=== PATIENT | female | born 1930 | race African-American/Black ===

== ENCOUNTER 2016-12-12 17:40 | Inpatient (IN) ==
--- NOTE | 2016-12-12 18:00 | EKG Report ---
Stationary ECG Study [facility] ER Test Date: 12/12/2016 5:47:37 PM Pat Name: ISABEL MALCOLM Department: Room: Gender: F Supervisor Reclamation: CANDICE : 1930 Requested by: Can Ramos Order Number: [id number] Reading MD: JESUS LITTLE Intervals [place] Rate: 60 P: 999 AL: 0 QRS: -74 QRSD: 185 T: 104 QT: 515 QTc: 516 Interpretive Statements ATRIAL FIBRILLAITON ELECTRONIC VENTRICULAR PACEMAKER ABNORMAL RHYTHM ECG Electronically Signed On 12-16-16 12:01:20 CDT by JESUS LITTLE [email or web address]
[2016-12-12] MEDS ORDERED: ASPIRIN 325 MG TABLET PO STA (18:14)
[2016-12-12 18:25] LABS: Basophils # 0.1 10*3/uL (0.0-0.2); Basophils % 0.9 % (0.0-0.8); Eosinophils # 0.1 10*3/uL (0.0-0.87); Eosinophils % 1.2 % (0.00-10.9); Hematocrit 28.7 VOL% (35.7-47.0); Hemoglobin 9.1 GM/DL (12.0-16.0); Immature Granulocytes % 0.4 %; Immature Granulocytes Absolute 0.03 #; Lymphocytes # 0.7 10*3/uL (1.4-4.0); Lymphocytes % 9.2 % (21.3-54.2); Mean Corpuscular HGB Conc 31.7 GM/DL (32-36); Mean Corpuscular Hemoglobin 27 PG (27-34); Mean Corpuscular Volume 85.4 FL (87-102); Mean Platelet Volume 10.2 FL (9.6-12.0); Monocytes # 0.5 10*3/uL (0.11-0.8); Neutrophils % 81.3 % (38.7-73.9); Platelet Count 1063 T/CUMM (130-400); Red Blood Count 3.36 MC/CUMM (3.8-5.5); Red Cell Distribution Width 18.7 % (9.3-17.3); White Blood Count 7.4 T/CUMM (4-12)
[2016-12-12 18:31] LABS: INR 1.1; PT Patient Result 11.7 SECS
[2016-12-12] MEDS ORDERED: ASPIRIN 325 MG TABLET ONE (18:34)
[2016-12-12 18:35] LABS: Albumin 3.8 G/DL (3.4-5.0); Bilirubin,Total 0.5 MG/DL (0.2-1.0); Calcium 8.9 MG/DL (8.5-10.1); Magnesium 2.2 MG/DL (1.8-2.4); Osmolality,Calculated 291.7 MOS/KG (273-304); Potassium 3.7 MMOL/L (3.5-5.1); Total Protein 7.2 G/DL (6.4-8.3)
--- NOTE | 2016-12-12 18:47 | Emergency Department Note ---
Shakira Rodriguez Mantricia, am scribing for, and in the presence of, Can Salvador MD 18:16. Modesto Rodriguez Charles R, MD, personally performed the services described in this documentation, ascribed by Corrine Rosenberg in my presence, and it is both accurate and complete 846 . Arrival - Arrival Chief Complaint: Non-Specific ED Nursing Triage Note: Brought in by EMS transfer from [place] ER for further evaluation of elevated troponin. Denies CP or SOB. C/o left arm pain since yesterday. Also reports upper abd pain that started 2 months ago. Mode of Arrival: Stretcher Limitations: No Limitations Source: Family Time Seen by Provider: 12/12/16 17:48 - History of Present Illness HPI Narrative: Pt is an 86 y/o black female arriving to ED by EMS with c/o chest pain that onset today. Pt was transferred from [place] ED for further evaluation of elevated troponin levels. Pt initially went to [place] ED with c/o LUE pain. Once at [place] ED her elevated troponin levels were noticed and she was then transferred here. Immediately leaving [place] ED, pt noted right chest pain. Pt's PCP is Dr. Ayala. Dr. Ayala also put in pt's pacemaker. Pt denies SOB, but notes a PMHx of kidney problems. Pt will also be going to [facility] to further evaluate her cysts. She currently is taking aspirin and heparin every Friday, Friday, and Friday. Onset (ago): hour(s) Consistency: constant Severity: mild Severity scale (1-10): 4 Date of Last Menstrual Period: menopause Allergies/Adverse Reactions: Allergies Allergy/AdvReac Type Severity Reaction Status Date / Time Penicillins Allergy Unknown/Unable Verified 12/12/16 17:51 to obtain Review of System - Review of System 12 point system: reviewed and no additional remarkable complaints except as stated - Review of System Constitutional: Absent: chills, diaphoresis, fever Eyes: Absent: discharge, pain Head/Ears/Nose/Throat: Absent: earache, epistaxis Respiratory: Absent: cough, respiratory distress, wheezing Cardiovascular: Present: chest pain (currently relieved). Absent: palpitations , dyspnea on exertion Gastrointestinal: Absent: abdominal pain, nausea, vomiting, diarrhea Genitourinary female: Absent: abnormal menses, dysuria, discharge Musculoskeletal: Present: arm pain. Absent: back pain, lower back pain, leg pain Skin: Absent: rash, lesions Neurological: Absent: headache, numbness Psychiatric: Absent: anxiety, depression Medical,Surgical,& Family Hx - Medical History Cardio: History of: Hypertension, Pacemaker Endocrine: History of: Dyslipidemia, Thyroid Disorder Rheumatology: History of;: Gout - Social History Smoking Status: Never smoker Frequency of Alcohol Use: None Type of Drug Use: None Exam Vital Signs: Vital Signs Temperature 98.0 F 12/12/16 17:45 Pulse Rate 64 12/12/16 17:45 Respiratory Rate 18 12/12/16 17:45 Blood Pressure 162/71 12/12/16 17:45 O2 Sat by Pulse Oximetry 100 12/12/16 17:45 - General General appearance: alert, in no apparent distress - Head Head exam: Present: atraumatic, normocephalic, normal inspection - Eye Eye exam: Present: normal appearance, PERRL, EOMI - ENT ENT exam: Present: normal exam, normal oropharynx, mucous membranes moist, TM's normal bilaterally, normal external ear exam - Neck Neck exam: Present: normal inspection, full ROM, trachea midline. Absent: tenderness - Chest Chest inspection: Present: normal inspection, symmetric chest wall rise. Absent : tenderness - Respiratory Respiratory exam: Present: normal lung sounds bilaterally. Absent: respiratory distress - Cardiovascular Cardiovascular exam: Present: regular rate, normal rhythm, bradycardia, murmur ( 3/6). Absent: rubs, gallop - Abdominal Exam Abdominal exam: Present: soft, distention, normal bowel sounds. Absent: tenderness, guarding, rebound - Extremities Exam Extremities exam: Present: normal inspection, full ROM, normal capillary refill , pedal edema (+1 edema). Absent: tenderness - Back Exam Back exam: Present: normal inspection, full ROM. Absent: tenderness, muscle spasm - Neurological Exam Neurological exam: Present: alert, oriented X3, CN II-XII intact, reflexes normal. Absent: motor sensory deficit - Psychiatric Psychiatric exam: Present: normal affect, normal mood. Absent: depressed - Skin Skin exam: Present: warm, dry, intact, normal color Course - Consultations Consultation #1: Dr. Bedoya will admit for Dr. Ayala Time: 18:44 Results - Labs CBC & BMP: 12/12/16 17:49 12/12/16 17:49 Lab Results: I have reviewed the patients labs Disposition Clinical Impression: Chest pain, Anemia, chronic disease, Renal insufficiency, Abdominal pain distention, Thrombocytosis, Elevated troponin Case discussed with: patient, patient's family Disposition: Still a Patient Condition: Stable Time of Disposition: 18:46
--- NOTE | 2016-12-12 18:50 | XRay Report ---
Exam: XR chest 1V Date: 12/12/2016 6:14 PM Comparison: 12/12/2016 Indication: Chest pain Technique:[Single view chest Findings: The heart is minimally enlarged with left subclavian ventricular permanent pacemaker. Chronic scarring in the lungs with minimal accentuation of the perihilar markings extending to the lung bases. Minimal atelectasis. Stable mediastinum with degenerative changes.] Impression: Cardiomegaly with left subclavian ventricular permanent pacemaker. Chronic scarring in the lungs with mild CHF and minimal atelectasis. Osteopenia. PROCEDURE INTERPRETED AT [facility] DEPARTMENT OF RADIOLOGY Final Report Signed by: Dr. Janett Stone
--- NOTE | 2016-12-12 18:52 | XRay Report ---
Exam: XR abdomen 2V Date: 12/12/2016 6:12 PM Comparison: None Indication: Generalized abdominal pain Technique:[Supine and erect abdomen] Findings: Mild gaseous distention of the bowel with no free air. Left subclavian ventricular pacemaker with metallic stents in the left femoral location. Arterial calcifications are noted with degenerative changes and osteopenia. Impression: Mild gaseous distention of the bowel which could be related to ileus, enteritis, etc. No free air. Permanent pacemaker with left femoral metallic stents. PROCEDURE INTERPRETED AT [facility] DEPARTMENT OF RADIOLOGY Final Report Signed by: Dr. Janett Stone
[2016-12-12] MEDS ORDERED: POTASSIUM CHLORIDE 20 MEQ TABLET PO PRN (21:21)
[2016-12-12] MEDS ORDERED: MAGNESIUM SULF RIDER 2 GM in PREMIX 1 EACH IV PRN (21:21)
[2016-12-12] MEDS ORDERED: MORPHINE 2 MG/1 ML SYRINGE IV PRN (21:21)
[2016-12-12] MEDS ORDERED: ONDANSETRON 4 MG/2 ML VIAL IV PRN (21:21)
[2016-12-12] MEDS ORDERED: SODIUM CHLORIDE 0.9% 1,000 ML IV SCH (21:21)
[2016-12-12] MEDS ORDERED: MAGNESIUM SULF RIDER 4 GM in PREMIX 1 EACH IV PRN (21:21)
[2016-12-12] MEDS ORDERED: ENOXAPARIN 60 MG/0.6 ML SYRINGE SUBCUT SCH (21:21)
--- NOTE | 2016-12-13 00:40 | EKG Report ---
Stationary ECG Study [facility] Test Date: 12/13/2016 12:36:25 AM Pat Name: ISABEL MALCOLM Department: Room: 285 Gender: F Show Host: : 1930 Requested by: Can Ramos Order Number: [id number] Reading MD: JESUS LITTLE Intervals [place] Rate: 62 P: 999 [place]: 0 QRS: -75 QRSD: 188 T: 104 QT: 519 QTc: 524 Interpretive Statements ATRIAL FIBRILLATION WITH ELECTRONIC VENTRICULAR PACEMAKER Electronically Signed On 12-16-16 12:05:29 CDT by JESUS LITTLE [email or web address]
[2016-12-13 02:25] LABS: Basophils # 0.1 10*3/uL (0.0-0.2); Basophils % 1.1 % (0.0-0.8); Eosinophils # 0.1 10*3/uL (0.0-0.87); Eosinophils % 1.4 % (0.00-10.9); Hematocrit 27.6 VOL% (35.7-47.0); Hemoglobin 8.6 GM/DL (12.0-16.0); Immature Granulocytes % 0.5 %; Immature Granulocytes Absolute 0.03 #; Lymphocytes # 0.6 10*3/uL (1.4-4.0); Lymphocytes % 9.3 % (21.3-54.2); Mean Corpuscular HGB Conc 31.2 GM/DL (32-36); Mean Corpuscular Hemoglobin 27 PG (27-34); Mean Corpuscular Volume 87.1 FL (87-102); Mean Platelet Volume 9.9 FL (9.6-12.0); Monocytes # 0.4 10*3/uL (0.11-0.8); Monocytes % 6.9 % (1.7-12.7); Neutrophils % 80.8 % (38.7-73.9); Platelet Count 970 T/CUMM (130-400); Red Blood Count 3.17 MC/CUMM (3.8-5.5); Red Cell Distribution Width 18.6 % (9.3-17.3); White Blood Count 6.2 T/CUMM (4-12)
[2016-12-13 03:06] LABS: Albumin 3.4 G/DL (3.4-5.0); Bilirubin,Total 0.7 MG/DL (0.2-1.0); Calcium 8.4 MG/DL (8.5-10.1); Magnesium 2.1 MG/DL (1.8-2.4); Osmolality,Calculated 293.6 MOS/KG (273-304); Potassium 3.8 MMOL/L (3.5-5.1); Total Protein 5.8 G/DL (6.4-8.3)
--- NOTE | 2016-12-13 06:16 | EKG Report ---
Stationary ECG Study [facility] Test Date: 12/12/2016 9:29:11 PM Pat Name: ISABEL MALCOLM Department: Room: 285 Gender: F Adhesive Sprayer: : 1930 Requested by: Can Ramos Order Number: [id number] Reading MD: JESUS LITTLE Intervals [place] Rate: 64 P: 999 [place]: 0 QRS: -80 QRSD: 166 T: 97 QT: 490 QTc: 499 Interpretive Statements ATRIAL FIBRILLATION WITH ELECTRONIC VENTRICULAR PACEMAKER NO FURTHER INTERPRETATION POSSIBLE ATYPICAL ECG Electronically Signed On 12-16-16 12:03:47 CDT by JESUS LITTLE [email or web address]
--- NOTE | 2016-12-13 08:11 | XRay Report ---
Exam: XR chest 1V Date: 12/13/2016 8:00 AM Comparison: 12/12/2016 Indication: Shortness of breath Technique:[PA chest] Findings: Stable cardiomegaly and left subclavian ventricular permanent pacemaker. Chronic scarring with persistent accentuation of the perihilar markings. Minimal atelectasis. Stable mediastinum with degenerative changes. Impression: Stable cardiomegaly and left subclavian ventricular permanent pacemaker. Chronic scarring with persistent mild CHF and minimal atelectasis. PROCEDURE INTERPRETED AT [facility] DEPARTMENT OF RADIOLOGY Final Report Signed by: Dr. Janett Stone
--- NOTE | 2016-12-13 08:13 | XRay Report ---
Exam: XR abdomen 1V Date: 12/13/2016 8:00 AM Comparison: 12/12/2016 Indication: Generalized abdominal pain Technique:[Supine abdomen] Findings: Decreased gaseous distention of the bowel. Increased fecal material in the colon. Vascular calcifications with partially calcified uterine leiomyoma. Stable osseous structures with permanent pacemaker. Impression: Reduced gaseous distention of bowel resection with improved ileus, enteritis, etc. Increased fecal material in the colon. Vascular calcifications with partially calcified uterine leiomyomata. PROCEDURE INTERPRETED AT [facility] DEPARTMENT OF RADIOLOGY Final Report Signed by: Dr. Janett Stone
--- NOTE | 2016-12-13 09:13 | Cardiology History & Physical ---
<Emperatriz Bobby E - Last Filed: 12/13/16 09:10> Assessment and Plan - Time spent with patient Time spent with patient: Greater than 30 minutes (due to assessment, plan, and documentation) (1) Elevated troponin Status: Acute Assessment and plan: Troponins are flat and are elevated in the setting of renal insufficiency with creatinine 1.4. EKG shows no acute changes. Patient is tender to palpation of left chest wall. Patient's pain is thought to be non-cardiac. She does have a systolic murmur present that the family was unaware of. We will obtain an echocardiogram for further evaluation of any valvular abnormalities. Current Visit: Yes (2) Chest pain Status: Acute Assessment and plan: Patient's pain is non-cardiac in nature. She has tenderness to palpation of left chest wall surrounding pacemaker site which has been present for several months. She is also tender at the site of a left midsternal/left breast keloid. Troponins are flat. EKG shows no acute ischemic changes. Current Visit: Yes (3) Anemia Status: Acute Assessment and plan: Limited access to prior records, but lab work from 2010 shows normal H&H. Will check Hemoccult stools. GI has been consulted. Current Visit: Yes (4) History of cardiac pacemaker Status: Chronic Assessment and plan: History of dual chamber pacemaker placement, appears to be functioning appropriately. Current Visit: Yes (5) HTN (hypertension) Status: Chronic Assessment and plan: Currently suboptimally controlled. Will continue home medications and monitor and adjust as needed. Current Visit: Yes (6) GERD (gastroesophageal reflux disease) Status: Chronic Assessment and plan: Continue Protonix. Current Visit: Yes (7) Abdominal distension Status: Acute Assessment and plan: Ongoing for the past 2 months accompanied by occasional hematochezia and melena. Has also lost approximately 40 pounds in the last 15 months without trying. Has seen Dr. Alejandro, GI at [facility], but now wishes to follow with one of our Gastroenterologists. GI has been consulted. Current Visit: Yes (8) Renal insufficiency Status: Acute Assessment and plan: This appears to be chronic. We have limited records, so it is difficult to determine her baseline, but she has also had elevated creatinine at 2.2 in April 2015. Creatinine was 1.2 in 2010. Current Visit: Yes History of Present Illness Chief complaint: elevated troponin, left arm pain History of present illness: RN CARDIOVASCULAR: DR. AYALA PCP: DR. COURTNEY BEAR Ms. Landeros is a 86 year old female who is routinely followed by Dr. Ayala. Her primary care provider is Dr. Thuy Bear. She has a history of bradycardia status post dual-chamber pacemaker placement, peripheral vascular disease, gastroesophageal reflux disease, arthritis, hypertension. Risk factors significant for: Hypertension, sedentary lifestyle, former smoker, age. To the patient's knowledge, she has never undergone stress testing or cardiac catheterization. Her granddaughter is at the bedside and aids in providing some of the history. Ms. Landeros was transferred to our facility from [facility] last night for further evaluation of her elevated troponin. She presented to [facility] yesterday with complaints of left arm pain. She tells me that she has had left hand and arm pain that goes up her arm almost to her shoulder. This is also accompanied by left chest wall pain. She describes this as feeling as if something "hits her" and then goes away. She reports it is intermittent and only last a couple seconds. She tells me this is been going on off and on for the last month. It is also sometimes accompanied by mild shortness of breath and diaphoresis. She denies nausea or vomiting. She reports over the past several weeks, she has noticed an increase in dyspnea on exertion that she previously did not have. She also notes occasional palpitations and bilateral lower extremity swelling. She has been seen by Dr. Ayala in the clinic in August of this year and was having some left-sided chest wall pain around her pacemaker site and in her rib area at that time. Her pacemaker was checked and was found to be functioning appropriately. She continues to have some tenderness in this area. She is also noted to have a large keloid on her left breast that has been tender for quite some time. According to her granddaughter, the patient has some ongoing GI complaints for which she has been undergoing evaluation. She has abdominal distention that has been present for approximately 2 months. She was hospitalized at [facility] in October and saw Dr. Alejandro who performed an EGD which according to the family was negative. She reportedly had an ileus and has had some occasional melena and hematochezia but reports she is passing gas and is having regular bowel movements. Her granddaughter tells me she has a history of having a mass on her kidneys for which she was being referred to a physician in [place], [place] for further treatment. She has also undergone uterine ablation. Her troponins are flat, creatinine is elevated at 1.4. She is currently pain free and her pain is thought to be non-cardiac in nature given her tenderness surrounding her pacemaker. We will obtain an echocardiogram to evaluate for further valvular abnormalities. EKG shows ventricular pacing, no acute ischemic changes. Dr. Mcgraw to follow with further plan and addendum. Home Medications Medication Instructions Recorded Confirmed Type Alendronate [Fosamax] 70 mg PO MO 12/12/16 12/12/16 History Allopurinol [Allopurinol] 300 mg PO QAM 12/12/16 12/12/16 History Aspirin EC Tab 81 mg PO QAM 12/12/16 12/12/16 History Atorvastatin [Lipitor] 5 mg PO QAM 12/12/16 12/12/16 History Docusate Sodium 100 mg PO QAM 12/12/16 12/12/16 History Furosemide [Furosemide] 40 mg PO QAM 12/12/16 12/12/16 History Levothyroxine Sodium 50 mcg PO QAM 12/12/16 12/12/16 History Pantoprazole Sodium 40 mg PO QAM 12/12/16 12/12/16 History Polyethylene Glycol Powder 1 each PO QAM 12/12/16 12/12/16 History [Miralax] amLODIPine [Norvasc] 10 mg PO QAM 12/12/16 12/12/16 History traZODone [Desyrel] 25 - 50 mg PO BEDTIME 12/12/16 12/12/16 History Allergies Allergy/AdvReac Type Severity Reaction Status Date / Time Penicillins Allergy Unknown/Unable Verified 12/12/16 17:51 to obtain Review of systems: - Constitutional: Present: weight loss (per Dr. Ayala's clinic note from August 2016, the patient had lost from 170# to 132# over the past year), As per HPI. Absent: anorexia, chills, daytime sleepiness, excessive sweating, fever(s), frequent falls, headache(s), increased appetite, lethargy, malaise, night sweats, stops breathing during sleep, weakness, weight gain, fatigue. - EENT Eyes: Present: As per HPI. Absent: blurry vision, diplopia, loss of vision Ears: Present: As per HPI. Absent: decreased hearing, ear discharge, ear pain Nose, mouth and throat: Present: As per HPI. Absent: dysphagia, epistaxis, headache(s), hoarseness, lip swelling, nasal congestion, neck mass, neck pain, sinus pressure, sore throat, throat swelling, tongue swelling, vertigo - Cardiovascular: Present: chest pain at rest, dyspnea, dyspnea on exertion, edema, palpitations, as per HPI. Absent: chest pain with activity, claudication , diaphoresis, radiating jaw, neck or arm pain, lightheadedness, orthopnea, PND - Respiratory: Present: dyspnea, dyspnea on exertion, as per HPI. Absent: cough , hemoptysis, wheezing, snoring, pain on inspiration - Gastrointestinal: Present: hematochezia, melena, abdominal pain, bloating, As per HPI. Absent: change in bowel habits, constipation, diarrhea, heartburn, hematemesis, loose stools, nausea, vomiting - Genitourinary: Present: As per HPI. Absent: difficulty urinating, dysuria, flank pain, hematuria, nocturia, urinary frequency, urinary incontinence - Musculoskeletal: Present: joint stiffness As per HPI. Absent: arthralgias, back pain, joint swelling, limited range of motion, muscle cramps, muscle weakness, myalgias - Neurological: Present: As per HPI. Absent: abnormal gait, abnormal speech, behavioral changes, confusion, convulsions, disequilibrium, dizziness, focal weakness, frequent falls, headache(s), memory loss, numbness, paresthesias, radicular pain, syncope, tremor(s) - Psychiatric: Present: As per HPI. Absent: anxiety, confusion, depression, panic attacks - Endocrine: Present: As per HPI. Absent: cold intolerance, fatigue, heat intolerance, polydipsia, polyphagia - Hematologic/Lymphatic: Present: As per HPI. Absent: easy bleeding, easy bruising, lymphadenopathy Medical,Surgical,& Family Hx - Medical History Cardio: History of: Hypertension, Pacemaker, PVD Endocrine: History of: Thyroid Disorder No history of: Diabetes Mellitus (IDDM), Diabetes Mellitus (NIDDM) Rheumatology: History of;: Gout Gastrointestinal: History of: GERD, Hematochezia - Surgical History Additional Surgical History: Dual chamber pacemaker, surgery by Dr. Russell Viveros to [facility] for PVD - Family History Family History: noncontributory - Social History Smoking Status: Former smoker (smoked from [id number]) Have you smoked in the last 12 months: No Frequency of Alcohol Use: None Type of Drug Use: None Marital Status: Lives With:: Children Functional capacity: uses cane/walker Cardiology Physical Exam - Constitutional Vitals: Vital Signs Temp Pulse Resp BP Pulse Ox 97.6 F 60 20 172/73 96 12/13/16 07:51 12/13/16 07:51 12/13/16 07:51 12/13/16 07:51 12/12/16 20:00 Intake and Output 12/12/16 12/13/16 12/13/16 22:59 06:59 14:59 Intake Total 240 / 240 Output Total 200 / 200 Balance 40 / 40 Intake: Oral 240 / 240 Output: Urine 200 / 200 Other: Voiding Method Toilet # Voids 2 # Bowel Movements 1 Weight 132 lb 130 lb Exam: General appearance: Pleasant and cooperative. Normal weight, no acute distress. - Head Head exam: Present: normal inspection, normocephalic, atraumatic. Absent: hematoma, laceration - Eye Eye exam: Present: EOMI. Absent: conjunctival injection, nystagmus, periorbital swelling, scleral icterus, laceration to eyelids Pupils: Present: PERRL. Absent: constricted, dilated, fixed, irregular, unequal - ENT ENT exam: Present: normal exam, normal external ear exam - Neck Neck exam: Present: normal inspection. Absent: lymphadenopathy, meningismus, tenderness, thyromegaly - Respiratory Respiratory exam: Present: clear to auscultation bilaterally. Absent: accessory muscle use, chest wall tenderness - Cardiovascular Cardiovascular exam: Present: regular rate and rhythm, systolic murmur, best appreciated at apex with radiation to axilla. Absent: gallop, JVD, rubs - GI/Abdominal GI/Abdominal exam: Present: normal bowel sounds, soft, distended, tender to palpation. Absent: firm, guarding, hernia, rebound. - Extremities Exam Extremities exam: Present: normal inspection, normal capillary refill. Upper extremity pulses 2+. Lower extremity pulses diminished. Trace pitting edema to BLE. Absent: calf tenderness - Back Exam Back exam: Present: normal inspection. Absent: muscle spasm, vertebral tenderness, multiple keloids noted to left side of back - Neurological Exam Neurological exam: Present: alert, oriented X3, grossly intact without resting or essential tremor - Psychiatric Psychiatric exam: Present: normal affect, normal mood - Skin Skin exam: Present: normal color, warm, dry, intact, keloid noted to left breast (tender to palpation). Absent: cyanosis, diaphoretic, rash, urticaria Result/EKG - Labs CBC & BMP: 12/13/16 02:03 12/13/16 02:03 Lab Results: I have reviewed the past 24 hour labs Labs: Laboratory Results - last 24 hr 12/12/16 12/13/16 12/13/16 22:13 02:03 02:03 WBC 6.2 RBC 3.17 L Hgb 8.6 L Hct 27.6 L MCV 87.1 MCH 27 MCHC 31.2 L RDW 18.6 H Plt Count 970 H MPV 9.9 Neut % (Auto) 80.8 H Lymph % (Auto) 9.3 L [place] % (Auto) 6.9 Eos % (Auto) 1.4 Baso % (Auto) 1.1 H Neut # (Auto) 5.0 Lymph # (Auto) 0.6 L [place] # (Auto) 0.4 Eos # (Auto) 0.1 Baso # (Auto) 0.1 Immature Gran % 0.5 Nucleated RBC % 0.0 Immature Gran # 0.03 Nucleated RBCs # 0.00 Sodium Potassium Chloride Carbon Dioxide Anion Gap BUN Creatinine GFR Calculation BUN/Creatinine Ratio Glucose Calculated Osmolality Calcium Magnesium Total Bilirubin AST ALT Alkaline Phosphatase Troponin I 0.059 H 0.070 H B-Natriuretic Peptide Total Protein Albumin Globulin Albumin/Globulin Ratio 12/13/16 12/13/16 02:03 02:03 WBC RBC Hgb Hct MCV MCH MCHC RDW Plt Count MPV Neut % (Auto) Lymph % (Auto) Spalding % (Auto) Eos % (Auto) Baso % (Auto) Neut # (Auto) Lymph # (Auto) [place]ding # (Auto) Eos # (Auto) Baso # (Auto) Immature Gran % Nucleated RBC % Immature Gran # Nucleated RBCs # Sodium 146 H Potassium 3.8 Chloride 113 H Carbon Dioxide 23 Anion Gap 13.8 BUN 23 H Creatinine 1.40 H GFR Calculation 36 BUN/Creatinine Ratio 16.00 Glucose 103 Calculated Osmolality 293.6 Calcium 8.4 L Magnesium 2.1 Total Bilirubin 0.70 AST 14 ALT 15 Alkaline Phosphatase 111 Troponin I B-Natriuretic Peptide 365 H Total Protein 5.8 L Albumin 3.4 Globulin 2.4 Albumin/Globulin Ratio 1.4 - EKG EKG results: interpreted by me (V-paced) <Karthikeyan Mcgraw - Last Filed: 12/13/16 18:18> History of Present Illness History of present illness: I have personally interviewed and examined the patient and reviewed the chart. I have discussed the case with Emperatriz Bobby [employer]. I agree with assessment and plan. Ms. Landeros is a 86 year old female who has had prior follow-up evaluation with Dr. Ayala having pacemaker placed. Her biggest complaints is left arm and chest pain that is constant and persistent and worsening motion and palpation. She also has a lot of GI complaints that has been evaluated by Dr. Alejandro at [facility] last month. Those records are trying to be obtained. She's had peripheral vascular disease but no coronary artery disease. Her general health is been fair. I agree with the exam and I do wish to note that she is tender with palpation around the left chest and left arm that reproduces her pain. Her left hand is sensitive to her. Certainly this may be a radiculopathy. Her GI complaints with is slightly distended abdomen is direct tenderness to palpation and distention. GI medicine is going to evaluate this. We do await again the records from [facility]. I do not think aggressive cardiac evaluation is indicated at this time. Cardiology Physical Exam - Constitutional Vitals: Vital Signs Temp Pulse Resp BP Pulse Ox 98.8 F 60 16 172/75 97 12/13/16 16:00 12/13/16 16:00 12/13/16 16:00 12/13/16 16:00 12/13/16 16:00 Intake and Output 12/13/16 12/13/16 12/13/16 07:59 15:59 23:59 Intake Total 1480 / 1480 Output Total Balance 1479 / 1479 Intake: IV 1000 / 1000 Ns 1,000 ml @ 75 mls/hr 1000 / 1000 IV .[id number] ARAMIS Rx#: [id number] Oral 480 / 480 Output: Urine Other: Voiding Method Toilet # Voids 2 # Bowel Movements 1 Weight 58.967 kg Patient Weight 12/13/16 23:59 Weight 58.967 kg Result/EKG - Labs CBC & BMP: 12/13/16 02:03 12/13/16 02:03 Labs: Laboratory Results - last 24 hr 12/12/16 12/13/16 12/13/16 22:13 02:03 02:03 WBC 6.2 RBC 3.17 L Hgb 8.6 L Hct 27.6 L MCV 87.1 MCH 27 MCHC 31.2 L RDW 18.6 H Plt Count 970 H MPV 9.9 Neut % (Auto) 80.8 H Lymph % (Auto) 9.3 L Spalding % (Auto) 6.9 Eos % (Auto) 1.4 Baso % (Auto) 1.1 H Neut # (Auto) 5.0 Lymph # (Auto) 0.6 L [place] # (Auto) 0.4 Eos # (Auto) 0.1 Baso # (Auto) 0.1 Immature Gran % 0.5 Nucleated RBC % 0.0 Immature Gran # 0.03 Nucleated RBCs # 0.00 Sodium Potassium Chloride Carbon Dioxide Anion Gap BUN Creatinine GFR Calculation BUN/Creatinine Ratio Glucose Calculated Osmolality Calcium Magnesium Total Bilirubin AST ALT Alkaline Phosphatase Troponin I 0.059 H 0.070 H B-Natriuretic Peptide Total Protein Albumin Globulin Albumin/Globulin Ratio 12/13/16 12/13/16 02:03 02:03 WBC RBC Hgb Hct MCV MCH MCHC RDW Plt Count MPV Neut % (Auto) Lymph % (Auto) Spalding % (Auto) Eos % (Auto) Baso % (Auto) Neut # (Auto) Lymph # (Auto) Sp[place]ding # (Auto) Eos # (Auto) Baso # (Auto) Immature Gran % Nucleated RBC % Immature Gran # Nucleated RBCs # Sodium 146 H Potassium 3.8 Chloride 113 H Carbon Dioxide 23 Anion Gap 13.8 BUN 23 H Creatinine 1.40 H GFR Calculation 36 BUN/Creatinine Ratio 16.00 Glucose 103 Calculated Osmolality 293.6 Calcium 8.4 L Magnesium 2.1 Total Bilirubin 0.70 AST 14 ALT 15 Alkaline Phosphatase 111 Troponin I B-Natriuretic Peptide 365 H Total Protein 5.8 L Albumin 3.4 Globulin 2.4 Albumin/Globulin Ratio 1.4
--- NOTE | 2016-12-13 10:17 | Gastrointestinal Consult Note ---
<Tori Bonilla - Last Filed: 12/13/16 10:17> Assessment and Plan (1) Abdominal distension Status: Acute Assessment and plan: 12/13-2 month history of abdominal distention with discomfort with no changes in normal bowel patterns. Recent workup ongoing at [place] with Dr. Alejandro with recent EGD with negative findings. Obtain records from [facility]. Obtain stool for occult blood due to history of anemia plan an addendum to follow by Dr. Fleming. Current Visit: Yes History of Present Illness Chief complaint: Abdominal distention History of present illness: Ms. Landeros is a 86 year old female was admitted to the hospital with onset of chest pain. Patient is a poor historian. Daughter is at bedside and contributes minimally during visit due to being on the cell phone. Information is obtained from chart review. Patient is reported to have had an onset of chest pain radiating down her arm on yesterday. She presented to the emergency room at [facility] and was told that her troponins were elevated and then was transferred to our facility for further workup. Patient states that the pain began suddenly with severe in nature and was associated with shortness of breath and diaphoresis at that time. She denied any nausea or vomiting. She is currently being worked up by cardiology at this time however initial workup is felt at this time to be of noncardiac nature. She states the pain was not associated with any precipitating factors. Denies a history of pain like this in the past. She has a cardiac history with hypertension and pacemaker implant. Patient brought forth on admission that she has had abdominal distention for the past 2 months and has not workup ongoing at [facility] with Dr. Montes. She is reported to have had an 40 pound weight loss in the last year and a half due to decreased appetite. Denies any melena or hematochezia. Denies any fever, chills, or night sweats. She has had a recent EGD, per daughter, with no acute findings. She is also had a colonoscopy in the recent past but cannot recall the date or the findings of this at that time. Denies family history of colon cancer. Patient states that she does not have abdominal pain except for when her abdomen becomes distended. That she just reports more soreness with this. States she has been having regular bowel movements with no change in her bowel pattern. She is passing gas freely. She states the distention comes and goes but she cannot associate this with any known factor. Denies any reflux, dysphagia, odynophagia. Denies NSAID use. She takes Protonix daily. Her history also includes renal insufficiency and anemia of chronic disease. Hemoglobin 8.6 today. Also noted to have thrombocytosis with platelet count at 970 at present. Home Medications Medication Instructions Recorded Confirmed Type Alendronate [Fosamax] 70 mg PO MO 12/12/16 12/12/16 History Allopurinol [Allopurinol] 300 mg PO QAM 12/12/16 12/12/16 History Aspirin EC Tab 81 mg PO QAM 12/12/16 12/12/16 History Atorvastatin [Lipitor] 5 mg PO QAM 12/12/16 12/12/16 History Docusate Sodium 100 mg PO QAM 12/12/16 12/12/16 History Furosemide [Furosemide] 40 mg PO QAM 12/12/16 12/12/16 History Levothyroxine Sodium 50 mcg PO QAM 12/12/16 12/12/16 History Pantoprazole Sodium 40 mg PO QAM 12/12/16 12/12/16 History Polyethylene Glycol Powder 1 each PO QAM 12/12/16 12/12/16 History [Miralax] amLODIPine [Norvasc] 10 mg PO QAM 12/12/16 12/12/16 History traZODone [Desyrel] 25 - 50 mg PO BEDTIME 12/12/16 12/12/16 History Allergies Allergy/AdvReac Type Severity Reaction Status Date / Time Penicillins Allergy Unknown/Unable Verified 12/12/16 17:51 to obtain Medical,Surgical,& Family Hx - Medical History Cardio: History of: Hypertension, Pacemaker, PVD Endocrine: History of: Dyslipidemia, Thyroid Disorder No history of: Diabetes Mellitus (IDDM), Diabetes Mellitus (NIDDM) Rheumatology: History of;: Gout Gastrointestinal: History of: GERD, Hematochezia - Social History Smoking Status: Former smoker (smoked from [id number]) Frequency of Alcohol Use: None Type of Drug Use: None 12 point system: reviewed and no additional remarkable complaints except as stated - Constitutional Constitutional: Present: as per HPI - EENT Eyes: Present: as per HPI Ears: Present: as per HPI Nose, mouth and throat: Present: as per HPI - Cardiovascular Cardiovascular: Present: as per HPI, chest pain at rest - Respiratory Respiratory: Present: as per HPI - Gastrointestinal Gastrointestinal: Present: as per HPI, abdominal pain, bloating - Genitourinary Genitourinary: Present: as per HPI - Musculoskeletal Musculoskeletal: Present: as per HPI - Neurological Neurological: Present: as per HPI - Psychiatric Psychiatric: Present: as per HPI - Endocrine Endocrine: Present: as per HPI - Hematologic/Lymphatic Hematologic/Lymphatic: Present: as per HPI Exam - Constitutional Vitals: Period Temp Pulse Resp BP Sys/Hall Pulse Ox Last 24 Hr 97.0 F-98.3 F 60-97 16-20 143-172/62-74 96-99 General appearance: normal weight, no acute distress - Head Head exam: Present: normal inspection, normocephalic - Eye Eye exam: Present: other (Lids and conjunctive are unremarkable). Absent: scleral icterus - ENT ENT exam: Present: normal exam, normal oropharynx - Neck Neck exam: Present: normal inspection - Respiratory Respiratory exam: Present: clear to auscultation bilaterally. Absent: rales, rhonchi, wheezes - Cardiovascular Cardiovascular exam: Present: regular rate and rhythm. Absent: diastolic murmur , JVD, systolic murmur - GI/Abdominal GI/Abdominal exam: Present: normal bowel sounds, soft. Absent: ascites, distended, mass, organomegaly, tenderness - Extremities Exam Extremities exam: Present: normal inspection, full ROM - Back Exam Back exam: Present: normal inspection - Neurological Exam Neurological exam: Present: alert, oriented X3 - Psychiatric Psychiatric exam: Present: normal affect, normal mood - Skin Skin exam: Present: normal color, warm, dry Results - Labs CBC & BMP: 12/13/16 02:03 12/13/16 02:03 Lab Results: I have reviewed the past 24 hour labs <Dillon Fleming - Last Filed: 12/13/16 13:38> History of Present Illness History of present illness: Ms. Landeros is a 86 year old female Exam - Constitutional Vitals: Period Temp Pulse Resp BP Sys/Hall Pulse Ox Last 24 Hr 97.0 F-98.3 F 60-97 16-20 143-172/62-74 96-99 Results - Labs CBC & BMP: 12/13/16 02:03 12/13/16 02:03
[2016-12-13] MEDS: amLODIPine 10 MG TABLET PO SCH (10:20)
[2016-12-13] MEDS: DOCUSATE SODIUM 100 MG CAPSULE PO SCH (10:20)
[2016-12-13] MEDS: ALLOPURINOL 300 MG TABLET PO SCH (10:20)
[2016-12-13] MEDS: FUROSEMIDE 40 MG TABLET PO SCH (10:20)
[2016-12-13] MEDS: POLYETHYLENE GLYCOL POWDER 17 GM PACK PO SCH (10:20)
[2016-12-13] MEDS: LEVOTHYROXINE 50 MCG TABLET PO SCH (10:20)
[2016-12-13] MEDS: PANTOPRAZOLE 40 MG TABLET PO SCH (10:21)
[2016-12-13] MEDS: ASPIRIN EC 325 MG TABLET PO SCH (10:21)
[2016-12-13] MEDS: ATORVASTATIN 10 MG TABLET PO SCH (10:21)
[2016-12-13] MEDS: ENOXAPARIN 30 MG/0.3 ML SYRINGE SUBCUT SCH (11:20)
[2016-12-13] MEDS: NITROGLYCERIN 2% OINT 1 INCH/GM PACK TOP SCH ×4 (11:22→18:55)
--- NOTE | 2016-12-13 19:36 | ECHO Report ---
Rosemary Landeros Exam Date: 12/13/2016 11:09 Referring Physician: Technologist: Jahaira Hyatt RDCS Age: 86 Ht (in): 63 Wt (lb): 130 Gender: F Exam Location: [facility] Echo Indications: Chest pain, unspecified, Elevated troponin, Anemia, Presence of cardiac pacemaker, Essential (primary) hypertension, GERD, Cardiac murmur, unspecified, Dyspnea, unspecified, Renal insufficiency BP: 160 / 70 HR: 67 Rhythm: Pacemaker Technical Quality: IMPRESSIONS 1. Left ventricle is normal size with mild global hypokinesis with an ejection fraction 45-50%. There is mild concentric left ventricular hypertrophy. 2. Left atrium is severely dilated. 3. Right atrium is moderately dilated with pacemaker lead noted. 4. Right ventricle is normal size and systolic function with pacemaker lead noted. 5. Mild possibly moderate mitral regurgitation. Mitral valve slightly thickened. 6. Aortic valve is unremarkable other some sclerosis but normal Doppler. 7. Severe tricuspid regurgitation. 8. Severely elevated right-sided pressures. MEASUREMENTS (Male / Female) Normal Values 2D ECHO LV Diastolic Diameter PLAX 4.1 cm 4.2 - 5.9 / 3.9 - 5.3 cm LV Systolic Diameter PLAX 2.9 cm LV Fractional Shortening PLAX 29.7 % IVS Diastolic Thickness 1.2 cm 0.6 - 1.0 / 0.6 - 0.9 cm LVPW Diastolic Thickness 1.2 cm 0.6 - 1.0 / 0.6 - 0.9 cm RV Internal Dim ED PLAX 2.9 cm Aortic Root Diameter 3.0 cm LA Systolic Diameter LX 4.2 cm 3.0 - 4.0 / 2.7 - 3.8 cm DOPPLER TR Peak Velocity 454.0 cm/s TR Peak Gradient 82.4 mmHg FINDINGS Left Ventricle Normal left ventricular cavity size. Mild left ventricular hypertrophy. Left ventricular ejection fraction is estimated at 45-50 %. Right Ventricle The right ventricle is normal in size and function. Pacemaker lead noted. Right Atrium Moderately increased right atrial size. Pacemaker lead noted. Left Atrium Severely increased left atrial size. Mitral Valve Thickened mitral valve. Mild-moderate mitral valve regurgitation. Aortic Valve Aortic valve is a tricuspid structure with sclerosis and without stenosis or regurgitation. Tricuspid Valve Morphologically normal tricuspid valve. Severe tricuspid valve regurgitation. Tricuspid regurgitation velocities suggest a PAP of 92 mmHg. Pulmonic Valve Morphologically normal pulmonic valve. Trace pulmonary valve regurgitation. Pericardium Normal pericardium without effusion. Aorta Normal ascending aorta dimension. Karthikeyan Mcgraw MD (Electronically Signed) Final Date: 13 December 2016 19:36
[2016-12-13] MEDS: traZODone 50 MG TABLET PO SCH (21:07)
[2016-12-14] MEDS: NITROGLYCERIN 2% OINT 1 INCH/GM PACK TOP SCH ×4 (01:35→17:16)
[2016-12-14 04:28] LABS: Basophils # 0.1 10*3/uL (0.0-0.2); Basophils % 1.1 % (0.0-0.8); Eosinophils # 0.1 10*3/uL (0.0-0.87); Eosinophils % 1.6 % (0.00-10.9); Hematocrit 26.8 VOL% (35.7-47.0); Hemoglobin 8.6 GM/DL (12.0-16.0); Immature Granulocytes % 0.5 %; Immature Granulocytes Absolute 0.03 #; Lymphocytes # 0.6 10*3/uL (1.4-4.0); Lymphocytes % 9.2 % (21.3-54.2); Mean Corpuscular HGB Conc 32.1 GM/DL (32-36); Mean Corpuscular Hemoglobin 27 PG (27-34); Mean Corpuscular Volume 85.1 FL (87-102); Mean Platelet Volume 10.2 FL (9.6-12.0); Monocytes # 0.4 10*3/uL (0.11-0.8); Monocytes % 5.7 % (1.7-12.7); Neutrophils # 5.2 10*3/uL (1.4-7.4); Neutrophils % 81.9 % (38.7-73.9); Red Blood Count 3.15 MC/CUMM (3.8-5.5); Red Cell Distribution Width 18.6 % (9.3-17.3); White Blood Count 6.3 T/CUMM (4-12)
[2016-12-14 04:49] LABS: Calcium 8.6 MG/DL (8.5-10.1); Magnesium 1.9 MG/DL (1.8-2.4); Osmolality,Calculated 292.7 MOS/KG (273-304); Potassium 4.6 MMOL/L (3.5-5.1)
[2016-12-14 05:25] LABS: Risk Ratio 2.13
[2016-12-14 05:27] LABS: Platelet Count 1007 T/CUMM (130-400)
[2016-12-14] MEDS: POLYETHYLENE GLYCOL POWDER 17 GM PACK PO SCH (08:43)
[2016-12-14] MEDS: LEVOTHYROXINE 50 MCG TABLET PO SCH (08:44)
[2016-12-14] MEDS: PANTOPRAZOLE 40 MG TABLET PO SCH (08:44)
[2016-12-14] MEDS: ATORVASTATIN 10 MG TABLET PO SCH (08:44)
[2016-12-14] MEDS: DOCUSATE SODIUM 100 MG CAPSULE PO SCH (08:44)
[2016-12-14] MEDS: ENOXAPARIN 30 MG/0.3 ML SYRINGE SUBCUT SCH ×2 (08:44→11:11)
[2016-12-14] MEDS: amLODIPine 10 MG TABLET PO SCH (08:44)
[2016-12-14] MEDS: ASPIRIN EC 325 MG TABLET PO SCH (08:45)
[2016-12-14] MEDS: ALLOPURINOL 300 MG TABLET PO SCH (08:45)
[2016-12-14] MEDS: FUROSEMIDE 40 MG TABLET PO SCH (08:45)
--- NOTE | 2016-12-14 13:37 | Cardiology Progress Note ---
Assessment and Plan (1) Atrial fibrillation Status: Chronic Assessment and plan: This is probably chronic. She is not a good candidate for anticoagulants for stroke prevention. Current Visit: Yes (2) Chest pain Status: Acute Assessment and plan: Summary this is somewhat chronic and is certainly atypical for cardiac. Troponins is certainly not diagnostic for Current Visit: Yes (3) Renal insufficiency Status: Acute Assessment and plan: Has a chronic element of this. Current Visit: Yes (4) Thrombocytosis Status: Acute Assessment and plan: Duration is unknown and we will ask hematology to evaluate this as well as for anemia. Current Visit: Yes (5) Anemia Status: Chronic Assessment and plan: Probably anemia of chronic disease. We will ask though because her thrombocytosis for hematology to evaluate. Current Visit: Yes (6) HTN (hypertension) Status: Chronic Current Visit: Yes Cardiology - PN: Subj Interval history: The patient continued has some chest and arm and hand pains are noncardiac and constant. Troponins unremarkable. Telemetry continued to reveal electron ventricular pacing. GI medicine has seen the patient await records from [facility] from recent examination and evaluation. Family states that the patient is better the patient feels better. Echocardiogram reveals an ejection fraction of 45-50% with mild global hypokinesis. Left atrium is severely dilated with right atrium moderately dilated. There is probably it worst moderate mitral regurgitation. There is severe tricuspid regurgitation with severe elevated right-sided pressures. Exam (Progress Note) - Constitutional Vitals: Period Temp Pulse Resp BP Sys/Hall Pulse Ox Last 24 Hr 97.2 F-99.0 F 59-61 12-20 139-195/65-79 92-99 Exam: General appearance: normal weight, no acute distress, she does. Some of her frail elderly female. HEENT exam: normal inspection, atraumatic Neck exam: normal inspection no JVD. No carotid bruit. Trachea is in midline Respiratory/lungs exam: clear to auscultation bilaterally good air movement. Cardiovascular exam: regular rate and rhythm, no murmur or gallop or rub. No precordial lift. Chest wall exam: Still some diffuse tenderness but this is improved. GI/Abdominal exam: Slightly protuberant but has moderate diffuse direct tenderness. Bowel sounds are present. Extremeties/musculoskeletal: normal inspection without edema or cyanosis. Neurological exam: alert, oriented X3, no focal deficits Psychiatric exam: normal affect, normal mood. Cognitive function is grossly normal. Skin exam: normal color, warm Result/EKG - Labs CBC & BMP: 12/14/16 03:38 12/14/16 03:38 Lab Results: I have reviewed the past 24 hour labs Labs: Laboratory Results - last 24 hr 12/14/16 12/14/16 12/14/16 03:38 03:38 03:38 WBC 6.3 RBC 3.15 L Hgb 8.6 L Hct 26.8 L MCV 85.1 L MCH 27 MCHC 32.1 RDW 18.6 H Plt Count 1007 H* MPV 10.2 Neut % (Auto) 81.9 H Lymph % (Auto) 9.2 L Wal[place] % (Auto) 5.7 Eos % (Auto) 1.6 Baso % (Auto) 1.1 H Neut # (Auto) 5.2 Lymph # (Auto) 0.6 L [place] # (Auto) 0.4 Eos # (Auto) 0.1 Baso # (Auto) 0.1 Immature Gran % 0.5 Nucleated RBC % 0.0 Immature Gran # 0.03 Nucleated RBCs # 0.00 Sodium 145 Potassium 4.6 Chloride 111 H Carbon Dioxide 24 Anion Gap 14.6 BUN 27 H Creatinine 1.30 H GFR Calculation 39 BUN/Creatinine Ratio 20.00 Glucose 92 Calculated Osmolality 292.7 Calcium 8.6 Magnesium 1.9 Triglycerides 65 Cholesterol 117 LDL Cholesterol 59.0 VLDL Cholesterol 13.0 HDL Cholesterol 55 Heart Disease Risk Ratio 2.13 - Impressions Impressions: Telemetry with atrial fibrillation and electronic ventricular pacing.
[2016-12-14] MEDS: traZODone 50 MG TABLET PO SCH (22:16)
[2016-12-15] MEDS: NITROGLYCERIN 2% OINT 1 INCH/GM PACK TOP SCH ×4 (00:17→18:03)
[2016-12-15 05:59] LABS: Basophils # 0.1 10*3/uL (0.0-0.2); Basophils % 0.8 % (0.0-0.8); Eosinophils # 0.1 10*3/uL (0.0-0.87); Eosinophils % 1.6 % (0.00-10.9); Hematocrit 26.1 VOL% (35.7-47.0); Hemoglobin 8.4 GM/DL (12.0-16.0); Immature Granulocytes % 0.6 %; Immature Granulocytes Absolute 0.04 #; Lymphocytes # 0.6 10*3/uL (1.4-4.0); Lymphocytes % 7.8 % (21.3-54.2); Mean Corpuscular HGB Conc 32.2 GM/DL (32-36); Mean Corpuscular Hemoglobin 27 PG (27-34); Mean Corpuscular Volume 82.6 FL (87-102); Mean Platelet Volume 10.3 FL (9.6-12.0); Monocytes # 0.4 10*3/uL (0.11-0.8); Monocytes % 6.2 % (1.7-12.7); Neutrophils # 5.9 10*3/uL (1.4-7.4); Red Blood Count 3.16 MC/CUMM (3.8-5.5); Red Cell Distribution Width 19.2 % (9.3-17.3); White Blood Count 7.1 T/CUMM (4-12)
[2016-12-15 06:04] LABS: Platelet Count 1019 T/CUMM (130-400)
[2016-12-15 06:39] LABS: Calcium 8.6 MG/DL (8.5-10.1); Magnesium 1.9 MG/DL (1.8-2.4); Osmolality,Calculated 292.7 MOS/KG (273-304); Potassium 4.9 MMOL/L (3.5-5.1)
[2016-12-15] MEDS: POLYETHYLENE GLYCOL POWDER 17 GM PACK PO SCH (08:46)
[2016-12-15] MEDS: PANTOPRAZOLE 40 MG TABLET PO SCH (08:47)
[2016-12-15] MEDS: amLODIPine 10 MG TABLET PO SCH (08:47)
[2016-12-15] MEDS: ATORVASTATIN 10 MG TABLET PO SCH (08:47)
[2016-12-15] MEDS: FUROSEMIDE 40 MG TABLET PO SCH (08:47)
[2016-12-15] MEDS: ALLOPURINOL 300 MG TABLET PO SCH (08:47)
[2016-12-15] MEDS: ENOXAPARIN 30 MG/0.3 ML SYRINGE SUBCUT SCH ×2 (08:48→10:53)
[2016-12-15] MEDS: ASPIRIN EC 325 MG TABLET PO SCH (08:48)
[2016-12-15] MEDS: LEVOTHYROXINE 50 MCG TABLET PO SCH (08:48)
[2016-12-15] MEDS: DOCUSATE SODIUM 100 MG CAPSULE PO SCH (08:48)
--- NOTE | 2016-12-15 10:03 | Oncology Consult Note ---
History of Present Illness Chief complaint: Thrombocytosis and anemia History of present illness: Ms. Landeros is a 86 year old female who has been found to be anemic. She has also been found to have a platelet count of greater than 1 million. She gives no history of either one in the past. She has microcytic anemia. Blood work today includes white cell count of 7100 with a hemoglobin of 8.4. Her MCV is low as 82.6 and her RDW is 19.2. Her platelet count is 1,190,000. Her comprehensive metabolic profile demonstrates consistent mild elevation of her serum creatinine which is 1.4 today. Albumin and globulin are normal. She has been evaluated at [facility] by Dr. Alejandro. I questioned her concerning GI blood loss she gives no history of any type of blood loss, GI or otherwise. She takes enteric-coated aspirin 81 mg daily but she is on no other anticoagulants. Her admission set of problems includes: 1) Elevated troponin Status: Acute Assessment and plan: Troponins are flat and are elevated in the setting of renal insufficiency with creatinine 1.4. EKG shows no acute changes. Patient is tender to palpation of left chest wall. Patient's pain is thought to be non-cardiac. She does have a systolic murmur present that the family was unaware of. We will obtain an echocardiogram for further evaluation of any valvular abnormalities. Current Visit: Yes (2) Chest pain Status: Acute Assessment and plan: Patient's pain is non-cardiac in nature. She has tenderness to palpation of left chest wall surrounding pacemaker site which has been present for several months. She is also tender at the site of a left midsternal/left breast keloid. Troponins are flat. EKG shows no acute ischemic changes. Current Visit: Yes (3) Anemia Status: Acute Assessment and plan: Limited access to prior records, but lab work from 2010 shows normal H&H. Will check Hemoccult stools. GI has been consulted. Current Visit: Yes (4) History of cardiac pacemaker Status: Chronic Assessment and plan: History of dual chamber pacemaker placement, appears to be functioning appropriately. Current Visit: Yes (5) HTN (hypertension) Status: Chronic Assessment and plan: Currently suboptimally controlled. Will continue home medications and monitor and adjust as needed. Current Visit: Yes (6) GERD (gastroesophageal reflux disease) Status: Chronic Assessment and plan: Continue Protonix. Current Visit: Yes (7) Abdominal distension Status: Acute Assessment and plan: Ongoing for the past 2 months accompanied by occasional hematochezia and melena. Has also lost approximately 40 pounds in the last 15 months without trying. Has seen Dr. Alejandro GI at [place], but now wishes to follow with one of our Gastroenterologists. GI has been consulted. Current Visit: Yes (8) Renal insufficiency Status: Acute Assessment and plan: This appears to be chronic. We have limited records, so it is difficult to determine her baseline, but she has also had elevated creatinine at 2.2 in April 2015. Creatinine was 1.2 in 2010. Current Visit: Yes Home Medications Medication Instructions Recorded Confirmed Type Alendronate [Fosamax] 70 mg PO MO 12/12/16 12/12/16 History Allopurinol [Allopurinol] 300 mg PO QAM 12/12/16 12/12/16 History Aspirin EC Tab 81 mg PO QAM 12/12/16 12/12/16 History Atorvastatin [Lipitor] 5 mg PO QAM 12/12/16 12/12/16 History Docusate Sodium 100 mg PO QAM 12/12/16 12/12/16 History Furosemide [Furosemide] 40 mg PO QAM 12/12/16 12/12/16 History Levothyroxine Sodium 50 mcg PO QAM 12/12/16 12/12/16 History Pantoprazole Sodium 40 mg PO QAM 12/12/16 12/12/16 History Polyethylene Glycol Powder 1 each PO QAM 12/12/16 12/12/16 History [Miralax] amLODIPine [Norvasc] 10 mg PO QAM 12/12/16 12/12/16 History traZODone [Desyrel] 25 - 50 mg PO BEDTIME 12/12/16 12/12/16 History Cardio: History of: Hypertension, Pacemaker, PVD Endocrine: History of: Dyslipidemia, Thyroid Disorder No history of: Diabetes Mellitus (IDDM), Diabetes Mellitus (NIDDM) Rheumatology: History of;: Gout Gastrointestinal: History of: GERD, Hematochezia - Social History Smoking Status: Former smoker (smoked from [id number]) Frequency of Alcohol Use: None Type of Drug Use: None 12 point system: reviewed and no additional remarkable complaints except as stated - Constitutional Constitutional: Present: as per HPI - EENT Eyes: Present: as per HPI Ears: Present: as per HPI Nose, mouth and throat: Present: as per HPI - Cardiovascular Cardiovascular: Present: as per HPI, chest pain at rest and artificial cardiac pacemaker. I find no mention of the heart murmur that I discovered. - Respiratory Respiratory: Present: as per HPI - Gastrointestinal Gastrointestinal: Present: as per HPI, abdominal pain, bloating. She has been undergoing GI evaluation at [place]. - Genitourinary Genitourinary: Present: as per HPI. No history of bleeding. - Musculoskeletal Musculoskeletal: Present: as per HPI gouty arthritis. - Neurological Neurological: Present: as per HPI - Psychiatric Psychiatric: Present: as per HPI - Endocrine Endocrine: Present: as per HPI - Hematologic/Lymphatic Hematologic/Lymphatic: Present: as per HPI Physical examination: General: The patient appears her stated age and does not appear particularly chronically ill. Eyes: She has bilateral arcus senilis with normal lids and conjunctivae. ENT: Her teeth are in fair to poor repair. Her mouth and pharynx are normal. Her hearing is normal. Neck: Her trachea is midline. Her thyroid appears normal. I palpate no neck masses. Pulmonary: Her breath sounds are slightly coarse without rubs, rales or rhonchi. Her chest moves symmetrically with respiration. Cardiovascular: Her heart rhythm is regular with a grade 3/6 systolic ejection murmur heard best in the second intercostal space adjacent to the sternum on the left. She also has very short diastolic decrescendo murmur is grade 2/6. There is no clubbing or cyanosis. Abdomen: There is no tenderness. There is no ascites. I cannot palpate hepatomegaly, splenomegaly or any other masses or organomegaly. Musculoskeletal: She has mild degenerative arthritic changes of the hands. There is no obvious focal muscle atrophy or bone or joint deformity. Neurologic: Cranial nerves II through XII are intact. No focal neurologic deficits. Nodes: There is no cervical, supraclavicular, submental or axillary adenopathy. Skin: Cursory examination did not reveal any significant abnormalities. Impression: I feel certain the patient has iron deficiency anemia. Her red cell indices suggest this. I am going to check a folic acid and B12 level while we are checking a serum iron and total iron binding capacity. I am not certain about her thrombocythemia. Platelet count could be elevated because of inflammation from arthritis or other entities and iron deficiency anemia is often accompanied by thrombocythemia but not usually to this degree. At her age, GI blood loss would be the most likely thing to cause this anemia. I am ordering an ultrasound of her liver and spleen. This is always a difficult and frustrating thing to try to order because this electronic medical record system that does not have the place where you can order ultrasounds of the abdomen easily, which is disruptive of evaluation and patient care. I am going to order a haptoglobin level too in view of her heart murmur, but I expect it to be either normal or elevated. Home Medications Medication Instructions Recorded Confirmed Type Alendronate [Fosamax] 70 mg PO MO 12/12/16 12/12/16 History Allopurinol [Allopurinol] 300 mg PO QAM 12/12/16 12/12/16 History Aspirin EC Tab 81 mg PO QAM 12/12/16 12/12/16 History Atorvastatin [Lipitor] 5 mg PO QAM 12/12/16 12/12/16 History Docusate Sodium 100 mg PO QAM 12/12/16 12/12/16 History Furosemide [Furosemide] 40 mg PO QAM 12/12/16 12/12/16 History Levothyroxine Sodium 50 mcg PO QAM 12/12/16 12/12/16 History Pantoprazole Sodium 40 mg PO QAM 12/12/16 12/12/16 History Polyethylene Glycol Powder 1 each PO QAM 12/12/16 12/12/16 History [Miralax] amLODIPine [Norvasc] 10 mg PO QAM 12/12/16 12/12/16 History traZODone [Desyrel] 25 - 50 mg PO BEDTIME 12/12/16 12/12/16 History Allergies Allergy/AdvReac Type Severity Reaction Status Date / Time Penicillins Allergy Unknown/Unable Verified 12/12/16 17:51 to obtain Medical,Surgical,& Family Hx - Medical History Cardio: History of: Hypertension, Pacemaker, PVD Endocrine: History of: Dyslipidemia, Thyroid Disorder No history of: Diabetes Mellitus (IDDM), Diabetes Mellitus (NIDDM) Rheumatology: History of;: Gout Gastrointestinal: History of: GERD, Hematochezia - Social History Smoking Status: Former smoker Frequency of Alcohol Use: None Type of Drug Use: None Exam - Constitutional Vitals: Period Temp Pulse Resp BP Sys/Hall Pulse Ox Last 24 Hr 98.9 F-99.7 F 59-65 12-20 147-195/69-79 96-100 Results - Labs CBC & BMP: 12/15/16 04:53 12/15/16 04:53
[2016-12-15 10:16] LABS: % Iron Saturation 23.9 % (18-50)
[2016-12-15 11:15] LABS: Folate 10.7 NG/ML (5.4-24.0)
--- NOTE | 2016-12-15 14:42 | Cardiology Progress Note ---
Assessment and Plan (1) Atrial fibrillation Status: Chronic Assessment and plan: This is chronic with electronic ventricular pacing. Current Visit: Yes (2) Chest pain Status: Acute Assessment and plan: This is noncardiac pain. Certainly the troponins are nondiagnostic for ischemic cardiac event. Current Visit: Yes (3) Renal insufficiency Status: Acute Assessment and plan: Has a chronic element of this. Current Visit: Yes (4) Thrombocytosis Status: Acute Assessment and plan: Appreciate Dr. Martinez date atrial fibrillation the patient. Current Visit: Yes (5) Anemia Status: Chronic Assessment and plan: Probably anemia of chronic disease. Appreciate Dr. Martinez evaluation of this. Current Visit: Yes (6) HTN (hypertension) Status: Chronic Assessment and plan: Blood pressure is elevated. We will need to adjust her medications some. We can try losartan and watch her creatinine. Current Visit: Yes Cardiology - PN: Subj Interval history: Generally from cardiac standpoint the patient is doing fairly well. No chest pain overall is better. Again this is not appear to be cardiac. Appreciate Dr. Wilson and Dr. Fleming evaluations. Evaluation is ongoing for both these. We still await records from [facility]. Lower today continues to reveal her anemia and elevated platelet count. Chemistries stable. Continues with her chronic atrial fibrillation R ventricular pacing. Exam (Progress Note) - Constitutional Vitals: Period Temp Pulse Resp BP Sys/Hall Pulse Ox Last 24 Hr 99.0 F-99.8 F 60-65 12-20 147-182/69-76 96-100 Exam: General appearance: normal weight, no acute distress, she does. Some of her frail elderly female. HEENT exam: normal inspection, atraumatic Neck exam: normal inspection no JVD. No carotid bruit. Trachea is in midline Respiratory/lungs exam: clear to auscultation bilaterally good air movement. Cardiovascular exam: regular rate and rhythm, no murmur or gallop or rub. No precordial lift. Chest wall exam: Still some diffuse tenderness but this is improved. GI/Abdominal exam: Slightly protuberant but has moderate diffuse direct tenderness. Bowel sounds are present. Extremeties/musculoskeletal: normal inspection without edema or cyanosis. Neurological exam: alert, oriented X3, no focal deficits Psychiatric exam: normal affect, normal mood. Cognitive function is grossly normal. Skin exam: normal color, warm Result/EKG - Labs CBC & BMP: 12/15/16 04:53 12/15/16 04:53 Lab Results: I have reviewed the past 24 hour labs Labs: Laboratory Results - last 24 hr 12/15/16 12/15/16 12/15/16 04:51 04:53 04:53 WBC 7.1 RBC 3.16 L Hgb 8.4 L Hct 26.1 L MCV 82.6 L MCH 27 MCHC 32.2 RDW 19.2 H Plt Count 1019 H* MPV 10.3 Neut % (Auto) 83.0 H Lymph % (Auto) 7.8 L [place] % (Auto) 6.2 Eos % (Auto) 1.6 Baso % (Auto) 0.8 Neut # (Auto) 5.9 Lymph # (Auto) 0.6 L [place] # (Auto) 0.4 Eos # (Auto) 0.1 Baso # (Auto) 0.1 Immature Gran % 0.6 Nucleated RBC % 0.0 Immature Gran # 0.04 Nucleated RBCs # 0.00 Absolute Retic 0.1 Percent Retic 1.8 H Retic Hgb Equivalent 29.6 Haptoglobin Sodium 145 Potassium 4.9 Chloride 112 H Carbon Dioxide 24 Anion Gap 13.9 BUN 26 H Creatinine 1.40 H GFR Calculation 36 BUN/Creatinine Ratio 18.00 Glucose 93 Calculated Osmolality 292.7 Calcium 8.6 Magnesium 1.9 Iron TIBC % Saturation Vitamin B12 Folate 12/15/16 12/15/16 12/15/16 04:56 04:56 Unknown WBC RBC Hgb Hct MCV MCH MCHC RDW Plt Count MPV Neut % (Auto) Lymph % (Auto) [place] % (Auto) Eos % (Auto) Baso % (Auto) Neut # (Auto) Lymph # (Auto) [place] # (Auto) Eos # (Auto) Baso # (Auto) Immature Gran % Nucleated RBC % Immature Gran # Nucleated RBCs # Absolute Retic Percent Retic Retic Hgb Equivalent Haptoglobin 157.0 Sodium Potassium Chloride Carbon Dioxide Anion Gap BUN Creatinine GFR Calculation BUN/Creatinine Ratio Glucose Calculated Osmolality Calcium Magnesium Iron 52 TIBC 218 L % Saturation 23.9 Vitamin B12 391 Folate 10.7 - Impressions Impressions: Telemetry atrial fibrillation with electronic ventricular pacing.
--- NOTE | 2016-12-15 16:32 | Ultrasound Report ---
History: Anemia. Abdominal distention. History of melena Date: 12/15/2016 Study: Abdominal ultrasound Comparison exam: No previous Real-time ultrasound images were captured and archived. The liver is normal in size at 16.8 cm length. There is no focal hepatic mass. There is no abnormal biliary dilatation. Common bile duct measures 4.1 mm diameter. There is hepatopedal flow in the portal vein. The gallbladder is slightly contracted. There is no evidence of cholelithiasis. The patient reportedly was not npo. The pancreas is normal. There is moderate atherosclerotic irregularity of the abdominal aorta without aneurysm. IVC is patent where seen. The spleen measures 8.6 x 6.6 x 5.9 cm, normal in size, and is without abnormal mass lesion. The left kidney measures 11.1 cm length. There is a solid heterogeneous mass compatible with renal cell carcinoma measuring 45 x 30 x 31 mm at the upper pole of the left kidney. There is a 27 mm simple cyst in the mid to upper left kidney as well. There is a complex cystic mass in the mid right kidney which has an 18 mm area of mural nodularity with internal color Doppler flow, suspicious for neoplasm. There is a Bosniak class II F cyst of a septated nature at the upper pole of the right kidney, measuring 5.8 cm diameter. There is no hydronephrosis. Impression: 4.5 cm solid mass upper pole left kidney, highly suspicious for renal cell carcinoma Mixed cystic and solid mass mid right kidney, measuring at least 18 mm, suspicious for neoplasm as well No evidence of hepatosplenomegaly. No ascites PROCEDURE INTERPRETED AT [facility] DEPARTMENT OF RADIOLOGY Final Report Signed by: Dr. Rosanna Greer
[2016-12-15] MEDS: LOSARTAN 25 MG TABLET PO SCH (21:35)
[2016-12-15] MEDS: traZODone 50 MG TABLET PO SCH (21:35)
[2016-12-16] MEDS: NITROGLYCERIN 2% OINT 1 INCH/GM PACK TOP SCH ×5 (00:04→23:50)
[2016-12-16 05:11] LABS: Basophils # 0.1 10*3/uL (0.0-0.2); Eosinophils # 0.1 10*3/uL (0.0-0.87); Eosinophils % 2.3 % (0.00-10.9); Hematocrit 27.3 VOL% (35.7-47.0); Hemoglobin 8.5 GM/DL (12.0-16.0); Immature Granulocytes % 0.5 %; Immature Granulocytes Absolute 0.03 #; Lymphocytes # 0.5 10*3/uL (1.4-4.0); Lymphocytes % 7.8 % (21.3-54.2); Mean Corpuscular HGB Conc 31.1 GM/DL (32-36); Mean Corpuscular Hemoglobin 27 PG (27-34); Mean Corpuscular Volume 85.8 FL (87-102); Mean Platelet Volume 10.1 FL (9.6-12.0); Monocytes # 0.4 10*3/uL (0.11-0.8); Monocytes % 7.1 % (1.7-12.7); Neutrophils # 4.9 10*3/uL (1.4-7.4); Neutrophils % 81.3 % (38.7-73.9); Platelet Count 936 T/CUMM (130-400); Red Blood Count 3.18 MC/CUMM (3.8-5.5); Red Cell Distribution Width 18.8 % (9.3-17.3); White Blood Count 6.1 T/CUMM (4-12)
[2016-12-16 05:51] LABS: Calcium 9.2 MG/DL (8.5-10.1); Magnesium 2.1 MG/DL (1.8-2.4); Osmolality,Calculated 293.7 MOS/KG (273-304); Potassium 4.7 MMOL/L (3.5-5.1)
--- NOTE | 2016-12-16 07:11 | Oncology Progress Note ---
Oncology Subjective PN Interval history: I was consulted on this patient because of thrombocythemia and anemia. Lab work that has returned includes a CBC today that reveals that the patient's platelet count is down to 936,000. Her white cell count is normal at 6100 with a relatively normal white cell differential with the exception of the fact that her absolute lymphocyte count is 500. Her hemoglobin is 8.5 with a low mean corpuscular volume of 85.8 and a high RDW of 18.8 which suggest iron deficiency. Haptoglobin level is 157 which is normal. Her B12 level was 391 with a folic acid level of 10.7, both of which are normal. Her serum iron is 52 with a total iron-binding capacity that is low at 218 and iron saturation is normal at 23.9. I remain of the opinion that she has iron deficiency. I expect that her platelet count will fall with treatment with oral iron and if any inflammatory processes that exist are treated as well. I have ordered the Donny 2 gene mutation testing to be done today. Whether this will ever actually show up on the patient's lab tests is a mystery. Unless she is having embolic events, my recommendation would be to treat other disease processes and not implement any treatment to lower platelet count other than aspirin. Exam - Constitutional Vitals: Period Temp Pulse Resp BP Sys/Hall Pulse Ox Last 24 Hr 98.0 F-99.8 F 60-64 12-20 157-189/72-87 96-100 Results - Labs CBC & BMP: 12/16/16 04:55 12/16/16 04:55
[2016-12-16] MEDS: amLODIPine 10 MG TABLET PO SCH (08:34)
[2016-12-16] MEDS: FUROSEMIDE 40 MG TABLET PO SCH (08:34)
[2016-12-16] MEDS: DOCUSATE SODIUM 100 MG CAPSULE PO SCH (08:34)
[2016-12-16] MEDS: LEVOTHYROXINE 50 MCG TABLET PO SCH (08:34)
[2016-12-16] MEDS: ASPIRIN EC 325 MG TABLET PO SCH (08:34)
[2016-12-16] MEDS: PANTOPRAZOLE 40 MG TABLET PO SCH (08:34)
[2016-12-16] MEDS: LOSARTAN 25 MG TABLET PO SCH ×2 (08:34→20:40)
[2016-12-16] MEDS: ALLOPURINOL 300 MG TABLET PO SCH (08:34)
[2016-12-16] MEDS: ATORVASTATIN 10 MG TABLET PO SCH (08:35)
[2016-12-16] MEDS: POLYETHYLENE GLYCOL POWDER 17 GM PACK PO SCH (08:36)
[2016-12-16] MEDS ORDERED: NON-FORMULARY MEDICATION (Alendronate [Fosamax] 70 MG) PO SCH (09:59)
[2016-12-16] MEDS: ENOXAPARIN 30 MG/0.3 ML SYRINGE SUBCUT SCH (10:52)
--- NOTE | 2016-12-16 11:57 | Gastrointestinal Progress Note ---
<Tori Bonilla Angel Luis - Last Filed: 12/16/16 11:55> Assessment and Plan (1) Abdominal distension Status: Acute Assessment and plan: 12/16-abdominal pain and discomfort improved. Having good bowel movements. Rest records reviewed. Stool negative for occult blood. Hemoglobin 8.5. Continue to monitor at present time. Plan an addendum to follow by Dr. Fleming. 12/13-2 month history of abdominal distention with discomfort with no changes in normal bowel patterns. Recent workup ongoing at [place] with Dr. Alejandro with recent EGD with negative findings. Obtain records from [facility]. Obtain stool for occult blood due to history of anemia plan an addendum to follow by Dr. Fleming. Current Visit: Yes Gastroenterology - PN: Subj Interval history: CC: Abdominal distention/discomfort Patient is seen awake and alert resting comfortably in bed. Family at bedside. Patient states her abdominal distention and discomfort has improved over the weekend. She is noted to have had an ultrasound with questionable findings of renal cell carcinoma. Records from [facility] are noted with only endoscopy of an EGD in May with findings of gastritis. No colonoscopy has been done to the family members knowledge and none noted in the records. She had a CT of the abdomen done in October with no acute findings noted at that time. Patient is tolerating her diet at present time and is having good bowel movements. No reports of bleeding. Patient's family would like to discuss possible colonoscopy when timing is appropriate. Abdomen is soft, nontender. Stools are noted to be negative for occult blood ROS: Denies shortness of breath or chest pain Exam (Progress Note) - Constitutional Vitals: Period Temp Pulse Resp BP Sys/Hall Pulse Ox Last 24 Hr 97.6 F-99.8 F 60-64 12-20 138-189/72-87 96-100 General appearance: normal weight, no acute distress - Head Head exam: Present: normal inspection, normocephalic - Eye Eye exam: Present: other (Lids and conjunctive are unremarkable). Absent: scleral icterus - ENT ENT exam: Present: normal exam, normal oropharynx - Neck Neck exam: Present: normal inspection - Respiratory Respiratory exam: Present: clear to auscultation bilaterally. Absent: rales, rhonchi, wheezes - Cardiovascular Cardiovascular exam: Present: regular rate and rhythm. Absent: diastolic murmur , JVD, systolic murmur - GI/Abdominal GI/Abdominal exam: Present: normal bowel sounds, soft. Absent: ascites, distended, mass, organomegaly, tenderness - Extremities Exam Extremities exam: Present: normal inspection, full ROM - Back Exam Back exam: Present: normal inspection - Neurological Exam Neurological exam: Present: alert, oriented X3 - Psychiatric Psychiatric exam: Present: normal affect, normal mood - Skin Skin exam: Present: normal color, warm, dry Results - Labs CBC & BMP: 12/16/16 04:55 12/16/16 04:55 Lab Results: I have reviewed the past 24 hour labs <Dillon Fleming - Last Filed: 12/16/16 20:30> Exam (Progress Note) - Constitutional Vitals: Period Temp Pulse Resp BP Sys/Hall Pulse Ox Last 24 Hr 97.6 F-98.8 F 60-64 12-20 138-173/68-79 95-100 Results - Labs CBC & BMP: 12/16/16 04:55 12/16/16 04:55
--- NOTE | 2016-12-16 15:05 | Cardiology Progress Note ---
<Emperatriz Bobby E - Last Filed: 12/16/16 15:02> Assessment and Plan - Time spent with patient Time spent with patient: Less than 30 minutes (1) Atrial fibrillation Status: Chronic Assessment and plan: This is chronic with electronic ventricular pacing. Anticoagulation other than Aspirin is not recommended at this time. Current Visit: Yes (2) Chest pain Status: Acute Assessment and plan: This is noncardiac pain. She has tenderness to palpation of left chest wall surrounding pacemaker site which has been present for several months. She is also tender at the site of a left midsternal/left breast keloid. Troponins are nondiagnostic for ischemic cardiac event. EKG shows no acute ischemic changes. Current Visit: Yes (3) Anemia Status: Chronic Assessment and plan: Hematology has seen in consult. We appreciate their input. This is felt to be iron deficiency anemia. Is recommended that we limit treatment with antiplatelet medications to aspirin only and avoid other medications that may lower her platelet count. Current Visit: Yes (4) History of cardiac pacemaker Status: Chronic Assessment and plan: History of dual chamber pacemaker placement. Current Visit: Yes (5) HTN (hypertension) Status: Chronic Assessment and plan: Remains suboptimally controlled. She was started on losartan 25 mg p.o. twice daily yesterday. Creatinine remains mildly elevated at 1.4. Will add Hydralazine 25mg PO TID and see how she tolerates. Current Visit: Yes (6) GERD (gastroesophageal reflux disease) Status: Chronic Assessment and plan: Continue Protonix. Current Visit: Yes (7) Abdominal distension Status: Acute Assessment and plan: Ongoing for the past 2 months accompanied by occasional hematochezia and melena. Has also lost approximately 40 pounds in the last 15 months without trying. Has seen Dr. Alejandro, GI at [place] [place], but now wishes to follow with one of our Gastroenterologists. GI is following. Initial stool for occult blood is negative. Current Visit: Yes (8) Renal insufficiency Status: Acute Assessment and plan: This appears to be chronic. We have limited records, so it is difficult to determine her baseline, but she has also had elevated creatinine at 2.2 in April 2015. Creatinine was 1.2 in 2010. Creatinine has remained stable at 1.3-1.5. Current Visit: Yes Cardiology - PN: Subj Interval history: STATE ARCHIVIST: DR. MARQUEZ PCP: DR. COURTNEY PAIZ Ms. Landeros was transferred to our facility on 12/12/16 for further evaluation of elevated troponin and left chest wall and arm pain. She has had flat troponins in the setting of renal insufficiency and non-cardiac chest pain which has been improving. During admission, she was found to be anemic and has had a 2 month history of abdominal distention. She has been seen by Dr. Wilson and is suspected to have iron deficiency anemia. If she is given oral iron, it is suspected that her platelet count would fall. It is recommended that her other disease processes be treated and we avoid implementing any treatment that might lower the platelet count other than aspirin. She has also been seen in consultation by GI and they have been awaiting her records to make further recommendations. There is no family present currently but Ms. Landeros tells me the pain around her pacemaker site is improving. She does still have some tenderness around the left breast keloid. Exam (Progress Note) - Constitutional Vitals: Period Temp Pulse Resp BP Sys/Hall Pulse Ox Last 24 Hr 97.6 F-98.8 F 60-64 12-20 138-189/68-87 95-100 Exam: General: Present: Appears Well, No Apparent Distress. Pleasant and cooperative. Appears comfortable. Appears frail. HEENT: Present: PERRL, Normocephaly, atraumatic. Mucus Membranes Moist. No jaundice noted. Conjunctiva moist and clear, sclerae anicteric Neck: Present: Supple Neck, Midline Trachea, No Masses, No Bruit, No tenderness Cardiac: Present: Regular Rate and Rhythm, No Murmur Chest wall exam: Improved pain surrounding pacemaker site. Continues to have mild tenderness to palpation of left breast keloid. Lungs: Present: Clear to auscultation bilaterally, no wheeze, rhonchi, rales. Neuro: Present: Awake, alert, and oriented x3. Moves all extremities well without hemiparesis or paralysis. Grossly Intact. Absent: Resting Tremor, Essential Tremor Abdomen: Present: Soft, Active Bowel Sounds, mild distention. No abdominal bruit or thrill noted. Skin: Present: Clear. Absent: Rash, No skin breakdown. Back: Normal inspection, no vertebral tenderness. Musculoskeletal: Present: No Fluid Collection, No Pain, Normal Range of Motion Extremities: Present: Normal Gait, No Clubbing, No Cyanosis, Upper Extr. Pulses 2+, Lower Extr. Pulses 2+, No edema. Capillary refill less than 3 seconds. Result/EKG - Labs CBC & BMP: 12/16/16 04:55 12/16/16 04:55 Lab Results: I have reviewed the past 24 hour labs Labs: Laboratory Results - last 24 hr 12/16/16 12/16/16 04:55 04:55 WBC 6.1 RBC 3.18 L Hgb 8.5 L Hct 27.3 L MCV 85.8 L MCH 27 MCHC 31.1 L RDW 18.8 H Plt Count 936 H MPV 10.1 Neut % (Auto) 81.3 H Lymph % (Auto) 7.8 L Haskell % (Auto) 7.1 Eos % (Auto) 2.3 Baso % (Auto) 1.0 H Neut # (Auto) 4.9 Lymph # (Auto) 0.5 L Haskell # (Auto) 0.4 Eos # (Auto) 0.1 Baso # (Auto) 0.1 Immature Gran % 0.5 Nucleated RBC % 0.0 Immature Gran # 0.03 Nucleated RBCs # 0.00 Sodium 145 Potassium 4.7 Chloride 112 H Carbon Dioxide 25 Anion Gap 12.7 BUN 29 H Creatinine 1.40 H GFR Calculation 36 BUN/Creatinine Ratio 20.00 Glucose 91 Calculated Osmolality 293.7 Calcium 9.2 Magnesium 2.1 - EKG EKG results: interpreted by me, sinus rhythm <Martha Greene - Last Filed: 12/16/16 19:49> Cardiology - PN: Subj Interval history: I have personally interviewed and evaluated the patient, reviewed the chart and discussed medical decision-making with practitioner Kanu. I have read this note and agree with her documentation here in with the following clarification: Anticoagulation is being withheld during the patient's anemia workup. This is the reason we are limiting her anticoagulation. We're not necessary concerned about lowering her platelet count. Dr. Wilson recommendations or not to initiate further therapy with the intention of lowering her platelet count, but we are certainly not attenuating our treatment for fear of lowering her platelet count. She is currently chest pain-free and hemodynamicly stable. Exam (Progress Note) - Constitutional Vitals: Period Temp Pulse Resp BP Sys/Hall Pulse Ox Last 24 Hr 97.6 F-98.8 F 60-64 12-20 138-173/68-79 95-100 Result/EKG - Labs CBC & BMP: 12/16/16 04:55 12/16/16 04:55 Labs: Laboratory Results - last 24 hr 12/16/16 12/16/16 04:55 04:55 WBC 6.1 RBC 3.18 L Hgb 8.5 L Hct 27.3 L MCV 85.8 L MCH 27 MCHC 31.1 L RDW 18.8 H Plt Count 936 H MPV 10.1 Neut % (Auto) 81.3 H Lymph % (Auto) 7.8 L Haskell % (Auto) 7.1 Eos % (Auto) 2.3 Baso % (Auto) 1.0 H Neut # (Auto) 4.9 Lymph # (Auto) 0.5 L Haskell # (Auto) 0.4 Eos # (Auto) 0.1 Baso # (Auto) 0.1 Immature Gran % 0.5 Nucleated RBC % 0.0 Immature Gran # 0.03 Nucleated RBCs # 0.00 Sodium 145 Potassium 4.7 Chloride 112 H Carbon Dioxide 25 Anion Gap 12.7 BUN 29 H Creatinine 1.40 H GFR Calculation 36 BUN/Creatinine Ratio 20.00 Glucose 91 Calculated Osmolality 293.7 Calcium 9.2 Magnesium 2.1
[2016-12-16] MEDS: traZODone 50 MG TABLET PO SCH (20:40)
[2016-12-16] MEDS: hydrALAZINE 25 MG TABLET PO SCH (20:40)
[2016-12-17] MEDS: NITROGLYCERIN 2% OINT 1 INCH/GM PACK TOP SCH ×3 (06:17→17:14)
--- NOTE | 2016-12-17 07:24 | Oncology Progress Note ---
Oncology Subjective PN Interval history: The ultrasound of the patient's kidneys demonstrates a renal mass, in the upper pole of the left kidney, as a new finding. This could be contributing to the patient's anemia. Further evaluation of this may or may not be indicated. I will defer to cardiology on what is appropriate at this point. This is an elderly lady with a lot of disease processes who is, in my opinion, not a surgical candidate. It may simply be prudent to transfuse this patient as needed and to follow changes in the renal mass. There are treatments available for renal cell carcinoma but we would need a tissue diagnosis. Exam - Constitutional Vitals: Period Temp Pulse Resp BP Sys/Hall Pulse Ox Last 24 Hr 96.8 F-98.8 F 60-78 18-20 138-173/67-76 95-98 Results - Labs CBC & BMP: 12/16/16 04:55 12/16/16 04:55
[2016-12-17] MEDS: POLYETHYLENE GLYCOL POWDER 17 GM PACK PO SCH (08:28)
[2016-12-17] MEDS: ALLOPURINOL 300 MG TABLET PO SCH (08:29)
[2016-12-17] MEDS: FUROSEMIDE 40 MG TABLET PO SCH (08:30)
[2016-12-17] MEDS: ASPIRIN EC 325 MG TABLET PO SCH (08:30)
[2016-12-17] MEDS: LOSARTAN 25 MG TABLET PO SCH ×2 (08:31→21:17)
[2016-12-17] MEDS: amLODIPine 10 MG TABLET PO SCH (08:32)
[2016-12-17] MEDS: DOCUSATE SODIUM 100 MG CAPSULE PO SCH (08:32)
[2016-12-17] MEDS: ATORVASTATIN 10 MG TABLET PO SCH (08:33)
[2016-12-17] MEDS: PANTOPRAZOLE 40 MG TABLET PO SCH (08:34)
[2016-12-17] MEDS: hydrALAZINE 25 MG TABLET PO SCH ×3 (08:34→21:18)
[2016-12-17] MEDS: LEVOTHYROXINE 50 MCG TABLET PO SCH (08:34)
[2016-12-17 08:41] LABS: Basophils # 0.1 10*3/uL (0.0-0.2); Eosinophils # 0.2 10*3/uL (0.0-0.87); Eosinophils % 2.2 % (0.00-10.9); Hematocrit 28.5 VOL% (35.7-47.0); Immature Granulocytes % 0.4 %; Immature Granulocytes Absolute 0.03 #; Lymphocytes # 0.6 10*3/uL (1.4-4.0); Lymphocytes % 9.2 % (21.3-54.2); Mean Corpuscular HGB Conc 31.6 GM/DL (32-36); Mean Corpuscular Hemoglobin 28 PG (27-34); Mean Corpuscular Volume 87.7 FL (87-102); Monocytes # 0.4 10*3/uL (0.11-0.8); Monocytes % 6.1 % (1.7-12.7); Neutrophils # 5.4 10*3/uL (1.4-7.4); Neutrophils % 81.1 % (38.7-73.9); Red Blood Count 3.25 MC/CUMM (3.8-5.5); Red Cell Distribution Width 18.9 % (9.3-17.3); White Blood Count 6.7 T/CUMM (4-12)
[2016-12-17 08:46] LABS: Platelet Count 1029 T/CUMM (130-400)
--- NOTE | 2016-12-17 10:34 | Gastrointestinal Progress Note ---
<Tori Bonilla - Last Filed: 12/17/16 10:31> Assessment and Plan (1) Abdominal distension Status: Acute Assessment and plan: 12/17-No reports of abd pain today. Tolerating diet. Pt and family agree to proceed with colonoscopy. Plan and addendum to follow by Dr Fleming. 12/16-abdominal pain and discomfort improved. Having good bowel movements. [facility] records reviewed. Stool negative for occult blood. Hemoglobin 8.5. Continue to monitor at present time. Plan an addendum to follow by Dr. Fleming. 12/13-2 month history of abdominal distention with discomfort with no changes in normal bowel patterns. Recent workup ongoing at [place] with Dr. Alejandro with recent EGD with negative findings. Obtain records from [facility]. Obtain stool for occult blood due to history of anemia plan an addendum to follow by Dr. Fleming. Current Visit: Yes Gastroenterology - PN: Subj Interval history: CC: Abdominal distention Patient is seen awake and alert with family at side. Patient states she rested well overnight. Denies any abdominal pain, nausea or vomiting. She is tolerating her diet well at present time. Patient's daughter is at bedside and discussed proceeding with colonoscopy during this admission. Patient and family both agree they would like to pursue this due to this was not done at [facility] during her last workup. Abdomen is soft, nontender. Oncology is following at this time due to findings of renal mass. ROS: Denies shortness of breath or chest pain Exam (Progress Note) - Constitutional Vitals: Period Temp Pulse Resp BP Sys/Hall Pulse Ox Last 24 Hr 96.8 F-98.8 F 60-78 18-20 140-173/67-76 95-98 General appearance: normal weight, no acute distress - Head Head exam: Present: normal inspection, normocephalic - Eye Eye exam: Present: other (Lids and conjunctive are unremarkable). Absent: scleral icterus - ENT ENT exam: Present: normal exam, normal oropharynx - Neck Neck exam: Present: normal inspection - Respiratory Respiratory exam: Present: clear to auscultation bilaterally. Absent: rales, rhonchi, wheezes - Cardiovascular Cardiovascular exam: Present: regular rate and rhythm. Absent: diastolic murmur , JVD, systolic murmur - GI/Abdominal GI/Abdominal exam: Present: normal bowel sounds. Absent: ascites, distended, mass, organomegaly - Extremities Exam Extremities exam: Present: normal inspection, full ROM - Back Exam Back exam: Present: normal inspection - Neurological Exam Neurological exam: Present: alert, oriented X3 - Psychiatric Psychiatric exam: Present: normal affect, normal mood - Skin Skin exam: Present: normal color, warm, dry Results - Labs CBC & BMP: 12/17/16 08:16 12/16/16 04:55 Lab Results: I have reviewed the past 24 hour labs <Dillon Fleming - Last Filed: 12/17/16 11:01> Exam (Progress Note) - Constitutional Vitals: Period Temp Pulse Resp BP Sys/Hall Pulse Ox Last 24 Hr 96.8 F-98.8 F 60-78 18-20 140-173/67-76 95-98 Results - Labs CBC & BMP: 12/17/16 08:16 12/16/16 04:55
[2016-12-17] MEDS: ENOXAPARIN 30 MG/0.3 ML SYRINGE SUBCUT SCH (11:00)
[2016-12-17] MEDS ORDERED: BISACODYL 5 MG TABLET PO ONE (12:00)
--- NOTE | 2016-12-17 14:59 | Cardiology Progress Note ---
<Emperatriz Bobby E - Last Filed: 12/17/16 14:43> Assessment and Plan - Time spent with patient Time spent with patient: Less than 30 minutes (1) Atrial fibrillation Status: Chronic Assessment and plan: This is chronic with electronic ventricular pacing. Anticoagulation other than Aspirin is not recommended at this time. Current Visit: Yes (2) Chest pain Status: Acute Assessment and plan: This is noncardiac pain. She has tenderness to palpation of left chest wall surrounding pacemaker site which has been present for several months. She is also tender at the site of a left midsternal/left breast keloid. Troponins are nondiagnostic for ischemic cardiac event. EKG shows no acute ischemic changes. Current Visit: Yes (3) Anemia Status: Chronic Assessment and plan: Hematology has seen in consult. We appreciate their input. This is felt to be iron deficiency anemia. We will hold anticoagulation during her anemia workup. Current Visit: Yes (4) History of cardiac pacemaker Status: Chronic Assessment and plan: History of dual chamber pacemaker placement. Current Visit: Yes (5) HTN (hypertension) Status: Chronic Assessment and plan: Remains suboptimally controlled. She is on losartan 25mg po BID, norvasc 10mg po daily. Yesterday, she was started on hydralazine 25mg po TID. Her blood pressures have remained elevated, so we have increased this to 50mg po TID. We will see how she tolerates and make further adjustments as needed. Current Visit: Yes (6) GERD (gastroesophageal reflux disease) Status: Chronic Assessment and plan: Continue Protonix. Current Visit: Yes (7) Abdominal distension Status: Acute Assessment and plan: Ongoing for the past 2 months accompanied by occasional hematochezia and melena. Has also lost approximately 40 pounds in the last 15 months without trying. Initial stool for occult blood is negative. GI plans for colonoscopy after she undergoes colon prep. Current Visit: Yes (8) Renal insufficiency Status: Acute Assessment and plan: This appears to be chronic. We have limited records, so it is difficult to determine her baseline, but she has also had elevated creatinine at 2.2 in April 2015. Creatinine was 1.2 in 2010. Creatinine has remained stable at 1.3-1.5. Current Visit: Yes Cardiology - PN: Subj Interval history: AUTOMOBILE SALESMAN: DR. MARQUEZ PCP: DR. COURTNEY PAIZ Ms. Landeros was transferred to our facility on 12/12/16 for further evaluation of elevated troponin and left chest wall and arm pain. She has had flat troponins in the setting of renal insufficiency and non-cardiac chest pain which has been improving. During admission, she was found to be anemic and has had a 2 month history of abdominal distention. She has been seen by Dr. Wilson and is suspected to have iron deficiency anemia. If she is given oral iron, it is suspected that her platelet count would fall. It is recommended that her other disease processes be treated and we avoid implementing any treatment that might lower the platelet count other than aspirin. Dr. Wilson notes the patient's kidney ultrasound demonstrates a renal mass in the upper pole of the left kidney which could be contributing to Ms. Landeros's anemia. Further workup would indicate obtaining a tissue biopsy and the patient would be a poor surgical candidate. Upon exam today, Ms. Landeros's family member called her granddaughter, Oksana, who is a nurse. Upon speaking with her granddaughter, I was able to determine that her renal mass has been present for approximately 1 year and has previously been followed by Dr. Solo with nephrology. According to the granddaughter, this mass has been monitored without plans for further intervention or evaluation unless it began causing the patient any issues. They were supposed to be referred to [facility] for further evaluation after being discharged from [facility] recently but an appointment was never made. She has also been seen in consultation by GI and the family wishes to proceed with a colonoscopy for further evaluation of her abdominal distention since this has not been done recently. At this point, the family would like to further evaluate her GI issues with colonoscopy since this has been her primary complaint before pursuing evaluation of her renal mass. Exam (Progress Note) - Constitutional Vitals: Period Temp Pulse Resp BP Sys/Hall Pulse Ox Last 24 Hr 96.8 F-98.8 F 59-78 18-20 140-173/67-76 96-98 Exam: General: Present: Appears Well, No Apparent Distress. Pleasant and cooperative. Appears comfortable. Appears frail. HEENT: Present: PERRL, Normocephaly, atraumatic. Mucus Membranes Moist. No jaundice noted. Conjunctiva moist and clear, sclerae anicteric Neck: Present: Supple Neck, Midline Trachea, No Masses, No Bruit, No tenderness Cardiac: Present: Regular Rate and Rhythm, No Murmur Chest wall exam: Improved pain surrounding pacemaker site. Continues to have mild tenderness to palpation of left breast keloid. Lungs: Present: Clear to auscultation bilaterally, no wheeze, rhonchi, rales. Neuro: Present: Awake, alert, and oriented x3. Moves all extremities well without hemiparesis or paralysis. Grossly Intact. Absent: Resting Tremor, Essential Tremor Abdomen: Present: Soft, Active Bowel Sounds, mild distention. No abdominal bruit or thrill noted. Skin: Present: Clear. Absent: Rash, No skin breakdown. Back: Normal inspection, no vertebral tenderness. Musculoskeletal: Present: No Fluid Collection, No Pain, Normal Range of Motion Extremities: Present: Normal Gait, No Clubbing, No Cyanosis, Upper Extr. Pulses 2+, Lower Extr. Pulses 2+, No edema. Capillary refill less than 3 seconds. Result/EKG - Labs CBC & BMP: 12/17/16 08:16 12/16/16 04:55 Lab Results: I have reviewed the past 24 hour labs Labs: Laboratory Results - last 24 hr 12/17/16 08:16 WBC 6.7 RBC 3.25 L Hgb 9.0 L Hct 28.5 L MCV 87.7 MCH 28 MCHC 31.6 L RDW 18.9 H Plt Count 1029 H* MPV 10.0 Neut % (Auto) 81.1 H Lymph % (Auto) 9.2 L [place]ane % (Auto) 6.1 Eos % (Auto) 2.2 Baso % (Auto) 1.0 H Neut # (Auto) 5.4 Lymph # (Auto) 0.6 L [place] # (Auto) 0.4 Eos # (Auto) 0.2 Baso # (Auto) 0.1 Immature Gran % 0.4 Nucleated RBC % 0.0 Immature Gran # 0.03 Nucleated RBCs # 0.00 - EKG EKG results: interpreted by me, sinus rhythm <Martha Greene - Last Filed: 12/17/16 17:07> Cardiology - PN: Subj Interval history: I have personally interviewed and evaluated the patient, reviewed the chart and discussed medical decision-making with practitioner Kanu. I have read this note and agree with her documentation here in. Exam (Progress Note) - Constitutional Vitals: Period Temp Pulse Resp BP Sys/Hall Pulse Ox Last 24 Hr 96.8 F-98.8 F 59-78 18-20 140-166/65-71 95-98 Result/EKG - Labs CBC & BMP: 12/17/16 08:16 12/16/16 04:55 Labs: Laboratory Results - last 24 hr 12/17/16 08:16 WBC 6.7 RBC 3.25 L Hgb 9.0 L Hct 28.5 L MCV 87.7 MCH 28 MCHC 31.6 L RDW 18.9 H Plt Count 1029 H* MPV 10.0 Neut % (Auto) 81.1 H Lymph % (Auto) 9.2 L Cr[place] % (Auto) 6.1 Eos % (Auto) 2.2 Baso % (Auto) 1.0 H Neut # (Auto) 5.4 Lymph # (Auto) 0.6 L [place] # (Auto) 0.4 Eos # (Auto) 0.2 Baso # (Auto) 0.1 Immature Gran % 0.4 Nucleated RBC % 0.0 Immature Gran # 0.03 Nucleated RBCs # 0.00
[2016-12-17] MEDS ORDERED: POLYETHYLENE GLYCOL POWDER 255 GM BOTTLE PO ONE (18:00)
[2016-12-17] MEDS: traZODone 50 MG TABLET PO SCH (21:17)
[2016-12-18] MEDS: NITROGLYCERIN 2% OINT 1 INCH/GM PACK TOP SCH ×4 (03:27→17:39)
[2016-12-18] MEDS: POLYETHYLENE GLYCOL POWDER 17 GM PACK PO SCH (08:55)
[2016-12-18] MEDS: FUROSEMIDE 40 MG TABLET PO SCH (08:56)
[2016-12-18] MEDS: ATORVASTATIN 10 MG TABLET PO SCH (08:56)
[2016-12-18] MEDS: ALLOPURINOL 300 MG TABLET PO SCH (08:56)
[2016-12-18] MEDS: DOCUSATE SODIUM 100 MG CAPSULE PO SCH (08:56)
[2016-12-18] MEDS: amLODIPine 10 MG TABLET PO SCH (08:56)
[2016-12-18] MEDS: LOSARTAN 25 MG TABLET PO SCH ×2 (08:57→22:41)
[2016-12-18] MEDS: hydrALAZINE 25 MG TABLET PO SCH ×2 (08:57→22:40)
[2016-12-18] MEDS: ASPIRIN EC 325 MG TABLET PO SCH (08:57)
[2016-12-18] MEDS: LEVOTHYROXINE 50 MCG TABLET PO SCH (08:57)
[2016-12-18] MEDS: PANTOPRAZOLE 40 MG TABLET PO SCH (08:57)
--- NOTE | 2016-12-18 09:05 | Oncology Progress Note ---
Oncology Subjective PN Interval history: This lady is about to undergo colonoscopy. I think it remains possible that she has iron deficiency anemia and the cause would most likely be GI blood loss. I also think her platelet count is elevated as result of an inflammatory process or possibly a primary marrow disorder. I have ordered testing for Donny 2 mutation. I see that the laboratory acknowledges the receipt of the order but I do not see any evidence that it has been run. The patient is still running a platelet count of around 1 million. Unless she is actually having platelet emboli, I would simply treated with aspirin unless we find that she is Donny 2 mutation positive. If she is negative for this mutation we could consider hydroxyurea as an additional treatment but I am not enthusiastic about placing an 86-year-old patient on this medication without evidence of platelet emboli. It is also possible that if her anemia resolves that her platelet count will fall to a lower level. Exam - Constitutional Vitals: Period Temp Pulse Resp BP Sys/Hall Pulse Ox Last 24 Hr 97.9 F-98.9 F 59-63 16-20 142-188/65-79 95-100 Results - Labs CBC & BMP: 12/17/16 08:16 12/16/16 04:55
--- NOTE | 2016-12-18 09:47 | Gastrointestinal Progress Note ---
<ChadTori Angel Luis - Last Filed: 12/18/16 09:45> Assessment and Plan (1) Abdominal distension Status: Acute Assessment and plan: 12/18-Continue prep today. Plan for colonoscopy tomorrow. Plan and addendum to follow by Dr Fleming. 12/17-No reports of abd pain today. Tolerating diet. Pt and family agree to proceed with colonoscopy. Plan and addendum to follow by Dr Fleming. 12/16-abdominal pain and discomfort improved. Having good bowel movements. Rest records reviewed. Stool negative for occult blood. Hemoglobin 8.5. Continue to monitor at present time. Plan an addendum to follow by Dr. Fleming. 12/13-2 month history of abdominal distention with discomfort with no changes in normal bowel patterns. Recent workup ongoing at [place] with Dr. Alejandro with recent EGD with negative findings. Obtain records from [facility]. Obtain stool for occult blood due to history of anemia plan an addendum to follow by Dr. Fleming. Current Visit: Yes Gastroenterology - PN: Subj Interval history: CC: Abdominal distention Patient is seen awake and alert with daughter at bedside. Patient is tolerating prep at present time. We will continue her prep and clear liquids today and plan to proceed with colonoscopy on tomorrow. Abdomen is soft, nontender. Hemoglobin 9.0 ROS: Denies SOB or chest pain Exam (Progress Note) - Constitutional Vitals: Period Temp Pulse Resp BP Sys/Hall Pulse Ox Last 24 Hr 97.9 F-98.9 F 59-63 16-20 142-188/65-79 95-100 General appearance: normal weight, no acute distress - Head Head exam: Present: normal inspection, normocephalic - Eye Eye exam: Present: other (lids and conjunctiva unremarkable). Absent: scleral icterus - ENT ENT exam: Present: normal exam, normal oropharynx - Neck Neck exam: Present: normal inspection - Respiratory Respiratory exam: Present: clear to auscultation bilaterally. Absent: rales, rhonchi, wheezes - Cardiovascular Cardiovascular exam: Present: regular rate and rhythm. Absent: diastolic murmur , JVD, systolic murmur - GI/Abdominal GI/Abdominal exam: Present: normal bowel sounds, soft. Absent: ascites, distended, mass, organomegaly, tenderness - Extremities Exam Extremities exam: Present: normal inspection, full ROM - Back Exam Back exam: Present: normal inspection - Neurological Exam Neurological exam: Present: alert, oriented X3 - Psychiatric Psychiatric exam: Present: normal affect, normal mood - Skin Skin exam: Present: normal color, warm, dry Results - Labs CBC & BMP: 12/17/16 08:16 12/16/16 04:55 Lab Results: I have reviewed the past 24 hour labs <Dillon Fleming - Last Filed: 12/18/16 22:26> Exam (Progress Note) - Constitutional Vitals: Period Temp Pulse Resp BP Sys/Hall Pulse Ox Last 24 Hr 97.0 F-99.2 F 60-63 16-20 129-188/53-79 96-100 Results - Labs CBC & BMP: 12/17/16 08:16 12/16/16 04:55
[2016-12-18] MEDS ORDERED: POLYETHYLENE GLYCOL POWDER 255 GM BOTTLE PO ONE (09:48)
--- NOTE | 2016-12-18 15:24 | Cardiology Progress Note ---
<Emperatriz Bobby E - Last Filed: 12/18/16 15:21> Assessment and Plan - Time spent with patient Time spent with patient: Less than 30 minutes (1) Atrial fibrillation Status: Chronic Assessment and plan: This is chronic with electronic ventricular pacing. Anticoagulation other than Aspirin is not recommended at this time. Current Visit: Yes (2) Chest pain Status: Acute Assessment and plan: This is noncardiac pain. She has tenderness to palpation of left chest wall surrounding pacemaker site which has been present for several months. She is also tender at the site of a left midsternal/left breast keloid. Troponins are nondiagnostic for ischemic cardiac event. EKG shows no acute ischemic changes. Current Visit: Yes (3) Anemia Status: Chronic Assessment and plan: Hematology has seen in consult. We appreciate their input. This is felt to be iron deficiency anemia. We will hold anticoagulation during her anemia workup. Current Visit: Yes (4) History of cardiac pacemaker Status: Chronic Assessment and plan: History of dual chamber pacemaker placement. Current Visit: Yes (5) HTN (hypertension) Status: Chronic Assessment and plan: Remains suboptimally controlled. She is on losartan 25mg po BID, norvasc 10mg po daily. She has been started on hydralazine and yesterday her dose was increased to 50 mg 3 times daily. We will further increase to 75 mg 3 times daily. We will see how she tolerates and make further adjustments as needed. Current Visit: Yes (6) GERD (gastroesophageal reflux disease) Status: Chronic Assessment and plan: Continue Protonix. Current Visit: Yes (7) Abdominal distension Status: Acute Assessment and plan: Ongoing for the past 2 months accompanied by occasional hematochezia and melena. Has also lost approximately 40 pounds in the last 15 months without trying. Initial stool for occult blood is negative. She is undergoing colon prep for colonoscopy in the morning. Current Visit: Yes (8) Renal insufficiency Status: Acute Assessment and plan: This appears to be chronic. We have limited records, so it is difficult to determine her baseline, but she has also had elevated creatinine at 2.2 in April 2015. Creatinine was 1.2 in 2010. Creatinine has remained stable at 1.3-1.5. Current Visit: Yes Cardiology - PN: Subj Interval history: GREASE MONKEY: DR. MARQUEZ PCP: DR. COURTNEY PAIZ Ms. Landeros was transferred to our facility on 12/12/16 for further evaluation of elevated troponin and left chest wall and arm pain. She has had flat troponins in the setting of renal insufficiency and non-cardiac chest pain which has been improving. During admission, she was found to be anemic and has had a 2 month history of abdominal distention. She has been seen by Dr. Wilson and is suspected to have iron deficiency anemia. Dr. Wilson notes the patient's kidney ultrasound demonstrates a renal mass in the upper pole of the left kidney which could be contributing to Ms. Landeros's anemia. Further workup would indicate obtaining a tissue biopsy and the patient would be a poor surgical candidate. Upon exam today, Ms. Landeros's family member called her granddaughter, Oksana, who is a nurse. Upon speaking with her granddaughter, I was able to determine that her renal mass has been present for approximately 1 year and has previously been followed by Dr. Solo with nephrology. According to the granddaughter, this mass has been monitored without plans for further intervention or evaluation unless it began causing the patient any issues. They were supposed to be referred to [facility] for further evaluation after being discharged from [facility] recently but an appointment was never made. She has also been seen in consultation by GI and the family wishes to proceed with a colonoscopy for further evaluation of her abdominal distention since this has not been done recently. At this point, the family would like to further evaluate her GI issues with colonoscopy since this has been her primary complaint before pursuing evaluation of her renal mass. She has been undergoing colon prep today for colonoscopy in the morning. She continues to have chest wall tenderness over the area of her left breast keloid. She has no other complaints today. Exam (Progress Note) - Constitutional Vitals: Period Temp Pulse Resp BP Sys/Hall Pulse Ox Last 24 Hr 97.9 F-98.9 F 62-63 16-20 141-188/65-79 98-100 Exam: General: Present: Appears Well, No Apparent Distress. Pleasant and cooperative. Appears comfortable. Appears frail. HEENT: Present: PERRL, Normocephaly, atraumatic. Mucus Membranes Moist. No jaundice noted. Conjunctiva moist and clear, sclerae anicteric Neck: Present: Supple Neck, Midline Trachea, No Masses, No Bruit, No tenderness Cardiac: Present: Regular Rate and Rhythm, No Murmur Chest wall exam: Improved pain surrounding pacemaker site. Continues to have mild tenderness to palpation of left breast keloid. Lungs: Present: Clear to auscultation bilaterally, no wheeze, rhonchi, rales. Neuro: Present: Awake, alert, and oriented x3. Moves all extremities well without hemiparesis or paralysis. Grossly Intact. Absent: Resting Tremor, Essential Tremor Abdomen: Present: Soft, Active Bowel Sounds, mild distention. No abdominal bruit or thrill noted. Skin: Present: Clear. Absent: Rash, No skin breakdown. Back: Normal inspection, no vertebral tenderness. Musculoskeletal: Present: No Fluid Collection, No Pain, Normal Range of Motion Extremities: Present: Normal Gait, No Clubbing, No Cyanosis, Upper Extr. Pulses 2+, Lower Extr. Pulses 2+, No edema. Capillary refill less than 3 seconds. Result/EKG - Labs CBC & BMP: 12/17/16 08:16 12/16/16 04:55 Lab Results: I have reviewed the past 24 hour labs - EKG EKG results: interpreted by me, sinus rhythm <Martha Greene - Last Filed: 12/18/16 21:28> Cardiology - PN: Subj Interval history: I have personally interviewed and evaluated the patient, reviewed the chart and discussed medical decision-making with practitioner Kanu. I have read this note and agree with her documentation here in. Exam (Progress Note) - Constitutional Vitals: Period Temp Pulse Resp BP Sys/Hall Pulse Ox Last 24 Hr 97.0 F-99.2 F 60-63 16-20 129-188/53-79 96-100 Result/EKG - Labs CBC & BMP: 12/17/16 08:16 12/16/16 04:55
[2016-12-18] MEDS: traZODone 50 MG TABLET PO SCH (22:41)
[2016-12-19] MEDS: NITROGLYCERIN 2% OINT 1 INCH/GM PACK TOP SCH ×5 (02:43→23:54)
[2016-12-19] MEDS: hydrALAZINE 25 MG TABLET PO SCH ×4 (02:44→21:04)
[2016-12-19 05:25] LABS: Basophils # 0.1 10*3/uL (0.0-0.2); Basophils % 0.8 % (0.0-0.8); Eosinophils # 0.1 10*3/uL (0.0-0.87); Eosinophils % 1.4 % (0.00-10.9); Hematocrit 25.1 VOL% (35.7-47.0); Hemoglobin 8.1 GM/DL (12.0-16.0); Immature Granulocytes % 0.6 %; Immature Granulocytes Absolute 0.04 #; Lymphocytes # 0.6 10*3/uL (1.4-4.0); Lymphocytes % 9.1 % (21.3-54.2); Mean Corpuscular HGB Conc 32.3 GM/DL (32-36); Mean Corpuscular Hemoglobin 27 PG (27-34); Mean Corpuscular Volume 83.4 FL (87-102); Mean Platelet Volume 10.3 FL (9.6-12.0); Monocytes # 0.4 10*3/uL (0.11-0.8); Monocytes % 6.5 % (1.7-12.7); Neutrophils # 5.4 10*3/uL (1.4-7.4); Neutrophils % 81.6 % (38.7-73.9); Red Blood Count 3.01 MC/CUMM (3.8-5.5); Red Cell Distribution Width 19.2 % (9.3-17.3); White Blood Count 6.6 T/CUMM (4-12)
[2016-12-19 05:28] LABS: Platelet Count 1010 T/CUMM (130-400)
[2016-12-19 05:55] LABS: Calcium 8.4 MG/DL (8.5-10.1); Magnesium 1.9 MG/DL (1.8-2.4); Osmolality,Calculated 286.1 MOS/KG (273-304); Potassium 4.3 MMOL/L (3.5-5.1)
[2016-12-19] MEDS ORDERED: PROPOFOL 200 MG/20 ML VIAL IV ONE (11:10)
[2016-12-19] MEDS ORDERED: LIDOCAINE 2% 5 ML VIAL ONE (11:10)
--- NOTE | 2016-12-19 11:38 | History and Physical Update ---
History and Physical Update - Physical Exam Mental Status: alert and oriented Heart: regular rate and rhythm Lung: clear to auscultation Abdomen: within normal limits Vitals: within normal limits
--- NOTE | 2016-12-19 11:41 | Operative Note ---
Date of procedure: 12/19/16 Pre-op diagnosis: Recurrent abdominal pain Procedure: Colonoscopy with hot biopsy polypectomy 4 86-year-old female with protracted complaints of abdominal pain and distention now for colonoscopy to further evaluate. Please see consult for further details. Informed consent was obtained for the patient's and her family. She was sedated with MAC anesthesia per anesthesia protocol. The patient was placed in left lateral decubitus position digital exam was normal the Olympus flexible video colonoscope Serling canal advanced under direct vision level cecum to 5 years ago valve appendiceal orifice. Prep was fair. Withdrawal time 10 minutes Findings: Cecum-normal identified the ileocecal valve and appendiceal orifice. Terminal ileum-normal Ascending colon diverticulosis is present for polyps are seen each measuring 5- 6 mm and each hot biopsy fulgurated. Transverse colon-diverticulosis Descending colon-diverticulosis Sigmoid colon-diverticulosis Rectum-normal to direct retroflexed views. The procedure terminated placed our procedure well she is discharged recovery in good condition. Postop diagnosis: 1. Pancolonic diverticulosis-maintain adequate fiber and fluid intake #2 colon [id number]-[id number] path Anesthesia: MAC Surgeon / Physician: Dillon Fleming Estimated blood loss: none Specimens: none sent Condition: stable Disposition: post procedure unit Results - Labs CBC & BMP: 12/19/16 04:35 12/19/16 04:35 Discharge Plan - Discharge Medications No Action Atorvastatin [Lipitor] 5 mg PO QAM Alendronate [Fosamax] 70 mg PO MO Pantoprazole Sodium 40 mg PO QAM Docusate Sodium 100 mg PO QAM traZODone [Desyrel] 25 - 50 mg PO BEDTIME Polyethylene Glycol Powder [Miralax] 1 each PO QAM Levothyroxine Sodium 50 mcg PO QAM Furosemide [Furosemide] 40 mg PO QAM Aspirin EC Tab 81 mg PO QAM amLODIPine [Norvasc] 10 mg PO QAM Allopurinol [Allopurinol] 300 mg PO QAM - Follow Up or Referral - Forms/Instructions
--- NOTE | 2016-12-19 11:46 | Anesthesia Post-Op ---
Anesthesia Post OP - Post Ansesthetic Evaluation Patient seen in post op: Yes Resp: within normal limits CV: within normal limits Mental: within normal limits Temp: within normal limits Eluj-Ba-Azxzemaxn: within normal limits Nausea and Vomiting: within normal limits Pain: within normal limits
[2016-12-19] MEDS: POLYETHYLENE GLYCOL POWDER 17 GM PACK PO SCH (13:07)
[2016-12-19] MEDS: DOCUSATE SODIUM 100 MG CAPSULE PO SCH (13:07)
[2016-12-19] MEDS: ASPIRIN EC 325 MG TABLET PO SCH (13:07)
[2016-12-19] MEDS: LOSARTAN 25 MG TABLET PO SCH ×2 (13:07→21:04)
[2016-12-19] MEDS: PANTOPRAZOLE 40 MG TABLET PO SCH (13:16)
[2016-12-19] MEDS: ATORVASTATIN 10 MG TABLET PO SCH (13:16)
[2016-12-19] MEDS: amLODIPine 10 MG TABLET PO SCH (13:16)
[2016-12-19] MEDS: ALLOPURINOL 300 MG TABLET PO SCH (13:16)
[2016-12-19] MEDS: LEVOTHYROXINE 50 MCG TABLET PO SCH (13:16)
[2016-12-19] MEDS: FUROSEMIDE 40 MG TABLET PO SCH (13:16)
--- NOTE | 2016-12-19 17:27 | Cardiology Progress Note ---
<Emperatriz Bobby E - Last Filed: 12/19/16 17:21> Assessment and Plan - Time spent with patient Time spent with patient: Less than 30 minutes (1) Atrial fibrillation Status: Chronic Assessment and plan: This is chronic with electronic ventricular pacing. Anticoagulation other than Aspirin is not recommended at this time. Current Visit: Yes (2) Chest pain Status: Acute Assessment and plan: This is noncardiac pain. She has tenderness to palpation of left chest wall surrounding pacemaker site which has been present for several months. She is also tender at the site of a left midsternal/left breast keloid. Troponins are nondiagnostic for ischemic cardiac event. EKG shows no acute ischemic changes. Current Visit: Yes (3) Anemia Status: Chronic Assessment and plan: Hematology has seen in consult. We appreciate their input. This is felt to be iron deficiency anemia. We will hold anticoagulation during her anemia workup. Current Visit: Yes (4) History of cardiac pacemaker Status: Chronic Assessment and plan: History of dual chamber pacemaker placement. Current Visit: Yes (5) HTN (hypertension) Status: Chronic Assessment and plan: Remains suboptimally controlled. She is on losartan 25mg po BID, norvasc 10mg po daily. We have increased her hydralazine to 75mg PO TID. Blood pressures have been elevated but she was NPO for C-scope this morning. We will see how she tolerates and make further adjustments as needed. Current Visit: Yes (6) GERD (gastroesophageal reflux disease) Status: Chronic Assessment and plan: Continue Protonix. Current Visit: Yes (7) Abdominal distension Status: Acute Assessment and plan: Ongoing for the past 2 months accompanied by occasional hematochezia and melena. Has also lost approximately 40 pounds in the last 15 months without trying. Initial stool for occult blood is negative. Colonoscopy today revealed pancolonic diverticulosis and colon polyps. GI recommended maintaining adequate fiber and fluid intake. Current Visit: Yes (8) Renal insufficiency Status: Acute Assessment and plan: This appears to be chronic. We have limited records, so it is difficult to determine her baseline, but she has also had elevated creatinine at 2.2 in April 2015. Creatinine was 1.2 in 2010. Creatinine has remained stable at 1.3-1.5. Current Visit: Yes Cardiology - PN: Subj Interval history: BLEACH CHLORINATOR: DR. MARQUEZ PCP: DR. COURTNEY Landeros was transferred to our facility on 12/12/16 for further evaluation of elevated troponin and left chest wall and arm pain. She has had flat troponins in the setting of renal insufficiency and non-cardiac chest pain which has been improving. During admission, she was found to be anemic and has had a 2 month history of abdominal distention. She has been seen by Dr. Wilson and is suspected to have iron deficiency anemia. Dr. Wilson notes the patient's kidney ultrasound demonstrates a renal mass in the upper pole of the left kidney which could be contributing to Ms. Landeros's anemia. Further workup would indicate obtaining a tissue biopsy and the patient would be a poor surgical candidate. Upon speaking with the patient's granddaughter, I was able to determine that her renal mass has been present for approximately 1 year and has previously been followed by Dr. Solo with nephrology. According to the granddaughter, this mass has been monitored without plans for further intervention or evaluation unless it began causing the patient any issues. They were supposed to be referred to [facility] for further evaluation after being discharged from [facility] recently but an appointment was never made. Ms. Landeros underwent colonoscopy with Dr. Fleming today which revealed pancolonic diverticulosis and colon polyps which were biopsied. It is recommended she maintain adequate fiber and fluid intake. The family wished to further evaluate her GI issues with colonoscopy since this has been her primary complaint before pursuing evaluation of her renal mass. We will continue to monitor and hopefully plan for discharge soon. Exam (Progress Note) - Constitutional Vitals: Period Temp Pulse Resp BP Sys/Hall Pulse Ox Last 24 Hr 97.2 F-99.2 F 60-66 16-25 128-171/42-70 92-100 Exam: General: Present: Appears Well, No Apparent Distress. Pleasant and cooperative. Appears comfortable. Appears frail. HEENT: Present: PERRL, Normocephaly, atraumatic. Mucus Membranes Moist. No jaundice noted. Conjunctiva moist and clear, sclerae anicteric Neck: Present: Supple Neck, Midline Trachea, No Masses, No Bruit, No tenderness Cardiac: Present: Regular Rate and Rhythm, No Murmur Chest wall exam: Improved pain surrounding pacemaker site. Continues to have mild tenderness to palpation of left breast keloid. Lungs: Present: Clear to auscultation bilaterally, no wheeze, rhonchi, rales. Neuro: Present: Awake, alert, and oriented x3. Moves all extremities well without hemiparesis or paralysis. Grossly Intact. Absent: Resting Tremor, Essential Tremor Abdomen: Present: Soft, Active Bowel Sounds, mild distention. No abdominal bruit or thrill noted. Skin: Present: Clear. Absent: Rash, No skin breakdown. Back: Normal inspection, no vertebral tenderness. Musculoskeletal: Present: No Fluid Collection, No Pain, Normal Range of Motion Extremities: Present: Normal Gait, No Clubbing, No Cyanosis, Upper Extr. Pulses 2+, Lower Extr. Pulses 2+, No edema. Capillary refill less than 3 seconds. Result/EKG - Labs CBC & BMP: 12/19/16 04:35 12/19/16 04:35 Lab Results: I have reviewed the past 24 hour labs Labs: Laboratory Results - last 24 hr 12/19/16 12/19/16 04:35 04:35 WBC 6.6 RBC 3.01 L Hgb 8.1 L Hct 25.1 L MCV 83.4 L MCH 27 MCHC 32.3 RDW 19.2 H Plt Count 1010 H* MPV 10.3 Neut % (Auto) 81.6 H Lymph % (Auto) 9.1 L [place] % (Auto) 6.5 Eos % (Auto) 1.4 Baso % (Auto) 0.8 Neut # (Auto) 5.4 Lymph # (Auto) 0.6 L [place] # (Auto) 0.4 Eos # (Auto) 0.1 Baso # (Auto) 0.1 Immature Gran % 0.6 Nucleated RBC % 0.0 Immature Gran # 0.04 Nucleated RBCs # 0.00 Sodium 142 Potassium 4.3 Chloride 111 H Carbon Dioxide 22 Anion Gap 13.3 BUN 26 H Creatinine 1.60 H GFR Calculation 31 BUN/Creatinine Ratio 16.00 Glucose 82 Calculated Osmolality 286.1 Calcium 8.4 L Magnesium 1.9 - EKG EKG results: interpreted by me EKG shows: atrial fibrillation <Martha Greene - Last Filed: 12/19/16 18:07> Cardiology - PN: Subj Interval history: I have personally interviewed and evaluated the patient, reviewed the chart and discussed medical decision-making with practitioner Kanu. I have read this note and agree with her documentation here in. Exam (Progress Note) - Constitutional Vitals: Period Temp Pulse Resp BP Sys/Hall Pulse Ox Last 24 Hr 97.2 F-99.2 F 60-66 16-25 128-171/42-70 92-100 Result/EKG - Labs CBC & BMP: 12/19/16 04:35 12/19/16 04:35 Labs: Laboratory Results - last 24 hr 12/19/16 12/19/16 04:35 04:35 WBC 6.6 RBC 3.01 L Hgb 8.1 L Hct 25.1 L MCV 83.4 L MCH 27 MCHC 32.3 RDW 19.2 H Plt Count 1010 H* MPV 10.3 Neut % (Auto) 81.6 H Lymph % (Auto) 9.1 L [place] % (Auto) 6.5 Eos % (Auto) 1.4 Baso % (Auto) 0.8 Neut # (Auto) 5.4 Lymph # (Auto) 0.6 L [place] # (Auto) 0.4 Eos # (Auto) 0.1 Baso # (Auto) 0.1 Immature Gran % 0.6 Nucleated RBC % 0.0 Immature Gran # 0.04 Nucleated RBCs # 0.00 Sodium 142 Potassium 4.3 Chloride 111 H Carbon Dioxide 22 Anion Gap 13.3 BUN 26 H Creatinine 1.60 H GFR Calculation 31 BUN/Creatinine Ratio 16.00 Glucose 82 Calculated Osmolality 286.1 Calcium 8.4 L Magnesium 1.9
[2016-12-19] MEDS: traZODone 50 MG TABLET PO SCH (21:04)
[2016-12-20] MEDS: NITROGLYCERIN 2% OINT 1 INCH/GM PACK TOP SCH ×2 (06:07→13:00)
[2016-12-20 06:40] LABS: Basophils % 0.5 % (0.0-0.8); Eosinophils # 0.1 10*3/uL (0.0-0.87); Eosinophils % 1.4 % (0.00-10.9); Hematocrit 27.1 VOL% (35.7-47.0); Hemoglobin 8.4 GM/DL (12.0-16.0); Immature Granulocytes % 0.6 %; Immature Granulocytes Absolute 0.04 #; Lymphocytes # 0.6 10*3/uL (1.4-4.0); Lymphocytes % 9.1 % (21.3-54.2); Mean Corpuscular Hemoglobin 27 PG (27-34); Mean Corpuscular Volume 86.6 FL (87-102); Mean Platelet Volume 10.2 FL (9.6-12.0); Monocytes # 0.5 10*3/uL (0.11-0.8); Monocytes % 8.2 % (1.7-12.7); Neutrophils # 5.1 10*3/uL (1.4-7.4); Neutrophils % 80.2 % (38.7-73.9); Platelet Count 948 T/CUMM (130-400); Red Blood Count 3.13 MC/CUMM (3.8-5.5); Red Cell Distribution Width 19.4 % (9.3-17.3); White Blood Count 6.4 T/CUMM (4-12)
[2016-12-20 06:58] LABS: Calcium 8.3 MG/DL (8.5-10.1); Magnesium 2.1 MG/DL (1.8-2.4); Potassium 4.9 MMOL/L (3.5-5.1)
[2016-12-20] MEDS: ALLOPURINOL 300 MG TABLET PO SCH (09:11)
[2016-12-20] MEDS: amLODIPine 10 MG TABLET PO SCH (09:11)
[2016-12-20] MEDS: POLYETHYLENE GLYCOL POWDER 17 GM PACK PO SCH (09:11)
[2016-12-20] MEDS: ATORVASTATIN 10 MG TABLET PO SCH (09:12)
[2016-12-20] MEDS: LOSARTAN 25 MG TABLET PO SCH (09:12)
[2016-12-20] MEDS: LEVOTHYROXINE 50 MCG TABLET PO SCH (09:13)
[2016-12-20] MEDS: FUROSEMIDE 40 MG TABLET PO SCH (09:13)
[2016-12-20] MEDS: hydrALAZINE 25 MG TABLET PO SCH (09:15)
[2016-12-20] MEDS: DOCUSATE SODIUM 100 MG CAPSULE PO SCH (09:15)
[2016-12-20] MEDS: PANTOPRAZOLE 40 MG TABLET PO SCH (09:15)
[2016-12-20] MEDS: ASPIRIN EC 325 MG TABLET PO SCH (09:15)
--- NOTE | 2016-12-20 10:05 | Gastrointestinal Progress Note ---
<Rogelio Bonillaher Angel Luis - Last Filed: 12/20/16 10:03> Assessment and Plan (1) Abdominal distension Status: Acute Assessment and plan: 12/20-Post C-scope with path pending on polyp biopsy. No c/o pain/distention. Plan and addendum to follow by Dr Fleming. 12/18-Continue prep today. Plan for colonoscopy tomorrow. Plan and addendum to follow by Dr Fleming. 12/17-No reports of abd pain today. Tolerating diet. Pt and family agree to proceed with colonoscopy. Plan and addendum to follow by Dr Fleming. 12/16-abdominal pain and discomfort improved. Having good bowel movements. [facility] records reviewed. Stool negative for occult blood. Hemoglobin 8.5. Continue to monitor at present time. Plan an addendum to follow by Dr. Fleming. 12/13-2 month history of abdominal distention with discomfort with no changes in normal bowel patterns. Recent workup ongoing at [place] with Dr. Alejandro with recent EGD with negative findings. Obtain records from [facility]. Obtain stool for occult blood due to history of anemia plan an addendum to follow by Dr. Fleming. Current Visit: Yes Gastroenterology - PN: Subj Interval history: CC: Abd pain/distention Pt is awake and alert sitting up in bed with family at bedside. Pt states that she rested well overnight and is tolerating a regular diet at this time. She states her distention and pain is much improved as well. Abdomen is soft, nontender. C-scope findings are noted. ROS: Denies SOB or chest pain Exam (Progress Note) - Constitutional Vitals: Period Temp Pulse Resp BP Sys/Hall Pulse Ox Last 24 Hr 97.2 F-99.4 F 60-67 16-25 134-171/42-70 92-100 General appearance: normal weight, no acute distress - Head Head exam: Present: normal inspection, normocephalic - Eye Eye exam: Present: other (lids and conjunctiva unremarkable). Absent: scleral icterus - ENT ENT exam: Present: normal exam, normal oropharynx - Neck Neck exam: Present: normal inspection - Respiratory Respiratory exam: Present: clear to auscultation bilaterally. Absent: rales, rhonchi, wheezes - Cardiovascular Cardiovascular exam: Present: regular rate and rhythm. Absent: diastolic murmur , JVD, systolic murmur - GI/Abdominal GI/Abdominal exam: Present: normal bowel sounds, soft. Absent: ascites, distended, mass, organomegaly, tenderness - Extremities Exam Extremities exam: Present: normal inspection, full ROM - Back Exam Back exam: Present: normal inspection - Neurological Exam Neurological exam: Present: alert, oriented X3 - Psychiatric Psychiatric exam: Present: normal affect, normal mood - Skin Skin exam: Present: normal color, warm, dry Results - Labs CBC & BMP: 12/20/16 05:42 12/20/16 05:42 Lab Results: I have reviewed the past 24 hour labs Specialty Discharge - Follow Up or Referrals Follow up with: Jigar Jain MD [Physician] - Jadiel Solo Jr., MD [Physician] - Som Ayala MD [Physician] - 1 Month (Follow up with Dr. Ayala within 1 month. Keep appointment on 12/27/16 at 0930 AM to have pacemaker checked. ) <Dillon Fleming - Last Filed: 12/20/16 11:00> Exam (Progress Note) - Constitutional Vitals: Period Temp Pulse Resp BP Sys/Hall Pulse Ox Last 24 Hr 97.2 F-99.4 F 60-67 16-25 134-167/42-70 92-100 Results - Labs CBC & BMP: 12/20/16 05:42 12/20/16 05:42
--- NOTE | 2016-12-20 10:54 | Pathology Report from [facility] ---
ACCESSION # : [id number] PATIENT NAME : Isabel Malcolm ORDERING DR : CHRIS BLOOM MD CLINICAL HX: Anemia POST-OP DX: Same SPECIMEN INFO: RT colon/cecal colon polyp GROSS DESCRIPTION: The specimen is received in formalin labeled with the patient 's name and consists of a 0.8 x 0.3 cm aggregate of singh tissue. Submitted in one cassette. DIAGNOSIS FOR ISABEL MALCOLM: RIGHT COLON/CECAL COLON POLYP: Tubular adenoma. SERVICE DATE: 12/19/2016 REPORT DATE: 12/20/2016 PATHOLOGIST: Bora Taylor
--- NOTE | 2016-12-20 10:57 | Discharge Summary ---
<Emperatriz Bobby E - Last Filed: 12/20/16 10:55> Hospital Course - Hospital Course Hospital Course: FIGURE REFINISHER AND REPAIRER: DR. AYALA PCP: would like to establish care with Dr. Jain Ms. Landeros was transferred to our facility on 12/12/16 for further evaluation of elevated troponin and left chest wall and arm pain. She has had flat troponins in the setting of renal insufficiency and non-cardiac chest pain related to her pacemaker site and a left breast keloid which has been improving. During admission, she was found to be anemic and has had a 2 month history of abdominal distention for which she has undergone a GI workup. She has abdominal distention that has been present for approximately 2 months. She was hospitalized at [facility] in October and saw Dr. Alejandro who performed an EGD which according to the family was negative. During this hospitalization, she underwent colonoscopy with Dr. Fleming and was found to have pancolonic diverticulosis and colon polyps which were biopsied. It was recommended she maintain adequate fluid and fiber intake. Dr. Fleming's office will contact Ms. Landeros if she has any abnormal results that need follow up. Her abdominal pain and distention is much improved after her colon cleanse and colonoscopy. She has been seen by Dr. Patricio and is suspected to have iron deficiency anemia. After discussion with her granddaughter, Nusrat, who is a nurse, she has previously been on iron supplements but this caused her to have severe constipation. Her H&H is currently stable. Her stools were negative for occult blood and she has had no signs of overt bleeding and has not required blood transfusion during hospitalization. During hospitalization, the patient's kidney ultrasound demonstrates a renal mass in the upper pole of the left kidney which could be contributing to Ms. Landeros's anemia. Upon speaking with the patient's granddaughter, I was able to determine that her renal mass has been present for approximately 1 year and has previously been followed by Dr. Solo with nephrology. According to the granddaughter, this mass has been monitored without plans for further intervention or evaluation unless it began causing the patient any issues. They were supposed to be referred to [facility] for further evaluation after being discharged from [facility] recently but an appointment was never made. We will schedule her a follow up with Dr. Solo within 1-2 weeks for further evaluation. She has also had some mild renal insufficiency and will need a BMP at her follow up appointment. Ms. Landeros's blood pressures have been suboptimally controlled throughout her hospital stay. We have adjusted her medication regimen and her blood pressure is now well controlled with SBP readings in the 130's. She will need strict adherance to her new medication regimen with monitoring of her blood pressure. We will consult social media executive to set up home health for her to help with this. She has an appointment for a pacemaker check on 12/27/16 at 0930 that she needs to keep and will need to follow up with Dr. Ayala in 1 month. I spoke at length with Ms. Landeros's granddaughter Nusrat via phone and the patient and her family present in the room regarding her discharge plan including medications, test results, and follow up appointments. All are in agreement with the plan and now wish to establish care with a new primary care provider. Dr. Jain has been recommended to them by several individuals and they would like to be referred to him. We will make sure Ms. Landeros has a follow up appointment with Dr. Jain within 1-2 weeks to help in managing her multiple medical issues. At this time, Ms. Landeros is stable and ready for discharge. We will let her go home today to follow up with her physicians as directed. - Time spent with patient Time with patient DS: Greater than 30 minutes (due to discussion of plan and follow up, assessment, and documentation) Diagnosis - Discharge Diagnosis (1) Atrial fibrillation Status: Chronic (2) Chest pain Status: Resolved (3) Anemia Status: Chronic (4) History of cardiac pacemaker Status: Chronic (5) HTN (hypertension) Status: Chronic (6) GERD (gastroesophageal reflux disease) Status: Chronic (7) Abdominal distension Status: Resolved (8) Renal insufficiency Status: Chronic Specialty Discharge - Follow Up or Referrals Follow up with: Jigar Jain MD [Physician] - 2 Weeks (Patient would like to establish care with new PCP. Please schedule her for the first available appointment within 1- 2 weeks. Thank you!) Jadiel Solo Jr., MD [Physician] - 01/01/17 8:20 am (Follow up with Dr. Solo within 1-2 weeks regarding known renal mass, elevated creatinine. Recommend patient have BMP at follow up visit. ) Som Ayala MD [Physician] - 1 Month (Follow up with Dr. Ayala within 1 month. Keep appointment on 12/27/16 at 0930 AM to have pacemaker checked. ) Discharge Plan - Discharge Data Disposition: Disch To Home/Self Care Condition at Discharge: Stable Discharge Diet: heart healthy Activity: resume usual activities as tolerated Hygiene: no restrictions Weight Bearing at Discharge: full weight bearing Contact your physician if you experience:: fever over 101, Difficulty voiding, Redness or swelling, Nausea/Vomiting, Shortness of breath, Bleeding, pain uncontrolled by pain medications - Discharge Medications New Aspirin EC Tab 325 mg PO DAILY #30 tablet Losartan [Cozaar] 25 mg PO BID #60 tablet hydrALAZINE TAB [Apresoline Tab] 75 mg PO TID #90 tablet Continue Atorvastatin [Lipitor] 5 mg PO QAM Alendronate [Fosamax] 70 mg PO MO Pantoprazole Sodium 40 mg PO QAM Docusate Sodium 100 mg PO QAM traZODone [Desyrel] 25 - 50 mg PO BEDTIME Polyethylene Glycol Powder [Miralax] 1 each PO QAM Levothyroxine Sodium 50 mcg PO QAM Furosemide 40 mg PO QAM amLODIPine [Norvasc] 10 mg PO QAM Allopurinol 300 mg PO QAM Discontinued Aspirin EC Tab 81 mg PO QAM - Follow Up or Referral Follow Up: Jigar Jain MD [Physician] - 2 Weeks (Patient would like to establish care with new PCP. Please schedule her for the first available appointment within 1- 2 weeks. Thank you!) Jadiel Solo Jr., MD [Physician] - 01/01/17 8:20 am (Follow up with Dr. Solo within 1-2 weeks regarding known renal mass, elevated creatinine. Recommend patient have BMP at follow up visit. ) Som Ayala MD [Physician] - 1 Month (Follow up with Dr. Ayala within 1 month. Keep appointment on 12/27/16 at 0930 AM to have pacemaker checked. ) - Forms/Instructions Additional Discharge Instructions: Dr. Fleming's office will call for any abnormal test results that necessitate follow-up. Exam - Constitutional Vitals: Period Temp Pulse Resp BP Sys/Hall Pulse Ox Last 24 Hr 98.1 F-99.4 F 60-67 18-20 134-152/55-65 93-100 Exam: General: Present: Appears Well, No Apparent Distress. Pleasant and cooperative. Appears comfortable. Appears frail. HEENT: Present: PERRL, Normocephaly, atraumatic. Mucus Membranes Moist. No jaundice noted. Conjunctiva moist and clear, sclerae anicteric Neck: Present: Supple Neck, Midline Trachea, No Masses, No Bruit, No tenderness Cardiac: Present: Regular Rate and Rhythm, No Murmur Chest wall exam: Improved pain surrounding pacemaker site. Continues to have mild tenderness to palpation of left breast keloid which is chronic. Lungs: Present: Clear to auscultation bilaterally, no wheeze, rhonchi, rales. Neuro: Present: Awake, alert, and oriented x3. Moves all extremities well without hemiparesis or paralysis. Grossly Intact. Absent: Resting Tremor, Essential Tremor Abdomen: Present: Soft, Active Bowel Sounds, mild distention, overall much improved. No abdominal bruit or thrill noted. Skin: Present: Clear. Absent: Rash, No skin breakdown. Back: Normal inspection, no vertebral tenderness. Musculoskeletal: Present: No Fluid Collection, No Pain, Normal Range of Motion Extremities: Present: Normal Gait, No Clubbing, No Cyanosis, Upper Extr. Pulses 2+, Lower Extr. Pulses 2+, No edema. Capillary refill less than 3 seconds. Discharge Results Procedures and tests throughout hospitalization: Pending Orders 12/16/16 07:23 JAK2 Mutation Analysis Routine Echocardiogram done 12/13/2016 revealed mild global hypokinesis with EF 45-50%, mild concentric left ventricular hypertrophy, mild possibly moderate mitral regurgitation, severe tricuspid regurgitation, severely elevated right-sided pressures. Colonoscopy with hot biopsy polypectomy 4 on 12/19/2016: Findings: Cecum-normal identified the ileocecal valve and appendiceal orifice. Terminal ileum-normal Ascending colon diverticulosis is present for polyps are seen each measuring 5- 6 mm and each hot biopsy fulgurated. Transverse colon-diverticulosis Descending colon-diverticulosis Sigmoid colon-diverticulosis Rectum-normal to direct retroflexed views. The procedure terminated placed our procedure well she is discharged recovery in good condition. Postop diagnosis: 1. Pancolonic diverticulosis-maintain adequate fiber and fluid intake #2 colon [id number] path Labs on day of discharge: Labs from last 24 hours 12/20/16 12/20/16 05:42 05:42 WBC 6.4 RBC 3.13 L Hgb 8.4 L Hct 27.1 L MCV 86.6 L MCH 27 MCHC 31.0 L RDW 19.4 H Plt Count 948 H MPV 10.2 Neut % (Auto) 80.2 H Lymph % (Auto) 9.1 L Casey % (Auto) 8.2 Eos % (Auto) 1.4 Baso % (Auto) 0.5 Neut # (Auto) 5.1 Lymph # (Auto) 0.6 L [place] # (Auto) 0.5 Eos # (Auto) 0.1 Baso # (Auto) 0.0 Immature Gran % 0.6 Nucleated RBC % 0.0 Immature Gran # 0.04 Nucleated RBCs # 0.00 Sodium 143 Potassium 4.9 Chloride 115 H Carbon Dioxide 21 Anion Gap 11.9 BUN 28 H Creatinine 1.70 H GFR Calculation 29 BUN/Creatinine Ratio 16.00 Glucose 97 Calculated Osmolality 290.0 Calcium 8.3 L Magnesium 2.1 DS: Provider Date of admission: 12/12/16 18:48 Primary care physician: . No PCP Attending physician on admission: Som Ayala MD Consults: 12/13/16 09:30 Consult to Physician [CONS] Routine Comment: melena, hematochezia, abdominal distention Consulting Provider: Dillon Fleming Consult to Specialist Group: Gastroenterology Person Notified: JOSÉ MIGUEL Date Notified: 12/13/16 Time Notified: 09:55 Consult Notification Comment: Pt previously seen at [facility], negative E-scope per pt report. abd distention x2 months. Reports occ. melena & hematochezia. Passing stool and gas. 12/14/16 13:47 Consult to Physician [CONS] Routine Comment: thrombocytosis and anemia Consulting Provider: [facility] Consulting Provider Notified: No When should Consulting Provider be notified: Now Person Notified: DR PATRICIO Date Notified: 12/14/16 Time Notified: 14:00 12/19/16 21:51 Consult to Dietitian [CONS] Routine Reason for Dietitian: Diet Instruction Consult Comment: new diagnosis of diverticulosis; family requests diet education 12/20/16 10:53 Consult to Case Mgmt/Social Srvs [CONS] Routine Reason for Case Mgmt/Social Srvs: Discharge Planning Home Health Consult Comment: need BP monitoring and home assistance, granddaugther's # [phone] Discharging clinician: DAVID Austin Expected date of discharge: 12/20/16 <Martha Greene - Last Filed: 12/20/16 17:41> Hospital Course - Hospital Course Hospital Course: I have personally interviewed and evaluated the patient, reviewed the chart and discussed medical decision-making with practitioner Kanu. I have read this note and agree with her documentation here in.
[2016-12-20 13:08] VITALS: BP 152/65
--- NOTE | 2016-12-26 06:32 | Oncology Progress Note ---
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 The patient does not have a Donny 2 mutation. 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 If she has significant change in her blood counts, I may need to see her again. However, my recommendation for the time being remains to watch her blood counts and treat her with aspirin. Results - Labs CBC & BMP: 12/20/16 05:42 12/20/16 05:42 Specialty Discharge - Follow Up or Referrals Follow up with: Jigar Jain MD [Physician] - 2 Weeks (Patient would like to establish care with new PCP. Please schedule her for the first available appointment within 1-2 weeks. Thank you! OFFICE SAID THEY WOULD CALL PATIENT AT HOME WITH APPT.) Jadiel Solo Jr., MD [Physician] - 01/01/17 8:20 am (Follow up with Dr. Solo within 1-2 weeks regarding known renal mass, elevated creatinine. Recommend patient have BMP at follow up visit. ) Som Ayala MD [Physician] - 01/21/17 8:30 am (Follow up with Dr. Ayala within 1 month. Keep appointment on 12/27/16 at 0930 AM to have pacemaker checked. )
== END 2016-12-20 13:53 | disposition home or self-care (01) | DRG 313 ==
LOC: EDUNIT# → N.ED 17:40 → N.EDINP 18:48 → N.TELEN 19:37
PROVIDERS: ADMIT Internal Medicine Interventional Cardiology; ATTEND Internal Medicine Interventional Cardiology

== ENCOUNTER 2017-02-25 18:33 | Inpatient (IN) ==
[2017-02-25] MEDS ORDERED: PANTOPRAZOLE 40 MG VIAL IV STA (19:00)
[2017-02-25] MEDS ORDERED: SODIUM CHLORIDE 0.9% 500 ML IV STA ×2 (19:00→20:32)
[2017-02-25] MEDS ORDERED: HYDROmorphone 2 MG/1 ML VIAL IV STA (19:00)
[2017-02-25] MEDS ORDERED: ONDANSETRON 4 MG/2 ML VIAL IV STA (19:00)
[2017-02-25] MEDS ORDERED: ALUM/MAG/SIMETH/LIDO VISC 1:1 30 ML BOTTLE PO STA (19:00)
[2017-02-25] MEDS ORDERED: PANTOPRAZOLE 40 MG VIAL IV ONE (19:12)
[2017-02-25] MEDS ORDERED: ONDANSETRON 4 MG/2 ML VIAL ONE (19:13)
[2017-02-25] MEDS ORDERED: ALUM/MAG/SIMETH/LIDO VISC 1:1 30 ML BOTTLE PO ONE (19:13)
[2017-02-25] MEDS ORDERED: HYDROmorphone 2 MG/1 ML VIAL ONE (19:13)
--- NOTE | 2017-02-25 19:20 | Emergency Department Note ---
Marah Rodriguez Rolonda, am scribing for, and in the presence of, Can Salvador MD 19:09. Modesto Rodriguez Charles R, MD, personally performed the services described in this documentation, ascribed by Kwadwo Crystal in my presence, and it is both accurate and complete 920 . Arrival - Arrival Chief Complaint: Abdominal / Flank Pain Stated Complaint: left side swelling and sleepy ED Nursing Triage Note: c/o lt lower flank pain onset few days ago. denies n/v/ and uti s/s. last bm was this am and normal Mode of Arrival: Wheelchair Limitations: No Limitations Source: Family (granddaughter), Old Records Reviewed, RN Notes Reviewed Time Seen by Provider: 02/25/17 18:55 - History of Present Illness HPI Narrative: Pt is an 86 y/o ill appearing female who presents to the ED for further evaluation of abdominal pain with an onset of days. Pt has a PMHx of HTN, Diverticulitis, Abdominal distension, and Renal Mass. Granddaughter states that the pain began days ago but worsened today which prompted pt's visit to the ED. Granddaughter confirms that pt has had a recent BM but denies N/V/D, and fever. At time of triage pt's temperature was 101.6. No other complaint/pain in ED. Onset (ago): day(s) Consistency: constant Severity: moderate Severity scale (1-10): 4 Date of Last Menstrual Period: menoapuse Allergies/Adverse Reactions: Allergies Allergy/AdvReac Type Severity Reaction Status Date / Time Penicillins Allergy Unknown/Unable Verified 12/12/16 17:51 to obtain Home Medications: Home Medications Medication Instructions Recorded Confirmed Type Alendronate [Fosamax] 70 mg PO MO 12/12/16 02/25/17 History Allopurinol 300 mg PO QAM 12/12/16 02/25/17 History Atorvastatin [Lipitor] 5 mg PO QAM 12/12/16 02/25/17 History Docusate Sodium 100 mg PO QAM 12/12/16 02/25/17 History Furosemide 40 mg PO QAM 12/12/16 02/25/17 History Levothyroxine Sodium 50 mcg PO QAM 12/12/16 02/25/17 History Pantoprazole Sodium 40 mg PO QAM 12/12/16 02/25/17 History Polyethylene Glycol Powder 1 each PO QAM 12/12/16 02/25/17 History [Miralax] amLODIPine [Norvasc] 10 mg PO QAM 12/12/16 02/25/17 History Aspirin EC Tab 325 mg PO DAILY #30 tablet 12/20/16 02/25/17 Rx hydrALAZINE TAB [Apresoline Tab] 75 mg PO TID #90 tablet 12/20/16 02/25/17 Rx Review of System - Review of System 12 point system: reviewed and no additional remarkable complaints except as stated - Review of System Constitutional: Absent: chills, fever Cardiovascular: Absent: chest pain Gastrointestinal: Present: abdominal pain. Absent: nausea, vomiting, diarrhea Genitourinary female: Absent: dysuria Musculoskeletal: Absent: arm pain, back pain, leg pain, neck pain Skin: Absent: rash Neurological: Absent: headache, numbness Endocrine: Absent: cold intolerance, fatigue Medical,Surgical,& Family Hx - Medical History Cardio: History of: PVD Neurology: History of: Seizures Endocrine: No history of: Diabetes Mellitus (IDDM), Diabetes Mellitus (NIDDM) Gastrointestinal: History of: GERD, Hematochezia - Social History Smoking Status: Smoker, status unknown Frequency of Alcohol Use: None Type of Drug Use: None Exam Vital Signs: Vital Signs Temperature 101.6 F H 02/25/17 18:37 Pulse Rate 80 02/25/17 19:20 Respiratory Rate 20 02/25/17 19:20 Blood Pressure 164/82 02/25/17 19:20 O2 Sat by Pulse Oximetry 97 02/25/17 19:20 - General General appearance: alert, in no apparent distress - Head Head exam: Present: atraumatic, normocephalic - Eye Eye exam: Present: PERRL, EOMI - ENT ENT exam: Present: mucous membranes moist. Absent: mucous membranes dry - Neck Neck exam: Present: full ROM. Absent: tenderness - Chest Chest inspection: Present: symmetric chest wall rise. Absent: tenderness - Respiratory Respiratory exam: Present: normal lung sounds bilaterally. Absent: rales - Cardiovascular Cardiovascular exam: Present: regular rate, normal rhythm, normal heart sounds. Absent: bradycardia - Abdominal Exam Abdominal exam: Present: distention, tenderness (LLQ, LUQ), hyperactive bowel sounds, other (protuberant) Course - Consultations Consultation #1: Dr Johnston will admit patient for Dr. Jain Time: 21:34 Results - Labs CBC & BMP: 02/25/17 19:25 02/25/17 19:25 Lab Results: I have reviewed the patients labs Labs: Laboratory Tests 02/25/17 19:25 WBC 12.9 H RBC 3.02 L Hgb 8.5 L Hct 25.4 L MCV 84.1 L RDW 18.5 H Plt Count 1041 H* Neut % (Auto) 87.3 H Lymph % (Auto) 3.2 L Neut # (Auto) 11.2 H Lymph # (Auto) 0.4 L [place] # (Auto) 1.0 H Laboratory Tests 02/25/17 19:25 Urine pH 5.0 Ur Specific [place] 1.006 Urine Protein 30 Urine Glucose (UA) Negative Urine Ketones Negative Urine Blood Negative Urine Nitrate Negative Urine Bilirubin Negative Urine Urobilinogen < 2.0 H Urine Leukocytes Large H Urine RBC 3 Urine WBC 110 Urine WBC Clumps Few Ur Squamous Epith Cells Occasional Urine Bacteria Occasional Urine Mucus Occasional Ur Culture Indicated? Results to follow Laboratory Tests 02/25/17 19:25 Sodium 140 Potassium 5.2 H Chloride 110 H Carbon Dioxide 19 L Anion Gap 16.2 H BUN 73 H Creatinine 5.20 H GFR Calculation 8 Glucose 143 H AST 236 H Troponin I 0.179 H - Diagnostic Findings Procedure: Abdominal x-ray: report reviewed by me (Gaseous distension of bowel.) , Chest x-ray: report reviewed by me (Cardiomegaly and venous congestion.), CT Abdomen and Pelvis: report reviewed by me (1. Cardiac enlargement. Atelectasis and scarring in the lung bases. 2. Diffuse subcutaneous edema. 3. Abnormal appearence of both kidneys, with multiple cystic areas suggested on the right, and a large solid mass suggested on the left. There is fluid which may be related to hemorrhage or infection, involving the left pararenal space and along the paracolic gutter.) Critical Care Time Critical Care Time: Yes Total Critical Care Time: 60 Disposition Clinical Impression: Renal insufficiency, Thrombocytosis, Anemia, Elevated troponin, Anemia, chronic disease, Ileus, unspecified, UTI (urinary tract infection), Fever Case discussed with: patient, patient's family Disposition: Still a Patient Condition: Guarded Time of Disposition: 21:33
[2017-02-25 19:53] LABS: Basophils # 0.1 10*3/uL (0.0-0.2); Basophils % 0.7 % (0.0-0.8); Eosinophils # 0.1 10*3/uL (0.0-0.87); Eosinophils % 0.8 % (0.00-10.9); Hematocrit 25.4 VOL% (35.7-47.0); Hemoglobin 8.5 GM/DL (12.0-16.0); Immature Granulocytes % 0.5 %; Immature Granulocytes Absolute 0.07 #; Lymphocytes # 0.4 10*3/uL (1.4-4.0); Lymphocytes % 3.2 % (21.3-54.2); Mean Corpuscular HGB Conc 33.5 GM/DL (32-36); Mean Corpuscular Hemoglobin 28 PG (27-34); Mean Corpuscular Volume 84.1 FL (87-102); Mean Platelet Volume 10.1 FL (9.6-12.0); Monocytes % 7.5 % (1.7-12.7); Neutrophils # 11.2 10*3/uL (1.4-7.4); Neutrophils % 87.3 % (38.7-73.9); Red Blood Count 3.02 MC/CUMM (3.8-5.5); Red Cell Distribution Width 18.5 % (9.3-17.3); White Blood Count 12.9 T/CUMM (4-12)
[2017-02-25 20:00] LABS: Platelet Count 1041 T/CUMM (130-400)
[2017-02-25 20:02] LABS: Apearance,Urine Slightly Hazy (Clear); Bacteria,Urine Occasional /HPF (Few); Bilirubin,Urine Negative (Negative); Blood, Urine Negative (Negative); Glucose,Urine (UA) Negative (Negative); Ketones,Urine Negative (Negative); Mucus,Urine Occasional /LPF (Occasional); Nitrite,Urine Negative (Negative); Protein,Urine 30 MG/DL; RBC,Urine 3 /HPF (0-4); Squamous Epithelial Cell,Urine Occasional /HPF (0-10); Urine Color Yellow (Yellow); Urine Specific Gravity 1.006 (1.001-1.035); Urine Urobilinogen < 2.0 EU/DL (0.2-1.0); WBC,Urine 110 /HPF (0-6)
[2017-02-25 20:08] LABS: Lactic Acid 0.7 MMOL/L (0.4-2.0)
[2017-02-25 20:10] LABS: Albumin 4.1 G/DL (3.4-5.0); Bilirubin,Total 0.4 MG/DL (0.2-1.0); Calcium 9.4 MG/DL (8.5-10.1); Osmolality,Calculated 302.4 MOS/KG (273-304); Potassium 5.2 MMOL/L (3.5-5.1); Total Protein 7.1 G/DL (6.4-8.3)
[2017-02-25 20:12] LABS: Troponin I Only 0.179 NG/ML (0.00-0.045)
[2017-02-25] MEDS ORDERED: cefTRIAXone 1,000 MG in SODIUM CHLORIDE 0.9% 100 ML IV STA (20:31)
--- NOTE | 2017-02-25 20:34 | XRay Report ---
Portable chest. Indication: Generalized abdominal pain. Comparison: December 13, 2016. The cardiac silhouette is enlarged. Cardiac hardware is in satisfactory position. The pulmonary vasculature is mildly prominent. No consolidation, pneumothorax, or pleural effusion. Degenerative changes of the spinal column and shoulders. Impression: Cardiomegaly and venous congestion. PROCEDURE INTERPRETED AT [facility] DEPARTMENT OF RADIOLOGY Final Report Signed by: Dr. Yu Sanchez
--- NOTE | 2017-02-25 20:35 | XRay Report ---
Abdomen flat and decubitus. Indication: Generalized abdominal pain. Comparison: December 13, 2016. The heart is enlarged. There is heavy calcific plaque present within the abdominal aorta. No intra-abdominal organomegaly is seen. Vascular calcifications are seen within the pelvis. Suspected uterine fibroid. There is gaseous distention of small and large intestine. No free air. Gas to the level of the rectum without evidence of obstruction. Degenerative changes of the spinal column and hips. Impression: Gaseous distention of bowel. PROCEDURE INTERPRETED AT [facility] DEPARTMENT OF RADIOLOGY Final Report Signed by: Dr. Yu Sanchez
--- NOTE | 2017-02-25 20:49 | CT Report ---
CT of the abdomen and pelvis without intravenous or oral contrast. Indication: Generalized abdominal and pelvic pain. Axial images were obtained with sagittal and coronal reconstructions. Comparison: April 15, 2016. There is generalized subcutaneous edema. The heart is enlarged. There are moderate areas of atelectasis present within each lung base. There is a Bochdalek hernia on the right, containing only fat. The IVC is dilated. The liver is normal in size and density. The spleen is upper limits of normal in size. Low-density areas are noted at the superior pole of the right kidney, which have increased in size since the previous CT, and appeared cystic on a previous ultrasound from 2017. The left kidney contains a large solid mass, which is somewhat hyperdense, suspicious for renal cell carcinoma. It measures in excess of 7 cm. There is stranding and fluid in the pararenal fat on the left. No hydronephrosis. There is calcific plaque present within a normal caliber abdominal aorta. A Pedraza catheter is in place within a collapsed bladder. The uterus contains multiple fibroids. There does appear to be air present within the endometrial cavity. The loops of small intestine are mildly distended with air. There are numerous diverticuli throughout the length of the colon. There is air and fecal material within the colon to the level of the rectum. No evidence of significant obstruction. No direct findings to suggest appendicitis. There is some fluid along the left paracolic gutter. Prominent degenerative changes are noted within the spinal column. Impression: 1. Cardiac enlargement. Atelectasis and scarring in the lung bases. 2. Diffuse subcutaneous edema. 3. Abnormal appearance of both kidneys, with multiple cystic areas suggested on the right, and a large solid mass suggested on the left. There is fluid which may be related to hemorrhage or infection, involving the left pararenal space and along the left paracolic gutter. 4. Gaseous distention of primarily small intestine. No definite level of obstruction. 5. Extensive diverticulosis. 6. Prominent uterus containing uterine fibroids and suspected air in the endometrial cavity. Air in the endometrial cavity can be due to instrumentation, infection, or fistula formation. The CT exam was performed using one or more of the following dose reduction techniques: Automated exposure control, adjustment of the mA and/or kV according to patient size, or use of iterative reconstruction technique. PROCEDURE INTERPRETED AT [facility] DEPARTMENT OF RADIOLOGY Final Report Signed by: Dr. Yu Sanchez
[2017-02-25] MEDS ORDERED: cefTRIAXone 1,000 MG VIAL ONE (21:09)
[2017-02-25] MEDS ORDERED: ONDANSETRON 4 MG/2 ML VIAL IV PRN (22:49)
[2017-02-25] MEDS ORDERED: MORPHINE 2 MG/1 ML SYRINGE IV PRN (22:49)
[2017-02-25] MEDS ORDERED: SODIUM CHLORIDE 0.9% 1,000 ML IV SCH (22:49)
--- NOTE | 2017-02-26 02:59 | EKG Report ---
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
[2017-02-26 05:08] LABS: Apearance,Urine CLOUDY (Clear); Bilirubin,Urine Negative (Negative); Blood, Urine Small mg/dL (Negative); Glucose,Urine (UA) Negative (Negative); Ketones,Urine Negative (Negative); Mucus,Urine Occasional /LPF (Occasional); Nitrite,Urine Negative (Negative); Protein,Urine 100 MG/DL; RBC,Urine 28 /HPF (0-4); Squamous Epithelial Cell,Urine Occasional /HPF (0-10); Urine Color Yellow (Yellow); Urine Specific Gravity 1.009 (1.001-1.035); Urine Urobilinogen < 2.0 EU/DL (0.2-1.0); WBC,Urine 250 /HPF (0-6)
[2017-02-26 05:59] LABS: Basophils # 0.1 10*3/uL (0.0-0.2); Basophils % 0.5 % (0.0-0.8); Eosinophils # 0.1 10*3/uL (0.0-0.87); Eosinophils % 0.7 % (0.00-10.9); Hematocrit 25.6 VOL% (35.7-47.0); Hemoglobin 8.2 GM/DL (12.0-16.0); Immature Granulocytes % 0.8 %; Immature Granulocytes Absolute 0.11 #; Lymphocytes # 0.4 10*3/uL (1.4-4.0); Lymphocytes % 3.3 % (21.3-54.2); Mean Corpuscular Hemoglobin 28 PG (27-34); Mean Corpuscular Volume 85.9 FL (87-102); Mean Platelet Volume 10.3 FL (9.6-12.0); Monocytes # 1.2 10*3/uL (0.11-0.8); Monocytes % 8.9 % (1.7-12.7); Neutrophils # 11.3 10*3/uL (1.4-7.4); Neutrophils % 85.8 % (38.7-73.9); Platelet Count 985 T/CUMM (130-400); Red Blood Count 2.98 MC/CUMM (3.8-5.5); Red Cell Distribution Width 18.8 % (9.3-17.3); White Blood Count 13.2 T/CUMM (4-12)
--- NOTE | 2017-02-26 06:10 | EKG Report ---
Stationary ECG Study [facility] Test Date: 02/26/2017 6:10:33 AM Pat Name: ISABEL MALCOLM Department: Room: 342 Gender: F Production Manager: MANUEL : 1930 Requested by: Can Ramos Order Number: [id number] Reading MD: JASMYNE SMITH Intervals [place] Rate: 78 P: 85 FL: 271 QRS: -17 QRSD: 99 T: 269 QT: 399 QTc: 432 Interpretive Statements SINUS RHYTHM WITH PROLONGED [place] INTERVAL ST DEVIATION AND MODERATE T-WAVE ABNORMALITY, CONSIDER LATERAL ISCHEMIA ST DEVIATION AND MODERATE T-WAVE ABNORMALITY, CONSIDER INFERIOR ISCHEMIA Electronically Signed On 02-26-17 06:50:27 CDT by JASMYNE SMITH [email or web address]
[2017-02-26 06:23] LABS: Burr Cells Slight; Elliptocytes 1+; Hypochromasia Slight; Lymphocytes 1 % (20-55); Platelet Estimate Increased; Segmented Neutrophils 95 % (50-85); Total Cells Counted 100
[2017-02-26 06:31] LABS: Albumin 3.8 G/DL (3.4-5.0); Bilirubin,Total 0.9 MG/DL (0.2-1.0); Calcium 8.6 MG/DL (8.5-10.1); Magnesium 2.4 MG/DL (1.8-2.4); Osmolality,Calculated 300.3 MOS/KG (273-304); Potassium 5.7 MMOL/L (3.5-5.1); Risk Ratio 1.85; Total Protein 6.7 G/DL (6.4-8.3); VLDL CHOLESTEROL 15.2 MG/DL
[2017-02-26] MEDS: LEVOTHYROXINE 75 MCG TABLET PO SCH (06:40)
[2017-02-26] MEDS ORDERED: LEVOTHYROXINE 50 MCG TABLET PO SCH (07:00)
--- NOTE | 2017-02-26 08:11 | XRay Report ---
XR abdomen 2V Indication: Abdominal pain. Comparison: CT of the abdomen and pelvis 02/25/2017. Technique: Flat and erect images of the abdomen were performed. Findings: Lung bases are clear. No organomegaly suggested. The bowel gas pattern demonstrates no significant abnormality. Bony structures as well as soft tissues demonstrate no evidence of significant pathology. Renal contours are not well visualized. Suggested intrapelvic calcification on the left could reflect adnexal calcification. Additionally, partially calcified uterine fibroid is present. Diffusely distributed intimal calcification of the aorta and iliac vessels is present. Impression: 1. No active process is suggested within the abdomen or pelvis. 02/26/2017 8:06 AM PROCEDURE INTERPRETED AT [facility] DEPARTMENT OF RADIOLOGY Final Report Signed by: Dr. Channing Parks
--- NOTE | 2017-02-26 08:14 | XRay Report ---
XR chest 1V portable Indication: SOB Comparison: Chest x-ray dated February 25, 2017 Technique: Single frontal view of the chest. Findings: Continued cardiomegaly. Pacemaker apparatus again demonstrated. Patchy atelectasis/consolidation within the left lower lung. Visualized osseous and surrounding soft tissue structures appear grossly unchanged. IMPRESSION: As above. PROCEDURE INTERPRETED AT [facility] DEPARTMENT OF RADIOLOGY Final Report Signed by: Dr Vicente Batista
[2017-02-26] MEDS ORDERED: amLODIPine 10 MG TABLET PO SCH (09:00)
[2017-02-26] MEDS ORDERED: DOCUSATE SODIUM 100 MG CAPSULE PO SCH (09:00)
[2017-02-26] MEDS ORDERED: PANTOPRAZOLE 40 MG VIAL IV SCH (09:00)
[2017-02-26] MEDS ORDERED: FUROSEMIDE 40 MG TABLET PO SCH (09:00)
--- NOTE | 2017-02-26 09:02 | Internal Med History&Physical ---
Assessment and Plan (1) Abdominal pain Status: Acute Assessment and plan: Ileus, diverticulitis history will do a GI consult ,n.p.o. for now Thrombocytosis, will do oncology consult, Hypertension, continue antihypertensives Renal insufficiency, will do nephrology consult UTI, continue rocephin Current Visit: Yes (2) Acute renal failure Status: Acute Current Visit: Yes (3) Ileus, unspecified Status: Acute Current Visit: Yes (4) UTI (urinary tract infection) Status: Acute Current Visit: Yes (5) Thrombocytosis Status: Chronic Current Visit: Yes (6) GERD (gastroesophageal reflux disease) Status: Chronic Current Visit: Yes (7) HTN (hypertension) Status: Chronic Current Visit: Yes History of Present Illness Chief complaint: Abdominal pain History of present illness: Ms. Landeros is a 86 year old female Patient was brought in by the family for abdominal pain since 1 week. Patient admitted for renal insufficiency, thrombocytosis, ileus. Also found to have UTI. Patient has history of Diverticulitis, Abdominal distension, and Renal Mass. No complaints given by family of no nausea, vomiting ,no diarrhea. Found to have 101.6 temperature in the triage. Last hospital stay in November 2016 at [place]. Abdominal x-ray in the ER, shows gaseous distention of bowel, CT abdomen and pelvis,Abnormal appearence of both kidneys, with multiple cystic areas suggested on the right, and a large solid mass suggested on the left. There is fluid which may be related to hemorrhage or infection, involving the left pararenal space and along the paracolic gutter.) Home Medications Medication Instructions Recorded Confirmed Type Alendronate [Fosamax] 70 mg PO MO 12/12/16 02/25/17 History Allopurinol 300 mg PO QAM 12/12/16 02/25/17 History Atorvastatin [Lipitor] 5 mg PO QAM 12/12/16 02/25/17 History Docusate Sodium 100 mg PO BID 12/12/16 02/25/17 History Furosemide 40 mg PO QAM 12/12/16 02/25/17 History Pantoprazole Sodium 40 mg PO QAM 12/12/16 02/25/17 History Polyethylene Glycol Powder 1 each PO QAM 12/12/16 02/25/17 History [Miralax] Aspirin EC Tab 325 mg PO DAILY #30 tablet 12/20/16 02/25/17 Rx Levothyroxine Sodium 75 mcg PO QAM 02/25/17 02/25/17 History Melatonin 10 mg PO BEDTIME 02/25/17 02/25/17 History amLODIPine [Norvasc] 5 mg PO DAILY 02/25/17 02/25/17 History hydrALAZINE TAB [Apresoline Tab] 25 mg PO TID 02/25/17 02/25/17 History Allergies Allergy/AdvReac Type Severity Reaction Status Date / Time Penicillins Allergy Unknown/Unable Verified 12/12/16 17:51 to obtain Medical,Surgical,& Family Hx - Medical History Cardio: History of: Hypertension, Pacemaker, PVD Neurology: History of: Seizures, TIA HEENT: History of: Eye Problem (cataracts) Endocrine: History of: Thyroid Disorder No history of: Diabetes Mellitus (IDDM), Diabetes Mellitus (NIDDM) Renal: History of: Renal Problems (renal mass bilaterally) Gastrointestinal: History of: GERD, Hematochezia, GI Problems (ileus) Hematology: History of: Anemia - Surgical History Cardiac Surgeries: Sugical HX of: Cardiac Surgery (stents placed bilateral lower extremities) HEENT Surgeries: Surgical HX of: Thyroid Surgery (radioactive iodine therapy) - Family History Family History: Reports;: Family Cancer, Family Hypertension, Additional Family History (alzheimers) - Social History Smoking Status: Smoker, status unknown Frequency of Alcohol Use: None Type of Drug Use: None Exam - Constitutional Vitals: Period Temp Pulse Resp BP Sys/Hall Pulse Ox Last 24 Hr 99.2 F-101.6 F 65-86 18-20 150-175/61-84 92-100 Exam: GENERAL APPEARANCE: alert and oriented, pleasant, in no acute distress, HEENT: normal. EYES: extraocular movement intact (EOMI), conjunctiva clear, normal. NECK/THYROID: neck supple, full range of motion, no cervical lymphadenopathy, no thyromegaly. HEART: regular rate and rhythm, no murmurs, rubs, gallops. LUNGS: clear to auscultation bilaterally, no wheezes, rales, rhonchi. ABDOMEN:distended firm abdomen, generalized tenderness, hyperactive bowel sounds. EXTREMITIES: no edema. NEUROLOGIC: alert and oriented, cranial nerves 2-12 grossly intact, gait normal, normal strength, tone and reflexes, no tremor. Results - Labs CBC & BMP: 02/26/17 03:35 07/05/17 03:36 Lab Results: I have reviewed the past 24 hour labs - Impressions Reviewed chest x-ray, abdominal x-ray, CT abdomen and pelvis reports
[2017-02-26] MEDS: ASPIRIN EC 325 MG TABLET PO SCH (09:28)
[2017-02-26] MEDS: hydrALAZINE 25 MG TABLET PO SCH ×3 (09:28→20:19)
[2017-02-26] MEDS: POLYETHYLENE GLYCOL POWDER 17 GM PACK PO SCH (09:29)
[2017-02-26] MEDS: DOCUSATE SODIUM 100 MG CAPSULE PO SCH ×2 (09:29→20:19)
[2017-02-26] MEDS: ATORVASTATIN 10 MG TABLET PO SCH (09:29)
[2017-02-26] MEDS: PANTOPRAZOLE 40 MG TABLET PO SCH (09:30)
[2017-02-26] MEDS: amLODIPine 5 MG TABLET PO SCH (09:30)
[2017-02-26] MEDS: ALLOPURINOL 300 MG TABLET PO SCH (09:30)
--- NOTE | 2017-02-26 14:02 | Gastrointestinal Consult Note ---
<Tori Bonilla - Last Filed: 02/26/17 13:59> Assessment and Plan (1) Abdominal pain Status: Acute Assessment and plan: 02/26-One week history of abdominal pain w/o other associated symptoms. Recent colonoscopy with only findings of polyp (tubular adenoma) in November 2016. Last EGD 2016 at [place] with findings of gastritis (negative H. pylori, focal intestinal metaplasia). NO recent weight loss. Findings of UTI on admission. CT of abdomen w/o contrast with no findings of obstruction, gaseous distention of small intestine. Plan and addendum to follow by Dr Fleming. Current Visit: Yes History of Present Illness Chief complaint: Abd pain History of present illness: Ms. Landeros is a 86 year old female who was admitted to the hospital with onset of abdominal pain x 1 week. Pt is a poor historian however granddaugther is at bedside and provides information. Information also obtained from chart review. Patient has a prior history of hypertension, PVD, osteoporosis, and renal mass to the left kidney. She also has a prior history of frequent UTIs with pyelonephritis. She was also seen by Dr. Wilson on her last hospitalization for thrombocytosis and anemia with workup done at that time. Patient has a history of abdominal pain over the last year with prior workup done at [facility]. She was last seen in our facility in November for similar complaints and at that time underwent a colonoscopy with only findings of polyps (tubular adenoma). Since discharge patient was doing better per patient's grand daughter until the last week when she began complaining of some generalized abdominal pain and bloating. She states the pain did not seem to be precipitated by any known factors and would occur randomly. The pain was not associated with any other factors including nausea, vomiting or diarrhea. Patient has had no known weight loss associated with this. Denies any fever or chills. Denies any melena or hematochezia. States the pain did not seem to be alleviated by any known factors as well. Patient is reportedly having normal bowel movements daily. She has some mild tenderness to palpation to her abdomen. Her last EGD was noted to be done at [place] in May of last year with findings of gastritis with biopsies negative for H pylori and shows intestinal metaplasia. CT of abdomen without any contrast on admission shows gaseous distention of primarily the small intestines with no definite level obstruction and extensive diverticulosis. She was found on admission to have UTI with C&S currently pending with gram-negative rods in the preliminary report. She is noted to have leukocytosis on admission with WBCs at 13,000 today. Hemoglobin at 8.2 however noted this to be close to her baseline. Potassium is elevated at 5.7, creatinine is 5.1 (noted to be 1.7 in November upon discharge). She is noted to be up approximately 13 pounds since discharge in November. Home Medications Medication Instructions Recorded Confirmed Type Alendronate [Fosamax] 70 mg PO MO 12/12/16 02/25/17 History Allopurinol 300 mg PO QAM 12/12/16 02/25/17 History Atorvastatin [Lipitor] 5 mg PO QAM 12/12/16 02/25/17 History Docusate Sodium 100 mg PO BID 12/12/16 02/25/17 History Furosemide 40 mg PO QAM 12/12/16 02/25/17 History Pantoprazole Sodium 40 mg PO QAM 12/12/16 02/25/17 History Polyethylene Glycol Powder 1 each PO QAM 12/12/16 02/25/17 History [Miralax] Aspirin EC Tab 325 mg PO DAILY #30 tablet 12/20/16 02/25/17 Rx Levothyroxine Sodium 75 mcg PO QAM 02/25/17 02/25/17 History Melatonin 10 mg PO BEDTIME 02/25/17 02/25/17 History amLODIPine [Norvasc] 5 mg PO DAILY 02/25/17 02/25/17 History hydrALAZINE TAB [Apresoline Tab] 25 mg PO TID 02/25/17 02/25/17 History Allergies Allergy/AdvReac Type Severity Reaction Status Date / Time Penicillins Allergy Unknown/Unable Verified 12/12/16 17:51 to obtain Medical,Surgical,& Family Hx - Medical History Cardio: History of: Hypertension, Pacemaker, PVD Neurology: History of: Seizures, TIA HEENT: History of: Eye Problem (cataracts) Endocrine: History of: Thyroid Disorder No history of: Diabetes Mellitus (IDDM), Diabetes Mellitus (NIDDM) Renal: History of: Renal Problems (renal mass bilaterally) Gastrointestinal: History of: GERD, Hematochezia, GI Problems (ileus) Hematology: History of: Anemia - Surgical History Cardiac Surgeries: Sugical HX of: Cardiac Surgery (stents placed bilateral lower extremities) HEENT Surgeries: Surgical HX of: Thyroid Surgery (radioactive iodine therapy) - Family History Family History: Reports;: Family Cancer, Family Hypertension, Additional Family History (alzheimers) - Social History Smoking Status: Smoker, status unknown Frequency of Alcohol Use: None Type of Drug Use: None ROS unobtainable: due to mental status Exam - Constitutional Vitals: Period Temp Pulse Resp BP Sys/Hall Pulse Ox Last 24 Hr 99.2 F-101.6 F 65-86 16-20 127-175/61-89 92-100 General appearance: normal weight, no acute distress - Head Head exam: Present: normal inspection, normocephalic - Eye Eye exam: Present: other (lids and conjunctiva unremarkable). Absent: scleral icterus - ENT ENT exam: Present: normal exam, normal oropharynx - Neck Neck exam: Present: normal inspection - Respiratory Respiratory exam: Present: clear to auscultation bilaterally. Absent: rales, rhonchi, wheezes - Cardiovascular Cardiovascular exam: Present: regular rate and rhythm. Absent: diastolic murmur , JVD, systolic murmur - GI/Abdominal GI/Abdominal exam: Present: normal bowel sounds, soft. Absent: ascites, distended, mass, organomegaly, tenderness - Extremities Exam Extremities exam: Present: normal inspection, full ROM - Back Exam Back exam: Present: normal inspection - Neurological Exam Neurological exam: Present: alert, altered - Psychiatric Psychiatric exam: Present: normal affect, normal mood - Skin Skin exam: Present: normal color, warm, dry Results - Labs CBC & BMP: 02/26/17 03:35 02/26/17 03:36 Lab Results: I have reviewed the past 24 hour labs - Diagnostic Findings Procedure: Chest x-ray: report reviewed by me, CT Abdomen and Pelvis: report reviewed by me <Dillon Fleming - Last Filed: 02/26/17 17:33> History of Present Illness History of present illness: Ms. Landeros is a 86 year old female Exam - Constitutional Vitals: Period Temp Pulse Resp BP Sys/Hall Pulse Ox Last 24 Hr 99.2 F-101.9 F 65-86 16-20 127-175/61-89 92-100 Results - Labs CBC & BMP: 02/26/17 03:35 02/26/17 03:36
--- NOTE | 2017-02-26 14:42 | EKG Report ---
Stationary ECG Study [facility] Test Date: 02/26/2017 2:42:35 PM Pat Name: ISABEL MALCOLM Department: Room: 342 Gender: F Manager Dialysis: SABA : 1930 Requested by: Can Ramos Order Number: [id number] Reading MD: JASMYNE SMITH Intervals [place] Rate: 76 P: 83 SC: 248 QRS: -7 QRSD: 94 T: 266 QT: 432 QTc: 463 Interpretive Statements SINUS RHYTHM WITH PROLONGED SC INTERVAL SEPTAL MYOCARDIAL INFARCTION, PROBABLY OLD MODERATE T-WAVE ABNORMALITY, CONSIDER LATERAL ISCHEMIA MODERATE T-WAVE ABNORMALITY, CONSIDER INFERIOR ISCHEMIA Electronically Signed On 02-26-17 17:59:10 CDT by JASMYNE SMITH [email or web address]
--- NOTE | 2017-02-26 15:13 | Nephrology Consult Note ---
History of Present Illness Chief complaint: Increased BUN and creatinine History of present illness: Ms. Landeros is a 86 year old female who was admitted on 02/25/2015 for abdominal pain. The patient had been complaining of abdominal pain for a few days. The patient had a decreased intake during this time. Patient also had a very strong foul-smelling urine per the family. The history is taken from the patient's daughter and granddaughter and from the medical record as the patient is unable to contribute meaningfully to the history due to her medical condition. The patient has a history of chronic kidney disease and has been seen by Dr. Solo in the past. About 3 months ago the patient had a creatinine of around 1.7 mg/dL. The patient's creatinine on this admission was around 5.3 mg/dL. The patient is also been seen by Dr. Chaudhary recently for a renal mass on the right side. CT scan done yesterday this mass is about 7 cm and thought to be a renal cell carcinoma. Per the family the patient is not a candidate for any kind of intervention for this. The patient since admission has been getting normal saline at 75 cc an hour, she is also getting Lasix 40 mg p.o. daily. The patient had a urinalysis that showed a large amount of leukocytes and is growing E. coli by culture. The patient has received antibiotics in the form of Rocephin IV. Review of systems unable be obtained due to patient's medical condition PE: General: Chronically ill-appearing Eyes: Pupils are round and reactive, conjunctivae are clear ENT: Nose is clear, O/P is benign Neck: Supple, no thyromegaly Lymphatics: No cervical, supraclavicular or axillary adenopathy Heart: Regular rate and rhythm, trace to 1+ pretibial edema Lungs: Clear to auscultation anteriorly, chest expansion symmetric Abdomen: Soft, normoactive bowel sounds, no hepatomegaly, mild tenderness to deep palpation Musculoskeletal: No joint erythema or effusions or joint asymmetry Skin: Normal turgor, normal hydration, no rash Neuro/Psych: Patient follows some commands, she kept her eyes closed throughout most of the exam and was poorly cooperative with questions, she has minimal insight into her health state Home Medications Medication Instructions Recorded Confirmed Type Alendronate [Fosamax] 70 mg PO MO 12/12/16 02/25/17 History Allopurinol 300 mg PO QAM 12/12/16 02/25/17 History Atorvastatin [Lipitor] 5 mg PO QAM 12/12/16 02/25/17 History Docusate Sodium 100 mg PO BID 12/12/16 02/25/17 History Furosemide 40 mg PO QAM 12/12/16 02/25/17 History Pantoprazole Sodium 40 mg PO QAM 12/12/16 02/25/17 History Polyethylene Glycol Powder 1 each PO QAM 12/12/16 02/25/17 History [Miralax] Aspirin EC Tab 325 mg PO DAILY #30 tablet 12/20/16 02/25/17 Rx Levothyroxine Sodium 75 mcg PO QAM 02/25/17 02/25/17 History Melatonin 10 mg PO BEDTIME 02/25/17 02/25/17 History amLODIPine [Norvasc] 5 mg PO DAILY 02/25/17 02/25/17 History hydrALAZINE TAB [Apresoline Tab] 25 mg PO TID 02/25/17 02/25/17 History Allergies Allergy/AdvReac Type Severity Reaction Status Date / Time Penicillins Allergy Unknown/Unable Verified 12/12/16 17:51 to obtain Medical,Surgical,& Family Hx - Medical History Cardio: History of: Hypertension, Pacemaker, PVD Neurology: History of: Seizures, TIA HEENT: History of: Eye Problem (cataracts) Endocrine: History of: Thyroid Disorder No history of: Diabetes Mellitus (IDDM), Diabetes Mellitus (NIDDM) Renal: History of: Renal Problems (renal mass bilaterally) Gastrointestinal: History of: GERD, Hematochezia, GI Problems (ileus) Hematology: History of: Anemia - Surgical History Cardiac Surgeries: Sugical HX of: Cardiac Surgery (stents placed bilateral lower extremities) HEENT Surgeries: Surgical HX of: Thyroid Surgery (radioactive iodine therapy) - Family History Family History: Reports;: Family Cancer, Family Hypertension, Additional Family History (alzheimers) - Social History Smoking Status: Smoker, status unknown Frequency of Alcohol Use: None Type of Drug Use: None Exam - Vital Signs Vital signs: Period Temp Pulse Resp BP Sys/Hall Pulse Ox Last 24 Hr 99.2 F-101.6 F 65-86 16-20 127-175/61-89 92-100 Results - Labs CBC & BMP: 02/26/17 03:35 02/26/17 03:36 Assessment and Plan (1) Acute renal failure Status: Acute Assessment and plan: This patient's creatinine is 5.3 mg/dL today this is up from 1.7 mg/dL about 3 months ago. I suspect this patient has an acute renal injury related to infection and volume depletion and hypoperfusion related to her decreased p.o. intake and anemia with a hematocrit of 25%. Also contributing to her progressive renal failure may be the renal mass enlarging on her right kidney. I agree with IV fluids, I am going to hold her p.o. Lasix for now. Current Visit: Yes (2) Chronic kidney disease Status: Acute Current Visit: Yes (3) HTN (hypertension) Status: Chronic Current Visit: No (4) Ileus, unspecified Status: Acute Current Visit: Yes (5) UTI (urinary tract infection) Status: Acute Assessment and plan: I agree with the IV antibiotics Current Visit: Yes (6) Fever Status: Acute Current Visit: Yes (7) Hyperkalemia Status: Acute Assessment and plan: I will add some sodium bicarbonate to her IV fluids this may help she has some of her potassium intracellularly, I would hold off on any Kayexalate until her potassium gets to 6 or 6.5 Current Visit: Yes (8) Abdominal pain Status: Acute Current Visit: Yes (9) Metabolic acidosis Status: Acute Current Visit: Yes (10) Renal mass Status: Acute Assessment and plan: I will request the patient's note from Dr. Chaudhary office Current Visit: Yes
[2017-02-26] MEDS: ACETAMINOPHEN 325 MG TABLET PO PRN (15:37)
[2017-02-26] MEDS: SODIUM ACETATE 100 MEQ in DEXTROSE 5% 1,000 ML IV SCH (16:30)
[2017-02-26] MEDS: cefTRIAXone 1,000 MG in SODIUM CHLORIDE 0.9% 100 ML IV SCH (20:19)
--- NOTE | 2017-02-26 20:40 | Cardiology Consult Note ---
Michael, Ekaterina Natarajan RN, am scribing for, and in the presence of, Lauri Eden MD 20:38. Assessment and Plan - Time spent with patient Time spent with patient: Greater than 30 minutes (Date of assessment, planning, documentation, and medication review) (1) Abnormal EKG Status: Acute Assessment and plan: 02/26/17: ASSESSMENT/PLAN: 1. ABNORMAL EKG - no acute ST segment elevation. She is not having any anginal complaint. T-wave inversion could be contributed to acute renal failure or ventricular pacing 2. ABNORMAL TROPONIN -trivial elevation of troponins, and this appears to be chronic. She is not having any anginal complaint. 3. HYPERTENSION -suboptimally controlled 4. ABDOMINAL DISTENTION AND PAIN -abdominal x-ray without acute process. 5. RENAL FAILURE -significant elevation of creatinine this admission, 5.1. 6. HYPERKALEMIA -K+ 5.7 today. 7. RENAL MASS -this is chronic. 8. PRESENCE OF PACEMAKER -device appears to be functioning appropriately. 9. UTI -preliminary urine culture with gram-negative rods. Agree with IV antibiotics. 10. ATRIAL FIBRILLATION -well-controlled ventricular response. Anticoagulated only with aspirin due to previous significant anemia. 11. DYSLIPIDEMIA -FLP this morning unremarkable. Continue statin. 12. GERD -PPI continued 13. THYROID DISORDER -levothyroxine continued #########The troponin rises rolon zone. It may be exacerbated by her acute renal failure I am not convinced she has ACS. Abnormal EKG may appear to be ischemic when you see them in series you see no changes, suggesting this may be a chronic finding Agree with having on aspirin Agree with having on atorvastatin We might consider adding a low-dose of carvedilol Agree with working up the mass--may be cancer. She does have some chest wall pain but she says it is not the same as her pain that she had all day. It sounds noncardiac. Thank you for allowing me to participate in this patient's care I will follow along with you Current Visit: Yes (2) Troponin I above reference range Status: Chronic Assessment and plan: SEE PLAN OF CARE LISTED ABOVE. Current Visit: Yes (3) Abdominal distension Status: Resolved Assessment and plan: SEE PLAN OF CARE LISTED ABOVE. Current Visit: No (4) Anemia, chronic disease Status: Chronic Assessment and plan: SEE PLAN OF CARE LISTED ABOVE. Current Visit: Yes (5) Thrombocytosis Status: Chronic Assessment and plan: SEE PLAN OF CARE LISTED ABOVE. Current Visit: Yes (6) UTI (urinary tract infection) Status: Acute Assessment and plan: SEE PLAN OF CARE LISTED ABOVE. Current Visit: Yes (7) Atrial fibrillation Status: Chronic Assessment and plan: SEE PLAN OF CARE LISTED ABOVE. Current Visit: No (8) GERD (gastroesophageal reflux disease) Status: Chronic Assessment and plan: SEE PLAN OF CARE LISTED ABOVE. Current Visit: Yes (9) HTN (hypertension) Status: Chronic Assessment and plan: SEE PLAN OF CARE LISTED ABOVE. Current Visit: Yes (10) History of cardiac pacemaker Status: Chronic Assessment and plan: SEE PLAN OF CARE LISTED ABOVE. Current Visit: No (11) Hyperkalemia Status: Acute Assessment and plan: SEE PLAN OF CARE LISTED ABOVE. Current Visit: Yes History of Present Illness - Data of Consult Patient: known to practice within the last 3 years Consult date: 02/26/17 Requesting Physician: Monica Johnston Primary care physician: Jigar Jain - Consult Narrative Reason for consult: abnormal troponin and abnormal EKG History of present illness: PRIMARY SOCK IRONER: DR. AYALA Ms. Landeros is a 86 year old black female with risk factor significant for: hypertension, dyslipidemia, age, sedentary lifestyle, former tobacco abuse. 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 Of note, patient also has a history of atypical chest pain of left chest and left arm, specifically at pacemaker site. She was previously admitted [facility] in November 2016 for left chest and arm pain. Troponins were trivial and flat in the setting of renal insufficiency, and EKG was without acute ischemic finding. Patient was ruled out for acute coronary syndrome. And she was ruled out for acute coronary syndrome. During admission, patient also had abdominal distention and pain, and she had thrombocytosis with anemia also. She underwent evaluation by Dr. Fleming and Dr. Wilson, and abdominal pain and distention was contributed to pancolonic diverticulosis, iron deficiency anemia and thrombocytosis managed medically. Low-dose aspirin continued. Patient was given an appointment to follow-up with Dr. Solo 1-2 weeks after discharge for renal mass and renal insufficiency. She has been unable to keep her appointment with Dr. Ayala for follow-up due to transportation difficulty. Patient is now admitted to [facility] floor after presenting to the ER yesterday evening with complaints of abdominal pain and left lower flank discomfort with onset 2-3 days prior to presentation. Denies nausea or vomiting. No hematochezia or melena. X-ray of abdomen negative for acute process. Urinalysis revealed large leukocytosis and preliminary culture with gram-negative rods. Hyperkalemic on presentation with K+ 5.2, and significant elevation of creatinine to 5.2 with GFR 8 (creatinine 1.7 with GFR 29 at time of discharge in November). Temperature 101.6F. Chest x-ray with some venous congestion and left lower lobe atelectasis. Cardiology is now asked to see for abnormal troponin and EKG. Trivial troponin level 2 0.179 and 0.300. Twelve-lead EKG this morning with T- wave inversion inferolaterally. Other EKGs and appellate court clerk strips reveal ventricular pacing with some underlying atrial fibrillation. K+ is also trending up to 5.7 this morning, and creatinine 5.1 with BUN 70. Anemia noted. PLTs 985,000. Patient seen and examined. She is sleeping, and she appears comfortable in no acute distress. Patient's granddaughter is present at bedside with her. Patient will rouse up, but she is slightly groggy. Granddaughter reports patient received some Dilaudid while she was in the ER, and she has been relatively drowsy since that time. Patient does deny recent or current chest pain or tightness, shortness of breath, anginal complaint. Admits to some left chest wall and left shoulder tenderness, and this is reproducible during physical exam. Positive for abdominal distention and significant tenderness left lower and upper quadrant of abdominal area. Denies constipation, diarrhea. Denies melena or bright red bleeding. No orthopnea, PND, palpitation. Systolic BP 150-170 mmHg. Current temp 100.4F. CC: Jigar Jain MD - Home Medications and Allergies Home Medications: Home Medications Medication Instructions Recorded Confirmed Type Alendronate [Fosamax] 70 mg PO MO 12/12/16 02/25/17 History Allopurinol 300 mg PO QAM 12/12/16 02/25/17 History Atorvastatin [Lipitor] 5 mg PO QAM 12/12/16 02/25/17 History Docusate Sodium 100 mg PO BID 12/12/16 02/25/17 History Furosemide 40 mg PO QAM 12/12/16 02/25/17 History Pantoprazole Sodium 40 mg PO QAM 12/12/16 02/25/17 History Polyethylene Glycol Powder 1 each PO QAM 12/12/16 02/25/17 History [Miralax] Aspirin EC Tab 325 mg PO DAILY #30 tablet 12/20/16 02/25/17 Rx Levothyroxine Sodium 75 mcg PO QAM 02/25/17 02/25/17 History Melatonin 10 mg PO BEDTIME 02/25/17 02/25/17 History amLODIPine [Norvasc] 5 mg PO DAILY 02/25/17 02/25/17 History hydrALAZINE TAB [Apresoline Tab] 25 mg PO TID 02/25/17 02/25/17 History Allergies/Adverse Reactions: Allergies Allergy/AdvReac Type Severity Reaction Status Date / Time Penicillins Allergy Unknown/Unable Verified 12/12/16 17:51 to obtain - Constitutional Constitutional: Present: fatigue, fever(s), weakness. Absent: anorexia, chills , frequent falls, weight gain, weight loss - EENT Eyes: Absent: blurry vision, loss of vision Ears: Present: decreased hearing. Absent: ear pain Nose, mouth and throat: Absent: dysphagia, epistaxis, nasal congestion, neck pain, throat swelling, tongue swelling, vertigo - Cardiovascular Cardiovascular: Absent: chest pain at rest, chest pain with activity, diaphoresis, dyspnea, dyspnea on exertion, edema, radiating jaw, neck or arm pain, lightheadedness, orthopnea, palpitations, PND - Respiratory Respiratory: Absent: cough, hemoptysis, dyspnea on exertion, wheezing, change in phlegm color - Gastrointestinal Gastrointestinal: Present: abdominal pain, early satiety. Absent: change in bowel habits, constipation, diarrhea, dysphagia, hematemesis, hematochezia, melena, nausea, vomiting, jaundice - Genitourinary Genitourinary: Present: flank pain. Absent: difficulty urinating, dysuria, hematuria - Musculoskeletal Musculoskeletal: Absent: arthralgias - Neurological Neurological: Absent: abnormal gait, abnormal speech, confusion, dizziness, syncope - Psychiatric Psychiatric: Absent: anxiety, confusion, depression - Endocrine Endocrine: Absent: cold intolerance, heat intolerance - Hematologic/Lymphatic Hematologic/Lymphatic: Absent: easy bleeding, easy bruising Medical,Surgical,& Family Hx - Medical History Cardio: History of: Cardiac Dysrhythmia, Hypertension, Pacemaker, PVD No history of: Cerebrovascular Disease, CAD Psychological: No history of: Anxiety Disorders, Depression Neurology: History of: Seizures, TIA No history of: Dementia HEENT: History of: Eye Problem (cataracts) Endocrine: History of: Thyroid Disorder No history of: Diabetes Mellitus (IDDM), Diabetes Mellitus (NIDDM) Respiratory: No history of: COPD, Obstructive Sleep Apnea Renal: History of: Renal Problems (renal mass bilaterally) Genitourinary: History of: Bladder Problem, Recurring Urinary Tract Infections Gastrointestinal: History of: Diverticulitis/ Diverticulosis, GERD, Hematochezia , GI Problems (ileus) Hematology: History of: Anemia Other: No history of: Cancer - Surgical History Cardiac Surgeries: Sugical HX of: Cardiac Surgery (stents placed bilateral lower extremities) HEENT Surgeries: Surgical HX of: Thyroid Surgery (radioactive iodine therapy) Abdominal Surgeries: Surgical HX of: Colonoscopy, EGD - Family History Family History: Reports;: Family Cancer, Family Hypertension, Additional Family History (alzheimers) - Social History Smoking Status: Former smoker Frequency of Alcohol Use: None Type of Drug Use: None Physical Examination Vital Signs Temp Pulse Resp BP Pulse Ox 101.6 F H 86 18 175/61 98 02/25/17 18:37 02/25/17 18:37 02/25/17 18:37 02/25/17 18:37 02/25/17 18:37 General: Present: No Apparent Distress, Other (frail) HEENT: Present: PERRL, Normocephaly, Mucus Membranes Moist. Absent: Jaundice, Pallor Neck: Present: Supple Neck, Midline Trachea Cardiac: Present: Reg Rate and Rhythm, Systolic Murmur. Absent: Tachycardia, Bradycardia Lungs: Present: No Wheezes, Other (Coarse breath sounds scattered throughout) Neuro: Present: Grossly Intact. Absent: Numbness, Resting Tremor, Essential Tremor Abdomen: Present: Tender, Distended, Other (protuberant, bowel sounds hyperactive) Skin: Present: Clear. Absent: Rash, Suspicious Lesions, Bruising Musculoskeletal: Present: Decreased Range of Motion, No Fluid Collection Extremities: Present: No Clubbing, No Cyanosis, No Edema, Normal Upper Extr. Pulses (3+ bilaterally), Normal Lower Extr. Pulses (2+ bilaterally), Capillary Refill (Normal) Result/EKG - Labs CBC & BMP: 02/26/17 03:35 02/26/17 03:36 Lab Results: I have reviewed the past 24 hour labs Labs: Laboratory Results - last 24 hr 02/25/17 02/25/17 02/25/17 19:25 19:25 19:25 WBC 12.9 H RBC 3.02 L Hgb 8.5 L Hct 25.4 L MCV 84.1 L MCH 28 MCHC 33.5 RDW 18.5 H Plt Count 1041 H* MPV 10.1 Neut % (Auto) 87.3 H Lymph % (Auto) 3.2 L Benson % (Auto) 7.5 Eos % (Auto) 0.8 Baso % (Auto) 0.7 Neut # (Auto) 11.2 H Lymph # (Auto) 0.4 L Benson # (Auto) 1.0 H Eos # (Auto) 0.1 Baso # (Auto) 0.1 Total Counted Immature Gran % 0.5 Nucleated RBC % 0.0 Immature Gran # 0.07 Segmented Neutrophils Lymphocytes Monocytes Nucleated RBCs # 0.00 Platelet Estimate Hypochromasia Hugo Cells Elliptocytes Morphology Comment Sodium 140 Potassium 5.2 H Chloride 110 H Carbon Dioxide 19 L Anion Gap 16.2 H BUN 73 H Creatinine 5.20 H GFR Calculation 8 BUN/Creatinine Ratio 14.00 Glucose 143 H Calculated Osmolality 302.4 Lactic Acid 0.7 Calcium 9.4 Magnesium Total Bilirubin 0.40 AST 236 H ALT 25 Alkaline Phosphatase 103 Total Creatine Kinase CK-MB (CK-2) Troponin I 0.179 H Total Protein 7.1 Albumin 4.1 Globulin 3.0 Albumin/Globulin Ratio 1.3 Triglycerides Cholesterol LDL Cholesterol VLDL Cholesterol HDL Cholesterol Heart Disease Risk Ratio Amylase 51 Lipase 209.0 Urine Color Yellow Urine Appearance Slightly hazy Urine pH 5.0 Ur Specific Hinckley 1.006 Urine Protein 30 Urine Glucose (UA) Negative Urine Ketones Negative Urine Blood Negative Urine Nitrate Negative Urine Bilirubin Negative Urine Urobilinogen < 2.0 H Urine Leukocytes Large H Urine RBC 3 Urine WBC 110 Urine WBC Clumps Few Ur Squamous Epith Cells Occasional Urine Bacteria Occasional Urine Mucus Occasional Ur Yeast w Hyphae Urine Yeast (Budding) Ur Culture Indicated? Results to follow 02/26/17 02/26/17 02/26/17 03:35 03:35 03:36 WBC 13.2 H RBC 2.98 L Hgb 8.2 L Hct 25.6 L MCV 85.9 L MCH 28 MCHC 32.0 RDW 18.8 H Plt Count 985 H MPV 10.3 Neut % (Auto) 85.8 H Lymph % (Auto) 3.3 L Benson % (Auto) 8.9 Eos % (Auto) 0.7 Baso % (Auto) 0.5 Neut # (Auto) 11.3 H Lymph # (Auto) 0.4 L Benson # (Auto) 1.2 H Eos # (Auto) 0.1 Baso # (Auto) 0.1 Total Counted 100 Immature Gran % 0.8 Nucleated RBC % 0.0 Immature Gran # 0.11 Segmented Neutrophils 95 H Lymphocytes 1 L Monocytes 4 Nucleated RBCs # 0.00 Platelet Estimate Increased Hypochromasia Slight Hugo Cells Slight Elliptocytes 1+ Morphology Comment Sodium 141 Potassium 5.7 H Chloride 112 H Carbon Dioxide 18 L Anion Gap 16.7 H BUN 70 H Creatinine 5.10 H GFR Calculation 8 BUN/Creatinine Ratio 13.00 Glucose 81 Calculated Osmolality 300.3 Lactic Acid Calcium 8.6 Magnesium 2.4 Total Bilirubin 0.90 AST 182 H ALT 23 Alkaline Phosphatase 100 Total Creatine Kinase 104 CK-MB (CK-2) 1.9 Troponin I 0.300 H D Total Protein 6.7 Albumin 3.8 Globulin 2.9 Albumin/Globulin Ratio 1.3 Triglycerides 76 Cholesterol 113 LDL Cholesterol 46.0 VLDL Cholesterol 15.2 HDL Cholesterol 61 H Heart Disease Risk Ratio 1.85 Amylase Lipase Urine Color Urine Appearance Urine pH Ur Specific Hinckley Urine Protein Urine Glucose (UA) Urine Ketones Urine Blood Urine Nitrate Urine Bilirubin Urine Urobilinogen Urine Leukocytes Urine RBC Urine WBC Urine WBC Clumps Ur Squamous Epith Cells Urine Bacteria Urine Mucus Ur Yeast w Hyphae Urine Yeast (Budding) Ur Culture Indicated? 02/26/17 03:40 WBC RBC Hgb Hct MCV MCH MCHC RDW Plt Count MPV Neut % (Auto) Lymph % (Auto) Benson % (Auto) Eos % (Auto) Baso % (Auto) Neut # (Auto) Lymph # (Auto) Benson # (Auto) Eos # (Auto) Baso # (Auto) Total Counted Immature Gran % Nucleated RBC % Immature Gran # Segmented Neutrophils Lymphocytes Monocytes Nucleated RBCs # Platelet Estimate Hypochromasia Hugo Cells Elliptocytes Morphology Comment Sodium Potassium Chloride Carbon Dioxide Anion Gap BUN Creatinine GFR Calculation BUN/Creatinine Ratio Glucose Calculated Osmolality Lactic Acid Calcium Magnesium Total Bilirubin AST ALT Alkaline Phosphatase Total Creatine Kinase CK-MB (CK-2) Troponin I Total Protein Albumin Globulin Albumin/Globulin Ratio Triglycerides Cholesterol LDL Cholesterol VLDL Cholesterol HDL Cholesterol Heart Disease Risk Ratio Amylase Lipase Urine Color Yellow Urine Appearance Cloudy Urine pH 5.0 Ur Specific Hinckley 1.009 Urine Protein 100 Urine Glucose (UA) Negative Urine Ketones Negative Urine Blood Small Urine Nitrate Negative Urine Bilirubin Negative Urine Urobilinogen < 2.0 H Urine Leukocytes Large H Urine RBC 28 Urine WBC 250 Urine WBC Clumps Many Ur Squamous Epith Cells Occasional Urine Bacteria Urine Mucus Occasional Ur Yeast w Hyphae Occasional Urine Yeast (Budding) Moderate Ur Culture Indicated? Results to follow - Diagnostic Findings Procedure: Abdominal x-ray: image reviewed by me, report reviewed by me, Chest x -ray: image reviewed by me, report reviewed by me - EKG EKG results: interpreted by me, no acute changes IKarey Dale, MD, personally performed the services described in this documentation, ascribed by Ekaterina Natarajan RN in my presence, and it is both accurate and complete .
[2017-02-27] MEDS: LEVOTHYROXINE 75 MCG TABLET PO SCH (06:22)
[2017-02-27] MEDS: SODIUM ACETATE 100 MEQ in DEXTROSE 5% 1,000 ML IV SCH ×2 (06:27→21:13)
--- NOTE | 2017-02-27 07:39 | Nephrology Progress Note ---
Nephrology - PN: Subj Interval history: Patient is much improved today. She is fixing and following and interacting verbally today. Patient denies shortness of breath. Review of systems GI she states her abdominal pain is better and she thinks she might try and eat something today Physical exam general the patient's chronically ill-appearing but in no acute distress, she has no pitting edema Assessment/plan 1. Acute renal failure-we will recheck a BMP in the morning 2. Metabolic acidosis-we will continue bicarbonate her IV fluids 3. Hypertension this is controlled 4. UTI-patient seems to be responding to the antibiotics. Exam (PN)-Nephrology - Vital Signs Vital signs: Period Temp Pulse Resp BP Sys/Hall Pulse Ox Last 24 Hr 98.8 F-101.9 F 62-78 16-20 127-146/52-89 98-100 - Lab 02/26/17 03:35 02/26/17 03:36 Most recent lab results Calcium 8.6 MG/DL (8.5-10.1) 02/26/17 03:36 Magnesium 2.4 MG/DL (1.8-2.4) 02/26/17 03:36 Assessment and Plan (1) Acute renal failure Status: Acute Assessment and plan: This patient's creatinine is 5.3 mg/dL today this is up from 1.7 mg/dL about 3 months ago. I suspect this patient has an acute renal injury related to infection and volume depletion and hypoperfusion related to her decreased p.o. intake and anemia with a hematocrit of 25%. Also contributing to her progressive renal failure may be the renal mass enlarging on her right kidney. I agree with IV fluids, I am going to hold her p.o. Lasix for now. Current Visit: Yes (2) Chronic kidney disease Status: Acute Current Visit: Yes (3) HTN (hypertension) Status: Chronic Current Visit: Yes (4) Ileus, unspecified Status: Acute Current Visit: Yes (5) UTI (urinary tract infection) Status: Acute Assessment and plan: I agree with the IV antibiotics Current Visit: Yes (6) Fever Status: Acute Current Visit: Yes (7) Hyperkalemia Status: Acute Assessment and plan: I will add some sodium bicarbonate to her IV fluids this may help she has some of her potassium intracellularly, I would hold off on any Kayexalate until her potassium gets to 6 or 6.5 Current Visit: Yes (8) Abdominal pain Status: Acute Current Visit: Yes (9) Metabolic acidosis Status: Acute Current Visit: Yes (10) Renal mass Status: Acute Assessment and plan: I will request the patient's note from Dr. Chaudhary office Current Visit: Yes
--- NOTE | 2017-02-27 08:47 | Oncology Progress Note ---
Oncology Subjective PN Interval history: Consult for patient with renal mass left sided in excess of 7 cm. Surprisingly there appears to be little hematuria. The patient was seen in my office in February 2015. Her creatinine was 2.0 at that time and had been normal in 2012. Pertinent labs today include thrombocytosis and microcytic anemia. White blood count shows mild elevation. Patient does have some abdominal tenderness and distention on examination. Multiple diverticuli were seen. Her other comorbidities include cardiac dysrhythmias and hypertension. I spoke with her daughter on the phone today. The patient has seen Dr. Houston Chaudhary with some consideration given to an ablative procedure. Given her age , comorbidities and the size of the tumor even this approach may not be feasible. The patient at this time does not voice a strong opinion regarding treatment versus supportive care. She is obviously not a nephrectomy candidate. I am checking a ferritin and will replace iron if indicated. Her anemia is more likely related to decreased glomerular filtration rate. The most likely cause of the thrombocytosis at present is malignancy with iron deficiency as a possible second cause Exam - Constitutional Vitals: Period Temp Pulse Resp BP Sys/Hall Pulse Ox Last 24 Hr 98.8 F-101.9 F 62-78 16-20 127-146/52-89 98-100 Results - Labs CBC & BMP: 02/26/17 03:35 02/26/17 03:36
--- NOTE | 2017-02-27 09:32 | Internal Med Progress Note ---
Assessment and Plan (1) Abdominal pain Status: Acute Assessment and plan: Ileus, improving, start clears today. If tolerates will do clear liquid diet diverticulitis history , GI consult , Thrombocytosis improving, oncology consult, Hypertension, continue antihypertensives Renal insufficiency, will do nephrology consult UTI, continue rocephin Current Visit: Yes (2) Acute renal failure Status: Acute Current Visit: Yes (3) Ileus, unspecified Status: Acute Current Visit: Yes (4) UTI (urinary tract infection) Status: Acute Current Visit: Yes (5) Thrombocytosis Status: Chronic Current Visit: Yes (6) GERD (gastroesophageal reflux disease) Status: Chronic Current Visit: Yes (7) HTN (hypertension) Status: Chronic Current Visit: Yes Internal Medicine - PN: Subj Interval history: PCP: Dr. tracy Patient is seen and examined on the floor , patient is a poor historian Accompanied by granddaughter at the bedside. No overnight events given by the nurse, patient caregiver. Exam (Progress Note) - Constitutional Vitals: Period Temp Pulse Resp BP Sys/Hall Pulse Ox Last 24 Hr 98.8 F-101.9 F 62-78 16-20 127-146/52-89 98-100 Exam: GENERAL APPEARANCE: alert and oriented, pleasant, in no acute distress, lying in the bed HEENT: normal. EYES: extraocular movement intact (EOMI), conjunctiva clear, normal. NECK/THYROID: neck supple, full range of motion, no cervical lymphadenopathy, no thyromegaly. HEART: regular rate and rhythm, no murmurs, rubs, gallops. LUNGS: clear to auscultation bilaterally, no wheezes, rales, rhonchi. ABDOMEN:distended firm abdomen, generalized tenderness, hyperactive bowel sounds. EXTREMITIES: no edema. NEUROLOGIC: alert and oriented, cranial nerves 2-12 grossly intact, Results - Labs CBC & BMP: 02/27/17 09:27 02/27/17 09:28 Lab Results: I have reviewed the past 24 hour labs
[2017-02-27 09:37] LABS: Basophils % 0.2 % (0.0-0.8); Hematocrit 23.5 VOL% (35.7-47.0); Hemoglobin 7.9 GM/DL (12.0-16.0); Immature Granulocytes % 1.2 %; Immature Granulocytes Absolute 0.29 #; Lymphocytes # 0.3 10*3/uL (1.4-4.0); Lymphocytes % 1.4 % (21.3-54.2); Mean Corpuscular HGB Conc 33.6 GM/DL (32-36); Mean Corpuscular Hemoglobin 28 PG (27-34); Mean Corpuscular Volume 83.9 FL (87-102); Mean Platelet Volume 10.1 FL (9.6-12.0); Monocytes # 1.1 10*3/uL (0.11-0.8); Monocytes % 4.6 % (1.7-12.7); Neutrophils # 21.6 10*3/uL (1.4-7.4); Neutrophils % 92.6 % (38.7-73.9); Platelet Count 797 T/CUMM (130-400); Red Cell Distribution Width 18.1 % (9.3-17.3); White Blood Count 23.3 T/CUMM (4-12)
--- NOTE | 2017-02-27 09:39 | Gastrointestinal Progress Note ---
<Tori Bonilla - Last Filed: 02/27/17 09:35> Assessment and Plan (1) Abdominal pain Status: Acute Assessment and plan: 02/27-No c/o of abd pain. Tolerating diet at present. No N/V. Plan and addendum to follow by Dr Fleming. 02/26-One week history of abdominal pain w/o other associated symptoms. Recent colonoscopy with only findings of polyp (tubular adenoma) in November 2016. Last EGD 2015 at [place] with findings of gastritis (negative H. pylori, focal intestinal metaplasia). NO recent weight loss. Findings of UTI on admission. CT of abdomen w/o contrast with no findings of obstruction, gaseous distention of small intestine. Plan and addendum to follow by Dr Fleming. Current Visit: Yes Gastroenterology - PN: Subj Interval history: CC: Abd pain Pt is seen awake and more alert today, family at bedside. She had some reported increase in confusion overnight however this has resolved today. She is no longer complaining of abdominal pain and is tolerating diet at this time. Abdomen is soft, no tenderness noted on exam today. Noted to run low grade fever overnight. She is being treated for her UTI at this time. ROS: No acute distress noted Exam (Progress Note) - Constitutional Vitals: Period Temp Pulse Resp BP Sys/Hall Pulse Ox Last 24 Hr 98.8 F-101.9 F 62-78 16-20 127-146/52-89 98-100 General appearance: normal weight, no acute distress - Head Head exam: Present: normal inspection, normocephalic - Eye Eye exam: Present: other (lids and conjunctiva unremarakble). Absent: scleral icterus - ENT ENT exam: Present: normal exam, normal oropharynx - Neck Neck exam: Present: normal inspection - Respiratory Respiratory exam: Present: clear to auscultation bilaterally. Absent: rales, rhonchi, wheezes - Cardiovascular Cardiovascular exam: Present: regular rate and rhythm. Absent: diastolic murmur , JVD, systolic murmur - GI/Abdominal GI/Abdominal exam: Present: normal bowel sounds, soft. Absent: ascites, distended, mass, tenderness - Extremities Exam Extremities exam: Present: normal inspection, full ROM - Back Exam Back exam: Present: normal inspection - Neurological Exam Neurological exam: Present: alert, altered - Psychiatric Psychiatric exam: Present: normal affect, normal mood - Skin Skin exam: Present: normal color, warm, dry Results - Labs CBC & BMP: 02/26/17 03:35 02/26/17 03:36 Lab Results: I have reviewed the past 24 hour labs <Dillon Fleming - Last Filed: 02/27/17 18:07> Exam (Progress Note) - Constitutional Vitals: Period Temp Pulse Resp BP Sys/Hall Pulse Ox Last 24 Hr 98.8 F-100.9 F 59-85 16-18 132-158/52-72 99-100 Results - Labs CBC & BMP: 02/27/17 09:27 02/27/17 09:28
[2017-02-27] MEDS: hydrALAZINE 25 MG TABLET PO SCH ×3 (09:53→21:10)
[2017-02-27] MEDS: ASPIRIN EC 325 MG TABLET PO SCH (09:53)
[2017-02-27] MEDS: PANTOPRAZOLE 40 MG TABLET PO SCH (09:54)
[2017-02-27] MEDS: DOCUSATE SODIUM 100 MG CAPSULE PO SCH ×2 (09:54→20:28)
[2017-02-27] MEDS: amLODIPine 5 MG TABLET PO SCH (09:54)
[2017-02-27] MEDS: POLYETHYLENE GLYCOL POWDER 17 GM PACK PO SCH (09:54)
[2017-02-27] MEDS: ATORVASTATIN 10 MG TABLET PO SCH (09:54)
[2017-02-27] MEDS: ALLOPURINOL 300 MG TABLET PO SCH (09:55)
[2017-02-27 09:59] LABS: Band Neutrophils 1 % (0-10); Elliptocytes Few; Hypochromasia 1+; Platelet Estimate Increased; Segmented Neutrophils 94 % (50-85); Total Cells Counted 100
[2017-02-27 10:39] LABS: Calcium 8.2 MG/DL (8.5-10.1); Free T4 (Free Thyroxine) 1.39 NG/DL (0.76-1.46); Osmolality,Calculated 306.3 MOS/KG (273-304); Potassium 4.8 MMOL/L (3.5-5.1); Thyroid Stimulating Hormone 1.12 uIU/ml (0.358-3.74)
--- NOTE | 2017-02-27 20:15 | Cardiology Progress Note ---
I, Ekaterina Natarajan RN, am scribing for, and in the presence of, Lauri Eden MD 20:14. Assessment and Plan - Time spent with patient Time spent with patient: Greater than 30 minutes (1) Abnormal EKG Status: Acute Assessment and plan: 02/26/17: ASSESSMENT/PLAN: 1. ABNORMAL EKG - no acute ST segment elevation. She is not having any anginal complaint. T-wave inversion could be contributed to acute renal failure or ventricular pacing 2. ABNORMAL TROPONIN -trivial elevation of troponins, and this appears to be chronic. She is not having any anginal complaint. 3. HYPERTENSION -suboptimally controlled 4. ABDOMINAL DISTENTION AND PAIN -abdominal x-ray without acute process. 5. RENAL FAILURE -significant elevation of creatinine this admission, 5.1. 6. HYPERKALEMIA -K+ 5.7 today. 7. RENAL MASS -this is chronic. 8. PRESENCE OF PACEMAKER -device appears to be functioning appropriately. 9. UTI -preliminary urine culture with gram-negative rods. Agree with IV antibiotics. 10. ATRIAL FIBRILLATION -well-controlled ventricular response. Anticoagulated only with aspirin due to previous significant anemia. 11. DYSLIPIDEMIA -FLP this morning unremarkable. Continue statin. 12. GERD -PPI continued 13. THYROID DISORDER -levothyroxine continued #########The troponin rises rolon zone. It may be exacerbated by her acute renal failure I am not convinced she has ACS. Abnormal EKG may appear to be ischemic when you see them in series you see no changes, suggesting this may be a chronic finding Agree with having on aspirin Agree with having on atorvastatin We might consider adding a low-dose of carvedilol Agree with working up the mass--may be cancer. She does have some chest wall pain but she says it is not the same as her pain that she had all day. It sounds noncardiac. Thank you for allowing me to participate in this patient's care I will follow along with you 02/27/17: ASSESSMENT/PLAN: 1. ABNORMAL EKG -no acute ischemic finding. 2. ABNORMAL TROPONIN -trivial, flat troponin. This is most likely related to acute renal failure. Continue to monitor. 3. HYPERTENSION - improved today. 4. ABDOMINAL PAIN - somewhat improved today. Some lower abdominal and bilateral flank tenderness with palpation. 5. CHRONIC KIDNEY DISEASE WITH ARF - creatinine significantly increased at 5.1. Nephrology following also. Avoiding nephrotoxic agents at this time. Monitor BMP. 6. HYPERKALEMIA - K+ 5.7. Patient is being hydrated with normal saline and will have sodium bicarb added. Monitor BMP. 7. RENAL MASS -this is chronic. [place] to be related to renal cell carcinoma. Patient is not a candidate for intervention. May also be a contributing factor to worsened renal function. 8. PRESENCE OF PACEMAKER -device functioning appropriately. EKG and cardiac monitoring is stable. 9. UTI -gram-negative rods per urine culture. Final result pending. On appropriate antibiotics at this time. 10. ATRIAL FIBRILLATION -persistent. Well-controlled ventricular response at this time. Anticoagulated with ASA. She has a history of anemia and thrombocytosis, and it is recommended that we limit antiplatelet medications to aspirin and avoid lowering platelet count. 11. DYSLIPIDEMIA -continue current statin. 12. GERD -continue PPI. 13. THYROID DISORDER -continue levothyroxine. 14. ANEMIA - chronic. stable at this time. May be aggravated currently due to acute renal failure. Oncology is also evaluating. Patient is asymptomatic at this time. Thrombocytosis raise question of malignancy Her pacemaker is working well. Blood pressures under better control Less abdominal pain Rising creatinine continues Atrial fibrillation is controlled Continue current therapy Prognosis remains guarded with that large of a mass and her other comorbidities. Current Visit: Yes (2) Troponin I above reference range Status: Chronic Assessment and plan: SEE PLAN OF CARE LISTED ABOVE. Current Visit: Yes (3) Abdominal distension Status: Resolved Assessment and plan: SEE PLAN OF CARE LISTED ABOVE. Current Visit: No (4) Anemia, chronic disease Status: Chronic Assessment and plan: SEE PLAN OF CARE LISTED ABOVE. Current Visit: Yes (5) Thrombocytosis Status: Chronic Assessment and plan: SEE PLAN OF CARE LISTED ABOVE. Current Visit: Yes (6) UTI (urinary tract infection) Status: Acute Assessment and plan: SEE PLAN OF CARE LISTED ABOVE. Current Visit: Yes (7) Atrial fibrillation Status: Chronic Assessment and plan: SEE PLAN OF CARE LISTED ABOVE. Current Visit: No (8) GERD (gastroesophageal reflux disease) Status: Chronic Assessment and plan: SEE PLAN OF CARE LISTED ABOVE. Current Visit: Yes (9) HTN (hypertension) Status: Chronic Assessment and plan: SEE PLAN OF CARE LISTED ABOVE. Current Visit: Yes (10) History of cardiac pacemaker Status: Chronic Assessment and plan: SEE PLAN OF CARE LISTED ABOVE. Current Visit: No (11) Hyperkalemia Status: Acute Assessment and plan: SEE PLAN OF CARE LISTED ABOVE. Current Visit: Yes Cardiology - PN: Subj Interval history: PRIMARY COMMUNITY RELATIONS REPRESENTATIVE: DR. MARQUEZ SUMMARY: Ms. Landeros is an 86-year-old black female with risk factor significant for: hypertension, dyslipidemia, age, sedentary lifestyle, former tobacco abuse. Past medical history includes persistent atrial fibrillation, chronic kidney disease, GERD, renal mass, diverticulosis. She also has a history of bradycardia and AV block and has a dual-chamber pacemaker implanted. History of atypical chest pain of the left chest and left arm specifically at pacemaker site. Previous hospitalization in November 2016 when the symptoms were ruled out for cardiac etiology. Patient also underwent GI and oncology evaluation for abdominal pain and distention, iron deficiency anemia, and thrombocytosis. 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 Patient was admitted to [facility] on the evening of February 25 complaining of abdominal pain, left lower flank discomfort for 3 days. She also had a poor appetite, but no nausea or vomiting. Diagnostic imaging with no acute abdominal process. CT scan did show 7 cm renal mass. This is felt to be renal cell carcinoma, but due to age and medical comorbidities, patient is not a candidate for intervention. Patient also has large UTI. Antibiotics have been started, urine culture shows gram-negative rods with final result pending. Acute renal failure noted on admission with creatinine 5.2 versus 1.7 in November 2016. Hyperkalemic with K+ up to 5.7. Cardiology was asked to see for abnormal troponin of 0.300 and to evaluate EKG. February: Ms. Landeros is much more alert today. She makes eye contact, smiles, and is appropriate. Denies chest pain or discomfort, shortness of breath. She denies any abdominal pain at this time, but she does have some tenderness lower abdomen and flank areas with palpation. Patient's granddaughter present at bedside, and she reports patient ate clear liquids this morning with fair appetite, much better than in recent. Temp 99.1F this morning. Systolic BP ranging 130-145 mmHg. No labs available this morning for review. Exam (Progress Note) - Constitutional Vitals: Period Temp Pulse Resp BP Sys/Hall Pulse Ox Last 24 Hr 98.8 F-101.9 F 62-78 16-20 127-146/52-89 98-100 Exam: General: Present: No Apparent Distress, Other (frail, chronically ill.) Much more alert today and pleasant. HEENT: Present: PERRL, Normocephaly, Mucus Membranes Moist. Absent: Jaundice, Pallor Neck: Present: Supple Neck, Midline Trachea Cardiac: Present: Reg Rate and Rhythm, Systolic Murmur. Absent: Tachycardia, Bradycardia Lungs: Present: No Wheezes, Other (Coarse breath sounds scattered throughout) Neuro: Present: Grossly Intact. Absent: Numbness, Resting Tremor, Essential Tremor Abdomen: Present: Tender, Distended, Other (hyperactive bowel sounds) Skin: Present: Clear, warm, dry, intact. Absent: Rash, Suspicious Lesions, Bruising Musculoskeletal: Present: Decreased Range of Motion, No Fluid Collection Extremities: Present: No Clubbing, No Cyanosis, trace pretibial, Normal Upper Extr. Pulses (3+ bilaterally), Normal Lower Extr. Pulses (2+ bilaterally), Capillary Refill (Normal) Result/EKG - Labs CBC & BMP: 02/27/17 09:27 02/27/17 09:28 Lab Results: I have reviewed the past 24 hour labs Labs: Laboratory Results - last 24 hr 02/27/17 02/27/17 02/27/17 09:27 09:27 09:28 WBC 23.3 H D RBC 2.80 L Hgb 7.9 L Hct 23.5 L MCV 83.9 L MCH 28 MCHC 33.6 RDW 18.1 H Plt Count 797 H MPV 10.1 Neut % (Auto) 92.6 H Lymph % (Auto) 1.4 L [place] % (Auto) 4.6 Eos % (Auto) 0.0 Baso % (Auto) 0.2 Neut # (Auto) 21.6 H Lymph # (Auto) 0.3 L [place] # (Auto) 1.1 H Eos # (Auto) 0.0 Baso # (Auto) 0.0 Total Counted 100 Immature Gran % 1.2 Nucleated RBC % 0.0 Immature Gran # 0.29 Segmented Neutrophils 94 H Band Neutrophils 1 Monocytes 5 Nucleated RBCs # 0.00 Platelet Estimate Increased Hypochromasia 1+ Elliptocytes Few Morphology Comment Sodium 141 Potassium 4.8 Chloride 109 H Carbon Dioxide 19 L Anion Gap 17.8 H BUN 78 H Creatinine 5.30 H GFR Calculation 8 BUN/Creatinine Ratio 14.00 Glucose 149 H Calculated Osmolality 306.3 H Calcium 8.2 L Ferritin 663.2 H Free T4 1.39 TSH 3rd Generation 1.120 - EKG EKG results: interpreted by me, no acute changes EKG shows: atrial fibrillation (Ventricular pacing) IKarey Dale, MD, personally performed the services described in this documentation, ascribed by Ekaterina Natarajan RN in my presence, and it is both accurate and complete .
[2017-02-27] MEDS: ACETAMINOPHEN 325 MG TABLET PO PRN (21:09)
[2017-02-27] MEDS: cefTRIAXone 1,000 MG in SODIUM CHLORIDE 0.9% 100 ML IV SCH (21:12)
[2017-02-28] MEDS: SODIUM ACETATE 100 MEQ in DEXTROSE 5% 1,000 ML IV SCH (00:16)
[2017-02-28] MEDS: LEVOTHYROXINE 75 MCG TABLET PO SCH (06:25)
[2017-02-28 06:50] LABS: Basophils % 0.2 % (0.0-0.8); Eosinophils % 0.2 % (0.00-10.9); Hematocrit 23.3 VOL% (35.7-47.0); Hemoglobin 7.8 GM/DL (12.0-16.0); Immature Granulocytes % 1.1 %; Immature Granulocytes Absolute 0.22 #; Lymphocytes # 0.4 10*3/uL (1.4-4.0); Mean Corpuscular HGB Conc 33.5 GM/DL (32-36); Mean Corpuscular Hemoglobin 28 PG (27-34); Mean Corpuscular Volume 82.3 FL (87-102); Mean Platelet Volume 9.9 FL (9.6-12.0); Monocytes # 1.1 10*3/uL (0.11-0.8); Monocytes % 5.3 % (1.7-12.7); Neutrophils # 18.1 10*3/uL (1.4-7.4); Neutrophils % 91.2 % (38.7-73.9); Platelet Count 782 T/CUMM (130-400); Red Blood Count 2.83 MC/CUMM (3.8-5.5); Red Cell Distribution Width 18.6 % (9.3-17.3); White Blood Count 19.8 T/CUMM (4-12)
[2017-02-28 07:17] LABS: Calcium 8.4 MG/DL (8.5-10.1); Osmolality,Calculated 295.7 MOS/KG (273-304); Potassium 4.8 MMOL/L (3.5-5.1)
[2017-02-28 07:20] LABS: Anisocytosis 1+; Band Neutrophils 1 % (0-10); Eosinophils 1 % (0-10); Segmented Neutrophils 97 % (50-85); Total Cells Counted 100
[2017-02-28 07:21] LABS: Hypochromasia 1+; Schistocytes 1+
[2017-02-28 07:22] LABS: Acanthocytes Few; Platelet Estimate Increased
[2017-02-28] MEDS: POLYETHYLENE GLYCOL POWDER 17 GM PACK PO SCH (09:00)
[2017-02-28] MEDS: DOCUSATE SODIUM 100 MG CAPSULE PO SCH ×2 (09:01→20:31)
[2017-02-28] MEDS: ALLOPURINOL 300 MG TABLET PO SCH (09:01)
[2017-02-28] MEDS: hydrALAZINE 25 MG TABLET PO SCH ×3 (09:01→20:31)
[2017-02-28] MEDS: ASPIRIN EC 325 MG TABLET PO SCH (09:01)
[2017-02-28] MEDS: amLODIPine 5 MG TABLET PO SCH (09:02)
[2017-02-28] MEDS: PANTOPRAZOLE 40 MG TABLET PO SCH (09:02)
[2017-02-28] MEDS: ATORVASTATIN 10 MG TABLET PO SCH (09:02)
--- NOTE | 2017-02-28 09:27 | Internal Med Progress Note ---
Assessment and Plan (1) Abdominal pain Status: Acute Assessment and plan: Ileus, improving, on clear liquid diet , will advance diet if tolerates diverticulitis history , stable, GI consult , Thrombocytosis improving, conservative management presently, oncology consult, Hypertension, continue antihypertensives Renal insufficiency, continue IVF 1/2NS, 50cc/hr, dced lasix. renal mass, possible renal cell carcinoma, supportive treatment only, UTI, continue rocephin Current Visit: Yes (2) Acute renal failure Status: Acute Current Visit: Yes (3) Ileus, unspecified Status: Acute Current Visit: Yes (4) UTI (urinary tract infection) Status: Acute Current Visit: Yes (5) Thrombocytosis Status: Chronic Current Visit: Yes (6) GERD (gastroesophageal reflux disease) Status: Chronic Current Visit: Yes (7) HTN (hypertension) Status: Chronic Current Visit: Yes Internal Medicine - PN: Subj Interval history: PCP: Dr. tracy Patient is seen and examined on the floor , patient is a poor historian Accompanied by daughter at the bedside. No overnight events given by the nurse , patient caregiver. pt tolerated liquid diet well, had 2BM yesterday, no blood. Exam (Progress Note) - Constitutional Vitals: Period Temp Pulse Resp BP Sys/Hall Pulse Ox Last 24 Hr 97.8 F-101.7 F 59-92 16-20 123-158/58-69 96-100 Exam: GENERAL APPEARANCE: alert and oriented, pleasant, in no acute distress, lying in the bed HEENT: normal. EYES: extraocular movement intact (EOMI), conjunctiva clear, normal. NECK/THYROID: neck supple, full range of motion, no cervical lymphadenopathy, no thyromegaly. HEART: regular rate and rhythm, no murmurs, rubs, gallops. LUNGS: clear to auscultation bilaterally, no wheezes, rales, rhonchi. ABDOMEN:distended firm abdomen, generalized tenderness less compared to yesterday, hyperactive bowel sounds. EXTREMITIES: no edema. NEUROLOGIC: alert and oriented, cranial nerves 2-12 grossly intact, Results - Labs CBC & BMP: 02/28/17 06:38 02/28/17 06:38 Lab Results: I have reviewed the past 24 hour labs
--- NOTE | 2017-02-28 09:32 | Discharge Summary ---
Diagnosis - Discharge Diagnosis (1) Abdominal pain Status: Acute (2) Acute renal failure Status: Acute (3) Ileus, unspecified Status: Acute (4) UTI (urinary tract infection) Status: Acute (5) Thrombocytosis Status: Chronic (6) GERD (gastroesophageal reflux disease) Status: Chronic (7) HTN (hypertension) Status: Chronic Discharge Plan - Discharge Medications No Action Atorvastatin [Lipitor] 5 mg PO QAM Alendronate [Fosamax] 70 mg PO MO Pantoprazole Sodium 40 mg PO QAM Docusate Sodium 100 mg PO BID Polyethylene Glycol Powder [Miralax] 1 each PO QAM Furosemide 40 mg PO QAM Aspirin EC Tab 325 mg PO DAILY #30 tablet hydrALAZINE TAB [Apresoline Tab] 25 mg PO TID amLODIPine [Norvasc] 5 mg PO DAILY Levothyroxine Sodium 75 mcg PO QAM Allopurinol 300 mg PO QAM Melatonin 10 mg PO BEDTIME - Follow Up or Referral - Forms/Instructions Exam - Constitutional Vitals: Period Temp Pulse Resp BP Sys/Hall Pulse Ox Last 24 Hr 97.8 F-101.7 F 59-92 16-20 123-158/58-69 96-100 Discharge Results Procedures and tests throughout hospitalization: Pending Orders 02/25/17 Urine Culture Routine 02/25/17 19:25 Blood Culture Stat 02/26/17 Urine Culture Routine Labs on day of discharge: Labs from last 24 hours 02/28/17 02/28/17 02/27/17 06:38 06:38 09:28 WBC 19.8 H RBC 2.83 L Hgb 7.8 L Hct 23.3 L MCV 82.3 L MCH 28 MCHC 33.5 RDW 18.6 H Plt Count 782 H MPV 9.9 Neut % (Auto) 91.2 H Lymph % (Auto) 2.0 L [place] % (Auto) 5.3 Eos % (Auto) 0.2 Baso % (Auto) 0.2 Neut # (Auto) 18.1 H Lymph # (Auto) 0.4 L [place] # (Auto) 1.1 H Eos # (Auto) 0.0 Baso # (Auto) 0.0 Total Counted 100 Immature Gran % 1.1 Nucleated RBC % 0.0 Immature Gran # 0.22 Segmented Neutrophils 97 H Band Neutrophils 1 Monocytes 1 L Eosinophils 1 Nucleated RBCs # 0.00 Platelet Estimate Increased Hypochromasia 1+ Anisocytosis 1+ Elliptocytes Acanthocytes (Spur) Few Schistocytes 1+ Morphology Comment Sodium 138 141 Potassium 4.8 4.8 Chloride 104 109 H Carbon Dioxide 21 19 L Anion Gap 17.8 H 17.8 H BUN 71 H 78 H Creatinine 5.10 H 5.30 H GFR Calculation 8 8 BUN/Creatinine Ratio 13.00 14.00 Glucose 107 H 149 H Calculated Osmolality 295.7 306.3 H Calcium 8.4 L 8.2 L Ferritin Free T4 1.39 TSH 3rd Generation 1.120 02/27/17 02/27/17 09:27 09:27 WBC 23.3 H D RBC 2.80 L Hgb 7.9 L Hct 23.5 L MCV 83.9 L MCH 28 MCHC 33.6 RDW 18.1 H Plt Count 797 H MPV 10.1 Neut % (Auto) 92.6 H Lymph % (Auto) 1.4 L [place] % (Auto) 4.6 Eos % (Auto) 0.0 Baso % (Auto) 0.2 Neut # (Auto) 21.6 H Lymph # (Auto) 0.3 L [place] # (Auto) 1.1 H Eos # (Auto) 0.0 Baso # (Auto) 0.0 Total Counted 100 Immature Gran % 1.2 Nucleated RBC % 0.0 Immature Gran # 0.29 Segmented Neutrophils 94 H Band Neutrophils 1 Monocytes 5 Eosinophils Nucleated RBCs # 0.00 Platelet Estimate Increased Hypochromasia 1+ Anisocytosis Elliptocytes Few Acanthocytes (Spur) Schistocytes Morphology Comment Sodium Potassium Chloride Carbon Dioxide Anion Gap BUN Creatinine GFR Calculation BUN/Creatinine Ratio Glucose Calculated Osmolality Calcium Ferritin 663.2 H Free T4 TSH 3rd Generation Preliminary micro results at discharge 02/25/17 Unknown Urine Culture - Preliminary Urine,Voided Gram Negative Rods Gram Negative Rods#2 Gram Negative Rods#3 02/26/17 Unknown Urine Culture - Preliminary Urine,Catheterized Gram Negative Rods 02/25/17 19:25 Blood Culture - Preliminary Blood No growth at 1 day 02/25/17 19:25 Blood Culture - Preliminary Blood No growth at 1 day DS: Provider Date of admission: 02/25/17 21:40 Primary care physician: . No PCP Attending physician on admission: Jigar Jain MD Consults: 02/25/17 22:49 Consult to Case Mgmt/Social Srvs [CONS] Routine Reason for Case Mgmt/Social Srvs: Discharge Planning Consult to Physician [CONS] Routine Comment: Renal failure Consulting Provider: Karthikeyan Marti Consulting Provider Notified: Yes When should Consulting Provider be notified: In am Person Notified: sree called Date Notified: 02/26/17 Time Notified: 07:43 02/26/17 06:50 Consult to Physician [CONS] Routine Comment: Consulting Provider: Karthikeyan Haro Consulting Provider Notified: Yes When should Consulting Provider be notified: Now Consult to Specialist Group: Oncology Person Notified: colby called Date Notified: 02/26/17 Time Notified: 08:35 02/26/17 06:52 Consult to Physician [CONS] Routine Comment: Consulting Provider: Cardiology - [facility] Consulting Provider Notified: Yes When should Consulting Provider be notified: Now Consult to Specialist Group: Cardiology Person Notified: nimisha called Date Notified: 02/26/17 Time Notified: 08:08 02/26/17 13:14 Consult to Physician [CONS] Routine Comment: abd pain, seen last by you Consulting Provider: Dillon Fleming Consulting Provider Notified: Yes When should Consulting Provider be notified: Now Consult to Specialist Group: Gastroenterology When should Consulting Provider be notified: Now Person Notified: eusebia called Date Notified: 02/26/17 Time Notified: 14:00 Discharging clinician: Monica Johnston MD
--- NOTE | 2017-02-28 10:37 | Oncology Progress Note ---
Oncology Subjective PN Interval history: 86-year-old with massive renal tumor with cardiac dysfunction, debility and stage V chronic renal failure. I have discussed the case again today with the patient, her daughter and her granddaughter by phone. My recommendations are for best supportive care. Outpatient follow-up would be available should they desire further oncology consultation. Exam - Constitutional Vitals: Period Temp Pulse Resp BP Sys/Hall Pulse Ox Last 24 Hr 97.8 F-101.7 F 59-92 16-20 123-158/58-69 96-100 Results - Labs CBC & BMP: 02/28/17 06:38 02/28/17 06:38
--- NOTE | 2017-02-28 12:40 | Nephrology Progress Note ---
Nephrology - PN: Subj Interval history: Patient denies shortness of breath. Review of systems GI she denies nausea vomiting, she denies abdominal pain Physical exam general the patient's chronically ill-appearing but in no acute distress Assessment/plan 1. Acute renal failure-patient's creatinine 5.1 mg/dL this is stable from her admission but up from her previous baseline of around 1.7 mg/dL a few months ago. This may be her new baseline. I spoke to the family about possibly requiring dialysis in the next few months if her kidneys continue to worsen. Right now their main objective is to get her out of pain and keep her comfortable. 2. Metabolic acidosis-this is improved patient's bicarb is 20 3. Hypertension this is controlled 4. Renal mass-she was seen by oncology it is felt this is probably a renal cell carcinoma, and they did not recommend aggressive therapy at this time instead they suggested supportive care would be the way to go. If this is the case I do not feel that dialysis would be of any major benefit to this patient and I conveyed this to the patient's daughter and granddaughter. Exam (PN)-Nephrology - Vital Signs Vital signs: Period Temp Pulse Resp BP Sys/Hall Pulse Ox Last 24 Hr 97.8 F-101.7 F 61-92 16-20 123-158/62-69 96-100 - Lab 02/28/17 06:38 02/28/17 06:38 Most recent lab results Calcium 8.4 MG/DL (8.5-10.1) L 02/28/17 06:38 Magnesium 2.4 MG/DL (1.8-2.4) 02/26/17 03:36 Assessment and Plan (1) Acute renal failure Status: Acute Assessment and plan: This patient's creatinine is 5.3 mg/dL today this is up from 1.7 mg/dL about 3 months ago. I suspect this patient has an acute renal injury related to infection and volume depletion and hypoperfusion related to her decreased p.o. intake and anemia with a hematocrit of 25%. Also contributing to her progressive renal failure may be the renal mass enlarging on her right kidney. I agree with IV fluids, I am going to hold her p.o. Lasix for now. Current Visit: Yes (2) Chronic kidney disease Status: Acute Current Visit: Yes (3) HTN (hypertension) Status: Chronic Current Visit: Yes (4) Ileus, unspecified Status: Acute Current Visit: Yes (5) UTI (urinary tract infection) Status: Acute Assessment and plan: I agree with the IV antibiotics Current Visit: Yes (6) Fever Status: Acute Current Visit: Yes (7) Hyperkalemia Status: Acute Assessment and plan: I will add some sodium bicarbonate to her IV fluids this may help she has some of her potassium intracellularly, I would hold off on any Kayexalate until her potassium gets to 6 or 6.5 Current Visit: Yes (8) Abdominal pain Status: Acute Current Visit: Yes (9) Metabolic acidosis Status: Acute Current Visit: Yes (10) Renal mass Status: Acute Assessment and plan: I will request the patient's note from Dr. Chaudhary office Current Visit: Yes
[2017-02-28] MEDS: SODIUM CHLORIDE 0.45% 1,000 ML IV SCH (14:20)
--- NOTE | 2017-02-28 19:54 | Cardiology Progress Note ---
I, Ekaterina Natarajan RN, am scribing for, and in the presence of, Lauri Eden MD 19:54. Assessment and Plan - Time spent with patient Time spent with patient: Greater than 30 minutes (1) Abnormal EKG Status: Acute Assessment and plan: 02/26/17: ASSESSMENT/PLAN: 1. ABNORMAL EKG - no acute ST segment elevation. She is not having any anginal complaint. T-wave inversion could be contributed to acute renal failure or ventricular pacing 2. ABNORMAL TROPONIN -trivial elevation of troponins, and this appears to be chronic. She is not having any anginal complaint. 3. HYPERTENSION -suboptimally controlled 4. ABDOMINAL DISTENTION AND PAIN -abdominal x-ray without acute process. 5. RENAL FAILURE -significant elevation of creatinine this admission, 5.1. 6. HYPERKALEMIA -K+ 5.7 today. 7. RENAL MASS -this is chronic. 8. PRESENCE OF PACEMAKER -device appears to be functioning appropriately. 9. UTI -preliminary urine culture with gram-negative rods. Agree with IV antibiotics. 10. ATRIAL FIBRILLATION -well-controlled ventricular response. Anticoagulated only with aspirin due to previous significant anemia. 11. DYSLIPIDEMIA -FLP this morning unremarkable. Continue statin. 12. GERD -PPI continued 13. THYROID DISORDER -levothyroxine continued #########The troponin rises rolon zone. It may be exacerbated by her acute renal failure I am not convinced she has ACS. Abnormal EKG may appear to be ischemic when you see them in series you see no changes, suggesting this may be a chronic finding Agree with having on aspirin Agree with having on atorvastatin We might consider adding a low-dose of carvedilol Agree with working up the mass--may be cancer. She does have some chest wall pain but she says it is not the same as her pain that she had all day. It sounds noncardiac. Thank you for allowing me to participate in this patient's care I will follow along with you 02/27/17: ASSESSMENT/PLAN: 1. ABNORMAL EKG -no acute ischemic finding. 2. ABNORMAL TROPONIN -trivial, flat troponin. This is most likely related to acute renal failure. Continue to monitor. 3. HYPERTENSION - improved today. 4. ABDOMINAL PAIN - somewhat improved today. Some lower abdominal and bilateral flank tenderness with palpation. 5. CHRONIC KIDNEY DISEASE WITH ARF - creatinine significantly increased at 5.1. Nephrology following also. Avoiding nephrotoxic agents at this time. Monitor BMP. 6. HYPERKALEMIA - K+ 5.7. Patient is being hydrated with normal saline and will have sodium bicarb added. Monitor BMP. 7. RENAL MASS -this is chronic. [place] to be related to renal cell carcinoma. Patient is not a candidate for intervention. May also be a contributing factor to worsened renal function. 8. PRESENCE OF PACEMAKER -device functioning appropriately. EKG and cardiac monitoring is stable. 9. UTI -gram-negative rods per urine culture. Final result pending. On appropriate antibiotics at this time. 10. ATRIAL FIBRILLATION -persistent. Well-controlled ventricular response at this time. Anticoagulated with ASA. She has a history of anemia and thrombocytosis, and it is recommended that we limit antiplatelet medications to aspirin and avoid lowering platelet count. 11. DYSLIPIDEMIA -continue current statin. 12. GERD -continue PPI. 13. THYROID DISORDER -continue levothyroxine. 14. ANEMIA - chronic. stable at this time. May be aggravated currently due to acute renal failure. Oncology is also evaluating. Patient is asymptomatic at this time. Thrombocytosis raise question of malignancy Her pacemaker is working well. Blood pressures under better control Less abdominal pain Rising creatinine continues Atrial fibrillation is controlled Continue current therapy Prognosis remains guarded with that large of a mass and her other comorbidities. 02/28/17: ASSESSMENT/PLAN: 1. ABNORMAL EKG -chronically abnormal. Ventricular paced without disturbance. 2. ABNORMAL TROPONIN -troponin levels remained in a rolon zone. Patient has had no anginal complaint. Abnormality most likely related to acute renal failure and other medical issues. 3. HYPERTENSION -well controlled. Continue as present. 4. ABDOMINAL PAIN -improved some lower abdominal tenderness with palpation continues. 5. CHRONIC KIDNEY DISEASE WITH ARF -creatinine today 5.3. Avoiding nephrotoxic agents. Monitor BMP, renal function. Nephrology following also. 6. HYPERKALEMIA -resolved. K+ 4.8. Monitor BMP. 7. RENAL MASS -chronic. Although this is possibly related to renal cell CA, due to age and multiple comorbidities, patient is not a candidate for intervention. Renal mass may be a contributor to worsening renal function. 8. PRESENCE OF PACEMAKER -pacemaker with appropriate function. EKG and cardiac monitoring are stable without disturbance. 9. UTI -urine culture grew out E. coli. She is on appropriate antibiotics. 10. ATRIAL FIBRILLATION -persistent. Ventricular response controlled. Anticoagulated with ASA. Avoiding multiple antiplatelets. 11. DYSLIPIDEMIA -continue statin. 12. GERD -continue PPI. 13. THYROID DISORDER -continue levothyroxine. 14. ANEMIA -chronic. Most likely worsened due to acute renal failure. Patient remains asymptomatic. Monitor closely. Not much improvement in renal function Chest pain is gone Atrial fibrillation is controlled Pacemaker is working well Continue therapy Physical therapy Okay with me for home when you say so. Current Visit: Yes (2) Troponin I above reference range Status: Chronic Assessment and plan: SEE PLAN OF CARE LISTED ABOVE. Current Visit: Yes (3) Abdominal distension Status: Resolved Assessment and plan: SEE PLAN OF CARE LISTED ABOVE. Current Visit: No (4) Anemia, chronic disease Status: Chronic Assessment and plan: SEE PLAN OF CARE LISTED ABOVE. Current Visit: Yes (5) Thrombocytosis Status: Chronic Assessment and plan: SEE PLAN OF CARE LISTED ABOVE. Current Visit: Yes (6) UTI (urinary tract infection) Status: Acute Assessment and plan: SEE PLAN OF CARE LISTED ABOVE. Current Visit: Yes (7) Atrial fibrillation Status: Chronic Assessment and plan: SEE PLAN OF CARE LISTED ABOVE. Current Visit: No (8) GERD (gastroesophageal reflux disease) Status: Chronic Assessment and plan: SEE PLAN OF CARE LISTED ABOVE. Current Visit: Yes (9) HTN (hypertension) Status: Chronic Assessment and plan: SEE PLAN OF CARE LISTED ABOVE. Current Visit: Yes (10) History of cardiac pacemaker Status: Chronic Assessment and plan: SEE PLAN OF CARE LISTED ABOVE. Current Visit: No (11) Hyperkalemia Status: Acute Assessment and plan: SEE PLAN OF CARE LISTED ABOVE. 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 Current Visit: Yes Cardiology - PN: Subj Interval history: PRIMARY [employer] STRAIGHTENER: DR. MARQUEZ SUMMARY: Ms. Landeros is an 86-year-old black female with risk factor significant for: hypertension, dyslipidemia, age, sedentary lifestyle, former tobacco abuse. Past medical history includes persistent atrial fibrillation, chronic kidney disease, GERD, renal mass, diverticulosis. She also has a history of bradycardia and AV block and has a dual-chamber pacemaker implanted. History of atypical chest pain of the left chest and left arm specifically at pacemaker site. Previous hospitalization in November 2016 when the symptoms were ruled out for cardiac etiology. Patient also underwent GI and oncology evaluation for abdominal pain and distention, iron deficiency anemia, and thrombocytosis. 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 Patient was admitted to [facility] on the evening of February 25 complaining of abdominal pain, left lower flank discomfort for 3 days. She also had a poor appetite, but no nausea or vomiting. Diagnostic imaging with no acute abdominal process. CT scan did show 7 cm renal mass. This is felt to be renal cell carcinoma, but due to age and medical comorbidities, patient is not a candidate for intervention. Patient also has large UTI. Antibiotics have been started, urine culture shows gram-negative rods with final result pending. Acute renal failure noted on admission with creatinine 5.2 versus 1.7 in November 2016. Hyperkalemic with K+ up to 5.7. Cardiology was asked to see for abnormal troponin of 0.300 and to evaluate EKG. February: Ms. Landeros appears pleasant this morning. She is awake and alert, and she is in no acute respiratory distress. No chest pain or shortness of breath. Does have some lower abdominal discomfort with palpation. Urine culture grew out E. coli, and she is being treated for UTI. WBC down to 19,800 (23,300 previously) . Low grade temp last night but none this morning. BP 130/60. Ventricular pacing with underlying atrial fibrillation per telemetry monitoring. Labs reviewed. As above. Potassium 4.8. Creatinine without much improvement is 5.1. H&H unchanged from yesterday 7.8/23.3. Exam (Progress Note) - Constitutional Vitals: Period Temp Pulse Resp BP Sys/Hall Pulse Ox Last 24 Hr 97.8 F-101.7 F 59-92 16-20 123-158/58-69 96-100 Exam: General: Present: No Apparent Distress, Other (frail, chronically ill.) Alert today and pleasant. HEENT: Present: PERRL, Normocephaly, Mucus Membranes Moist. Absent: Jaundice, Pallor Neck: Present: Supple Neck, Midline Trachea Cardiac: Present: Reg Rate and Rhythm, Systolic Murmur. Absent: Tachycardia, Bradycardia Lungs: Present: No Wheezes, Other (Coarse breath sounds scattered throughout) Neuro: Present: Grossly Intact. Absent: Numbness, Resting Tremor, Essential Tremor Abdomen: Present: Tender, Distended, Other (hyperactive bowel sounds) Skin: Present: Clear, warm, dry, intact. Absent: Rash, Suspicious Lesions, Bruising Musculoskeletal: Present: Decreased Range of Motion, No Fluid Collection Extremities: Present: No Clubbing, No Cyanosis, trace pretibial, Normal Upper Extr. Pulses (3+ bilaterally), Normal Lower Extr. Pulses (2+ bilaterally), Capillary Refill (Normal) Result/EKG - Labs CBC & BMP: 02/28/17 06:38 02/28/17 06:38 Lab Results: I have reviewed the past 24 hour labs Labs: Laboratory Results - last 24 hr 02/27/17 02/27/17 02/27/17 09:27 09:27 09:28 WBC 23.3 H D RBC 2.80 L Hgb 7.9 L Hct 23.5 L MCV 83.9 L MCH 28 MCHC 33.6 RDW 18.1 H Plt Count 797 H MPV 10.1 Neut % (Auto) 92.6 H Lymph % (Auto) 1.4 L [place] % (Auto) 4.6 Eos % (Auto) 0.0 Baso % (Auto) 0.2 Neut # (Auto) 21.6 H Lymph # (Auto) 0.3 L [place] # (Auto) 1.1 H Eos # (Auto) 0.0 Baso # (Auto) 0.0 Total Counted 100 Immature Gran % 1.2 Nucleated RBC % 0.0 Immature Gran # 0.29 Segmented Neutrophils 94 H Band Neutrophils 1 Monocytes 5 Eosinophils Nucleated RBCs # 0.00 Platelet Estimate Increased Hypochromasia 1+ Anisocytosis Elliptocytes Few Acanthocytes (Sp[place]) Schistocytes Morphology Comment Sodium 141 Potassium 4.8 Chloride 109 H Carbon Dioxide 19 L Anion Gap 17.8 H BUN 78 H Creatinine 5.30 H GFR Calculation 8 BUN/Creatinine Ratio 14.00 Glucose 149 H Calculated Osmolality 306.3 H Calcium 8.2 L Ferritin 663.2 H Free T4 1.39 TSH 3rd Generation 1.120 02/28/17 02/28/17 06:38 06:38 WBC 19.8 H RBC 2.83 L Hgb 7.8 L Hct 23.3 L MCV 82.3 L MCH 28 MCHC 33.5 RDW 18.6 H Plt Count 782 H MPV 9.9 Neut % (Auto) 91.2 H Lymph % (Auto) 2.0 L [place] % (Auto) 5.3 Eos % (Auto) 0.2 Baso % (Auto) 0.2 Neut # (Auto) 18.1 H Lymph # (Auto) 0.4 L [place] # (Auto) 1.1 H Eos # (Auto) 0.0 Baso # (Auto) 0.0 Total Counted 100 Immature Gran % 1.1 Nucleated RBC % 0.0 Immature Gran # 0.22 Segmented Neutrophils 97 H Band Neutrophils 1 Monocytes 1 L Eosinophils 1 Nucleated RBCs # 0.00 Platelet Estimate Increased Hypochromasia 1+ Anisocytosis 1+ Elliptocytes Acanthocytes (Sp[place]) Few Schistocytes 1+ Morphology Comment Sodium 138 Potassium 4.8 Chloride 104 Carbon Dioxide 21 Anion Gap 17.8 H BUN 71 H Creatinine 5.10 H GFR Calculation 8 BUN/Creatinine Ratio 13.00 Glucose 107 H Calculated Osmolality 295.7 Calcium 8.4 L Ferritin Free T4 TSH 3rd Generation - EKG EKG results: interpreted by me, no acute changes (Ventricular paced) IKarey Dale, MD, personally performed the services described in this documentation, ascribed by Ekaterina Natarajan RN in my presence, and it is both accurate and complete 954 .
[2017-02-28] MEDS: cefTRIAXone 1,000 MG in SODIUM CHLORIDE 0.9% 100 ML IV SCH (20:30)
[2017-02-28] MEDS: ACETAMINOPHEN 325 MG TABLET PO PRN (20:31)
[2017-03-01] MEDS: LEVOTHYROXINE 75 MCG TABLET PO SCH (06:17)
--- NOTE | 2017-03-01 07:58 | Family Practice Progress Note ---
Family Practice - PN: Subj Interval history: Seen this morning. She is awake and alert. Does have an ileus which apparently is improving but continues have distended abdomen with hypertympany. In addition has renal insufficiency and urinary tract infection and is on IV antibiotics. White count yesterday was still elevated at 19.8 with a hemoglobin hematocrit of 7.8 and 23. I am going to watch her through the day hopefully she will continue to improve. We did have some specialists seeing her as well. Exam (Progress Note) - Constitutional Vitals: Period Temp Pulse Resp BP Sys/Hall Pulse Ox Last 24 Hr 98.4 F-100.4 F 62-76 16-19 133-152/67-71 93-97 Exam: Generally arouses easily. She has some difficulty hearing. HEENT neck supple trachea midline Lungs are clear no shortness of breath is obvious Cardiovascular rate is regular no gallop Abdomen is distended and hypertympanic however she is not having any abdominal pain, and is having bowel movements. Reported to have 2 today. Her weight is stable. Extremities no changes Results - Labs CBC & BMP: 02/28/17 06:38 02/28/17 06:38 Assessment and Plan (1) Abdominal pain Status: Acute Assessment and plan: 03/01/2017: No abdominal pain at present. We will continue to monitor Current Visit: Yes (2) Ileus, unspecified Status: Acute Assessment and plan: 03/01/2017: Although she is having bowel movement she is distended with at least air. I will repeat a flat and upright abdomen in the morning Current Visit: Yes
[2017-03-01] MEDS: amLODIPine 5 MG TABLET PO SCH (08:55)
[2017-03-01] MEDS: POLYETHYLENE GLYCOL POWDER 17 GM PACK PO SCH (08:56)
[2017-03-01] MEDS: PANTOPRAZOLE 40 MG TABLET PO SCH (08:56)
[2017-03-01] MEDS: hydrALAZINE 25 MG TABLET PO SCH ×3 (08:56→20:52)
[2017-03-01] MEDS: DOCUSATE SODIUM 100 MG CAPSULE PO SCH ×2 (08:57→20:52)
[2017-03-01] MEDS: ALLOPURINOL 300 MG TABLET PO SCH (08:57)
[2017-03-01] MEDS: ASPIRIN EC 325 MG TABLET PO SCH (08:57)
[2017-03-01] MEDS: ATORVASTATIN 10 MG TABLET PO SCH (08:57)
--- NOTE | 2017-03-01 09:47 | Nephrology Progress Note ---
Nephrology - PN: Subj Interval history: Patient denies shortness of breath. Review of systems GI she denies nausea or vomiting Physical exam general patient is in no acute distress, she has no pitting edema Assessment/plan 1. Acute renal failure on chronic renal failure-this patient's creatinine was 5.1 mg/dL a few days ago will recheck this in a few days 2. Metabolic acidosis this been improving 3. Hypertension this is controlled 4. UTI-we will continue antibiotics 5. Renal mass-this patient is thought to probably have a renal cell carcinoma, supportive care is been recommended Exam (PN)-Nephrology - Vital Signs Vital signs: Period Temp Pulse Resp BP Sys/Hall Pulse Ox Last 24 Hr 98.3 F-100.4 F 60-76 16-20 133-155/64-71 93-99 - Lab 02/28/17 06:38 02/28/17 06:38 Most recent lab results Calcium 8.4 MG/DL (8.5-10.1) L 02/28/17 06:38 Magnesium 2.4 MG/DL (1.8-2.4) 02/26/17 03:36 Assessment and Plan (1) Acute renal failure Status: Acute Assessment and plan: This patient's creatinine is 5.3 mg/dL today this is up from 1.7 mg/dL about 3 months ago. I suspect this patient has an acute renal injury related to infection and volume depletion and hypoperfusion related to her decreased p.o. intake and anemia with a hematocrit of 25%. Also contributing to her progressive renal failure may be the renal mass enlarging on her right kidney. I agree with IV fluids, I am going to hold her p.o. Lasix for now. Current Visit: Yes (2) Chronic kidney disease Status: Acute Current Visit: Yes (3) HTN (hypertension) Status: Chronic Current Visit: Yes (4) Ileus, unspecified Status: Acute Current Visit: Yes (5) UTI (urinary tract infection) Status: Acute Assessment and plan: I agree with the IV antibiotics Current Visit: Yes (6) Fever Status: Acute Current Visit: Yes (7) Hyperkalemia Status: Acute Assessment and plan: I will add some sodium bicarbonate to her IV fluids this may help she has some of her potassium intracellularly, I would hold off on any Kayexalate until her potassium gets to 6 or 6.5 Current Visit: Yes (8) Abdominal pain Status: Acute Current Visit: Yes (9) Metabolic acidosis Status: Acute Current Visit: Yes (10) Renal mass Status: Acute Assessment and plan: I will request the patient's note from Dr. Chaudhary office Current Visit: Yes
[2017-03-01] MEDS: SODIUM CHLORIDE 0.45% 1,000 ML IV SCH (10:53)
[2017-03-01] MEDS ORDERED: guaiFENesin/DM ER 600-30 MG TABLET PO SCH (12:30)
--- NOTE | 2017-03-01 13:48 | Cardiology Progress Note ---
Assessment and Plan (1) Abnormal EKG Status: Acute Assessment and plan: 02/26/17: ASSESSMENT/PLAN: 1. ABNORMAL EKG - no acute ST segment elevation. She is not having any anginal complaint. T-wave inversion could be contributed to acute renal failure or ventricular pacing 2. ABNORMAL TROPONIN -trivial elevation of troponins, and this appears to be chronic. She is not having any anginal complaint. 3. HYPERTENSION -suboptimally controlled 4. ABDOMINAL DISTENTION AND PAIN -abdominal x-ray without acute process. 5. RENAL FAILURE -significant elevation of creatinine this admission, 5.1. 6. HYPERKALEMIA -K+ 5.7 today. 7. RENAL MASS -this is chronic. 8. PRESENCE OF PACEMAKER -device appears to be functioning appropriately. 9. UTI -preliminary urine culture with gram-negative rods. Agree with IV antibiotics. 10. ATRIAL FIBRILLATION -well-controlled ventricular response. Anticoagulated only with aspirin due to previous significant anemia. 11. DYSLIPIDEMIA -FLP this morning unremarkable. Continue statin. 12. GERD -PPI continued 13. THYROID DISORDER -levothyroxine continued #########The troponin rises rolon zone. It may be exacerbated by her acute renal failure I am not convinced she has ACS. Abnormal EKG may appear to be ischemic when you see them in series you see no changes, suggesting this may be a chronic finding Agree with having on aspirin Agree with having on atorvastatin We might consider adding a low-dose of carvedilol Agree with working up the mass--may be cancer. She does have some chest wall pain but she says it is not the same as her pain that she had all day. It sounds noncardiac. Thank you for allowing me to participate in this patient's care I will follow along with you 02/27/17: ASSESSMENT/PLAN: 1. ABNORMAL EKG -no acute ischemic finding. 2. ABNORMAL TROPONIN -trivial, flat troponin. This is most likely related to acute renal failure. Continue to monitor. 3. HYPERTENSION - improved today. 4. ABDOMINAL PAIN - somewhat improved today. Some lower abdominal and bilateral flank tenderness with palpation. 5. CHRONIC KIDNEY DISEASE WITH ARF - creatinine significantly increased at 5.1. Nephrology following also. Avoiding nephrotoxic agents at this time. Monitor BMP. 6. HYPERKALEMIA - K+ 5.7. Patient is being hydrated with normal saline and will have sodium bicarb added. Monitor BMP. 7. RENAL MASS -this is chronic. [place] to be related to renal cell carcinoma. Patient is not a candidate for intervention. May also be a contributing factor to worsened renal function. 8. PRESENCE OF PACEMAKER -device functioning appropriately. EKG and cardiac monitoring is stable. 9. UTI -gram-negative rods per urine culture. Final result pending. On appropriate antibiotics at this time. 10. ATRIAL FIBRILLATION -persistent. Well-controlled ventricular response at this time. Anticoagulated with ASA. She has a history of anemia and thrombocytosis, and it is recommended that we limit antiplatelet medications to aspirin and avoid lowering platelet count. 11. DYSLIPIDEMIA -continue current statin. 12. GERD -continue PPI. 13. THYROID DISORDER -continue levothyroxine. 14. ANEMIA - chronic. stable at this time. May be aggravated currently due to acute renal failure. Oncology is also evaluating. Patient is asymptomatic at this time. Thrombocytosis raise question of malignancy Her pacemaker is working well. Blood pressures under better control Less abdominal pain Rising creatinine continues Atrial fibrillation is controlled Continue current therapy Prognosis remains guarded with that large of a mass and her other comorbidities. 02/28/17: ASSESSMENT/PLAN: 1. ABNORMAL EKG -chronically abnormal. Ventricular paced without disturbance. 2. ABNORMAL TROPONIN -troponin levels remained in a rolon zone. Patient has had no anginal complaint. Abnormality most likely related to acute renal failure and other medical issues. 3. HYPERTENSION -well controlled. Continue as present. 4. ABDOMINAL PAIN -improved some lower abdominal tenderness with palpation continues. 5. CHRONIC KIDNEY DISEASE WITH ARF -creatinine today 5.3. Avoiding nephrotoxic agents. Monitor BMP, renal function. Nephrology following also. 6. HYPERKALEMIA -resolved. K+ 4.8. Monitor BMP. 7. RENAL MASS -chronic. Although this is possibly related to renal cell CA, due to age and multiple comorbidities, patient is not a candidate for intervention. Renal mass may be a contributor to worsening renal function. 8. PRESENCE OF PACEMAKER -pacemaker with appropriate function. EKG and cardiac monitoring are stable without disturbance. 9. UTI -urine culture grew out E. coli. She is on appropriate antibiotics. 10. ATRIAL FIBRILLATION -persistent. Ventricular response controlled. Anticoagulated with ASA. Avoiding multiple antiplatelets. 11. DYSLIPIDEMIA -continue statin. 12. GERD -continue PPI. 13. THYROID DISORDER -continue levothyroxine. 14. ANEMIA -chronic. Most likely worsened due to acute renal failure. Patient remains asymptomatic. Monitor closely. Not much improvement in renal function Chest pain is gone Atrial fibrillation is controlled Pacemaker is working well Continue therapy Physical therapy Okay with me for home when you say so. 03/01/17: Plan/recommendation: Control atrial fib Significant sputum production and difficulty expectorating it. We will try Mucinex 600 mg p.o. twice daily Give a trial duo nebs 4 times daily while awake, not As needed I discussed the above with the patient and her great-granddaughter Current Visit: Yes (2) Troponin I above reference range Status: Chronic Assessment and plan: SEE PLAN OF CARE LISTED ABOVE. Current Visit: Yes (3) Abdominal distension Status: Resolved Assessment and plan: SEE PLAN OF CARE LISTED ABOVE. Current Visit: No (4) Anemia, chronic disease Status: Chronic Assessment and plan: SEE PLAN OF CARE LISTED ABOVE. Current Visit: Yes (5) Thrombocytosis Status: Chronic Assessment and plan: SEE PLAN OF CARE LISTED ABOVE. Current Visit: Yes (6) UTI (urinary tract infection) Status: Acute Assessment and plan: SEE PLAN OF CARE LISTED ABOVE. Current Visit: Yes (7) Atrial fibrillation Status: Chronic Assessment and plan: SEE PLAN OF CARE LISTED ABOVE. Current Visit: No (8) GERD (gastroesophageal reflux disease) Status: Chronic Assessment and plan: SEE PLAN OF CARE LISTED ABOVE. Current Visit: Yes (9) HTN (hypertension) Status: Chronic Assessment and plan: SEE PLAN OF CARE LISTED ABOVE. Current Visit: Yes (10) History of cardiac pacemaker Status: Chronic Assessment and plan: SEE PLAN OF CARE LISTED ABOVE. Current Visit: No (11) Hyperkalemia Status: Acute Assessment and plan: SEE PLAN OF CARE LISTED ABOVE. 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 Current Visit: Yes Cardiology - PN: Subj Interval history: No chest pain. Does have difficulty with sputum she has difficulty getting up and out of her lungs. Exam (Progress Note) - Constitutional Vitals: Period Temp Pulse Resp BP Sys/Hall Pulse Ox Last 24 Hr 98.3 F-100.4 F 60-88 16-20 133-155/64-71 93-99 Exam: General: Present: No Apparent Distress, Other (frail, chronically ill.) Alert today and pleasant. HEENT: Present: PERRL, Normocephaly, Mucus Membranes Moist. Absent: Jaundice, Pallor Neck: Present: Supple Neck, Midline Trachea Cardiac: Present: Reg Rate and Rhythm, Systolic Murmur. Absent: Tachycardia, Bradycardia Lungs: Present: No Wheezes, Other (Coarse breath sounds scattered throughout) Neuro: Present: Grossly Intact. Absent: Numbness, Resting Tremor, Essential Tremor Abdomen: Present: Tender, Distended, Other (hyperactive bowel sounds) Skin: Present: Clear, warm, dry, intact. Absent: Rash, Suspicious Lesions, Bruising Musculoskeletal: Present: Decreased Range of Motion, No Fluid Collection Extremities: Present: No Clubbing, No Cyanosis, trace pretibial, Normal Upper Extr. Pulses (3+ bilaterally), Normal Lower Extr. Pulses (2+ bilaterally), Capillary Refill (Normal) Result/EKG - Labs CBC & BMP: 02/28/17 06:38 02/28/17 06:38 Lab Results: I have reviewed the past 24 hour labs
[2017-03-01] MEDS: ALBUTEROL/IPRATROPIUM 3 ML NEB RESP TX PRN (13:52)
[2017-03-01] MEDS: ALBUTEROL/IPRATROPIUM 3 ML NEB RESP TX SCH (20:48)
[2017-03-01] MEDS: cefTRIAXone 1,000 MG in SODIUM CHLORIDE 0.9% 100 ML IV SCH (20:52)
[2017-03-02] MEDS: ALBUTEROL/IPRATROPIUM 3 ML NEB RESP TX SCH ×5 (01:07→19:11)
[2017-03-02] MEDS: LEVOTHYROXINE 75 MCG TABLET PO SCH (06:40)
--- NOTE | 2017-03-02 08:10 | XRay Report ---
Two-view abdomen, flat and decubitus. Comparison: February 26, 2017. The heart is enlarged. There is consolidation with air bronchograms at the left lung base. No free air is identified. No intra-abdominal organomegaly. There is dilated small intestine in the left abdomen, with small intestinal wall thickening suggested. There is anterior and normal caliber colon. Calcified uterine fibroid. Vascular calcifications. Demineralization of the osseous structures with degenerative changes present in the spinal column and hips. Impression: Interval worsening in the appearance of the bowel gas pattern. Dilated loops of small intestine are present, with suggested wall thickening. No evidence of obstruction at this time. PROCEDURE INTERPRETED AT [facility] DEPARTMENT OF RADIOLOGY Final Report Signed by: Dr. Yu Sanchez
[2017-03-02] MEDS ORDERED: METOCLOPRAMIDE 10 MG/2 ML VIAL IV ONE (09:12)
--- NOTE | 2017-03-02 09:14 | Family Practice Progress Note ---
Family Practice - PN: Subj Interval history: Seen this morning. She is awake and alert. Does have an ileus which apparently is improving but continues have distended abdomen with hypertympany. In addition has renal insufficiency and urinary tract infection and is on IV antibiotics. White count yesterday was still elevated at 19.8 with a hemoglobin hematocrit of 7.8 and 23. I am going to watch her through the day hopefully she will continue to improve. We did have some specialists seeing her as well. 03/02/2017. Patient is awake and alert. Daughter is in room. She continues to have an ileus and the flat and upright abdomen reveals worsening of gas without evidence of tabitha obstruction. I am going to give her 1 dose of Reglan 10 mg IV and see if this will stimulate her intestine. She she is a bit somewhat confused and does not really know if she is passing gas or not or even having bowel movements. He does however say that on the nurse's record she had one bowel movement yesterday and today. Weight is stable at this time. Will check lab tomorrow Exam (Progress Note) - Constitutional Vitals: Period Temp Pulse Resp BP Sys/Hall Pulse Ox Last 24 Hr 98.2 F-99.7 F 71-89 16-20 138-160/67-99 94-99 Exam: Generally arouses easily. She has some difficulty hearing. HEENT neck supple trachea midline Lungs are clear no shortness of breath is obvious Cardiovascular rate is regular no gallop Abdomen is distended and continues to be somewhat hypertympanic. She is in no acute distress however Extremities no changes Results - Labs CBC & BMP: 02/28/17 06:38 02/28/17 06:38 Assessment and Plan (1) Abdominal pain Status: Acute Assessment and plan: 03/01/2017: No abdominal pain at present. We will continue to monitor Current Visit: Yes (2) Ileus, unspecified Status: Acute Assessment and plan: 03/01/2017: Although she is having bowel movement she is distended with at least air. I will repeat a flat and upright abdomen in the morning 03/02/2017 we will give patient Reglan 10 mg 1 time IV Current Visit: Yes
[2017-03-02] MEDS: ATORVASTATIN 10 MG TABLET PO SCH (09:32)
[2017-03-02] MEDS: PANTOPRAZOLE 40 MG TABLET PO SCH (09:32)
[2017-03-02] MEDS: ALLOPURINOL 300 MG TABLET PO SCH (09:32)
[2017-03-02] MEDS: DOCUSATE SODIUM 100 MG CAPSULE PO SCH ×2 (09:33→21:04)
[2017-03-02] MEDS: amLODIPine 5 MG TABLET PO SCH (09:33)
[2017-03-02] MEDS: hydrALAZINE 25 MG TABLET PO SCH ×3 (09:33→21:04)
[2017-03-02] MEDS: POLYETHYLENE GLYCOL POWDER 17 GM PACK PO SCH (09:33)
[2017-03-02] MEDS: ASPIRIN EC 325 MG TABLET PO SCH (09:33)
[2017-03-02] MEDS: SODIUM CHLORIDE 0.45% 1,000 ML IV SCH (09:35)
--- NOTE | 2017-03-02 09:55 | Nephrology Progress Note ---
Nephrology - PN: Subj Interval history: Patient denies shortness of breath. Review of systems GI she denies nausea or vomiting Physical exam general the patient is in no acute distress Assessment/plan 1. Acute renal failure-we will recheck a BMP in the morning 2. Hypertension we will continue her present antihypertensives 3. Urinary tract infection will continue her antibiotics Exam (PN)-Nephrology - Vital Signs Vital signs: Period Temp Pulse Resp BP Sys/Hall Pulse Ox Last 24 Hr 98.2 F-99.7 F 71-89 16-20 138-160/67-99 94-99 - Lab 02/28/17 06:38 02/28/17 06:38 Most recent lab results Calcium 8.4 MG/DL (8.5-10.1) L 02/28/17 06:38 Magnesium 2.4 MG/DL (1.8-2.4) 02/26/17 03:36 Assessment and Plan (1) Acute renal failure Status: Acute Assessment and plan: This patient's creatinine is 5.3 mg/dL today this is up from 1.7 mg/dL about 3 months ago. I suspect this patient has an acute renal injury related to infection and volume depletion and hypoperfusion related to her decreased p.o. intake and anemia with a hematocrit of 25%. Also contributing to her progressive renal failure may be the renal mass enlarging on her right kidney. I agree with IV fluids, I am going to hold her p.o. Lasix for now. Current Visit: Yes (2) Chronic kidney disease Status: Acute Current Visit: Yes (3) HTN (hypertension) Status: Chronic Current Visit: Yes (4) Ileus, unspecified Status: Acute Current Visit: Yes (5) UTI (urinary tract infection) Status: Acute Assessment and plan: I agree with the IV antibiotics Current Visit: Yes (6) Fever Status: Acute Current Visit: Yes (7) Hyperkalemia Status: Acute Assessment and plan: I will add some sodium bicarbonate to her IV fluids this may help she has some of her potassium intracellularly, I would hold off on any Kayexalate until her potassium gets to 6 or 6.5 Current Visit: Yes (8) Abdominal pain Status: Acute Current Visit: Yes (9) Metabolic acidosis Status: Acute Current Visit: Yes (10) Renal mass Status: Acute Assessment and plan: I will request the patient's note from Dr. Chaudhary office Current Visit: Yes
[2017-03-02] MEDS: ALBUTEROL/IPRATROPIUM 3 ML NEB RESP TX PRN (17:36)
--- NOTE | 2017-03-02 18:54 | Cardiology Progress Note ---
Assessment and Plan (1) Abnormal EKG Status: Acute Assessment and plan: 02/26/17: ASSESSMENT/PLAN: 1. ABNORMAL EKG - no acute ST segment elevation. She is not having any anginal complaint. T-wave inversion could be contributed to acute renal failure or ventricular pacing 2. ABNORMAL TROPONIN -trivial elevation of troponins, and this appears to be chronic. She is not having any anginal complaint. 3. HYPERTENSION -suboptimally controlled 4. ABDOMINAL DISTENTION AND PAIN -abdominal x-ray without acute process. 5. RENAL FAILURE -significant elevation of creatinine this admission, 5.1. 6. HYPERKALEMIA -K+ 5.7 today. 7. RENAL MASS -this is chronic. 8. PRESENCE OF PACEMAKER -device appears to be functioning appropriately. 9. UTI -preliminary urine culture with gram-negative rods. Agree with IV antibiotics. 10. ATRIAL FIBRILLATION -well-controlled ventricular response. Anticoagulated only with aspirin due to previous significant anemia. 11. DYSLIPIDEMIA -FLP this morning unremarkable. Continue statin. 12. GERD -PPI continued 13. THYROID DISORDER -levothyroxine continued #########The troponin rises rolon zone. It may be exacerbated by her acute renal failure I am not convinced she has ACS. Abnormal EKG may appear to be ischemic when you see them in series you see no changes, suggesting this may be a chronic finding Agree with having on aspirin Agree with having on atorvastatin We might consider adding a low-dose of carvedilol Agree with working up the mass--may be cancer. She does have some chest wall pain but she says it is not the same as her pain that she had all day. It sounds noncardiac. Thank you for allowing me to participate in this patient's care I will follow along with you 02/27/17: ASSESSMENT/PLAN: 1. ABNORMAL EKG -no acute ischemic finding. 2. ABNORMAL TROPONIN -trivial, flat troponin. This is most likely related to acute renal failure. Continue to monitor. 3. HYPERTENSION - improved today. 4. ABDOMINAL PAIN - somewhat improved today. Some lower abdominal and bilateral flank tenderness with palpation. 5. CHRONIC KIDNEY DISEASE WITH ARF - creatinine significantly increased at 5.1. Nephrology following also. Avoiding nephrotoxic agents at this time. Monitor BMP. 6. HYPERKALEMIA - K+ 5.7. Patient is being hydrated with normal saline and will have sodium bicarb added. Monitor BMP. 7. RENAL MASS -this is chronic. [place] to be related to renal cell carcinoma. Patient is not a candidate for intervention. May also be a contributing factor to worsened renal function. 8. PRESENCE OF PACEMAKER -device functioning appropriately. EKG and cardiac monitoring is stable. 9. UTI -gram-negative rods per urine culture. Final result pending. On appropriate antibiotics at this time. 10. ATRIAL FIBRILLATION -persistent. Well-controlled ventricular response at this time. Anticoagulated with ASA. She has a history of anemia and thrombocytosis, and it is recommended that we limit antiplatelet medications to aspirin and avoid lowering platelet count. 11. DYSLIPIDEMIA -continue current statin. 12. GERD -continue PPI. 13. THYROID DISORDER -continue levothyroxine. 14. ANEMIA - chronic. stable at this time. May be aggravated currently due to acute renal failure. Oncology is also evaluating. Patient is asymptomatic at this time. Thrombocytosis raise question of malignancy Her pacemaker is working well. Blood pressures under better control Less abdominal pain Rising creatinine continues Atrial fibrillation is controlled Continue current therapy Prognosis remains guarded with that large of a mass and her other comorbidities. 02/28/17: ASSESSMENT/PLAN: 1. ABNORMAL EKG -chronically abnormal. Ventricular paced without disturbance. 2. ABNORMAL TROPONIN -troponin levels remained in a rolon zone. Patient has had no anginal complaint. Abnormality most likely related to acute renal failure and other medical issues. 3. HYPERTENSION -well controlled. Continue as present. 4. ABDOMINAL PAIN -improved some lower abdominal tenderness with palpation continues. 5. CHRONIC KIDNEY DISEASE WITH ARF -creatinine today 5.3. Avoiding nephrotoxic agents. Monitor BMP, renal function. Nephrology following also. 6. HYPERKALEMIA -resolved. K+ 4.8. Monitor BMP. 7. RENAL MASS -chronic. Although this is possibly related to renal cell CA, due to age and multiple comorbidities, patient is not a candidate for intervention. Renal mass may be a contributor to worsening renal function. 8. PRESENCE OF PACEMAKER -pacemaker with appropriate function. EKG and cardiac monitoring are stable without disturbance. 9. UTI -urine culture grew out E. coli. She is on appropriate antibiotics. 10. ATRIAL FIBRILLATION -persistent. Ventricular response controlled. Anticoagulated with ASA. Avoiding multiple antiplatelets. 11. DYSLIPIDEMIA -continue statin. 12. GERD -continue PPI. 13. THYROID DISORDER -continue levothyroxine. 14. ANEMIA -chronic. Most likely worsened due to acute renal failure. Patient remains asymptomatic. Monitor closely. Not much improvement in renal function Chest pain is gone Atrial fibrillation is controlled Pacemaker is working well Continue therapy Physical therapy Okay with me for home when you say so. 03/01/17: Plan/recommendation: Control atrial fib Significant sputum production and difficulty expectorating it. We will try Mucinex 600 mg p.o. twice daily Give a trial duo nebs 4 times daily while awake, not As needed I discussed the above with the patient and her great-granddaughter 03/02/17: A. fib is conttrolled Trying to treat excessive sputum production Prognosis remains guarded Current Visit: Yes (2) Troponin I above reference range Status: Chronic Assessment and plan: SEE PLAN OF CARE LISTED ABOVE. Current Visit: Yes (3) Abdominal distension Status: Resolved Assessment and plan: SEE PLAN OF CARE LISTED ABOVE. Current Visit: No (4) Anemia, chronic disease Status: Chronic Assessment and plan: SEE PLAN OF CARE LISTED ABOVE. Current Visit: Yes (5) Thrombocytosis Status: Chronic Assessment and plan: SEE PLAN OF CARE LISTED ABOVE. Current Visit: Yes (6) UTI (urinary tract infection) Status: Acute Assessment and plan: SEE PLAN OF CARE LISTED ABOVE. Current Visit: Yes (7) Atrial fibrillation Status: Chronic Assessment and plan: SEE PLAN OF CARE LISTED ABOVE. Current Visit: No (8) GERD (gastroesophageal reflux disease) Status: Chronic Assessment and plan: SEE PLAN OF CARE LISTED ABOVE. Current Visit: Yes (9) HTN (hypertension) Status: Chronic Assessment and plan: SEE PLAN OF CARE LISTED ABOVE. Current Visit: Yes (10) History of cardiac pacemaker Status: Chronic Assessment and plan: SEE PLAN OF CARE LISTED ABOVE. Current Visit: No (11) Hyperkalemia Status: Acute Assessment and plan: SEE PLAN OF CARE LISTED ABOVE. 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 Current Visit: Yes Cardiology - PN: Subj Interval history: no chest pain. Less short of breath. Exam (Progress Note) - Constitutional Vitals: Period Temp Pulse Resp BP Sys/Hall Pulse Ox Last 24 Hr 98.2 F-99.4 F 63-89 15-20 138-157/70-99 94-99 Exam: General: Present: No Apparent Distress, Other (frail, chronically ill.) Alert today and pleasant. HEENT: Present: PERRL, Normocephaly, Mucus Membranes Moist. Absent: Jaundice, Pallor Neck: Present: Supple Neck, Midline Trachea Cardiac: Present: Reg Rate and Rhythm, Systolic Murmur. Absent: Tachycardia, Bradycardia Lungs: Present: No Wheezes, Other (Coarse breath sounds scattered throughout) Neuro: Present: Grossly Intact. Absent: Numbness, Resting Tremor, Essential Tremor Abdomen: Present: Tender, Distended, Other (hyperactive bowel sounds) Skin: Present: Clear, warm, dry, intact. Absent: Rash, Suspicious Lesions, Bruising Musculoskeletal: Present: Decreased Range of Motion, No Fluid Collection Extremities: Present: No Clubbing, No Cyanosis, trace pretibial, Normal Upper Extr. Pulses (3+ bilaterally), Normal Lower Extr. Pulses (2+ bilaterally), Capillary Refill (Normal) Result/EKG - Labs CBC & BMP: 02/28/17 06:38 02/28/17 06:38 Lab Results: I have reviewed the past 24 hour labs
[2017-03-02] MEDS ORDERED: FUROSEMIDE 40 MG TABLET PO ONE (19:13)
[2017-03-02] MEDS: cefTRIAXone 1,000 MG in SODIUM CHLORIDE 0.9% 100 ML IV SCH (21:04)
[2017-03-03] MEDS: ALBUTEROL/IPRATROPIUM 3 ML NEB RESP TX SCH ×4 (00:29→20:11)
[2017-03-03 05:47] LABS: Basophils # 0.1 10*3/uL (0.0-0.2); Basophils % 0.5 % (0.0-0.8); Eosinophils # 0.1 10*3/uL (0.0-0.87); Hematocrit 21.4 VOL% (35.7-47.0); Hemoglobin 7.1 GM/DL (12.0-16.0); Immature Granulocytes % 0.9 %; Lymphocytes # 0.3 10*3/uL (1.4-4.0); Lymphocytes % 2.8 % (21.3-54.2); Mean Corpuscular HGB Conc 33.2 GM/DL (32-36); Mean Corpuscular Hemoglobin 27 PG (27-34); Mean Corpuscular Volume 82.6 FL (87-102); Mean Platelet Volume 10.3 FL (9.6-12.0); Monocytes # 0.8 10*3/uL (0.11-0.8); Monocytes % 7.4 % (1.7-12.7); Neutrophils # 9.5 10*3/uL (1.4-7.4); Neutrophils % 87.4 % (38.7-73.9); Platelet Count 796 T/CUMM (130-400); Red Blood Count 2.59 MC/CUMM (3.8-5.5); Red Cell Distribution Width 18.2 % (9.3-17.3); White Blood Count 10.9 T/CUMM (4-12)
[2017-03-03 06:11] LABS: Calcium 8.9 MG/DL (8.5-10.1); Magnesium 2.3 MG/DL (1.8-2.4); Osmolality,Calculated 290.2 MOS/KG (273-304)
[2017-03-03] MEDS: LEVOTHYROXINE 75 MCG TABLET PO SCH (06:20)
[2017-03-03 06:29] LABS: Band Neutrophils 1 % (0-10); Eosinophils 1 % (0-10); Hypochromasia Slight; Lymphocytes 3 % (20-55); Microcytosis Slight; Myelocytes 1 %; Platelet Estimate Increased; Segmented Neutrophils 90 % (50-85); Total Cells Counted 100
--- NOTE | 2017-03-03 08:46 | Internal Med Progress Note ---
Assessment and Plan (1) Abdominal pain Status: Acute Assessment and plan: 86-year-old female admitted to acute care * Abdominal pain. She is improving slowly. Her ileus is better. * Hypertension. Blood pressure is stable * Renal insufficiency. Patient's renal function is progressively getting worse. * Anemia. Will transfuse her since her hematocrit is 21. She was symptomatic * Renal mass. Patient saw Dr. Chaudhary in the office. He recommended no surgical treatment. Will consult him * Discussed with patient's granddaughter who is present. * UTI with multiple organisms. Patient on antibiotics Current Visit: Yes (2) Acute renal failure Status: Acute Current Visit: Yes (3) Chronic kidney disease Status: Acute Current Visit: Yes (4) Renal mass Status: Acute Current Visit: Yes (5) UTI (urinary tract infection) Status: Acute Current Visit: Yes (6) Anemia Status: Chronic Current Visit: Yes (7) GERD (gastroesophageal reflux disease) Status: Chronic Current Visit: Yes (8) HTN (hypertension) Status: Chronic Current Visit: Yes (9) Renal insufficiency Status: Chronic Current Visit: Yes (10) Atrial fibrillation Status: Chronic Current Visit: No Internal Medicine - PN: Subj Interval history: Patient seen and examined. Her chart was reviewed. Discussed with her daughter. She had some shortness of breath last night but feels better. Her's fluids were stopped. She denies any chest pain or shortness of breath now. She denies any nausea or vomiting. She is having frequent bowel movements. These are small bowel movements. She denies any fever or chills Exam (Progress Note) - Constitutional Vitals: Period Temp Pulse Resp BP Sys/Hall Pulse Ox Last 24 Hr 98.2 F-99.3 F 63-89 15-20 94-160/62-77 95-99 Exam: Examination: GENERAL: NAD. HEENT: PERRLA. EOMI. Mucous membranes are moist. NECK: Neck is supple. No JVD. No carotid bruit. No thyromegaly. CVS: Regular rate and rhythm. S1 and S2 are normal. Systolic ejection murmur at left lower sternal RESPIRATORY: Lungs are clear. Few rales at the bases ABDOMEN: Soft and nontender. Mildly distended. Bowel sounds are present. No hepatosplenomegaly. EXT: No edema. Peripheral pulses are present. [employer]: Patient is awake, alert but mildly confused. Cranial nerves II through XII are grossly intact. Motor strength is 4/5 SKIN: Warm and dry. MSK: No obvious deformity. Results - Labs CBC & BMP: 03/03/17 04:56 03/03/17 04:56 Lab Results: I have reviewed the past 24 hour labs
[2017-03-03] MEDS ORDERED: SODIUM CHLORIDE 0.9% 250 ML IV PRN (08:52)
[2017-03-03] MEDS ORDERED: FUROSEMIDE 40 MG/4 ML VIAL IV SCH (09:00)
--- NOTE | 2017-03-03 09:34 | Gastrointestinal Progress Note ---
<ChadTori Angel Luis - Last Filed: 03/03/17 09:31> Assessment and Plan (1) Abdominal pain Status: Acute Assessment and plan: 03/03-no complaints of abdominal pain, tolerating diet. No nausea vomiting. KUB results noted as below. Continue to have bowel movements however small in caliber. Continue to monitor this time. IV Reglan has been given. Plan an addendum to follow by Dr. Fleming. 02/27-No c/o of abd pain. Tolerating diet at present. No N/V. Plan and addendum to follow by Dr Fleming. 02/26-One week history of abdominal pain w/o other associated symptoms. Recent colonoscopy with only findings of polyp (tubular adenoma) in November 2016. Last EGD 2015 at [facility] with findings of gastritis (negative H. pylori, focal intestinal metaplasia). NO recent weight loss. Findings of UTI on admission. CT of abdomen w/o contrast with no findings of obstruction, gaseous distention of small intestine. Plan and addendum to follow by Dr Fleming. Current Visit: Yes Gastroenterology - PN: Subj Interval history: CC: Abdominal pain/ileus Patient is seen, awake alert sitting up in bed with family at bedside. Family states that she has been at her baseline mental status throughout the weekend and has not had any complaints of abdominal pain. She was noted for discharge on last Friday however patient began to have some difficulty with retaining fluid in her discharge were placed on hold. She also began to complain of some abdominal pain and had abdominal x-ray done at that time which showed worsening of gas without tabitha evidence of obstruction. Family also notes that her abdomen became more distended and that the caliber of her stools became very small in nature which was different from her baseline. She continues to have daily bowel movements and denies any nausea or vomiting however bili continues to be distended. It is also noted to be very hypertympanic on exam. Bowel sounds are noted. She is tolerating her diet with fairly good appetite per family. Abdominal x-ray done yesterday showed interval worsening in the appearance of the bowel gas pattern with dilated loops of small intestines present with suggestion of wall thickening, no evidence of obstruction. ROS: Denies shortness of breath or chest pain Exam (Progress Note) - Constitutional Vitals: Period Temp Pulse Resp BP Sys/Hall Pulse Ox Last 24 Hr 98.2 F-99.3 F 63-89 15-20 94-160/62-77 95-99 General appearance: normal weight, no acute distress - Head Head exam: Present: normal inspection, normocephalic - Eye Eye exam: Present: other (Lids and conjunctive are unremarkable). Absent: scleral icterus - ENT ENT exam: Present: normal exam, normal oropharynx - Neck Neck exam: Present: normal inspection - Respiratory Respiratory exam: Present: clear to auscultation bilaterally. Absent: rales, rhonchi, wheezes - Cardiovascular Cardiovascular exam: Present: regular rate and rhythm. Absent: diastolic murmur , JVD, systolic murmur - GI/Abdominal GI/Abdominal exam: Present: normal bowel sounds, distended, soft, other ( Tympanic). Absent: ascites, tenderness - Extremities Exam Extremities exam: Present: normal inspection, full ROM - Back Exam Back exam: Present: normal inspection - Neurological Exam Neurological exam: Present: alert, oriented X3 - Psychiatric Psychiatric exam: Present: normal affect, normal mood - Skin Skin exam: Present: normal color, warm, dry Results - Labs CBC & BMP: 03/03/17 04:56 03/03/17 04:56 Lab Results: I have reviewed the past 24 hour labs - Diagnostic Findings Procedure: KUB x-ray: report reviewed by me <Dillon Fleming - Last Filed: 03/03/17 18:20> Exam (Progress Note) - Constitutional Vitals: Period Temp Pulse Resp BP Sys/Hall Pulse Ox Last 24 Hr 97.6 F-99.7 F 64-89 18-20 94-160/60-81 95-100 Results - Labs CBC & BMP: 03/03/17 04:56 03/03/17 04:56
[2017-03-03] MEDS: DOCUSATE SODIUM 100 MG CAPSULE PO SCH ×2 (10:11→21:52)
[2017-03-03] MEDS: hydrALAZINE 25 MG TABLET PO SCH ×3 (10:11→21:52)
[2017-03-03] MEDS: FUROSEMIDE 40 MG TABLET PO SCH (10:11)
[2017-03-03] MEDS: ATORVASTATIN 10 MG TABLET PO SCH (10:11)
[2017-03-03] MEDS: ASPIRIN EC 325 MG TABLET PO SCH (10:11)
[2017-03-03] MEDS: PANTOPRAZOLE 40 MG TABLET PO SCH (10:12)
[2017-03-03] MEDS: amLODIPine 5 MG TABLET PO SCH (10:12)
[2017-03-03] MEDS: POLYETHYLENE GLYCOL POWDER 17 GM PACK PO SCH (10:12)
[2017-03-03] MEDS: ALLOPURINOL 300 MG TABLET PO SCH (10:12)
--- NOTE | 2017-03-03 16:47 | Cardiology Progress Note ---
Mohan Rodriguez April, RN, am scribing for, and in the presence of, Som Ayala MD 16:46. Assessment and Plan (1) Elevated troponin Status: Acute Current Visit: Yes (2) Abnormal EKG Status: Acute Current Visit: Yes (3) Abdominal pain Status: Acute Current Visit: Yes (4) Acute renal failure Status: Acute Current Visit: Yes (5) Renal mass Status: Acute Current Visit: Yes (6) Anemia Status: Chronic Current Visit: Yes Cardiology - PN: Subj Interval history: PRIMARY HEALTH SERVICES DIRECTOR: DR. AYALA SUMMARY: Ms. Landeros is an 86-year-old black female with risk factor significant for: hypertension, dyslipidemia, age, sedentary lifestyle, former tobacco abuse. Past medical history includes persistent atrial fibrillation, chronic kidney disease, GERD, renal mass, diverticulosis. She also has a history of bradycardia and AV block and has a dual-chamber pacemaker implanted. History of atypical chest pain of the left chest and left arm specifically at pacemaker site. Previous hospitalization in November 2016 when the symptoms were ruled out for cardiac etiology. Patient also underwent GI and oncology evaluation for abdominal pain and distention, iron deficiency anemia, and thrombocytosis. 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 Patient was admitted to [facility] on the evening of February 25 complaining of abdominal pain, left lower flank discomfort for 3 days. She also had a poor appetite, but no nausea or vomiting. Diagnostic imaging with no acute abdominal process. CT scan did show 7 cm renal mass. This is felt to be renal cell carcinoma, but due to age and medical comorbidities, patient is not a candidate for intervention. Patient also has large UTI. Antibiotics have been started, urine culture shows gram-negative rods with final result pending. Acute renal failure noted on admission with creatinine 5.2 versus 1.7 in November 2016. Hyperkalemic with K+ up to 5.7. Cardiology was asked to see for abnormal troponin of 0.300 and to evaluate EKG. She was complaint angina and it was felt that T-wave inversion could be contributed to acute renal failure and ventricular pacing. Troponin was trivial and remained flat. It was felt this was related to acure renal failure. She is anticoagulated only with aspirin due to history of significant anemia. March 03, 2007: Ms. Landeros is seen resting in bed in no acute distress. Her granddaughter is at bedside. She denies any chest pain or palpitations. Apparently her Lasix IV was changed to p.o. over the weekend and the fluid started because of her elevated creatinine. Her granddaughter states she became more short of breath and yesterday the fluid was discontinued and her Lasix was changed back to IV. She states her breathing is much improved this morning. She continues to have some abdominal tenderness. Her white count is down to 10.9 today. H&H today is down to 7.1 and 21.4, 2 units of blood product have been ordered. Her creatinine is improved slightly, it is 5.0. Potassium is within normal range today at 5.0. Exam (Progress Note) - Constitutional Vitals: Period Temp Pulse Resp BP Sys/Hall Pulse Ox Last 24 Hr 98.2 F-99.3 F 63-89 15-20 94-160/62-77 95-99 General appearance: normal weight, no acute distress - Head Head exam: Absent: abrasion, hematoma - Eye Eye exam: Absent: periorbital swelling, laceration to eyelids - Respiratory Respiratory exam: Present: other (coarse breath sounds, oxygen via nasal cannula ). Absent: accessory muscle use, chest wall tenderness - Cardiovascular Cardiovascular exam: Present: regular rate and rhythm (ventricular paced), systolic murmur - GI/Abdominal GI/Abdominal exam: Present: hypoactive bowel sounds, tenderness, soft - Extremities Exam Extremities exam: Absent: edema - Neurological Exam Neurological exam: Present: alert - Psychiatric Psychiatric exam: Present: normal affect, normal mood - Skin Skin exam: Present: warm, dry Result/EKG - Labs CBC & BMP: 03/03/17 04:56 03/03/17 04:56 Lab Results: I have reviewed the past 24 hour labs Labs: Laboratory Results - last 24 hr 03/03/17 03/03/17 04:56 04:56 WBC 10.9 D RBC 2.59 L Hgb 7.1 L Hct 21.4 L MCV 82.6 L MCH 27 MCHC 33.2 RDW 18.2 H Plt Count 796 H MPV 10.3 Neut % (Auto) 87.4 H Lymph % (Auto) 2.8 L [place] % (Auto) 7.4 Eos % (Auto) 1.0 Baso % (Auto) 0.5 Neut # (Auto) 9.5 H Lymph # (Auto) 0.3 L [place] # (Auto) 0.8 Eos # (Auto) 0.1 Baso # (Auto) 0.1 Total Counted 100 Immature Gran % 0.9 Nucleated RBC % 0.0 Immature Gran # 0.10 Segmented Neutrophils 90 H Band Neutrophils 1 Lymphocytes 3 L Monocytes 4 Eosinophils 1 Myelocytes 1 Nucleated RBCs # 0.00 Platelet Estimate Increased Hypochromasia Slight Microcytosis Slight Sodium 134 L Potassium 5.0 Chloride 102 Carbon Dioxide 20 L Anion Gap 17.0 H BUN 74 H Creatinine 5.00 H GFR Calculation 8 BUN/Creatinine Ratio 14.00 Glucose 113 H Calculated Osmolality 290.2 Calcium 8.9 Magnesium 2.3 - Diagnostic Findings Procedure: Chest x-ray: report reviewed by me - EKG EKG results: interpreted by me (ventricular paced) Jamie Rodriguez Wesley, MD, personally performed the services described in this documentation, ascribed by Yessica Preston RN in my presence, and it is both accurate and complete 646 .
--- NOTE | 2017-03-03 18:17 | XRay Report ---
Single view the chest. Indication: Nasogastric tube placement. The distal tip of the nasogastric tube projects over the antrum of the stomach. PROCEDURE INTERPRETED AT [facility] DEPARTMENT OF RADIOLOGY Final Report Signed by: Dr. Yu Sanchez
[2017-03-03] MEDS ORDERED: FOSAMAX 70 MG PO SCH (21:45)
[2017-03-03] MEDS: cefTRIAXone 1,000 MG in SODIUM CHLORIDE 0.9% 100 ML IV SCH (21:54)
[2017-03-03] MEDS: SODIUM BICARBONATE 650 MG TABLET PO SCH (22:24)
[2017-03-04] MEDS: ALBUTEROL/IPRATROPIUM 3 ML NEB RESP TX SCH ×3 (03:06→20:29)
[2017-03-04 06:06] LABS: Basophils # 0.1 10*3/uL (0.0-0.2); Basophils % 0.8 % (0.0-0.8); Eosinophils # 0.1 10*3/uL (0.0-0.87); Eosinophils % 1.1 % (0.00-10.9); Hematocrit 27.9 VOL% (35.7-47.0); Hemoglobin 9.6 GM/DL (12.0-16.0); Immature Granulocytes % 1.1 %; Immature Granulocytes Absolute 0.11 #; Lymphocytes # 0.3 10*3/uL (1.4-4.0); Lymphocytes % 2.6 % (21.3-54.2); Mean Corpuscular HGB Conc 34.4 GM/DL (32-36); Mean Corpuscular Hemoglobin 29 PG (27-34); Mean Platelet Volume 10.5 FL (9.6-12.0); Monocytes # 0.7 10*3/uL (0.11-0.8); Monocytes % 6.5 % (1.7-12.7); Neutrophils % 87.9 % (38.7-73.9); Platelet Count 722 T/CUMM (130-400); Red Blood Count 3.36 MC/CUMM (3.8-5.5); Red Cell Distribution Width 16.5 % (9.3-17.3); White Blood Count 10.2 T/CUMM (4-12)
[2017-03-04] MEDS: LEVOTHYROXINE 75 MCG TABLET PO SCH (06:44)
--- NOTE | 2017-03-04 08:03 | Nephrology Progress Note ---
Nephrology - PN: Subj Interval history: Patient denies shortness of breath. Review of systems GI she denies nausea or vomiting Physical exam general patient is in no acute distress, abdomen is soft with some bowel sounds Assessment/plan 1. Acute renal failure-patient's creatinine has been stable around 5 mg/dL the past several days this may be her new baseline previously her creatinine a few months ago was around 2.7 mg/dL. 2. Bowel dysfunction-this patient had a recent abdominal x-ray that showed some dilatation of her small bowel she either has a ileus or possible partial small bowel obstruction developing, the patient had an NG tube placed yesterday however she pulled this out last night. Patient does have some bowel sounds and abdomen is softish this morning. 3. Hypertension 4. UTI 5. Anemia-the patient's been transfused she states she feels some better after the transfusion perhaps this will better perfuse her bowels and improve the function thereof. Exam (PN)-Nephrology - Vital Signs Vital signs: Period Temp Pulse Resp BP Sys/Hall Pulse Ox Last 24 Hr 97.6 F-99.8 F 63-84 16-20 140-160/60-90 97-100 - Lab 03/04/17 04:27 03/03/17 04:56 Most recent lab results Calcium 8.9 MG/DL (8.5-10.1) 03/03/17 04:56 Magnesium 2.3 MG/DL (1.8-2.4) 03/03/17 04:56 Assessment and Plan (1) Acute renal failure Status: Acute Assessment and plan: This patient's creatinine is 5.3 mg/dL today this is up from 1.7 mg/dL about 3 months ago. I suspect this patient has an acute renal injury related to infection and volume depletion and hypoperfusion related to her decreased p.o. intake and anemia with a hematocrit of 25%. Also contributing to her progressive renal failure may be the renal mass enlarging on her right kidney. I agree with IV fluids, I am going to hold her p.o. Lasix for now. Current Visit: Yes (2) Chronic kidney disease Status: Acute Current Visit: Yes (3) HTN (hypertension) Status: Chronic Current Visit: Yes (4) Ileus, unspecified Status: Acute Current Visit: Yes (5) UTI (urinary tract infection) Status: Acute Assessment and plan: I agree with the IV antibiotics Current Visit: Yes (6) Fever Status: Acute Current Visit: Yes (7) Hyperkalemia Status: Acute Assessment and plan: I will add some sodium bicarbonate to her IV fluids this may help she has some of her potassium intracellularly, I would hold off on any Kayexalate until her potassium gets to 6 or 6.5 Current Visit: Yes (8) Abdominal pain Status: Acute Current Visit: Yes (9) Metabolic acidosis Status: Acute Current Visit: Yes (10) Renal mass Status: Acute Assessment and plan: I will request the patient's note from Dr. Chaudhary office Current Visit: Yes
--- NOTE | 2017-03-04 08:35 | Internal Med Progress Note ---
Assessment and Plan (1) Abdominal pain Status: Acute Assessment and plan: 86-year-old female admitted to acute care * Abdominal pain. She had good bowel movement according to her granddaughter. Her abdominal pain is better. She has pulled out her NG tube. * Hypertension. Blood pressure is stable * Renal insufficiency. Patient's renal function is progressively getting worse. * Anemia. Hematocrit is better after transfusion * Renal mass. Urology consult pending * UTI with multiple organisms. Patient on antibiotics * Discussed with granddaughter. Patient is not a candidate for dialysis. She probably has renal cancer as detailed before. Will ask social studies teacher to consult hospice to evaluate. Current Visit: Yes (2) Acute renal failure Status: Acute Current Visit: Yes (3) Chronic kidney disease Status: Acute Current Visit: Yes (4) Renal mass Status: Acute Current Visit: Yes (5) UTI (urinary tract infection) Status: Acute Current Visit: Yes (6) Anemia Status: Chronic Current Visit: Yes (7) GERD (gastroesophageal reflux disease) Status: Chronic Current Visit: Yes (8) HTN (hypertension) Status: Chronic Current Visit: Yes (9) Renal insufficiency Status: Chronic Current Visit: Yes (10) Atrial fibrillation Status: Chronic Current Visit: No Internal Medicine - PN: Subj Interval history: Patient is feeling better this morning. She had an NG tube which she pulled out. She feels stronger after transfusion. She denies any specific complaint Exam (Progress Note) - Constitutional Vitals: Period Temp Pulse Resp BP Sys/Hall Pulse Ox Last 24 Hr 97.6 F-99.8 F 63-96 16-20 140-160/60-90 97-100 Exam: Examination: GENERAL: NAD. HEENT: PERRLA. EOMI. NECK: Neck is supple. CVS: Regular rate and rhythm. S1 and S2 are normal. Systolic ejection murmur at left lower sternal RESPIRATORY: Lungs are clear. Few rales at the bases ABDOMEN: Soft and nontender. Mildly distended. Bowel sounds are present. EXT: No edema. Peripheral pulses are present. RUBBLE PLACER: No change SKIN: Warm and dry. MSK: No obvious deformity. Results - Labs CBC & BMP: 03/04/17 04:27 03/03/17 04:56 Lab Results: I have reviewed the past 24 hour labs
--- NOTE | 2017-03-04 09:06 | Urology Consultation ---
History of Present Illness - Data of Consult Patient: new to practice Consult date: 03/04/17 Requesting Physician: Jigar Jain - Consult Narrative Reason for consult: Right kidney cancer History of present illness: Ms. Landeros is a 86 year old female who I previously seen in the office. She admitted the hospital multiple problems. She is found to have an elevated troponin and other issues. Also found to have UTI. She previously had a 4-1/2 cm right renal mass consistent with a renal cell carcinoma. On a CT scan here the mass-effect is about 7/2 cm. She may have had a bleed into the cancer hard to tell without contrast. But her creatinine is up to over 5. I simply just do not think she will tolerate any procedure. It is too ill-defined to cryo it and I think if he cryo did it would kill enough renal tissue that she would be on dialysis. And then her risk for stroke and heart attack increases significantly. I had a discussion with the daughter and granddaughter. If the family is adamant about something being done we could [facility] Mckeon. The issue is not whether something can be done at whether it should be done. One other possibility, would be embolization of the kidney. But that will resume dialysis also. CC: Jigar Jian MD - Home Medications and Allergies Home Medications: Home Medications Medication Instructions Recorded Confirmed Type Alendronate [Fosamax] 70 mg PO MO 12/12/16 02/25/17 History Allopurinol 300 mg PO QAM 12/12/16 02/25/17 History Atorvastatin [Lipitor] 5 mg PO QAM 12/12/16 02/25/17 History Docusate Sodium 100 mg PO BID 12/12/16 02/25/17 History Furosemide 40 mg PO QAM 12/12/16 02/25/17 History Pantoprazole Sodium 40 mg PO QAM 12/12/16 02/25/17 History Polyethylene Glycol Powder 1 each PO QAM 12/12/16 02/25/17 History [Miralax] Aspirin EC Tab 325 mg PO DAILY #30 tablet 12/20/16 02/25/17 Rx Levothyroxine Sodium 75 mcg PO QAM 02/25/17 02/25/17 History Melatonin 10 mg PO BEDTIME 02/25/17 02/25/17 History amLODIPine [Norvasc] 5 mg PO DAILY 02/25/17 02/25/17 History hydrALAZINE TAB [Apresoline Tab] 25 mg PO TID 02/25/17 02/25/17 History Allergies/Adverse Reactions: Allergies Allergy/AdvReac Type Severity Reaction Status Date / Time Penicillins Allergy Unknown/Unable Verified 12/12/16 17:51 to obtain Exam - Constitutional Vitals: Period Temp Pulse Resp BP Sys/Hall Pulse Ox Last 24 Hr 97.6 F-99.8 F 63-96 16-20 140-160/60-90 97-100 Results - Labs CBC & BMP: 03/04/17 04:27 03/03/17 04:56
[2017-03-04] MEDS: hydrALAZINE 25 MG TABLET PO SCH ×3 (09:48→21:50)
[2017-03-04] MEDS: DOCUSATE SODIUM 100 MG CAPSULE PO SCH ×2 (09:49→21:50)
[2017-03-04] MEDS: ATORVASTATIN 10 MG TABLET PO SCH (09:49)
[2017-03-04] MEDS: FUROSEMIDE 40 MG TABLET PO SCH (09:49)
[2017-03-04] MEDS: ASPIRIN EC 325 MG TABLET PO SCH (09:49)
[2017-03-04] MEDS: PANTOPRAZOLE 40 MG TABLET PO SCH (09:50)
[2017-03-04] MEDS: amLODIPine 5 MG TABLET PO SCH (09:50)
[2017-03-04] MEDS: ALLOPURINOL 300 MG TABLET PO SCH (09:50)
[2017-03-04] MEDS: POLYETHYLENE GLYCOL POWDER 17 GM PACK PO SCH (09:50)
[2017-03-04] MEDS: SODIUM BICARBONATE 650 MG TABLET PO SCH ×2 (09:50→21:50)
--- NOTE | 2017-03-04 10:08 | Gastrointestinal Progress Note ---
<Rogelio Bonillaher Angel Luis - Last Filed: 03/04/17 10:06> Assessment and Plan (1) Abdominal pain Status: Acute Assessment and plan: 03/04-NG tube removed by patient shortly after insertion. Has had no complaints of abdominal pain, nausea vomiting. Had bowel movement this morning. Family/ patient does not want NG tube replaced. Resume clear liquid diet continue to monitor. Plan an addendum to followed by Dr. Fleming. 03/03-no complaints of abdominal pain, tolerating diet. No nausea vomiting. KUB results noted as below. Continue to have bowel movements however small in caliber. Continue to monitor this time. IV Reglan has been given. Plan an addendum to follow by Dr. Fleming. 02/27-No c/o of abd pain. Tolerating diet at present. No N/V. Plan and addendum to follow by Dr Fleming. 02/26-One week history of abdominal pain w/o other associated symptoms. Recent colonoscopy with only findings of polyp (tubular adenoma) in November 2016. Last EGD 2015 at [facility] with findings of gastritis (negative H. pylori, focal intestinal metaplasia). NO recent weight loss. Findings of UTI on admission. CT of abdomen w/o contrast with no findings of obstruction, gaseous distention of small intestine. Plan and addendum to follow by Dr Fleming. Current Visit: Yes Gastroenterology - PN: Subj Interval history: Cc: Ileus/possible small bowel obstruction Patient is seen, awake and alert with family at bedside. She reportedly pulled out her NG tube yesterday not long after insertion. Initially very scant amount of gastric contents was removed prior to this. Abdomen is soft, nontender today. Hypoactive bowel sounds noted. Patient did have a bowel movement this morning and she states she is passing flatus. She denies any abdominal pain, nausea or vomiting. Abdomen is soft, nontender. Urology has evaluated patient and feels that the renal mass is nonsurgical at this time. ROS: Denies shortness of breath or chest pain Exam (Progress Note) - Constitutional Vitals: Period Temp Pulse Resp BP Sys/Hall Pulse Ox Last 24 Hr 97.6 F-99.8 F 63-96 16-20 140-160/60-90 97-100 General appearance: normal weight, no acute distress - Head Head exam: Present: normal inspection, normocephalic - Eye Eye exam: Present: other (Lids and conjunctive are unremarkable). Absent: scleral icterus - ENT ENT exam: Present: normal exam, normal oropharynx - Neck Neck exam: Present: normal inspection - Respiratory Respiratory exam: Present: clear to auscultation bilaterally. Absent: rales, rhonchi, wheezes - Cardiovascular Cardiovascular exam: Present: regular rate and rhythm. Absent: diastolic murmur , JVD, systolic murmur - GI/Abdominal GI/Abdominal exam: Present: hypoactive bowel sounds, soft. Absent: ascites, distended, mass, organomegaly, tenderness - Extremities Exam Extremities exam: Present: normal inspection - Back Exam Back exam: Present: normal inspection - Neurological Exam Neurological exam: Present: alert, oriented X3 - Psychiatric Psychiatric exam: Present: normal affect, normal mood - Skin Skin exam: Present: normal color, warm, dry Results - Labs CBC & BMP: 03/04/17 04:27 03/03/17 04:56 Lab Results: I have reviewed the past 24 hour labs <Dillon Fleming - Last Filed: 03/04/17 11:52> Exam (Progress Note) - Constitutional Vitals: Period Temp Pulse Resp BP Sys/Hall Pulse Ox Last 24 Hr 98.3 F-99.8 F 63-96 16-20 140-160/62-90 97-100 Results - Labs CBC & BMP: 03/04/17 04:27 03/03/17 04:56
[2017-03-04] MEDS: DEXTROSE 5% NACL 0.9% 1,000 ML IV SCH (10:38)
--- NOTE | 2017-03-04 18:55 | Cardiology Progress Note ---
Mohan Rodriguez April, RN, am scribing for, and in the presence of, Som Ayala MD 18:55. Assessment and Plan (1) Elevated troponin Status: Acute Current Visit: Yes (2) Abnormal EKG Status: Acute Current Visit: Yes (3) Abdominal pain Status: Acute Current Visit: Yes (4) Acute renal failure Status: Acute Current Visit: Yes (5) Renal mass Status: Acute Current Visit: Yes (6) Anemia Status: Chronic Current Visit: Yes Cardiology - PN: Subj Interval history: PRIMARY MOLD BUILDER: DR. AYALA SUMMARY: Ms. Landeros is an 86-year-old black female with risk factor significant for: hypertension, dyslipidemia, age, sedentary lifestyle, former tobacco abuse. Past medical history includes persistent atrial fibrillation, chronic kidney disease, GERD, renal mass, diverticulosis. She also has a history of bradycardia and AV block and has a dual-chamber pacemaker implanted. History of atypical chest pain of the left chest and left arm specifically at pacemaker site. Previous hospitalization in November 2016 when the symptoms were ruled out for cardiac etiology. Patient also underwent GI and oncology evaluation for abdominal pain and distention, iron deficiency anemia, and thrombocytosis. 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 Patient was admitted to [facility] on the evening of February 25 complaining of abdominal pain, left lower flank discomfort for 3 days. She also had a poor appetite, but no nausea or vomiting. Diagnostic imaging with no acute abdominal process. CT scan did show 7 cm renal mass. This is felt to be renal cell carcinoma, but due to age and medical comorbidities, patient is not a candidate for intervention. Patient also has large UTI. Antibiotics have been started, urine culture shows gram-negative rods with final result pending. Acute renal failure noted on admission with creatinine 5.2 versus 1.7 in November 2016. Hyperkalemic with K+ up to 5.7. Cardiology was asked to see for abnormal troponin of 0.300 and to evaluate EKG. She was complaint angina and it was felt that T-wave inversion could be contributed to acute renal failure and ventricular pacing. Troponin was trivial and remained flat. It was felt this was related to acure renal failure. She is anticoagulated only with aspirin due to history of significant anemia. March 03, 2017: Ms. Landeros is seen resting in bed in no acute distress. Her granddaughter is at bedside. She denies any chest pain or palpitations. Apparently her Lasix IV was changed to p.o. over the weekend and the fluid started because of her elevated creatinine. Her granddaughter states she became more short of breath and yesterday the fluid was discontinued and her Lasix was changed back to IV. She states her breathing is much improved this morning. She continues to have some abdominal tenderness. Her white count is down to 10.9 today. H&H today is down to 7.1 and 21.4, 2 units of blood product have been ordered. Her creatinine is improved slightly, it is 5.0. Potassium is within normal range today at 5.0. March 04, 2017: Ms. Landeros is without complaint today except for abdominal tenderness. She had an NG tube placed yesterday, but the granddaughter states she pulled it out last night. The granddaughter says she had a restless night last night. She denies any chest pain or shortness of breath. Dr. [place] Chaudhary has seen her in consultation regarding her right kidney cancer. He has discussed options with daughter and granddaughter. Vital signs have been stable. She was transfused 2 units of blood product yesterday, her H&H is up to 9.6 and 27.9 today I have discussed in detail the particulars of this case and I have examined the patient and reviewed the patient's chart both current and old. I was directly involved in the patient's evaluation and management and I completely agree with Yessica Preston RN regarding this patient's evaluation and treatment plan. Exam (Progress Note) - Constitutional Vitals: Period Temp Pulse Resp BP Sys/Hall Pulse Ox Last 24 Hr 97.6 F-99.8 F 63-96 16-20 140-160/60-90 97-100 Exam: General appearance: normal weight, no acute distress - Head Head exam: Absent: abrasion, hematoma - Eye Eye exam: Absent: periorbital swelling, laceration to eyelids - Respiratory Respiratory exam: Present: Clear to auscultation, oxygen not in use. Absent: accessory muscle use, chest wall tenderness - Cardiovascular Cardiovascular exam: Present: regular rate and rhythm (ventricular paced), systolic murmur - GI/Abdominal GI/Abdominal exam: Present: hypoactive bowel sounds, tenderness, soft - Extremities Exam Extremities exam: Absent: edema - Neurological Exam Neurological exam: Present: alert - Psychiatric Psychiatric exam: Present: normal affect, normal mood - Skin Skin exam: Present: warm, dry Result/EKG - Labs CBC & BMP: 03/04/17 04:27 03/03/17 04:56 Lab Results: I have reviewed the past 24 hour labs Labs: Laboratory Results - last 24 hr 03/03/17 03/03/17 03/04/17 09:13 Unknown 04:27 WBC 10.2 RBC 3.36 L D Hgb 9.6 L D Hct 27.9 L MCV 83.0 L MCH 29 MCHC 34.4 RDW 16.5 Plt Count 722 H MPV 10.5 Neut % (Auto) 87.9 H Lymph % (Auto) 2.6 L [place] % (Auto) 6.5 Eos % (Auto) 1.1 Baso % (Auto) 0.8 Neut # (Auto) 9.0 H Lymph # (Auto) 0.3 L [place] # (Auto) 0.7 Eos # (Auto) 0.1 Baso # (Auto) 0.1 Immature Gran % 1.1 Nucleated RBC % 0.0 Immature Gran # 0.11 Nucleated RBCs # 0.00 Blood Type O POSITIVE O POSITIVE Antibody Screen Negative Crossmatch See Detail - EKG EKG results: interpreted by me (Ventricular paced) IJamie Wesley, MD, personally performed the services described in this documentation, ascribed by Yessica Preston RN in my presence, and it is both accurate and complete 855 .
[2017-03-04] MEDS: cefTRIAXone 1,000 MG in SODIUM CHLORIDE 0.9% 100 ML IV SCH (21:50)
[2017-03-05] MEDS: ALBUTEROL/IPRATROPIUM 3 ML NEB RESP TX SCH ×5 (00:24→19:34)
[2017-03-05] MEDS: LEVOTHYROXINE 75 MCG TABLET PO SCH (06:54)
[2017-03-05] MEDS: DEXTROSE 5% NACL 0.9% 1,000 ML IV SCH ×2 (06:57→11:01)
--- NOTE | 2017-03-05 08:53 | Internal Med Progress Note ---
Assessment and Plan (1) Abdominal pain Status: Acute Assessment and plan: 86-year-old female admitted to acute care * Abdominal pain. She denies any pain. Her appetite is still quite poor. * Hypertension. Blood pressure is stable * Renal insufficiency. Patient's renal function is progressively getting worse. * Anemia. Hematocrit is better after transfusion * Renal mass. Urology consult noted. * UTI with multiple organisms. Patient on antibiotics * Discussed with granddaughter. Hospice has been consulted. Patient's family is deciding about further care. Current Visit: Yes (2) Acute renal failure Status: Acute Current Visit: Yes (3) Chronic kidney disease Status: Acute Current Visit: Yes (4) Renal mass Status: Acute Current Visit: Yes (5) UTI (urinary tract infection) Status: Acute Current Visit: Yes (6) Anemia Status: Chronic Current Visit: Yes (7) GERD (gastroesophageal reflux disease) Status: Chronic Current Visit: Yes (8) HTN (hypertension) Status: Chronic Current Visit: Yes (9) Renal insufficiency Status: Chronic Current Visit: Yes (10) Atrial fibrillation Status: Chronic Current Visit: No Internal Medicine - PN: Subj Interval history: Patient is feeling better this morning. She is still not eating much. She denies any nausea or vomiting. She denies any abdominal pain. Exam (Progress Note) - Constitutional Vitals: Period Temp Pulse Resp BP Sys/Hall Pulse Ox Last 24 Hr 97.7 F-99.6 F 76-97 16-20 131-155/64-80 96-100 Exam: Examination: GENERAL: NAD. HEENT: PERRLA. EOMI. NECK: Neck is supple. CVS: Regular rate and rhythm. Systolic ejection murmur at left lower sternal RESPIRATORY: Lungs are clear. Few rales at the bases ABDOMEN: Soft and nontender. Mildly distended. Bowel sounds are present. EXT: No edema. Peripheral pulses are present. STORE RECEIVING SPECIALIST: No change SKIN: Warm and dry. Results - Labs CBC & BMP: 03/04/17 04:27 03/03/17 04:56
[2017-03-05] MEDS: ALLOPURINOL 300 MG TABLET PO SCH (09:31)
[2017-03-05] MEDS: ATORVASTATIN 10 MG TABLET PO SCH (09:31)
[2017-03-05] MEDS: hydrALAZINE 25 MG TABLET PO SCH ×3 (09:32→21:31)
[2017-03-05] MEDS: FUROSEMIDE 40 MG TABLET PO SCH (09:32)
[2017-03-05] MEDS: SODIUM BICARBONATE 650 MG TABLET PO SCH ×2 (09:32→21:31)
[2017-03-05] MEDS: amLODIPine 5 MG TABLET PO SCH (09:32)
[2017-03-05] MEDS: POLYETHYLENE GLYCOL POWDER 17 GM PACK PO SCH (09:32)
[2017-03-05] MEDS: ASPIRIN EC 325 MG TABLET PO SCH (09:32)
[2017-03-05] MEDS: DOCUSATE SODIUM 100 MG CAPSULE PO SCH ×2 (09:32→21:31)
[2017-03-05] MEDS: PANTOPRAZOLE 40 MG TABLET PO SCH (09:32)
--- NOTE | 2017-03-05 14:02 | Nephrology Progress Note ---
Nephrology - PN: Subj Interval history: Patient denies shortness of breath. Review of systems GI she has had some abdominal discomfort but is much improved Physical exam general the patient has no pitting edema Assessment/plan 1. Chronic kidney disease stage IV-patient's creatinine has been stable around 5 mg/dL 2. Hypertension this control 3. UTI we will continue antibiotics 4. Renal mass Exam (PN)-Nephrology - Vital Signs Vital signs: Period Temp Pulse Resp BP Sys/Hlal Pulse Ox Last 24 Hr 97.7 F-98.9 F 70-97 16-20 131-155/64-80 96-100 - Lab 03/04/17 04:27 03/03/17 04:56 Most recent lab results Calcium 8.9 MG/DL (8.5-10.1) 03/03/17 04:56 Magnesium 2.3 MG/DL (1.8-2.4) 03/03/17 04:56 Assessment and Plan (1) Acute renal failure Status: Acute Assessment and plan: This patient's creatinine is 5.3 mg/dL today this is up from 1.7 mg/dL about 3 months ago. I suspect this patient has an acute renal injury related to infection and volume depletion and hypoperfusion related to her decreased p.o. intake and anemia with a hematocrit of 25%. Also contributing to her progressive renal failure may be the renal mass enlarging on her right kidney. I agree with IV fluids, I am going to hold her p.o. Lasix for now. Current Visit: Yes (2) Chronic kidney disease Status: Acute Current Visit: Yes (3) HTN (hypertension) Status: Chronic Current Visit: Yes (4) Ileus, unspecified Status: Acute Current Visit: Yes (5) UTI (urinary tract infection) Status: Acute Assessment and plan: I agree with the IV antibiotics Current Visit: Yes (6) Fever Status: Acute Current Visit: Yes (7) Hyperkalemia Status: Acute Assessment and plan: I will add some sodium bicarbonate to her IV fluids this may help she has some of her potassium intracellularly, I would hold off on any Kayexalate until her potassium gets to 6 or 6.5 Current Visit: Yes (8) Abdominal pain Status: Acute Current Visit: Yes (9) Metabolic acidosis Status: Acute Current Visit: Yes (10) Renal mass Status: Acute Assessment and plan: I will request the patient's note from Dr. Chaudhary office Current Visit: Yes
[2017-03-05] MEDS: cefTRIAXone 1,000 MG in SODIUM CHLORIDE 0.9% 100 ML IV SCH (21:32)
[2017-03-06] MEDS: ALBUTEROL/IPRATROPIUM 3 ML NEB RESP TX SCH ×4 (00:39→19:45)
[2017-03-06] MEDS: DEXTROSE 5% NACL 0.9% 1,000 ML IV SCH ×2 (02:49→22:20)
[2017-03-06 05:03] LABS: Basophils # 0.1 10*3/uL (0.0-0.2); Basophils % 0.9 % (0.0-0.8); Eosinophils # 0.2 10*3/uL (0.0-0.87); Eosinophils % 2.2 % (0.00-10.9); Hematocrit 29.6 VOL% (35.7-47.0); Hemoglobin 9.9 GM/DL (12.0-16.0); Immature Granulocytes % 2.2 %; Immature Granulocytes Absolute 0.23 #; Lymphocytes # 0.4 10*3/uL (1.4-4.0); Lymphocytes % 3.4 % (21.3-54.2); Mean Corpuscular HGB Conc 33.4 GM/DL (32-36); Mean Corpuscular Hemoglobin 28 PG (27-34); Mean Corpuscular Volume 84.1 FL (87-102); Mean Platelet Volume 10.4 FL (9.6-12.0); Monocytes # 0.7 10*3/uL (0.11-0.8); Monocytes % 6.4 % (1.7-12.7); Neutrophils # 8.7 10*3/uL (1.4-7.4); Neutrophils % 84.9 % (38.7-73.9); Platelet Count 733 T/CUMM (130-400); Red Blood Count 3.52 MC/CUMM (3.8-5.5); Red Cell Distribution Width 16.8 % (9.3-17.3); White Blood Count 10.2 T/CUMM (4-12)
[2017-03-06 05:38] LABS: Calcium 8.8 MG/DL (8.5-10.1); Osmolality,Calculated 297.5 MOS/KG (273-304); Potassium 4.4 MMOL/L (3.5-5.1)
[2017-03-06 06:05] LABS: Anisocytosis 1+; Elliptocytes 1+; Eosinophils 3 % (0-10); Hypochromasia 1+; Lymphocytes 5 % (20-55); Microcytosis 1+; Nucleated Red Blood Cells 1 (0-5); Poikilocytosis 1+; Segmented Neutrophils 88 % (50-85); Total Cells Counted 100
[2017-03-06 06:07] LABS: Platelet Estimate Increased
[2017-03-06] MEDS: LEVOTHYROXINE 75 MCG TABLET PO SCH (07:08)
--- NOTE | 2017-03-06 07:19 | Cardiology Progress Note ---
Mohan Rodriguez April, RN, am scribing for, and in the presence of, Som Ayala MD 07:19. Assessment and Plan (1) Elevated troponin Status: Acute Current Visit: Yes (2) Abnormal EKG Status: Acute Current Visit: Yes (3) Abdominal pain Status: Acute Current Visit: Yes (4) Acute renal failure Status: Acute Current Visit: Yes (5) Renal mass Status: Acute Current Visit: Yes (6) Anemia Status: Chronic Current Visit: Yes Cardiology - PN: Subj Interval history: PRIMARY ARTISAN PLASTERER: DR. AYALA SUMMARY: Ms. Landeros is an 86-year-old black female with risk factor significant for: hypertension, dyslipidemia, age, sedentary lifestyle, former tobacco abuse. Past medical history includes persistent atrial fibrillation, chronic kidney disease, GERD, renal mass, diverticulosis. She also has a history of bradycardia and AV block and has a dual-chamber pacemaker implanted. History of atypical chest pain of the left chest and left arm specifically at pacemaker site. Previous hospitalization in November 2016 when the symptoms were ruled out for cardiac etiology. Patient also underwent GI and oncology evaluation for abdominal pain and distention, iron deficiency anemia, and thrombocytosis. 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 Patient was admitted to [facility] on the evening of February 25 complaining of abdominal pain, left lower flank discomfort for 3 days. She also had a poor appetite, but no nausea or vomiting. Diagnostic imaging with no acute abdominal process. CT scan did show 7 cm renal mass. This is felt to be renal cell carcinoma, but due to age and medical comorbidities, patient is not a candidate for intervention. Patient also has large UTI. Antibiotics have been started, urine culture shows gram-negative rods with final result pending. Acute renal failure noted on admission with creatinine 5.2 versus 1.7 in November 2016. Hyperkalemic with K+ up to 5.7. Cardiology was asked to see for abnormal troponin of 0.300 and to evaluate EKG. She was complaint angina and it was felt that T-wave inversion could be contributed to acute renal failure and ventricular pacing. Troponin was trivial and remained flat. It was felt this was related to acure renal failure. She is anticoagulated only with aspirin due to history of significant anemia. March 03, 2017: Ms. Landeros is seen resting in bed in no acute distress. Her granddaughter is at bedside. She denies any chest pain or palpitations. Apparently her Lasix IV was changed to p.o. over the weekend and the fluid started because of her elevated creatinine. Her granddaughter states she became more short of breath and yesterday the fluid was discontinued and her Lasix was changed back to IV. She states her breathing is much improved this morning. She continues to have some abdominal tenderness. Her white count is down to 10.9 today. H&H today is down to 7.1 and 21.4, 2 units of blood product have been ordered. Her creatinine is improved slightly, it is 5.0. Potassium is within normal range today at 5.0. March 04, 2017: Ms. Landeros is without complaint today except for abdominal tenderness. She had an NG tube placed yesterday, but the granddaughter states she pulled it out last night. The granddaughter says she had a restless night last night. She denies any chest pain or shortness of breath. Dr. [place] Chaudhary has seen her in consultation regarding her right kidney cancer. He has discussed options with daughter and granddaughter. Vital signs have been stable. She was transfused 2 units of blood product yesterday, her H&H is up to 9.6 and 27.9 today March 05, 2017: Ms. Landeros is seen today sitting up in the chair. She is smiling and denies any complaints. Her granddaughter states she has been up walking around the room a good bit. Vital signs been stable. She is ventricular paced with heart rates in the 70s. Ms. Landeros is stable from a cardiac standpoint and we will sign off. Please reconsult as needed. Thank you for this consultation I have discussed in detail the particulars of this case and I have examined the patient and reviewed the patient's chart both current and old. I was directly involved in the patient's evaluation and management and I completely agree with Yessica Preston RN regarding this patient's evaluation and treatment plan. Exam (Progress Note) - Constitutional Vitals: Period Temp Pulse Resp BP Sys/Hall Pulse Ox Last 24 Hr 97.7 F-98.4 F 78-97 16-20 131-155/64-80 96-100 Exam: General appearance: normal weight, no acute distress - Head Head exam: Absent: abrasion, hematoma - Eye Eye exam: Absent: periorbital swelling, laceration to eyelids - Respiratory Respiratory exam: Present: Clear to auscultation, oxygen not in use. Absent: accessory muscle use, chest wall tenderness - Cardiovascular Cardiovascular exam: Present: regular rate and rhythm (ventricular paced), systolic murmur - GI/Abdominal GI/Abdominal exam: Present: hypoactive bowel sounds, soft. Absent: tenderness - Extremities Exam Extremities exam: Absent: edema - Neurological Exam Neurological exam: Present: alert - Psychiatric Psychiatric exam: Present: normal affect, normal mood - Skin Skin exam: Present: warm, dry Result/EKG - Labs CBC & BMP: 03/06/17 04:28 03/06/17 04:28 Labs: Laboratory Results - last 24 hr 03/06/17 03/06/17 04:28 04:28 WBC 10.2 RBC 3.52 L Hgb 9.9 L Hct 29.6 L MCV 84.1 L MCH 28 MCHC 33.4 RDW 16.8 Plt Count 733 H MPV 10.4 Neut % (Auto) 84.9 H Lymph % (Auto) 3.4 L [place] % (Auto) 6.4 Eos % (Auto) 2.2 Baso % (Auto) 0.9 H Neut # (Auto) 8.7 H Lymph # (Auto) 0.4 L [place] # (Auto) 0.7 Eos # (Auto) 0.2 Baso # (Auto) 0.1 Total Counted 100 Immature Gran % 2.2 Nucleated RBC % 0.0 Immature Gran # 0.23 Segmented Neutrophils 88 H Lymphocytes 5 L Monocytes 4 Eosinophils 3 Nucleated RBCs 1 Nucleated RBCs # 0.00 Platelet Estimate Increased Hypochromasia 1+ Poikilocytosis 1+ Anisocytosis 1+ Microcytosis 1+ Elliptocytes 1+ Morphology Comment Sodium 139 Potassium 4.4 Chloride 108 H Carbon Dioxide 17 L Anion Gap 18.4 H BUN 65 H Creatinine 4.50 H GFR Calculation 9 BUN/Creatinine Ratio 14.00 Glucose 138 H Calculated Osmolality 297.5 Calcium 8.8 - EKG EKG results: interpreted by me (Ventricular pacing) Jamie Rodriguez Wesley, MD, personally performed the services described in this documentation, ascribed by Yessica Preston RN in my presence, and it is both accurate and complete 719 .
--- NOTE | 2017-03-06 08:08 | Internal Med Progress Note ---
Assessment and Plan (1) Abdominal pain Status: Acute Assessment and plan: 86-year-old female admitted to acute care * Abdominal pain. Will repeat upright and supine x-ray of abdomen. She is passing gas and had a bowel movement * Hypertension. Blood pressure is stable * Renal insufficiency. Slightly better * Anemia. Hematocrit is better after transfusion * Renal mass. Urology consult noted. * UTI with multiple organisms. Patient on antibiotics * Discussed with patient's daughter. Hopefully we will be able to discharge her on hospice in the morning. Current Visit: Yes (2) Acute renal failure Status: Acute Current Visit: Yes (3) Chronic kidney disease Status: Acute Current Visit: Yes (4) Renal mass Status: Acute Current Visit: Yes (5) UTI (urinary tract infection) Status: Acute Current Visit: Yes (6) Anemia Status: Chronic Current Visit: Yes (7) GERD (gastroesophageal reflux disease) Status: Chronic Current Visit: Yes (8) HTN (hypertension) Status: Chronic Current Visit: Yes (9) Renal insufficiency Status: Chronic Current Visit: Yes (10) Atrial fibrillation Status: Chronic Current Visit: No Internal Medicine - PN: Subj Interval history: Patient is feeling better this morning. She is more hungry. She denies any chest pain or shortness of breath. She is passing gas Exam (Progress Note) - Constitutional Vitals: Period Temp Pulse Resp BP Sys/Hall Pulse Ox Last 24 Hr 97.3 F-98.9 F 70-109 16-20 145-155/68-89 97-100 Exam: Examination: GENERAL: NAD. HEENT: PERRLA. EOMI. NECK: Neck is supple. CVS: Regular rate and rhythm. Systolic ejection murmur at left lower sternal RESPIRATORY: Lungs are clear. ABDOMEN: Soft and nontender. Less distended. Bowel sounds are present. EXT: No edema. Peripheral pulses are present. PROFESSOR OF BIOCHEMISTRY: No change SKIN: Warm and dry. Results - Labs CBC & BMP: 03/06/17 04:28 03/06/17 04:28 Lab Results: I have reviewed the past 24 hour labs
[2017-03-06] MEDS: FUROSEMIDE 40 MG TABLET PO SCH (09:18)
[2017-03-06] MEDS: ATORVASTATIN 10 MG TABLET PO SCH (09:19)
[2017-03-06] MEDS: PANTOPRAZOLE 40 MG TABLET PO SCH (09:19)
[2017-03-06] MEDS: ASPIRIN EC 325 MG TABLET PO SCH (09:19)
[2017-03-06] MEDS: amLODIPine 5 MG TABLET PO SCH (09:19)
[2017-03-06] MEDS: ALLOPURINOL 300 MG TABLET PO SCH (09:19)
[2017-03-06] MEDS: POLYETHYLENE GLYCOL POWDER 17 GM PACK PO SCH (09:19)
[2017-03-06] MEDS: DOCUSATE SODIUM 100 MG CAPSULE PO SCH ×2 (09:19→21:48)
[2017-03-06] MEDS: SODIUM BICARBONATE 650 MG TABLET PO SCH ×2 (09:19→21:48)
[2017-03-06] MEDS: hydrALAZINE 25 MG TABLET PO SCH ×3 (09:19→21:48)
--- NOTE | 2017-03-06 09:51 | XRay Report ---
[place] XR abdomen 2V Clinical Information: Abdominal Pain 03/02/2017 radiograph Comparison: None Findings: Mildly dilated small bowel noted within the central abdomen is nonspecific. There is also mild gaseous distention of the colon which filled with scattered fecal material. There is no free air identified. No abnormal focal soft tissue masses or calcific densities are identified in the abdomen or pelvis. Lung bases appear predominantly clear. There is no acute osseous abnormality. No suspicious osseous lesions are identified. Impression: No acute radiographic abnormality in the abdomen. A mild-moderate degree of fecal stasis/constipation is suspected. PROCEDURE INTERPRETED AT [facility] DEPARTMENT OF RADIOLOGY Final Report Signed by: Niko Arciniega
--- NOTE | 2017-03-06 16:05 | Nephrology Progress Note ---
Nephrology - PN: Subj Interval history: Patient complains of some occasional shortness of breath. Review of systems GI she denies nausea or vomiting Physical exam general she is in no acute distress, she has trace to 1+ pretibial edema Assessment/plan 1. Acute renal failure-patient's creatinine is improved to 4.5 mg/dL 2. Ileus-this patient's abdominal x-ray done today looks to be improved from her previous abdominal x-ray a few days ago with less bowel distention 3. Metabolic acidosis continue sodium bicarbonate 3. Hypertension this control 4. UTI Exam (PN)-Nephrology - Vital Signs Vital signs: Period Temp Pulse Resp BP Sys/Hall Pulse Ox Last 24 Hr 97.3 F-98.2 F 71-86 16-19 143-154/68-89 98-100 - Lab 03/06/17 04:28 03/06/17 04:28 Most recent lab results Calcium 8.8 MG/DL (8.5-10.1) 03/06/17 04:28 Magnesium 2.3 MG/DL (1.8-2.4) 03/03/17 04:56 Assessment and Plan (1) Acute renal failure Status: Acute Assessment and plan: This patient's creatinine is 5.3 mg/dL today this is up from 1.7 mg/dL about 3 months ago. I suspect this patient has an acute renal injury related to infection and volume depletion and hypoperfusion related to her decreased p.o. intake and anemia with a hematocrit of 25%. Also contributing to her progressive renal failure may be the renal mass enlarging on her right kidney. I agree with IV fluids, I am going to hold her p.o. Lasix for now. Current Visit: Yes (2) Chronic kidney disease Status: Acute Current Visit: Yes (3) HTN (hypertension) Status: Chronic Current Visit: Yes (4) Ileus, unspecified Status: Acute Current Visit: Yes (5) UTI (urinary tract infection) Status: Acute Assessment and plan: I agree with the IV antibiotics Current Visit: Yes (6) Fever Status: Acute Current Visit: Yes (7) Hyperkalemia Status: Acute Assessment and plan: I will add some sodium bicarbonate to her IV fluids this may help she has some of her potassium intracellularly, I would hold off on any Kayexalate until her potassium gets to 6 or 6.5 Current Visit: Yes (8) Abdominal pain Status: Acute Current Visit: Yes (9) Metabolic acidosis Status: Acute Current Visit: Yes (10) Renal mass Status: Acute Assessment and plan: I will request the patient's note from Dr. Chaudhary office Current Visit: Yes
[2017-03-06] MEDS: cefTRIAXone 1,000 MG in SODIUM CHLORIDE 0.9% 100 ML IV SCH (21:48)
[2017-03-07] MEDS: ALBUTEROL/IPRATROPIUM 3 ML NEB RESP TX SCH ×4 (00:26→19:18)
[2017-03-07] MEDS: ACETAMINOPHEN 325 MG TABLET PO PRN (00:31)
[2017-03-07] MEDS: LEVOTHYROXINE 75 MCG TABLET PO SCH (06:23)
[2017-03-07] MEDS ORDERED: BISACODYL 10 MG SUPP RECTAL STA (08:15)
--- NOTE | 2017-03-07 08:59 | Internal Med Progress Note ---
Assessment and Plan (1) Abdominal pain Status: Acute Assessment and plan: 86-year-old female admitted to acute care * Abdominal pain. Much better. No evidence of ileus on the abdominal x-ray. He does appear to have constipation. Will give her Dulcolax suppository. * Hypertension. Blood pressure is stable * Renal insufficiency. Slightly better * Anemia. Hematocrit is stable * Renal mass. Urology consult noted. * UTI with multiple organisms. Will DC antibiotics on discharge * DC classroom monitor * Discussed with patient's daughter. She should be able to go home during the weekend on hospice Current Visit: Yes (2) Acute renal failure Status: Acute Current Visit: Yes (3) Chronic kidney disease Status: Acute Current Visit: Yes (4) Renal mass Status: Acute Current Visit: Yes (5) UTI (urinary tract infection) Status: Acute Current Visit: Yes (6) Anemia Status: Chronic Current Visit: Yes (7) GERD (gastroesophageal reflux disease) Status: Chronic Current Visit: Yes (8) HTN (hypertension) Status: Chronic Current Visit: Yes (9) Renal insufficiency Status: Chronic Current Visit: Yes (10) Atrial fibrillation Status: Chronic Current Visit: No Internal Medicine - PN: Subj Interval history: Patient is feeling better this morning. She still has not had a good bowel movement. No chest pain or shortness of breath. Exam (Progress Note) - Constitutional Vitals: Period Temp Pulse Resp BP Sys/Hall Pulse Ox Last 24 Hr 97.2 F-98.6 F 67-87 16-19 143-169/65-84 96-100 Exam: Examination: GENERAL: NAD. HEENT: PERRLA. EOMI. NECK: Neck is supple. CVS: Regular rate and rhythm. Systolic ejection murmur at left lower sternal RESPIRATORY: Lungs are clear. ABDOMEN: Soft and nontender. Less distended. EXT: No edema. Peripheral pulses are present. 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 Results - Labs CBC & BMP: 03/06/17 04:28 03/06/17 04:28 Lab Results: I have reviewed the past 24 hour labs
[2017-03-07] MEDS: ALLOPURINOL 300 MG TABLET PO SCH (09:42)
[2017-03-07] MEDS: amLODIPine 5 MG TABLET PO SCH (09:42)
[2017-03-07] MEDS: ASPIRIN EC 325 MG TABLET PO SCH (09:42)
[2017-03-07] MEDS: hydrALAZINE 25 MG TABLET PO SCH ×3 (09:42→20:52)
[2017-03-07] MEDS: SODIUM BICARBONATE 650 MG TABLET PO SCH ×2 (09:42→20:52)
[2017-03-07] MEDS: FUROSEMIDE 40 MG TABLET PO SCH (09:42)
[2017-03-07] MEDS: DOCUSATE SODIUM 100 MG CAPSULE PO SCH ×2 (09:42→20:52)
[2017-03-07] MEDS: POLYETHYLENE GLYCOL POWDER 17 GM PACK PO SCH (09:43)
[2017-03-07] MEDS: ATORVASTATIN 10 MG TABLET PO SCH (09:43)
[2017-03-07] MEDS: PANTOPRAZOLE 40 MG TABLET PO SCH (09:43)
--- NOTE | 2017-03-07 10:15 | Nephrology Progress Note ---
Nephrology - PN: Subj Interval history: Patient denies shortness of breath. Review of systems GI-the patient ate this morning she has not had any nausea or vomiting she denies abdominal pain Physical exam general the patient is in no acute distress, she has no pitting edema Assessment/plan 1. Acute renal failure on chronic renal failure-this patient's creatinine was slightly improved 4.5 mg/dL yesterday from around 5 mg/dL we will continue to monitor this 2. Hypertension we will continue her present antihypertensives 3. Renal mass-it is likely this patient has a renal cell carcinoma 4. Urinary tract infection-patient has responded to antibiotics [facility] nephrology if needed over the weekend. Exam (PN)-Nephrology - Vital Signs Vital signs: Period Temp Pulse Resp BP Sys/Hall Pulse Ox Last 24 Hr 97.2 F-98.6 F 67-87 16-19 143-169/65-84 96-100 - Lab 03/06/17 04:28 03/06/17 04:28 Most recent lab results Calcium 8.8 MG/DL (8.5-10.1) 03/06/17 04:28 Magnesium 2.3 MG/DL (1.8-2.4) 03/03/17 04:56 Assessment and Plan (1) Acute renal failure Status: Acute Assessment and plan: This patient's creatinine is 5.3 mg/dL today this is up from 1.7 mg/dL about 3 months ago. I suspect this patient has an acute renal injury related to infection and volume depletion and hypoperfusion related to her decreased p.o. intake and anemia with a hematocrit of 25%. Also contributing to her progressive renal failure may be the renal mass enlarging on her right kidney. I agree with IV fluids, I am going to hold her p.o. Lasix for now. Current Visit: Yes (2) Chronic kidney disease Status: Acute Current Visit: Yes (3) HTN (hypertension) Status: Chronic Current Visit: Yes (4) Ileus, unspecified Status: Acute Current Visit: Yes (5) UTI (urinary tract infection) Status: Acute Assessment and plan: I agree with the IV antibiotics Current Visit: Yes (6) Fever Status: Acute Current Visit: Yes (7) Hyperkalemia Status: Acute Assessment and plan: I will add some sodium bicarbonate to her IV fluids this may help she has some of her potassium intracellularly, I would hold off on any Kayexalate until her potassium gets to 6 or 6.5 Current Visit: Yes (8) Abdominal pain Status: Acute Current Visit: Yes (9) Metabolic acidosis Status: Acute Current Visit: Yes (10) Renal mass Status: Acute Assessment and plan: I will request the patient's note from Dr. Chaudhary office Current Visit: Yes
[2017-03-07] MEDS: DEXTROSE 5% NACL 0.9% 1,000 ML IV SCH (18:42)
[2017-03-07] MEDS: cefTRIAXone 1,000 MG in SODIUM CHLORIDE 0.9% 100 ML IV SCH (20:53)
[2017-03-08] MEDS: ALBUTEROL/IPRATROPIUM 3 ML NEB RESP TX SCH ×4 (00:17→21:10)
[2017-03-08] MEDS: LEVOTHYROXINE 75 MCG TABLET PO SCH (06:18)
[2017-03-08] MEDS ORDERED: BENZONATATE 100 MG CAPSULE PO PRN (08:31)
--- NOTE | 2017-03-08 08:34 | Family Practice Progress Note ---
Family Practice - PN: Subj Interval history: Patient is generally stable. Vitals are stable this a.m. Family states that she has a deep cough. States is productive at times. States she had a recent pneumonia when she was at [facility]. Patient apparently had a good bowel movement last p.m.. No nausea vomiting this a.m. Lab studies are improved. No new problems identified. Lung stone are clear to auscultation and abdomen has active bowel sounds and is soft. Will obtain a chest x-ray for completeness. Exam (Progress Note) - Constitutional Vitals: Period Temp Pulse Resp BP Sys/Hall Pulse Ox Last 24 Hr 98.0 F-99.2 F 68-82 15-20 150-164/72-86 95-100 Results - Labs CBC & BMP: 03/06/17 04:28 03/06/17 04:28
[2017-03-08] MEDS: SODIUM BICARBONATE 650 MG TABLET PO SCH ×2 (08:41→21:10)
[2017-03-08] MEDS: POLYETHYLENE GLYCOL POWDER 17 GM PACK PO SCH (08:41)
[2017-03-08] MEDS: ALLOPURINOL 300 MG TABLET PO SCH (08:41)
[2017-03-08] MEDS: FUROSEMIDE 40 MG TABLET PO SCH (08:41)
[2017-03-08] MEDS: PANTOPRAZOLE 40 MG TABLET PO SCH (08:41)
[2017-03-08] MEDS: ASPIRIN EC 325 MG TABLET PO SCH (08:42)
[2017-03-08] MEDS: DOCUSATE SODIUM 100 MG CAPSULE PO SCH ×2 (08:42→21:10)
[2017-03-08] MEDS: amLODIPine 5 MG TABLET PO SCH (08:42)
[2017-03-08] MEDS: ATORVASTATIN 10 MG TABLET PO SCH (08:43)
[2017-03-08] MEDS: hydrALAZINE 25 MG TABLET PO SCH ×3 (08:43→21:10)
--- NOTE | 2017-03-08 09:49 | XRay Report ---
XR chest 2V Indication: Cough. Bronchitis. Chest 2 views: Comparison 02/25/2017. Cardiomegaly, tortuous thoracic aorta and pacemaker are stable. Worsening infiltrate right lung bases developing, with continued pulmonary hypoinflation. Some degree of atelectasis or pneumonia left lung base is stable. Upper lungs remain relatively clear. Impression: Progressive bibasilar pneumonia and/or atelectasis. Persistent cardiomegaly. PROCEDURE INTERPRETED AT [facility] DEPARTMENT OF RADIOLOGY Final Report Signed by: Karthikeyan Rao M.D.
[2017-03-08] MEDS: DEXTROSE 5% NACL 0.9% 1,000 ML IV SCH (18:15)
[2017-03-08] MEDS: cefTRIAXone 1,000 MG in SODIUM CHLORIDE 0.9% 100 ML IV SCH (21:12)
[2017-03-09] MEDS: ALBUTEROL/IPRATROPIUM 3 ML NEB RESP TX SCH ×4 (01:23→19:54)
[2017-03-09 05:33] LABS: Basophils # 0.1 10*3/uL (0.0-0.2); Eosinophils # 0.2 10*3/uL (0.0-0.87); Eosinophils % 2.2 % (0.00-10.9); Hematocrit 29.6 VOL% (35.7-47.0); Hemoglobin 9.7 GM/DL (12.0-16.0); Immature Granulocytes % 2.6 %; Immature Granulocytes Absolute 0.26 #; Lymphocytes # 0.4 10*3/uL (1.4-4.0); Mean Corpuscular HGB Conc 32.8 GM/DL (32-36); Mean Corpuscular Hemoglobin 28 PG (27-34); Mean Corpuscular Volume 85.5 FL (87-102); Mean Platelet Volume 10.5 FL (9.6-12.0); Monocytes # 0.8 10*3/uL (0.11-0.8); Monocytes % 7.6 % (1.7-12.7); Neutrophils # 8.1 10*3/uL (1.4-7.4); Neutrophils % 82.6 % (38.7-73.9); Platelet Count 648 T/CUMM (130-400); Red Blood Count 3.46 MC/CUMM (3.8-5.5); Red Cell Distribution Width 17.7 % (9.3-17.3); White Blood Count 9.9 T/CUMM (4-12)
[2017-03-09 05:55] LABS: Calcium 8.4 MG/DL (8.5-10.1); Osmolality,Calculated 301.1 MOS/KG (273-304); Potassium 5.3 MMOL/L (3.5-5.1)
[2017-03-09 06:19] LABS: Acanthocytes 2+; Anisocytosis 1+; Eosinophils 2 % (0-10); Hypochromasia 2+; Lymphocytes 5 % (20-55); Macrocytosis 1+; Ovalocytes 1+; Platelet Estimate Increased; Segmented Neutrophils 85 % (50-85); Total Cells Counted 100
[2017-03-09] MEDS: LEVOTHYROXINE 75 MCG TABLET PO SCH (06:46)
[2017-03-09] MEDS: SODIUM BICARBONATE 650 MG TABLET PO SCH ×2 (08:30→20:51)
[2017-03-09] MEDS: amLODIPine 5 MG TABLET PO SCH (08:30)
[2017-03-09] MEDS: PANTOPRAZOLE 40 MG TABLET PO SCH (08:31)
[2017-03-09] MEDS: ASPIRIN EC 325 MG TABLET PO SCH (08:31)
[2017-03-09] MEDS: POLYETHYLENE GLYCOL POWDER 17 GM PACK PO SCH (08:31)
[2017-03-09] MEDS: FUROSEMIDE 40 MG TABLET PO SCH (08:31)
[2017-03-09] MEDS: ATORVASTATIN 10 MG TABLET PO SCH (08:31)
[2017-03-09] MEDS: hydrALAZINE 25 MG TABLET PO SCH ×3 (08:31→20:51)
[2017-03-09] MEDS: DOCUSATE SODIUM 100 MG CAPSULE PO SCH ×2 (08:31→20:51)
[2017-03-09] MEDS: ALLOPURINOL 300 MG TABLET PO SCH (08:31)
[2017-03-09] MEDS: DEXTROSE 5% NACL 0.9% 1,000 ML IV SCH (16:04)
[2017-03-09] MEDS ORDERED: LEVOFLOXACIN INJ 500 MG in PREMIX 1 EACH IV ONE (16:30)
--- NOTE | 2017-03-09 16:40 | Family Practice Progress Note ---
Family Practice - PN: Subj Interval history: Patient is generally stable. Vitals are stable this a.m. Family states that she has a deep cough. States is productive at times. States she had a recent pneumonia when she was at [facility]. Patient apparently had a good bowel movement last p.m.. No nausea vomiting this a.m. Lab studies are improved. No new problems identified. Lung stone are clear to auscultation and abdomen has active bowel sounds and is soft. Will obtain a chest x-ray for completeness. 03/09/17 patient still has slight cough but improved. Family concerned about having some slight redness, swelling, and tenderness in her right breast. This is occurred during the night. There is some slight swelling in the right breast compared to the left. She has very slight erythema and tenderness over the medial aspect of breasts at the level of the nipple. No induration noted. Possibly an early cellulitis but could strictly be from laying on the side. Chest x-ray reveals a slight bibasilar pneumonia and/or atelectasis. Lung stone are clear to auscultation. I have discussed this in detail with family members as they were very concerned. I have modified her antibiotics and started her on IV Levaquin. This would cover the pneumonia and potential cellulitis. Family member seem very concerned about even minimal changes in patient's status. I am not sure they have a good understanding of for hospice care. Exam (Progress Note) - Constitutional Vitals: Period Temp Pulse Resp BP Sys/Hall Pulse Ox Last 24 Hr 98.0 F-99.7 F 69-81 17-20 144-177/67-79 93-100 Results - Labs CBC & BMP: 03/09/17 05:06 03/09/17 05:07
[2017-03-10] MEDS: ALBUTEROL/IPRATROPIUM 3 ML NEB RESP TX SCH ×4 (02:03→20:18)
[2017-03-10 05:19] LABS: Basophils # 0.1 10*3/uL (0.0-0.2); Basophils % 0.7 % (0.0-0.8); Eosinophils # 0.2 10*3/uL (0.0-0.87); Eosinophils % 1.6 % (0.00-10.9); Hematocrit 27.4 VOL% (35.7-47.0); Immature Granulocytes % 0.9 %; Immature Granulocytes Absolute 0.12 #; Lymphocytes # 0.4 10*3/uL (1.4-4.0); Lymphocytes % 3.2 % (21.3-54.2); Mean Corpuscular HGB Conc 32.8 GM/DL (32-36); Mean Corpuscular Hemoglobin 28 PG (27-34); Mean Corpuscular Volume 86.2 FL (87-102); Mean Platelet Volume 10.6 FL (9.6-12.0); Monocytes # 0.8 10*3/uL (0.11-0.8); Monocytes % 6.4 % (1.7-12.7); Neutrophils # 11.4 10*3/uL (1.4-7.4); Neutrophils % 87.2 % (38.7-73.9); Platelet Count 693 T/CUMM (130-400); Red Blood Count 3.18 MC/CUMM (3.8-5.5); Red Cell Distribution Width 17.8 % (9.3-17.3); White Blood Count 13.1 T/CUMM (4-12)
[2017-03-10 05:43] LABS: Burr Cells Slight; Elliptocytes Few; Eosinophils 4 % (0-10); Giant Platelets Few; Hypochromasia 1+; Lymphocytes 2 % (20-55); Platelet Estimate Increased; Segmented Neutrophils 92 % (50-85); Total Cells Counted 100
[2017-03-10 05:44] LABS: Microcytosis Slight
[2017-03-10 06:03] LABS: Albumin 3.4 G/DL (3.4-5.0); Bilirubin,Total 0.9 MG/DL (0.2-1.0); Calcium 8.8 MG/DL (8.5-10.1); Potassium 5.5 MMOL/L (3.5-5.1); Total Protein 6.2 G/DL (6.4-8.3)
[2017-03-10] MEDS: LEVOTHYROXINE 75 MCG TABLET PO SCH (06:30)
[2017-03-10] MEDS: DEXTROSE 5% NACL 0.9% 1,000 ML IV SCH ×2 (07:51→17:31)
--- NOTE | 2017-03-10 08:39 | Internal Med Progress Note ---
Assessment and Plan (1) Abdominal pain Status: Acute Assessment and plan: 86-year-old female admitted to acute care * Pneumonia. Will repeat chest x-ray no fever since Friday. She is on Levaquin every 48 hour * Ileus. Resolved * Hypertension. Blood pressure is stable * Renal insufficiency. Slightly better * Anemia. Hematocrit is stable * Renal mass. Urology consult noted. * UTI. Resolved * She may have slight cellulitis of her breast but it is better. Will place moist heat. * Low potassium diet * Discussed with patient's daughter. Current Visit: Yes (2) Acute renal failure Status: Acute Current Visit: Yes (3) Chronic kidney disease Status: Acute Current Visit: Yes (4) Renal mass Status: Acute Current Visit: Yes (5) UTI (urinary tract infection) Status: Acute Current Visit: Yes (6) Anemia Status: Chronic Current Visit: Yes (7) GERD (gastroesophageal reflux disease) Status: Chronic Current Visit: Yes (8) HTN (hypertension) Status: Chronic Current Visit: Yes (9) Renal insufficiency Status: Chronic Current Visit: Yes (10) Atrial fibrillation Status: Chronic Current Visit: No Internal Medicine - PN: Subj Interval history: Patient is feeling better this morning. She is sitting up and eating her breakfast. She feels less short of breath. She denies any nausea or vomiting. Exam (Progress Note) - Constitutional Vitals: Period Temp Pulse Resp BP Sys/Hall Pulse Ox Last 24 Hr 98.1 F-99.0 F 63-86 14-20 145-183/70-89 94-100 Exam: Examination: GENERAL: NAD. HEENT: PERRLA. EOMI. NECK: Neck is supple. CVS: Regular rate and rhythm. Systolic ejection murmur at left lower sternal RESPIRATORY: Lungs are clear. Few rales at the bases. ABDOMEN: Soft and nontender. Less distended. EXT: No edema. Peripheral pulses are present. 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 Her skin is slightly warm over her right breast inferior laterally. It is slightly indurated but better according to the patient Results - Labs CBC & BMP: 03/10/17 04:11 03/10/17 04:11 Lab Results: I have reviewed the past 24 hour labs
--- NOTE | 2017-03-10 08:46 | Nephrology Progress Note ---
Nephrology - PN: Subj Interval history: Patient denies shortness of breath. Review of systems GI she denies nausea vomiting Physical exam general the patient is in no acute distress, she has no pitting edema Assessment/plan 1. Acute renal failure-patient's creatinine is improved to 4.2 mg/dL 2. Metabolic acidosis this is stable and improved 3. Hypertension this is controlled 4. Urinary tract infection 5. Hyperkalemia-patient's been placed on low potassium diet I will last dietary to see her in consultation to give her some education material regarding potassium in her diet. Exam (PN)-Nephrology - Vital Signs Vital signs: Period Temp Pulse Resp BP Sys/Hall Pulse Ox Last 24 Hr 98.1 F-99.0 F 63-86 14-20 145-183/70-89 94-100 - Lab 03/10/17 04:11 03/10/17 04:11 Most recent lab results Calcium 8.8 MG/DL (8.5-10.1) 03/10/17 04:11 Magnesium 2.3 MG/DL (1.8-2.4) 03/03/17 04:56 Assessment and Plan (1) Acute renal failure Status: Acute Assessment and plan: This patient's creatinine is 5.3 mg/dL today this is up from 1.7 mg/dL about 3 months ago. I suspect this patient has an acute renal injury related to infection and volume depletion and hypoperfusion related to her decreased p.o. intake and anemia with a hematocrit of 25%. Also contributing to her progressive renal failure may be the renal mass enlarging on her right kidney. I agree with IV fluids, I am going to hold her p.o. Lasix for now. Current Visit: Yes (2) Chronic kidney disease Status: Acute Current Visit: Yes (3) HTN (hypertension) Status: Chronic Current Visit: Yes (4) Ileus, unspecified Status: Acute Current Visit: Yes (5) UTI (urinary tract infection) Status: Acute Assessment and plan: I agree with the IV antibiotics Current Visit: Yes (6) Fever Status: Acute Current Visit: Yes (7) Hyperkalemia Status: Acute Assessment and plan: I will add some sodium bicarbonate to her IV fluids this may help she has some of her potassium intracellularly, I would hold off on any Kayexalate until her potassium gets to 6 or 6.5 Current Visit: Yes (8) Abdominal pain Status: Acute Current Visit: Yes (9) Metabolic acidosis Status: Acute Current Visit: Yes (10) Renal mass Status: Acute Assessment and plan: I will request the patient's note from Dr. Chaudhary office Current Visit: Yes
--- NOTE | 2017-03-10 08:52 | XRay Report ---
History: Pneumonia Date: 03/10/2017 Study: Chest x-ray PA and lateral Comparison exam: 03/08/2017 There is cardiomegaly. The pulmonary vasculature is borderline to minimally prominent. The mediastinal contours are unchanged. There is continued hazy and strandy bibasilar atelectasis/infiltrate/edema, grossly unchanged. There is continued mild bilateral pleural effusion. There is no new or worsening process. There is no pneumothorax. A left subclavian transvenous pacemaker is stable. Osseous structures are unchanged. Impression: No gross overall change from the previous study. Continued bibasilar atelectasis/infiltrate/edema and mild bilateral pleural effusion. There may be an element of mild CHF. PROCEDURE INTERPRETED AT [facility] DEPARTMENT OF RADIOLOGY Final Report Signed by: Dr. Rosanna Greer
[2017-03-10] MEDS: amLODIPine 5 MG TABLET PO SCH (09:14)
[2017-03-10] MEDS: DOCUSATE SODIUM 100 MG CAPSULE PO SCH ×2 (09:14→20:53)
[2017-03-10] MEDS: FUROSEMIDE 40 MG TABLET PO SCH (09:14)
[2017-03-10] MEDS: hydrALAZINE 25 MG TABLET PO SCH ×3 (09:14→20:53)
[2017-03-10] MEDS: SODIUM BICARBONATE 650 MG TABLET PO SCH ×2 (09:15→20:53)
[2017-03-10] MEDS: POLYETHYLENE GLYCOL POWDER 17 GM PACK PO SCH (09:15)
[2017-03-10] MEDS: ATORVASTATIN 10 MG TABLET PO SCH (09:15)
[2017-03-10] MEDS: ASPIRIN EC 325 MG TABLET PO SCH (09:15)
[2017-03-10] MEDS: ALLOPURINOL 300 MG TABLET PO SCH (09:16)
[2017-03-10] MEDS: PANTOPRAZOLE 40 MG TABLET PO SCH (09:16)
[2017-03-11] MEDS: ALBUTEROL/IPRATROPIUM 3 ML NEB RESP TX SCH ×2 (00:38→07:53)
[2017-03-11] MEDS: DEXTROSE 5% NACL 0.9% 1,000 ML IV SCH (02:10)
[2017-03-11 07:14] VITALS: BP 156/79
--- NOTE | 2017-03-11 07:42 | Nephrology Progress Note ---
Nephrology - PN: Subj Interval history: Patient denies shortness of breath. Review of systems GI she denies nausea or vomiting, musculoskeletal-the patient's family member in the room states the patient had some general and right shoulder pain last night which was ameliorated with pain pill. Physical exam general the patient is in no acute distress, heart is regular rate and rhythm, she has no pitting edema, lungs are clear to auscultation anteriorly, abdomen is soft with positive bowel sounds Assessment/plan 1. Acute renal failure on chronic renal failure-patient's creatinine seems to stabilized around 4.2 mg/dL, I will have her follow-up with Dr. Danielson in the outpatient setting 2. Metabolic acidosis-we will continue sodium bicarbonate 3. Hypertension continue present antihypertensives 4. UTI this seems to have resolved 5. Renal mass-patient has been seen by Dr. Chaudhary and it is felt that the patient is not a candidate for resection of this mass Exam (PN)-Nephrology - Vital Signs Vital signs: Period Temp Pulse Resp BP Sys/Hall Pulse Ox Last 24 Hr 97.1 F-99.5 F 74-99 16-20 151-187/74-90 92-100 - Lab 03/10/17 04:11 03/10/17 04:11 Most recent lab results Calcium 8.8 MG/DL (8.5-10.1) 03/10/17 04:11 Magnesium 2.3 MG/DL (1.8-2.4) 03/03/17 04:56 Assessment and Plan (1) Acute renal failure Status: Acute Assessment and plan: This patient's creatinine is 5.3 mg/dL today this is up from 1.7 mg/dL about 3 months ago. I suspect this patient has an acute renal injury related to infection and volume depletion and hypoperfusion related to her decreased p.o. intake and anemia with a hematocrit of 25%. Also contributing to her progressive renal failure may be the renal mass enlarging on her right kidney. I agree with IV fluids, I am going to hold her p.o. Lasix for now. Current Visit: Yes (2) Chronic kidney disease Status: Acute Current Visit: Yes (3) HTN (hypertension) Status: Chronic Current Visit: Yes (4) Ileus, unspecified Status: Acute Current Visit: Yes (5) UTI (urinary tract infection) Status: Acute Assessment and plan: I agree with the IV antibiotics Current Visit: Yes (6) Fever Status: Acute Current Visit: Yes (7) Hyperkalemia Status: Acute Assessment and plan: I will add some sodium bicarbonate to her IV fluids this may help she has some of her potassium intracellularly, I would hold off on any Kayexalate until her potassium gets to 6 or 6.5 Current Visit: Yes (8) Abdominal pain Status: Acute Current Visit: Yes (9) Metabolic acidosis Status: Acute Current Visit: Yes (10) Renal mass Status: Acute Assessment and plan: I will request the patient's note from Dr. Chaudhary office Current Visit: Yes Specialty Discharge - Follow Up or Referrals Follow up with: Jadiel Solo Jr., MD [Physician] - 1 Month
[2017-03-11 07:49] LABS: Basophils # 0.1 10*3/uL (0.0-0.2); Basophils % 0.8 % (0.0-0.8); Eosinophils # 0.2 10*3/uL (0.0-0.87); Eosinophils % 1.3 % (0.00-10.9); Hematocrit 27.7 VOL% (35.7-47.0); Immature Granulocytes % 1.2 %; Immature Granulocytes Absolute 0.17 #; Lymphocytes # 0.5 10*3/uL (1.4-4.0); Lymphocytes % 3.3 % (21.3-54.2); Mean Corpuscular HGB Conc 32.5 GM/DL (32-36); Mean Corpuscular Hemoglobin 28 PG (27-34); Mean Platelet Volume 10.5 FL (9.6-12.0); Monocytes # 0.9 10*3/uL (0.11-0.8); Monocytes % 6.3 % (1.7-12.7); Neutrophils # 12.6 10*3/uL (1.4-7.4); Neutrophils % 87.1 % (38.7-73.9); Platelet Count 701 T/CUMM (130-400); Red Blood Count 3.22 MC/CUMM (3.8-5.5); Red Cell Distribution Width 18.1 % (9.3-17.3); White Blood Count 14.4 T/CUMM (4-12)
--- NOTE | 2017-03-11 08:01 | Discharge Summary ---
Hospital Course - Hospital Course Hospital Course: Patient is 86-year-old female with history of multiple medical problems including renal mass which is presumed to be cancer, thrombocytosis, hypertension, GERD, acute and chronic renal failure who was admitted with ileus. Patient was seen in consultation during the hospitalization by cardiology and nephrology and GI. She was also followed by urology. It was felt that her mass was non-resectable. An NG tube was placed but patient pulled it out. She gradually improved and has started taking regular diet. She is having good bowel movements. Her renal function has improved slowly. Creatinine is still around 4-5 range. There was discussion held with family who decided to place patient on home hospice. While in the hospital patient did develop bibasilar pneumonia. She was treated with IV antibiotics. These will be continued for another 10 days at home. She is getting Levaquin every 48 hours. Arrangements have been made by hospice to get patient hospital bed at home. She will also require a wheelchair. Patient also had an area of mild cellulitis involving right breast. She has improved and is ready to be discharged. I will see her in office in about 3-4 weeks. Diagnosis - Discharge Diagnosis (1) Abdominal pain Status: Acute (2) Acute renal failure Status: Acute (3) Chronic kidney disease Status: Acute (4) Renal mass Status: Acute (5) UTI (urinary tract infection) Status: Acute (6) Anemia Status: Chronic (7) GERD (gastroesophageal reflux disease) Status: Chronic (8) HTN (hypertension) Status: Chronic (9) Renal insufficiency Status: Chronic (10) Atrial fibrillation Status: Chronic Specialty Discharge - Follow Up or Referrals Follow up with: Jadiel Solo Jr., MD [Physician] - 1 Month Discharge Plan - Discharge Data Disposition: Hospice - Home Condition at Discharge: Stable Discharge Diet: advance to your usual diet Activity: resume usual activities as tolerated Hygiene: no restrictions - Discharge Medications New Docusate Sodium Cap [Colace Cap] 100 mg PO BID capsule Benzonatate [Tessalon] 200 mg PO TID PRN #30 capsule PRN Reason: Cough Levofloxacin Tab [Levaquin Tab] 250 mg PO Q48H #5 tablet Continue Atorvastatin [Lipitor] 5 mg PO QAM Pantoprazole Sodium 40 mg PO QAM Docusate Sodium 100 mg PO BID Furosemide 40 mg PO QAM Aspirin EC Tab 325 mg PO DAILY #30 tablet hydrALAZINE TAB [Apresoline Tab] 25 mg PO TID amLODIPine [Norvasc] 5 mg PO DAILY Levothyroxine Sodium 75 mcg PO QAM Polyethylene Glycol Powder [Miralax] 1 each PO QAM #30 Melatonin 10 mg PO BEDTIME Discontinued Alendronate [Fosamax] 70 mg PO MO Allopurinol 300 mg PO QAM - Follow Up or Referral Follow Up: Jadiel Solo Jr., MD [Physician] - 1 Month - Forms/Instructions Additional Discharge Instructions: Appointment in office in 3-4 weeks Exam - Constitutional Vitals: Period Temp Pulse Resp BP Sys/Hall Pulse Ox Last 24 Hr 97.1 F-99.5 F 74-99 16-20 151-187/74-90 92-100 Exam: Examination: GENERAL: NAD. HEENT: PERRLA. EOMI. NECK: Neck is supple. CVS: Regular rate and rhythm. Systolic ejection murmur at left lower sternal RESPIRATORY: Lungs are clear. ABDOMEN: Soft and nontender. Less distended. EXT: No edema. Peripheral pulses are present. 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 Discharge Results Procedures and tests throughout hospitalization: Pending Orders 03/11/17 06:51 Basic Metabolic Panel IN AM Comp Blood Count Auto Diff IN AM Labs on day of discharge: Labs from last 24 hours 03/11/17 06:51 WBC 14.4 H RBC 3.22 L Hgb 9.0 L Hct 27.7 L MCV 86.0 L MCH 28 MCHC 32.5 RDW 18.1 H Plt Count 701 H MPV 10.5 Neut % (Auto) 87.1 H Lymph % (Auto) 3.3 L [place] % (Auto) 6.3 Eos % (Auto) 1.3 Baso % (Auto) 0.8 Neut # (Auto) 12.6 H Lymph # (Auto) 0.5 L [place] # (Auto) 0.9 H Eos # (Auto) 0.2 Baso # (Auto) 0.1 Immature Gran % 1.2 Nucleated RBC % 0.0 Immature Gran # 0.17 Nucleated RBCs # 0.00 DS: Provider Date of admission: 02/25/17 21:40 Primary care physician: . No PCP Attending physician on admission: Jigar Jain MD Consults: 02/25/17 22:49 Consult to Case Mgmt/Social Srvs [CONS] Routine Reason for Case Mgmt/Social Srvs: Discharge Planning Consult to Physician [CONS] Routine Comment: Renal failure Consulting Provider: Karthikeyan Marti Consulting Provider Notified: Yes When should Consulting Provider be notified: In am Person Notified: sree called Date Notified: 02/26/17 Time Notified: 07:43 02/26/17 06:50 Consult to Physician [CONS] Routine Comment: Consulting Provider: Karthikeyan Haro Consulting Provider Notified: Yes When should Consulting Provider be notified: Now Consult to Specialist Group: Oncology Person Notified: colby called Date Notified: 02/26/17 Time Notified: 08:35 02/26/17 06:52 Consult to Physician [CONS] Routine Comment: Consulting Provider: Cardiology - [facility] Consulting Provider Notified: Yes When should Consulting Provider be notified: Now Consult to Specialist Group: Cardiology Person Notified: nimisha called Date Notified: 02/26/17 Time Notified: 08:08 02/26/17 13:14 Consult to Physician [CONS] Routine Comment: abd pain, seen last by you Consulting Provider: Dillon Fleming Consulting Provider Notified: Yes When should Consulting Provider be notified: Now Consult to Specialist Group: Gastroenterology When should Consulting Provider be notified: Now Person Notified: eusebia called Date Notified: 02/26/17 Time Notified: 14:00 03/03/17 08:11 Consult to Physical Therapy [CONS] Routine Reason for Physical Therapy: Weakness 03/03/17 08:54 Consult to Physician [CONS] Routine Comment: Renal cancer Consulting Provider: [place] Chaudhary Consulting Provider Notified: Yes When should Consulting Provider be notified: Now Person Notified: vanessa called Date Notified: 03/03/17 Time Notified: 11:22 03/04/17 12:27 Consult to Case Mgmt/Social Srvs [CONS] Routine Reason for Case Mgmt/Social Srvs: Hospice Referral Consult Comment: CONSULT HOSPICE 03/09/17 16:28 Consult to Physical Therapy [CONS] Routine Reason for Physical Therapy: Other Start Therapy: Tomorrow Consult Comment: Apply moist heat right breast twice daily 03/10/17 08:46 Consult to Dietitian [CONS] Routine Reason for Dietitian: Diet Instruction Consult Comment: educate regarding potassium in her diet, needs low K diet Discharging clinician: Jigar Jain MD
[2017-03-11 08:08] LABS: Calcium 8.7 MG/DL (8.5-10.1); Elliptocytes Few; Giant Platelets Few; Hypochromasia 1+; Lymphocytes 4 % (20-55); Platelet Estimate Increased; Potassium 5.8 MMOL/L (3.5-5.1); Segmented Neutrophils 88 % (50-85); Total Cells Counted 100
[2017-03-11 08:09] LABS: Microcytosis Slight
[2017-03-11] MEDS: ASPIRIN EC 325 MG TABLET PO SCH (08:35)
[2017-03-11] MEDS: ALLOPURINOL 300 MG TABLET PO SCH (08:35)
[2017-03-11] MEDS: SODIUM BICARBONATE 650 MG TABLET PO SCH (08:35)
[2017-03-11] MEDS: ATORVASTATIN 10 MG TABLET PO SCH (08:35)
[2017-03-11] MEDS: PANTOPRAZOLE 40 MG TABLET PO SCH (08:35)
[2017-03-11] MEDS: DOCUSATE SODIUM 100 MG CAPSULE PO SCH (08:35)
[2017-03-11] MEDS: FUROSEMIDE 40 MG TABLET PO SCH (08:35)
[2017-03-11] MEDS: LEVOTHYROXINE 75 MCG TABLET PO SCH (08:35)
[2017-03-11] MEDS: hydrALAZINE 25 MG TABLET PO SCH (08:35)
[2017-03-11] MEDS: amLODIPine 5 MG TABLET PO SCH (08:35)
[2017-03-11] MEDS: POLYETHYLENE GLYCOL POWDER 17 GM PACK PO SCH (08:36)
[2017-03-11] MEDS ORDERED: LEVOFLOXACIN INJ 250 MG in PREMIX 1 EACH IV SCH (16:30)
== END 2017-03-11 11:26 | disposition hospice, home (50) | DRG 389 ==
LOC: N.ED 18:33 → N.3E 21:40
PROVIDERS: ADMIT Internal Medicine; ATTEND Internal Medicine

== ENCOUNTER 2017-05-09 12:52 | Inpatient (IN) ==
[2017-05-09 13:32] LABS: Basophils # 0.1 10*3/uL (0.0-0.2); Basophils % 0.6 % (0.0-0.8); Eosinophils % 0.2 % (0.00-10.9); Hematocrit 26.9 VOL% (35.7-47.0); Hemoglobin 8.9 GM/DL (12.0-16.0); Immature Granulocytes % 0.6 %; Immature Granulocytes Absolute 0.09 #; Lymphocytes # 0.7 10*3/uL (1.4-4.0); Lymphocytes % 4.7 % (21.3-54.2); Mean Corpuscular HGB Conc 33.1 GM/DL (32-36); Mean Corpuscular Hemoglobin 27 PG (27-34); Mean Platelet Volume 10.4 FL (9.6-12.0); Monocytes # 1.1 10*3/uL (0.11-0.8); Monocytes % 7.7 % (1.7-12.7); Neutrophils # 12.1 10*3/uL (1.4-7.4); Neutrophils % 86.2 % (38.7-73.9); Platelet Count 592 T/CUMM (130-400); Red Blood Count 3.28 MC/CUMM (3.8-5.5); Red Cell Distribution Width 17.2 % (9.3-17.3); White Blood Count 14.1 T/CUMM (4-12)
--- NOTE | 2017-05-09 13:33 | XRay Report ---
XR chest 1V portable Indication: Abdominal pain Comparison: 10 March 2017 Findings: The heart and mediastinum are stable in size and configuration. Pacemaker device is unchanged in position. The pulmonary vascularity is normal in caliber. No lung infiltrates, effusions, pneumothorax or other abnormality is demonstrated. Impression: No acute cardiopulmonary findings. PROCEDURE INTERPRETED AT [facility] DEPARTMENT OF RADIOLOGY Final Report Signed by: Dr. Yusef Aguirre
[2017-05-09 13:52] LABS: Albumin 3.2 G/DL (3.4-5.0); Bilirubin,Total 0.5 MG/DL (0.2-1.0); Calcium 8.9 MG/DL (8.5-10.1); Osmolality,Calculated 291.1 MOS/KG (273-304); Potassium 4.7 MMOL/L (3.5-5.1)
--- NOTE | 2017-05-09 14:02 | CT Report ---
Exam: CT abdomen and pelvis without intravenous contrast Exam date: 05/09/2017 1:18 PM Clinical History: 86 years,Female, abdominal pain with nausea abdominal pain, generalized Technique: Axial computed tomography images of the abdomen and pelvis without intravenous contrast. All CT scans at this facility use one or more dose reduction techniques. Automated exposure control, MA/KV adjustment per patient size (including targeted exam Square dose is matched to indication) or iterative reconstruction technique Comparison: February 25, 2017 Findings: Lower thorax: Small right Bochdalek hernia. Bronchial and interstitial thickening with groundglass opacities left lung base. Four-chamber cardiomegaly with defibrillator leads in expected atrial and ventricular position. Abdomen: Liver: Normal in size and not enlarged. Few scattered hypodensities throughout the parenchyma, too small to characterize Gallbladder and bile ducts: Unremarkable. No calcified stones. No ductal dilatation. Pancreas: Pancreas is normal. Spleen: Spleen is normal. Adrenals: No adrenal mass. Kidneys and ureters: There is again prominent cystic changes resulting in lobular contours about the right kidney, some of which demonstrate punctate wall calcifications. There is again marked irregularity, heterogeneity and morphology of the left kidney with again suggestion of mass lesion involving the mid to lower pole left kidney, unchanged in appearance measuring approximately 9.1 x 7.3 cm in cross-section. Prominent left perirenal and peripelvic stranding. Stomach and bowel: Extensive colonic diverticula. Appendix: Normal in size and caliber with note made of small appendicolith proximally Pelvis: Bladder: Unremarkable Reproductive: Small amount of air within the uterine fundus. Abdomen and pelvis: Intraperitoneal space: No pneumoperitoneum. No free intraperitoneal fluid Bones/joints: No acute osseous abnormality. Soft tissues: No mass Vasculature: No aortic aneurysm. Atheromatous calcifications noted along the aorta and branch vessels. Lymph nodes: No adenopathy Impression: 1. There is again marked irregularity involving the left kidney suggesting cortical mass lesion. Correlate with postcontrast CT and or dedicated ultrasound. Primary differential considerations again include hemorrhagic cyst, neoplasm versus abscess 2. Diverticulosis coli with note made of air within the uterine fundus, correlate clinically for possibility of entero-uterine fistula 3. Parenchymal and groundglass densities within the left lung base, unchanged since interval study likely representing chronic inflammatory or infectious process. Correlate clinically for occult aspiration PROCEDURE INTERPRETED AT [facility] DEPARTMENT OF RADIOLOGY Final Report Signed by: Channing Fitzgerald
[2017-05-09 14:37] LABS: Apearance,Urine Slightly Hazy (Clear); Bacteria,Urine Many /HPF (Few); Bilirubin,Urine Negative (Negative); Blood, Urine Small mg/dL (Negative); Glucose,Urine (UA) Negative (Negative); Hyaline Casts,Urine 1 /LPF (0-3); Ketones,Urine Negative (Negative); Mucus,Urine Occasional /LPF (Occasional); Nitrite,Urine Negative (Negative); Protein,Urine 100 MG/DL; RBC,Urine 10 /HPF (0-4); Squamous Epithelial Cell,Urine Occasional /HPF (0-10); Urine Color Yellow (Yellow); Urine Specific Gravity 1.008 (1.001-1.035); Urine Urobilinogen < 2.0 EU/DL (0.2-1.0); WBC,Urine 31 /HPF (0-6)
--- NOTE | 2017-05-09 14:37 | Emergency Department Note ---
Georges Rodriguez Brittany, am scribing for, and in the presence of, Crow Greer MD 13:25. Zoey Rodriguez Phillip K, MD, personally performed the services described in this documentation, ascribed by Padma Su in my presence, and it is both accurate and complete 437 . Arrival - Arrival Chief Complaint: Abdominal / Flank Pain Stated Complaint: abd pain/can't eat or have bm ED Nursing Triage Note: right sided abd pain onset x 2 days - pt denies nausea or vomiting - pt states that she has been feeling like that she was constipated but states that her last BM was this am - decreased PO intake Mode of Arrival: Wheelchair Limitations: No Limitations Source: Patient Time Seen by Provider: 05/09/17 13:09 - History of Present Illness HPI Narrative: This is an 86 y/o black female,who presents to the ED with c/o abdominal pain which started 2 days ago. She localizes the abdominal pain to the entire abdominal. She denies any vomiting but notes nausea. She denies hematochezia. Her family states her last BM was earlier today and was "watery". Pt has no other complaints/pain in the ED at this time. Pt has a PMhx of seizures, pacemaker, PVD, HTN, TIA, thyroid disorder, cardiac dysrhythmia, GERD, diverticulitis, bladder problems, recurring UTIs, renal problems, ileus, and anemia. Pt has had a cardiac surgery with stents, thyroid surgery, colonoscopy, and EGD. Pt has a family medical Hx of cancer and HTN. Pt denies a social Hx. Onset (ago): day(s) (Started 2 days ago) Consistency: constant Severity: moderate Date of Last Menstrual Period: wilmer Allergies/Adverse Reactions: Allergies Allergy/AdvReac Type Severity Reaction Status Date / Time Penicillins Allergy Unknown/Unable Verified 12/12/16 17:51 to obtain Home Medications: Home Medications Medication Instructions Recorded Confirmed Type Atorvastatin [Lipitor] 5 mg PO QAM 12/12/16 05/09/17 History Furosemide 40 mg PO QAM 12/12/16 05/09/17 History Pantoprazole Sodium 40 mg PO QAM 12/12/16 05/09/17 History Aspirin EC Tab 325 mg PO DAILY #30 tablet 12/20/16 05/09/17 Rx Levothyroxine Sodium 75 mcg PO QAM 02/25/17 05/09/17 History amLODIPine [Norvasc] 5 mg PO DAILY 02/25/17 05/09/17 History hydrALAZINE TAB [Apresoline Tab] 25 mg PO TID 02/25/17 05/09/17 History Allopurinol 100 mg PO DAILY #30 tablet 03/11/17 05/09/17 Rx Docusate Sodium Cap [Colace Cap] 100 mg PO BID capsule 03/11/17 05/09/17 Rx Polyethylene Glycol Powder 1 each PO QAM #30 03/11/17 05/09/17 Rx [Miralax] Review of System - Review of System 12 point system: reviewed and no additional remarkable complaints except as stated - Review of System Constitutional: Absent: fever Gastrointestinal: Present: abdominal pain, nausea, diarrhea. Absent: vomiting Medical,Surgical,& Family Hx - Medical History Cardio: History of: Cardiac Dysrhythmia, Hypertension, Pacemaker, PVD No history of: Cerebrovascular Disease, CAD Psychological: No history of: Anxiety Disorders, Depression Neurology: History of: Seizures, TIA No history of: Dementia HEENT: History of: Eye Problem (cataracts) Endocrine: History of: Thyroid Disorder No history of: Diabetes Mellitus (IDDM), Diabetes Mellitus (NIDDM) Respiratory: No history of: COPD, Obstructive Sleep Apnea Renal: History of: Renal Problems (renal mass bilaterally) Genitourinary: History of: Bladder Problem, Recurring Urinary Tract Infections Gastrointestinal: History of: Diverticulitis/ Diverticulosis, GERD, Hematochezia , GI Problems (ileus) Hematology: History of: Anemia Other: No history of: Cancer - Surgical History Cardiac Surgeries: Sugical HX of: Cardiac Surgery (stents placed bilateral lower extremities) HEENT Surgeries: Surgical HX of: Thyroid Surgery (radioactive iodine therapy) Abdominal Surgeries: Surgical HX of: Colonoscopy, EGD Patient denies: Abdominal Surgery, Appendectomy, Cholecystectomy Reproductive Surgeries: Patient denies;: Hysterectomy - Family History Family History: Reports;: Family Cancer, Family Hypertension - Social History Smoking Status: Never smoker Frequency of Alcohol Use: None Type of Drug Use: None Exam Vital Signs: Vital Signs Temperature 98.5 F 05/09/17 17:08 Pulse Rate 62 05/09/17 17:08 Respiratory Rate 05/09/17 17:08 Blood Pressure 151/64 05/09/17 17:08 O2 Sat by Pulse Oximetry 98 05/09/17 17:08 - General General appearance: alert, in no apparent distress - Head Head exam: Present: atraumatic, normocephalic, normal inspection - Eye Eye exam: Present: normal appearance, PERRL, EOMI. Absent: nystagmus - Neck Neck exam: Present: normal inspection, full ROM, trachea midline - Cardiovascular Cardiovascular exam: Present: regular rate, irregular rhythm, murmur (3/6 sys injection murmur). Absent: normal heart sounds - Abdominal Exam Abdominal exam: Present: tenderness (Diffuse tenderness), hyperactive bowel sounds - Rectal Exam Rectal exam: Present: heme (-) stool - Extremities Exam Extremities exam: Present: pedal edema (2+2 pitting edema bilaterally ) - Back Exam Back exam: Present: normal inspection, full ROM. Absent: tenderness, muscle spasm - Neurological Exam Neurological exam: Present: alert, oriented X3, CN II-XII intact. Absent: motor sensory deficit - Psychiatric Psychiatric exam: Present: normal affect, normal mood. Absent: depressed, agitated, anxious, flat affect - Skin Skin exam: Present: warm, dry, intact, normal color. Absent: rash, cyanosis, diaphoresis, erythema, pallor, mottled Course Course Narrative: Patient discussed with Dr. Flores who is on for Dr. Jain. Results - Labs CBC & BMP: 05/09/17 13:20 05/09/17 13:20 Lab Results: I have reviewed the patients labs Labs: Laboratory Tests 05/09/17 05/09/17 05/09/17 13:20 13:20 13:29 WBC 14.1 H RBC 3.28 L Hgb 8.9 L Hct 26.9 L MCV 82.0 L MCH 27 MCHC 33.1 RDW 17.2 Plt Count 592 H MPV 10.4 Neut % (Auto) 86.2 H Lymph % (Auto) 4.7 L [place] % (Auto) 7.7 Eos % (Auto) 0.2 Baso % (Auto) 0.6 Neut # (Auto) 12.1 H Lymph # (Auto) 0.7 L [place] # (Auto) 1.1 H Eos # (Auto) 0.0 Baso # (Auto) 0.1 Immature Gran % 0.6 Nucleated RBC % 0.0 Immature Gran # 0.09 Nucleated RBCs # 0.00 Immature Plt Fraction 0.0 Sodium 135 L Potassium 4.7 Chloride 104 Carbon Dioxide 22 Anion Gap 13.7 BUN 72 H Creatinine 5.30 H POC Creatinine 5.30 H GFR Calculation 7 POC Estimated GFR (eGFR) 10 BUN/Creatinine Ratio 13.00 Glucose 109 H Calculated Osmolality 291.1 Calcium 8.9 Magnesium 3.0 H Total Bilirubin 0.50 AST 48 H ALT 11 L Alkaline Phosphatase 118 H Total Protein 7.0 Albumin 3.2 L Globulin 3.8 H Albumin/Globulin Ratio 0.8 L Lipase 186.0 Laboratory Tests 05/09/17 13:33 Urine Color Yellow Urine Appearance Slightly hazy Urine pH 5.0 Ur Specific [place] 1.008 Urine Protein 100 Urine Glucose (UA) Negative Urine Ketones Negative Urine Blood Small Urine Nitrate Negative Urine Bilirubin Negative Urine Urobilinogen < 2.0 H Urine Leukocytes Small H Urine RBC 10 Urine WBC 31 Urine WBC Clumps Few Ur Squamous Epith Cells Occasional Urine Bacteria Many Hyaline Casts 1 Urine Mucus Occasional - Diagnostic Findings Procedure: Chest x-ray: report reviewed by me (No acute cardiopulmonary findings.), CT Abdomen and Pelvis: report reviewed by me (There is again marked irregularity involoving the left kideny suggesting cortical mass lesion. Correlate with postcontrast CT and or dedicated ultrasound. Primary differential considerations again include hemorrhagic cyst, neoplasm versus abscess. 2. Diverticulosis coli with note made of air within the uternie fundus , correlate clinically for possibility of entero-uterine fistula. 3. Parenchymal and groundglass densities within the left lung base, unchanged since interval study likely representing chronic inflammatory or infectious process. Correlate clinically for occult aspiration. ) Disposition Clinical Impression: Abdominal pain, Renal mass, Urinary tract infection Case discussed with: patient, patient's family Disposition: Still a Patient Condition: Guarded
[2017-05-09] MEDS ORDERED: ACETAMINOPHEN 325 MG TABLET PO PRN (14:52)
[2017-05-09] MEDS ORDERED: ONDANSETRON 4 MG/2 ML VIAL IV PRN (14:52)
--- NOTE | 2017-05-09 15:36 | Ultrasound Report ---
US abdomen Indication: Abdominal pain. ULTRASOUND ABDOMEN, COMPLETE Comparison: CT KUB obtained earlier today at 1335 hours, ultrasound abdomen 12/15/2016 Findings: Liver: Unremarkable Gallbladder: Unremarkable Common bile duct: 3.6 mm Aorta: Normal-sized IVC: Nonocclusive thrombus in the visualized IVC just below the hepatic veins. Spleen: Normal size Pancreas: Obscured by bowel gas Right kidney: 10.0 cm length. Multiple right renal cysts are present, the largest appears septated measuring over 90 mm diameter off of the upper pole. Left kidney: No normal left renal tissue identified. Left kidney appears to be replaced with tumor which is markedly heterogeneous. Overall size of the involved left kidney 12.9 x 7.0 x 8.3 cm. Color flow to the renal mass noted. 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 PROCEDURE INTERPRETED AT [facility] DEPARTMENT OF RADIOLOGY Final Report Signed by: Karthikeyan Rao M.D.
[2017-05-09] MEDS ORDERED: LEVOFLOXACIN INJ 500 MG in PREMIX 1 EACH IV SCH (16:00)
[2017-05-09] MEDS ORDERED: LEVOFLOXACIN INJ 100 ML IV ONE (16:03)
[2017-05-09] MEDS: SODIUM CHLORIDE 0.9% 1,000 ML IV SCH (18:22)
[2017-05-09 18:23] LABS: Acanthocytes 1+; Band Neutrophils 1 % (0-10); Elliptocytes 1+; Lymphocytes 3 % (20-55); Platelet Estimate Increased; Poikilocytosis 2+; Segmented Neutrophils 91 % (50-85); Total Cells Counted 100
[2017-05-09] MEDS ORDERED: LACTULOSE 20 GM/30 ML UDCUP PO ONE (19:42)
--- NOTE | 2017-05-09 19:54 | Family Practice History&Phys ---
Assessment and Plan (1) Abdominal pain Status: Acute Assessment and plan: 05/09/2017: Admit and give medication or not. If necessary no improvement will be GI involvement Current Visit: Yes (2) Renal mass Status: Acute Assessment and plan: 915 7: Patient is on hospice this is being treated with palliative measures. There will be no aggressive chemo or radiation therapy Current Visit: Yes (3) Urinary tract infection Status: Acute Assessment and plan: 05/09/2017: He is on antibiotic will going get pharmacy to adjust dosages Current Visit: Yes (4) Abdominal pain Status: Acute Assessment and plan: 05/09/2017: Please see notes above Current Visit: No (5) Chronic kidney disease Status: Acute Assessment and plan: 05/09/2017: We will have to manage medications closely. If creatinine goes further we will get renal involvement. Current Visit: No History of Present Illness Chief complaint: Abdominal pain, leukocytosis, ileus, abdominal distention, History of present illness: Ms. Landeros is a 86 year old female A patient of Dr. Jain not came in with her children. She has had some recent abdominal pain which was said to be worse in the right upper quadrant however on palpation is normal is very diffuse. Apparently this is been going on for 1- 1/2 weeks but gotten worse today. She does have a history of ileus as mentioned. They had given her magnesium citrate, milk of magnesia without any success. does have some mild distention but daughter states that she did have at least a very small stool this morning. Has a history of severe renal insufficiency with a creatinine of 5 at this time. History of a large renal mass which has been evaluated by oncology, no aggressive therapy towards this. Has a urinary tract infection noted as well. Has never had any abdominal surgeries per daughter. I did check for impaction in the rectal vault which was negative and she was stool heme negative as well. I discussed with the granddaughter, Nusrat Tran who is the power of erisa attorney. She said patient is not to be intubated (DNI). My goal at this time is to get urinary tract infection under control and try to stimulate her abdomen for what appears to be an ileus. We will give her antibiotics to cover for colitis tonight, and be very aggressive with bowel stimulation.. Hopefully she will turn around soon. She is a hospice patient. If her creatinine goes higher I will get renal involved but must went over the records to see what her baseline is. I do not believe she is a candidate for dialysis at her age Home Medications Medication Instructions Recorded Confirmed Type Atorvastatin [Lipitor] 5 mg PO QAM 12/12/16 05/09/17 History Furosemide 40 mg PO QAM 12/12/16 05/09/17 History Pantoprazole Sodium 40 mg PO QAM 12/12/16 05/09/17 History Aspirin EC Tab 325 mg PO DAILY #30 tablet 12/20/16 05/09/17 Rx Levothyroxine Sodium 75 mcg PO QAM 02/25/17 05/09/17 History amLODIPine [Norvasc] 5 mg PO DAILY 02/25/17 05/09/17 History hydrALAZINE TAB [Apresoline Tab] 25 mg PO TID 02/25/17 05/09/17 History Allopurinol 100 mg PO DAILY #30 tablet 03/11/17 05/09/17 Rx Docusate Sodium Cap [Colace Cap] 100 mg PO BID capsule 03/11/17 05/09/17 Rx Polyethylene Glycol Powder 1 each PO QAM #30 03/11/17 05/09/17 Rx [Miralax] Allergies Allergy/AdvReac Type Severity Reaction Status Date / Time Penicillins Allergy Unknown/Unable Verified 12/12/16 17:51 to obtain 12 point system: reviewed and no additional remarkable complaints except as stated (Negative except for those mentioned above.) - Constitutional Constitutional: Present: lethargy, malaise - EENT Ears: Absent: ear pain Nose, mouth and throat: Absent: dysphagia, neck mass - Respiratory Respiratory: Present: as per HPI - Gastrointestinal Gastrointestinal: Present: as per HPI - Musculoskeletal Musculoskeletal: Present: arthralgias - Neurological Neurological: Present: other (Unable to fully assess) Medical,Surgical,& Family Hx - Medical History Cardio: History of: Cardiac Dysrhythmia, Hypertension, Pacemaker, PVD No history of: Cerebrovascular Disease, CAD Psychological: No history of: Anxiety Disorders, Depression Neurology: History of: Seizures, TIA No history of: Dementia HEENT: History of: Eye Problem (cataracts) Endocrine: History of: Thyroid Disorder No history of: Diabetes Mellitus (IDDM), Diabetes Mellitus (NIDDM) Respiratory: No history of: COPD, Obstructive Sleep Apnea Renal: History of: Renal (Kidney) Cancer, Renal Problems (renal mass bilaterally ) Genitourinary: History of: Bladder Problem, Recurring Urinary Tract Infections Gastrointestinal: History of: Diverticulitis/ Diverticulosis, GERD, Hematochezia , GI Problems (ileus) Hematology: History of: Anemia Other: No history of: Cancer - Surgical History Cardiac Surgeries: Sugical HX of: Cardiac Surgery (stents placed bilateral lower extremities) Thoracic Surgeries: Patient denies;: Lobectomy Neurologic Surgeries: Patient denies: Neurologic Surgery HEENT Surgeries: Surgical HX of: Thyroid Surgery (radioactive iodine therapy) Patient denies: Eye Surgery, Tonsilectomy & Adenoidectomy Abdominal Surgeries: Surgical HX of: Colonoscopy, EGD Patient denies: Abdominal Surgery, Appendectomy, Cholecystectomy Reproductive Surgeries: Patient denies;: Genitourinary Surgery, Hysterectomy - Family History Family History: Reports;: Family Cancer, Family Diabetes, Family Hypertension - Social History Smoking Status: Never smoker Frequency of Alcohol Use: None Type of Drug Use: None Exam - Constitutional Vitals: Period Temp Pulse Resp BP Sys/Hall Pulse Ox Last 24 Hr 98.1 F-98.5 F 59-72 16-20 139-171/62-81 95-100 Exam: Debilitated female. She is able to answer some questions but generally weak. Is able to follow some commands however. HEENT neck is supple trachea midline Cardiovascular rate is regular there is a 2 out of 6 systolic ejection murmur. No gallop. Lungs a few basilar rales clear otherwise Abdomen is somewhat distended has hyperactive bowel sounds. Please see CT report. Extremities no clubbing cyanosis or edema Neurologically not fully assessable but she is able to move all of her extremities on command Results - Labs CBC & BMP: 05/09/17 13:20 05/09/17 13:20
[2017-05-09] MEDS: hydrALAZINE 25 MG TABLET PO SCH (20:12)
[2017-05-09] MEDS: DOCUSATE SODIUM 100 MG CAPSULE PO SCH (20:12)
[2017-05-10 06:34] LABS: Basophils # 0.1 10*3/uL (0.0-0.2); Basophils % 0.7 % (0.0-0.8); Eosinophils % 0.4 % (0.00-10.9); Hematocrit 23.5 VOL% (35.7-47.0); Hemoglobin 7.7 GM/DL (12.0-16.0); Immature Granulocytes % 0.4 %; Immature Granulocytes Absolute 0.04 #; Lymphocytes # 0.4 10*3/uL (1.4-4.0); Mean Corpuscular HGB Conc 32.8 GM/DL (32-36); Mean Corpuscular Hemoglobin 27 PG (27-34); Mean Corpuscular Volume 82.2 FL (87-102); Mean Platelet Volume 10.9 FL (9.6-12.0); Monocytes # 0.8 10*3/uL (0.11-0.8); Monocytes % 8.1 % (1.7-12.7); Neutrophils # 8.4 10*3/uL (1.4-7.4); Neutrophils % 86.4 % (38.7-73.9); Platelet Count 503 T/CUMM (130-400); Red Blood Count 2.86 MC/CUMM (3.8-5.5); Red Cell Distribution Width 17.2 % (9.3-17.3); White Blood Count 9.7 T/CUMM (4-12)
[2017-05-10 06:58] LABS: Calcium 8.4 MG/DL (8.5-10.1); Magnesium 2.8 MG/DL (1.8-2.4); Osmolality,Calculated 292.7 MOS/KG (273-304); Potassium 4.8 MMOL/L (3.5-5.1)
[2017-05-10 07:59] LABS: Burr Cells 1+; Elliptocytes 1+; Hypochromasia 1+; Target Cells Slight
[2017-05-10 08:01] LABS: Macrocytosis 1+
--- NOTE | 2017-05-10 08:38 | Family Practice Progress Note ---
Family Practice - PN: Subj Interval history: Patient seen. She arouses easily and is coherent for her age. Her daughter was in the room and discussed with her the situation. It is noted that her H&H is down to 7.7 and 23.5 going to transfuse her 2 units of blood with some Lasix in between. (Daughter states that she has gotten blood in the past and it is helped her a lot) her remaining lab including chemistry was grossly normal except for creatinine is still high at 5.1. I did look back in her history and the highest of seen is 2.5. I am going to go ahead and get renal involvement on this little lady, especially due to the fact she has got a renal mass. It should be noted she is heme-negative stool Exam (Progress Note) - Constitutional Vitals: Period Temp Pulse Resp BP Sys/Hall Pulse Ox Last 24 Hr 98.1 F-99.2 F 59-72 16-20 129-171/62-81 95-100 Exam: Very pleasant but generally weak. Is able to follow some commands however. HEENT neck is supple trachea midline Cardiovascular rate is regular there is a 2 out of 6 systolic ejection murmur. No gallop. Lungs a few basilar rales clear otherwise Abdomen is somewhat distended has hyperactive bowel sounds. Please see CT report. Extremities no clubbing cyanosis or edema Neurologically not fully assessable but she is able to move all of her extremities on command Results - Labs CBC & BMP: 05/10/17 05:23 05/10/17 05:23 Assessment and Plan (1) Abdominal pain Status: Acute Assessment and plan: 05/09/2017: Admit and give medication or not. If necessary no improvement will be GI involvement Current Visit: Yes (2) Renal mass Status: Acute Assessment and plan: 915 7: Patient is on hospice this is being treated with palliative measures. There will be no aggressive chemo or radiation therapy Current Visit: Yes (3) Urinary tract infection Status: Acute Assessment and plan: 05/09/2017: He is on antibiotic will going get pharmacy to adjust dosages Current Visit: Yes (4) Abdominal pain Status: Acute Assessment and plan: 05/09/2017: Please see notes above Current Visit: No (5) Chronic kidney disease Status: Acute Assessment and plan: 05/09/2017: We will have to manage medications closely. If creatinine goes further we will get renal involvement. Current Visit: No (6) Anemia, chronic disease Status: Chronic Assessment and plan: We will go ahead and transfuse her 2 units of PRBCs. Current Visit: No
[2017-05-10] MEDS ORDERED: SODIUM CHLORIDE 0.9% 250 ML IV PRN (09:08)
[2017-05-10] MEDS ORDERED: FUROSEMIDE 20 MG/2 ML VIAL IV ONE (09:11)
[2017-05-10] MEDS: LINACLOTIDE 145 MCG CAPSULE PO SCH (09:56)
[2017-05-10] MEDS: DOCUSATE SODIUM 100 MG CAPSULE PO SCH ×2 (09:57→20:37)
[2017-05-10] MEDS: ATORVASTATIN 10 MG TABLET PO SCH (09:57)
[2017-05-10] MEDS: LEVOTHYROXINE 75 MCG TABLET PO SCH (09:57)
[2017-05-10] MEDS: FUROSEMIDE 40 MG TABLET PO SCH (09:57)
[2017-05-10] MEDS: PANTOPRAZOLE 40 MG TABLET PO SCH (09:58)
[2017-05-10] MEDS: ASPIRIN EC 325 MG TABLET PO SCH (09:58)
[2017-05-10] MEDS: hydrALAZINE 25 MG TABLET PO SCH ×3 (09:58→20:37)
[2017-05-10] MEDS: amLODIPine 5 MG TABLET PO SCH (09:58)
[2017-05-10] MEDS: ALLOPURINOL 100 MG TABLET PO SCH (09:58)
--- NOTE | 2017-05-10 13:13 | Nephrology Consult Note ---
History of Present Illness Chief complaint: ckd History of present illness: Ms. Landeros is a 86 year old female with a known renal mass probably renal cell carcinoma and known chronic renal failure with creatinines of 4-1/2-5 2 months ago. She is admitted with increasing abdominal discomfort and poor appetite. She is alert and conversant. She is able to get up out of bed and moved to the bathroom etc. but has principally been very sedentary of late. She is managed at home with hospice care. On exam she is in no distress and is pleasant. She is currently being transfused and is not short of breath or chest is clear her heart without rub or gallop she does have abdominal distention but is not tender extremities without edema. Chest x-ray demonstrates no volume overload but an enlarged cardiac silhouette x -rays including CTs and ultrasounds are demonstrated a significant renal mass with virtual replacement of one kidney by the mass. Mass also has caused tumor thrombus in the renal vein. Impression chronic renal impairment #2 anemia #3 renal mass most likely renal cell carcinoma Suggestion I continue to manage symptomatically as you are doing. She is not a candidate for dialysis if her renal function worsens. Agree with emphasizing comfort [facility]iary Medications Medication Instructions Recorded Confirmed Type Atorvastatin [Lipitor] 5 mg PO QAM 12/12/16 05/09/17 History Furosemide 40 mg PO QAM 12/12/16 05/09/17 History Pantoprazole Sodium 40 mg PO QAM 12/12/16 05/09/17 History Aspirin EC Tab 325 mg PO DAILY #30 tablet 12/20/16 05/09/17 Rx Levothyroxine Sodium 75 mcg PO QAM 02/25/17 05/09/17 History amLODIPine [Norvasc] 5 mg PO DAILY 02/25/17 05/09/17 History hydrALAZINE TAB [Apresoline Tab] 25 mg PO TID 02/25/17 05/09/17 History Allopurinol 100 mg PO DAILY #30 tablet 03/11/17 05/09/17 Rx Docusate Sodium Cap [Colace Cap] 100 mg PO BID capsule 03/11/17 05/09/17 Rx Polyethylene Glycol Powder 1 each PO QAM #30 03/11/17 05/09/17 Rx [Miralax] Allergies Allergy/AdvReac Type Severity Reaction Status Date / Time Penicillins Allergy Unknown/Unable Verified 12/12/16 17:51 to obtain Medical,Surgical,& Family Hx - Medical History Cardio: History of: Cardiac Dysrhythmia, Hypertension, Pacemaker, PVD No history of: Cerebrovascular Disease, CAD Psychological: No history of: Anxiety Disorders, Depression Neurology: History of: Seizures, TIA No history of: Dementia HEENT: History of: Eye Problem (cataracts) Endocrine: History of: Thyroid Disorder No history of: Diabetes Mellitus (IDDM), Diabetes Mellitus (NIDDM) Respiratory: No history of: COPD, Obstructive Sleep Apnea Renal: History of: Renal (Kidney) Cancer, Renal Problems (renal mass bilaterally ) Genitourinary: History of: Bladder Problem, Recurring Urinary Tract Infections Gastrointestinal: History of: Diverticulitis/ Diverticulosis, GERD, Hematochezia , GI Problems (ileus) Hematology: History of: Anemia Other: No history of: Cancer - Surgical History Cardiac Surgeries: Sugical HX of: Cardiac Surgery (stents placed bilateral lower extremities) Thoracic Surgeries: Patient denies;: Lobectomy Neurologic Surgeries: Patient denies: Neurologic Surgery HEENT Surgeries: Surgical HX of: Thyroid Surgery (radioactive iodine therapy) Patient denies: Eye Surgery, Tonsilectomy & Adenoidectomy Abdominal Surgeries: Surgical HX of: Colonoscopy, EGD Patient denies: Abdominal Surgery, Appendectomy, Cholecystectomy Reproductive Surgeries: Patient denies;: Genitourinary Surgery, Hysterectomy - Family History Family History: Reports;: Family Cancer, Family Diabetes, Family Hypertension - Social History Smoking Status: Never smoker Frequency of Alcohol Use: None Type of Drug Use: None Exam - Vital Signs Vital signs: Period Temp Pulse Resp BP Sys/Hall Pulse Ox Last 24 Hr 96.6 F-99.2 F 59-72 16-19 129-151/57-81 95-99 Results - Labs CBC & BMP: 05/10/17 05:23 05/10/17 05:23
[2017-05-10] MEDS ORDERED: traMADol 50 MG TABLET PO PRN (14:53)
[2017-05-10 19:33] LABS: Hematocrit 29.5 VOL% (35.7-47.0); Hemoglobin 9.9 GM/DL (12.0-16.0)
[2017-05-10] MEDS: SODIUM CHLORIDE 0.9% 1,000 ML IV SCH ×2 (19:38→21:34)
[2017-05-11] MEDS: SODIUM CHLORIDE 0.9% 1,000 ML IV SCH ×4 (01:16→23:12)
[2017-05-11] MEDS: LINACLOTIDE 145 MCG CAPSULE PO SCH (09:23)
[2017-05-11] MEDS: LEVOTHYROXINE 75 MCG TABLET PO SCH (09:23)
[2017-05-11] MEDS: ATORVASTATIN 10 MG TABLET PO SCH (09:24)
[2017-05-11] MEDS: DOCUSATE SODIUM 100 MG CAPSULE PO SCH ×2 (09:24→20:43)
[2017-05-11] MEDS: ALLOPURINOL 100 MG TABLET PO SCH (09:24)
[2017-05-11] MEDS: amLODIPine 5 MG TABLET PO SCH (09:25)
[2017-05-11] MEDS: PANTOPRAZOLE 40 MG TABLET PO SCH (09:25)
[2017-05-11] MEDS: ASPIRIN EC 325 MG TABLET PO SCH (09:25)
[2017-05-11] MEDS: FUROSEMIDE 40 MG TABLET PO SCH (09:25)
[2017-05-11] MEDS: hydrALAZINE 25 MG TABLET PO SCH ×3 (09:25→20:43)
--- NOTE | 2017-05-11 10:40 | Family Practice Progress Note ---
Family Practice - PN: Subj Interval history: 05/10/2017: Patient seen. She arouses easily and is coherent for her age. Her daughter was in the room and discussed with her the situation. It is noted that her H&H is down to 7.7 and 23.5 going to transfuse her 2 units of blood with some Lasix in between. (Daughter states that she has gotten blood in the past and it is helped her a lot) her remaining lab including chemistry was grossly normal except for creatinine is still high at 5.1. I did look back in her history and the highest of seen is 2.5. I am going to go ahead and get renal involvement on this little lady, especially due to the fact she has got a renal mass. It should be noted she is heme-negative stool 05/11/2017: Patient seen. Consists continuing to have some difficulty was with bowel movements despite giving stimulants. She did have 2 units of blood transfused and tolerated this well and her H&H has come up significantly. Appreciate renal consult on her and will follow recommendations. She does seem to be a little bit more comfortable today as discussed with daughter. Exam (Progress Note) - Constitutional Vitals: Period Temp Pulse Resp BP Sys/Hall Pulse Ox Last 24 Hr 96.6 F-99.9 F 59-72 16-20 126-155/63-84 94-99 Results - Labs CBC & BMP: 05/10/17 19:01 05/10/17 05:23 Assessment and Plan (1) Abdominal pain Status: Acute Assessment and plan: 05/09/2017: Admit and give medication or not. If necessary no improvement will be GI involvement Current Visit: Yes (2) Renal mass Status: Acute Assessment and plan: 915 7: Patient is on hospice this is being treated with palliative measures. There will be no aggressive chemo or radiation therapy Current Visit: Yes (3) Urinary tract infection Status: Acute Assessment and plan: 05/09/2017: He is on antibiotic will going get pharmacy to adjust dosages Current Visit: Yes (4) Abdominal pain Status: Acute Assessment and plan: 05/09/2017: Please see notes above Current Visit: No (5) Chronic kidney disease Status: Acute Assessment and plan: 05/09/2017: We will have to manage medications closely. If creatinine goes further we will get renal involvement. Current Visit: No (6) Anemia, chronic disease Status: Chronic Assessment and plan: We will go ahead and transfuse her 2 units of PRBCs. Current Visit: No
--- NOTE | 2017-05-11 10:54 | Nephrology Progress Note ---
Nephrology - PN: Subj Interval history: Ms. Landeros is feeling better. She is sitting up in her chair with a clear chest. She has no edema. She is receiving IV fluids and did receive packed cells. We will check creatinine tomorrow I do not think there is much else to do with her kidney issues other than to maintain adequate hydration. Again we will draw lab tomorrow and continue to follow thank you Exam (PN)-Nephrology - Vital Signs Vital signs: Period Temp Pulse Resp BP Sys/Hall Pulse Ox Last 24 Hr 96.6 F-99.9 F 59-72 16-20 126-155/63-84 94-99 - Lab 05/10/17 19:01 05/10/17 05:23 Most recent lab results Calcium 8.4 MG/DL (8.5-10.1) L 05/10/17 05:23 Magnesium 2.8 MG/DL (1.8-2.4) H 05/10/17 05:23
[2017-05-11] MEDS ORDERED: LEVOFLOXACIN INJ 250 MG in PREMIX 1 EACH IV SCH (16:00)
[2017-05-12 07:03] LABS: Calcium 8.1 MG/DL (8.5-10.1); Osmolality,Calculated 294.4 MOS/KG (273-304); Potassium 4.5 MMOL/L (3.5-5.1)
[2017-05-12] MEDS ORDERED: LACTULOSE 20 GM/30 ML UDCUP PO PRN (08:32)
--- NOTE | 2017-05-12 09:00 | Internal Med Progress Note ---
Assessment and Plan (1) Abdominal pain Status: Acute Assessment and plan: 86-year-old female admitted to acute care * Abdominal pain. Probably related to constipation. It is better but she still has not had any good bowel movements. Will give her lactulose. 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 No treatment planned * Chronic renal failure. Stable * Patient is DO NOT INTUBATE and is on hospice. * Hopefully home later this afternoon or tomorrow * Discussed with patient and her granddaughter Current Visit: Yes (2) Renal mass Status: Acute Current Visit: Yes (3) Chronic kidney disease Status: Acute Current Visit: No (4) GERD (gastroesophageal reflux disease) Status: Chronic Current Visit: No (5) HTN (hypertension) Status: Chronic Current Visit: No Internal Medicine - PN: Subj Interval history: Patient seen and examined. Chart reviewed. Patient admitted with abdominal pain. Her pain is better but she still has not had any bowel movements. She is not uncomfortable and is passing gas. She denies any chest pain or shortness of breath. Exam (Progress Note) - Constitutional Vitals: Period Temp Pulse Resp BP Sys/Hall Pulse Ox Last 24 Hr 97.7 F-98.6 F 59-83 16-20 142-153/61-78 96-98 Exam: Examination: GENERAL: NAD. HEENT: PERRLA. EOMI. NECK: Neck is supple. CVS: Regular rate and rhythm. S1 and S2 are normal. RESPIRATORY: Lungs are clear. ABDOMEN: Soft but slightly tender. No rebound or rigidity. Bowel sounds are present. No hepatosplenomegaly. EXT: No edema. Peripheral pulses are present. [employer]BER: Patient is awake, alert and oriented to time place and person. Cranial nerves II through XII are grossly intact. Motor strength is 3-4/5 SKIN: Warm and dry. MSK: No obvious deformity. Results - Labs CBC & BMP: 05/10/17 19:01 05/12/17 05:33 Lab Results: I have reviewed the past 24 hour labs
[2017-05-12] MEDS: hydrALAZINE 25 MG TABLET PO SCH ×3 (09:56→21:41)
[2017-05-12] MEDS: DOCUSATE SODIUM 100 MG CAPSULE PO SCH ×2 (09:57→21:41)
[2017-05-12] MEDS: amLODIPine 5 MG TABLET PO SCH (09:58)
[2017-05-12] MEDS: FUROSEMIDE 40 MG TABLET PO SCH (09:58)
[2017-05-12] MEDS: ATORVASTATIN 10 MG TABLET PO SCH (09:58)
[2017-05-12] MEDS: ALLOPURINOL 100 MG TABLET PO SCH (09:59)
[2017-05-12] MEDS: LEVOTHYROXINE 75 MCG TABLET PO SCH (09:59)
[2017-05-12] MEDS: PANTOPRAZOLE 40 MG TABLET PO SCH (09:59)
[2017-05-12] MEDS: ASPIRIN EC 325 MG TABLET PO SCH (10:28)
[2017-05-12] MEDS: LINACLOTIDE 145 MCG CAPSULE PO SCH (10:29)
[2017-05-12] MEDS: SODIUM CHLORIDE 0.9% 1,000 ML IV SCH ×2 (10:35→23:47)
--- NOTE | 2017-05-12 13:49 | Nephrology Progress Note ---
Nephrology - PN: Subj Interval history: Ms. Landeros is seen in follow-up of her chronic renal impairment. Her creatinine today is improved at 4.8. She is lying flat and breathing comfortably and eating. She is visiting with family and seems to be doing fairly well. I agree with the plan to discharge soon with hospice care. Will sign off for now please consult if we can help in the future thank Exam (PN)-Nephrology - Vital Signs Vital signs: Period Temp Pulse Resp BP Sys/Hall Pulse Ox Last 24 Hr 97.7 F-98.6 F 59-83 16-20 139-153/61-75 94-98 - Lab 05/10/17 19:01 05/12/17 05:33 Most recent lab results Calcium 8.1 MG/DL (8.5-10.1) L 05/12/17 05:33 Magnesium 2.8 MG/DL (1.8-2.4) H 05/10/17 05:23
[2017-05-13 07:54] VITALS: BP 148/69
--- NOTE | 2017-05-13 08:12 | Discharge Summary ---
Hospital Course - Hospital Course Hospital Course: 86-year-old female with history of hypothyroidism, hypertension, renal mass which is presumed to be malignant, chronic renal insufficiency who came in with abdominal pain. She was admitted and was found to be dehydrated. She was given IV fluids. She had difficulty with constipation. She had a CT abdomen and pelvis done. Nephrology was consulted to follow the patient. She was started on Linzess and has had good results. She has improved and is ready to be discharged. Will be discharged back to hospice at home. She did grow E. coli in her urine and will be given Bactrim twice daily for 3 days. It was resistant to Levaquin which she was getting in the hospital. Discussed with her granddaughter. Patient is DO NOT INTUBATE. I will see her in the office on next scheduled visit Diagnosis - Discharge Diagnosis (1) Abdominal pain Status: Acute (2) Renal mass Status: Acute (3) Chronic kidney disease Status: Acute (4) GERD (gastroesophageal reflux disease) Status: Chronic (5) HTN (hypertension) Status: Chronic Discharge Plan - Discharge Data Disposition: Hospice - Home Condition at Discharge: Stable Discharge Diet: advance to your usual diet Activity: resume usual activities as tolerated - Discharge Medications New Linaclotide [Linzess] 290 mcg PO AC BREAKFAST #30 capsule Sulfameth/Trimeth 400-80 Tab [Bactrim Tab] 1 tablet PO BID #6 tablet Continue Atorvastatin [Lipitor] 5 mg PO QAM Pantoprazole Sodium 40 mg PO QAM Furosemide 40 mg PO QAM Aspirin EC Tab 325 mg PO DAILY #30 tablet hydrALAZINE TAB [Apresoline Tab] 25 mg PO TID amLODIPine [Norvasc] 5 mg PO DAILY Levothyroxine Sodium 75 mcg PO QAM Docusate Sodium Cap [Colace Cap] 100 mg PO BID capsule Allopurinol 100 mg PO DAILY #30 tablet Discontinued Polyethylene Glycol Powder [Miralax] 1 each PO QAM #30 - Follow Up or Referral - Forms/Instructions Additional Discharge Instructions: Keep the next scheduled appointment. Call in the new medication on discharge Exam - Constitutional Vitals: Period Temp Pulse Resp BP Sys/Hall Pulse Ox Last 24 Hr 97.8 F-99.3 F 60-82 16-20 127-178/69-89 94-99 Exam: Examination: GENERAL: NAD. NECK: Neck is supple. CVS: Regular rate and rhythm. S1 and S2 are normal. RESPIRATORY: Lungs are clear. ABDOMEN: Soft but nontender EXT: No edema. Peripheral pulses are present. 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 SKIN: Warm and dry. MSK: No obvious deformity. DS: Provider Date of admission: 05/10/17 13:07 Primary care physician: . No PCP Attending physician on admission: Jigar Jain MD Consults: 05/09/17 14:53 Consult to Case Mgmt/Social Srvs [CONS] Routine Reason for Case Mgmt/Social Srvs: Discharge Planning 05/09/17 17:33 Consult to Pastoral Services [CONS] Routine Comment: Pastoral Screen: Request Candle Wrapping Machine Operator Visit 05/09/17 19:47 Consult to Pharmacy [CONS] Routine Reason for Pharmacy Consult: Adjust Meds Renal Funct 05/10/17 08:41 Consult to Physician [CONS] Routine Comment: [place] Consulting Provider: Geovany Danielson Date Notified: 05/10/17 Time Notified: 10:26 Consult Notification Comment: [facility] after hours phone - information given about new consult 05/10/17 10:30 Consult to Physician [CONS] Routine Comment: Consulting Provider: Discharging clinician: Jigar Jain MD
[2017-05-13] MEDS: FUROSEMIDE 40 MG TABLET PO SCH (09:16)
[2017-05-13] MEDS: ASPIRIN EC 325 MG TABLET PO SCH (09:16)
[2017-05-13] MEDS: DOCUSATE SODIUM 100 MG CAPSULE PO SCH (09:16)
[2017-05-13] MEDS: LEVOTHYROXINE 75 MCG TABLET PO SCH (09:17)
[2017-05-13] MEDS: amLODIPine 5 MG TABLET PO SCH (09:17)
[2017-05-13] MEDS: ALLOPURINOL 100 MG TABLET PO SCH (09:17)
[2017-05-13] MEDS: PANTOPRAZOLE 40 MG TABLET PO SCH (09:17)
[2017-05-13] MEDS: ATORVASTATIN 10 MG TABLET PO SCH (09:17)
[2017-05-13] MEDS: LINACLOTIDE 145 MCG CAPSULE PO SCH (09:18)
[2017-05-13] MEDS: hydrALAZINE 25 MG TABLET PO SCH (10:12)
--- NOTE | 2017-05-22 14:19 | Physician Query Form ---
CLICK EDIT DOCUMENT TO SELECT QUERY ANSWER --> OK --> SIGN Jane Alvarez RN Clinical [employer] Man W) [phone] (f) [phone] [email or web address] PROVIDERS: Make your selection(s) from the choices in EACH section by typing an "x" and enter comments in the comment section. Please use your independent medical judgment in providing your response. This request does not imply that any particular answer is desired or expected. CLINICAL INDICATORS: (Providers should not edit this section) The below diagnosis was documented in the record, but is not consistently noted in subsequent documentation. Based on documentation of " Chief complaint: Abdominal pain, leukocytosis, ileus , abdominal distention" "My goal at this time is to get urinary tract infection under control and try to stimulate her abdomen for what appears to be an ileus. " Diagnosis: Ileus Please clarify the following: ( x) The above diagnosis was monitored, evaluated, and/or treated and is a confirmed diagnosis ( ) The above diagnosis was ruled out ( ) The above diagnosis is still a likely, suspected, probable diagnosis ( ) Other, please specify: ( ) Clinically unable to determine COMMENTS: PLEASE ALSO DOCUMENT RESPONSE IN PROGRESS NOTES AND/OR DISCHARGE SUMMARY Use of terms such as suspected, likely, or probable (associated with a specific diagnosis that is being evaluated, monitored, or treated as if it exists) are acceptable and can be restated in the discharge summary if not ruled out. MTDD
--- NOTE | 2017-05-22 14:23 | Physician Query Form ---
CLICK EDIT DOCUMENT TO SELECT QUERY ANSWER --> OK --> SIGN Jane Alvarez RN Clinical Lab Engineer W) [phone] (f) [phone] [email or web address] PROVIDERS: Make your selection(s) from the choices in EACH section by typing an "x" and enter comments in the comment section. Please use your independent medical judgment in providing your response. This request does not imply that any particular answer is desired or expected. 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 Mass also has caused tumor thrombus in the renal vein" Based on the above, could you clarify the appropriate diagnosis, if significant , that supports the above abnormalities and additional evaluation, monitoring, and/or treatment rendered: ( ) Thrombus in Hepatic veins ( ) Thrombus to the IVC ( ) Other, please specify: ( x) Clinically unable to determine COMMENTS: PLEASE ALSO DOCUMENT RESPONSE IN PROGRESS NOTES AND/OR DISCHARGE SUMMARY Use of terms such as suspected, likely, or probable (associated with a specific diagnosis that is being evaluated, monitored, or treated as if it exists) are acceptable and can be restated in the discharge summary if not ruled out. MTDD
== END 2017-05-13 11:40 | disposition hospice, home (50) | DRG 389 ==
LOC: N.ED 12:52 → N.EDINP 12:52 → N.3E 16:20
PROVIDERS: ADMIT Internal Medicine; ATTEND Internal Medicine